=== PATIENT | female | born 1930 | race Caucasian/White ===

== ENCOUNTER 2016-11-11 14:18 | Inpatient (IN) | payer BC, OTHER ==
[2016-11-11] MEDS ORDERED: ONDANSETRON 4 MG/2 ML VIAL ONE ×2 (14:35→15:45)
[2016-11-11 14:45] VITALS: BMI 25.0
[2016-11-11] MEDS ORDERED: ONDANSETRON 4 MG/2 ML VIAL IVPUSH ONE (15:27)
[2016-11-11 16:39] LABS: BASOPHIL 0.6 % (0-2.0); EOSINOPHIL 0.9 % (0-4.5); MCH 31.5 pg (25.7-33.7); MCHC 33.6 g/dl (32.0-36.0); MEAN CELL VOLUME 93.5 fl (80-96); MEAN PLT VOLUME 8.1 fl (7.5-11.1); NEUTROPHILS 86.5 % (42.8-82.8); PLATELET COUNT 207 K/MM3 (134-434); RDW 12.8 % (11.6-15.6); WHITE BLOOD COUNT 8.2 K/mm3 (4.0-10.0)
[2016-11-11 17:06] LABS: INR 1.29 (0.82-1.09); PROTHROMBIN TIME (PATIENT) 14.3 SEC (9.98-11.88)
[2016-11-11 17:15] LABS: ALBUMIN 3.5 g/dl (3.4-5.0); ANION GAP 8 (8-16); BILIRUBIN,TOTAL 0.6 mg/dL (0.2-1.0); CALCIUM 8.3 mg/dL (8.5-10.1); CO2 26 mmol/L (21-32); CREATININE 0.9 mg/dL (0.55-1.02); GLUCOSE,RANDOM 137 mg/dL (74-106); SGOT/AST 20 U/L (15-37); SGPT/ALT 10 U/L (12-78); TOT PROT 6.5 g/dl (6.4-8.2)
[2016-11-11 17:18] LABS: ALK PHOS 127 U/L (45-117); TROPONIN I 0.02 ng/ml (0.00-0.05)
--- NOTE | 2016-11-11 17:36 | PDOC ---
History of Present Illness - General Chief Complaint: Nausea/Vomiting Stated Complaint: SIDE EFFECT FROM MED Time Seen by Provider: 11/11/16 14:22 History Source: Patient Exam Limitations: No Limitations - History of Present Illness Initial Comments: 11/11/16 16:31 86-year-old female presents to the ED with complaints of nausea and vomiting 2 hours after taking a new medication this morning. Patient now complaining of generalized abdominal cramping associated with mild generalized weakness. Patient denies fever, chills, chest pain, shortness of breath, dizziness, headache dysuria, or diarrhea. Patient states actually was constipated for the past few days and took 2 doses of MiraLAX today with minimal affect. Patient states was started on medication for Parkinson's by her PCP Dr. العلي also prescribed her a topical patch recently that caused similar symptoms of nausea with vomiting and localized rash. Timing/Duration: 4-6 hours Severity: mild, moderate Associated Symptoms: reports: nausea/vomiting, weakness Past History - Past Medical History Allergies/Adverse Reactions: Allergies Allergy/AdvReac Type Severity Reaction Status Date / Time niacin Allergy Severe Nausea Verified 11/11/16 14:42 [From Niaspan Extended-Release] sulfasalazine Allergy Severe Swelling Verified 11/11/16 14:42 [From Azulfidine] strawberry [[place]] Allergy Intermediate Vomiting Verified 11/11/16 14:42 indomethacin [From Indocin] Allergy Unknown Verified 11/11/16 14:42 indomethacin sodium Allergy Unknown Verified 11/11/16 14:42 [From Indocin] betaine AdvReac Intermediate STOMACH Verified 11/11/16 14:42 [From Cholesterol Fighter] UPSET Chitosan AdvReac Intermediate STOMACH Verified 11/11/16 14:42 [From Cholesterol Fighter] UPSET lecithin AdvReac Intermediate STOMACH Verified 11/11/16 14:42 [From Cholesterol Fighter] UPSET NSAIDS (Non-Steroidal AdvReac Intermediate STOMACH Verified 11/11/16 14:42 Anti-Inflamma UPSET Sitosterols AdvReac Intermediate STOMACH Verified 11/11/16 14:42 [From Cholesterol Fighter] UPSET cucumbers Allergy Severe Vomiting Uncoded 11/11/16 14:42 Home Medications: Ambulatory Orders Losartan Potassium 100 mg PO DAILY #0 tablet 12/19/14 Carbidopa/Levodopa [Carbidopa-Levodopa 25-100 Tab] 1 each PO TID 09/11/15 Dabigatran Etexilate Mesylate [Pradaxa -] 150 mg PO BID 09/11/15 Hydrochlorothiazide [Hctz -] 12.5 mg PO DAILY 09/11/15 Methimazole 10 mg PO DAILY 09/11/15 Rivastigmine 1 each TD DAILY 03/22/16 Amlodipine Besylate [Norvasc -] 2.5 mg PO DAILY #30 tablet 03/24/16 Ranitidine [Zantac -] 150 mg PO BID #30 tablet 03/24/16 Citalopram Hydrobromide [Citalopram HBr] 10 mg PO DAILY 11/11/16 Memantine HCl/Donepezil HCl [Namzaric 14 mg-10 mg Capsule] 1 each PO DAILY 11/11 Pramipexole Di-HCl [Mirapex] 0.25 mg PO HS 11/11/16 Anemia: No Asthma: No Cancer: Yes (RIGHT BREAST MASECTOMY) Cardiac Disorders: Yes (ATRIAL FIBRILLATION., ASHD, CHF) CVA: No COPD: No CHF: No Dementia: No Diabetes: No GI Disorders: Yes (DIVERTICULOSIS,REFLUX) Disorders: No HTN: Yes Hypercholesterolemia: Yes Liver Disease: No Seizures: No Thyroid Disease: No - Surgical History Abdominal Surgery: Yes (REMOVAL CYST ABDOMEN) Appendectomy: Yes Cardiac Surgery: No Cholecystectomy: Yes Lung Surgery: No Neurologic Surgery: No Orthopedic Surgery: No - Immunization History Immunization Up to Date: Yes - Psycho/Social/Smoking Cessation Hx Anxiety: No Suicidal Ideation: No Smoking Status: No Smoking History: Never smoked Have you smoked in the past 12 months: No Number of Cigarettes Smoked Daily: 0 If you are a former smoker, when did you quit?: Over 30 years ago Information on smoking cessation initiated: No Hx Alcohol Use: No Drug/Substance Use Hx: No Substance Use Type: None Hx Substance Use Treatment: No Patient Lives Alone: Yes Lives with/in: lives alone Review of Systems - Review of Systems Able to Perform ROS?: No Is the patient limited Cuban proficient: No Constitutional: Yes: Weakness. No: Symptoms Reported HEENTM: No: Symptoms Reported Respiratory: No: Symptoms reported Cardiac (ROS): No: Symptoms Reported ABD/GI: Yes: Constipated, Nausea, Vomiting, Abdominal cramping : No: Symptoms Reported Musculoskeletal: No: Symptoms Reported Integumentary: No: Symptoms Reported Endocrine: No: Symptoms Reported Hematologic/Lymphatic: No: Symptoms Reported *Physical Exam - Vital Signs Last Vital Signs Temp Pulse Resp BP Pulse Ox 97.8 F 63 22 197/74 97 11/11/16 14:35 11/11/16 14:35 11/11/16 14:35 11/11/16 14:35 11/11/16 14:35 - Physical Exam General Appearance: Yes: Nourished, Appropriately Dressed. No: Apparent Distress HEENT: positive: EOMI, ZENON. negative: Pale Conjunctivae Neck: positive: Supple Respiratory/Chest: positive: Lungs Clear, Normal Breath Sounds. negative: Respiratory Distress, Accessory Muscle Use Cardiovascular: positive: Regular Rhythm, Regular Rate. negative: Murmur Gastrointestinal/Abdominal: positive: Soft, Tenderness (mild epigastrc) Extremity: positive: Normal Capillary Refill. negative: Pedal Edema Integumentary: positive: Normal Color, Dry, Warm Neurologic: positive: Fully Oriented, Normal Mood/Affect, Motor Strength 5/5 Heart Score/ECG Review - History History: Slightly suspicious - Electrocardiogram EKG: Normal - Age Age: >/= 65 - Risk Factors Risk Factors Heart Score: Yes Hx Hypertension Based on the list above the patient has:: 1-2 risk factors - Troponin Troponin: </= normal limit - Score Heart Score - Total: 3 - ECG Intrepretation Rhythm: Regular Rhythm (rate 68normal sinus with PAC) ED Treatment Course - LABORATORY CBC & Chemistry Diagram: 11/11/16 15:56 11/11/16 15:56 - ADDITIONAL ORDERS Additional order review: Laboratory Results 11/11/16 11/11/16 15:56 15:56 INR 1.29 H Sodium 137 Potassium 3.9 Chloride 103 Carbon Dioxide 26 Anion Gap 8 BUN 15 Creatinine 0.9 Creat Clearance w eGFR 59.65 Random Glucose 137 H D Calcium 8.3 L Magnesium 2.0 Total Bilirubin 0.6 D AST 20 D ALT 10 L D Alkaline Phosphatase 127 H Creatine Kinase 126 Troponin I 0.02 Total Protein 6.5 Albumin 3.5 11/11/16 15:56 RBC 3.96 MCV 93.5 MCHC 33.6 RDW 12.8 MPV 8.1 Neutrophils % 86.5 H D Lymphocytes % 8.3 D Monocytes % 3.7 L Eosinophils % 0.9 D Basophils % 0.6 - RADIOLOGY Radiology Studies Ordered: Category Date Time Status HEAD CT WITHOUT CONTRAST [CT] Stat CT Scan 11/11/16 15:27 Completed CHEST X-RAY PORTABLE* [RAD] Stat Radiology 11/11/16 15:27 Completed - Medications Given in the ED: ED Medications Discontinued Medications Generic Name Dose Route Start Last Admin Trade Name Realq PRN Reason Stop Dose Admin Ondansetron HCl 4 mg 11/11/16 15:27 11/11/16 15:48 Zofran Injection IVPUSH 11/11/16 15:28 4 mg ONCE ONE Administration Medical Decision Making - Medical Decision Making 11/11/16 16:36 Patient with nausea vomiting abdominal cramping now weakness after vomiting 2. Patient states was started on a new Parkinson medication by Dr. العلي today which she took 2 hours prior to the vomiting. Patient concerning for electrolyte imbalance, cardiac etiology, intracranial pathology secondary to elevated BP despite taking her blood pressure medication. Patient ordered for labs, head CT, EKG, cardiac workup and urinalysis. Patient currently on back tender with IV access established. 11/11/16 17:43 Patient seen and assessed by Dr. العلي who wants patient to be admitted for observation due to presenting symptoms and elevated BP. Laboratory Tests 11/11/16 11/11/16 11/11/16 15:56 15:56 15:56 WBC 8.2 D Hgb 12.5 Hct 37.1 Neutrophils % 86.5 H D Monocytes % 3.7 L INR 1.29 H Sodium 137 Potassium 3.9 Chloride 103 Carbon Dioxide 26 Anion Gap 8 BUN 15 Creatinine 0.9 Creat Clearance w eGFR 59.65 Random Glucose 137 H D Calcium 8.3 L ALT 10 L D Alkaline Phosphatase 127 H Creatine Kinase 126 Troponin I 0.02 *DC/Admit/Observation/Transfer Diagnosis at time of Disposition: Abdominal pain, Nausea and vomiting, Hypertension, Weakness - Discharge Dispostion Admit: Yes
[2016-11-11] MEDS ORDERED: ACETAMINOPHEN 325 MG TABLET (FP) PO PRN (17:58)
[2016-11-11] MEDS ORDERED: ONDANSETRON 4 MG/2 ML VIAL IVPB PRN (17:59)
[2016-11-11] MEDS ORDERED: PANTOPRAZOLE SODIUM 100 ML IVPB ONE (18:32)
[2016-11-11] MEDS: PANTOPRAZOLE SODIUM 100 ML IVPB SCH (18:37)
[2016-11-11 20:33] LABS: URINE APPEARANCE CLEAR; URINE BILIRUBIN NEGATIVE (NEGATIVE); URINE COLOR STRAW; URINE GLUCOSE (UA) NEGATIVE (NEGATIVE); URINE KETONE NEGATIVE (NEGATIVE); URINE NITRITE NEGATIVE (NEGATIVE); URINE PROTEIN NEGATIVE (NEGATIVE); URINE UROBILINOGEN NEGATIVE E.U./dl (0.2-1.0)
[2016-11-11 21:57] LABS: URINE BLOOD 1+ (NEGATIVE); URINE LEUK ESTERASE 1+ (NEGATIVE)
--- NOTE | 2016-11-11 22:02 | HP ---
Admitting History and Physical - Primary Care Physician PCP: Pat العلي - Admission Chief Complaint: HYPERTENSIVE URGENCY VS EMERGENCY WITH HEADACHE/DIZZINESS/ NAUSEA AND VOMITING History of Present Illness: HISTORY HTN, AFIB, LIPIDEMIA,OA,ANXIETY,DIVERTICULOSIS, HERE WITH NAUSEA/ VOMITING/HTN/HEADACHE CT HEAD NO ACUTE CHANGES, C/O SEVERE CONSTIPATION TOOK MIRALX AND COLACE THEN VOMITED AFTER HER NEW NAMZARIC PRESCRIPTION STARTED TODAY. 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 Cardiovascular: Yes: AFIB, HTN Gastrointestinal: Yes: Diverticulosis, GERD - Past Surgical History Past Surgical History: Yes: Cholecystectomy, Hysterectomy - Smoking History Smoking history: Never smoked Have you smoked in the past 12 months: No Aproximately how many cigarettes per day: 0 If you are a former smoker, when did you quit?: Over 30 years ago - Alcohol/Substance Use Hx Alcohol Use: No Home Medications - Allergies Allergies/Adverse Reactions: Allergies Allergy/AdvReac Type Severity Reaction Status Date / Time niacin Allergy Severe Nausea Verified 11/11/16 14:42 [From Niaspan Extended-Release] sulfasalazine Allergy Severe Swelling Verified 11/11/16 14:42 [From Azulfidine] strawberry [[place]] Allergy Intermediate Vomiting Verified 11/11/16 14:42 indomethacin [From Indocin] Allergy Unknown Verified 11/11/16 14:42 indomethacin sodium Allergy Unknown Verified 11/11/16 14:42 [From Indocin] betaine AdvReac Intermediate STOMACH Verified 11/11/16 14:42 [From Cholesterol Fighter] UPSET Chitosan AdvReac Intermediate STOMACH Verified 11/11/16 14:42 [From Cholesterol Fighter] UPSET lecithin AdvReac Intermediate STOMACH Verified 11/11/16 14:42 [From Cholesterol Fighter] UPSET NSAIDS (Non-Steroidal AdvReac Intermediate STOMACH Verified 11/11/16 14:42 Anti-Inflamma UPSET Sitosterols AdvReac Intermediate STOMACH Verified 11/11/16 14:42 [From Cholesterol Fighter] UPSET cucumbers Allergy Severe Vomiting Uncoded 11/11/16 14:42 - Home Medications Home Medications: Ambulatory Orders Losartan Potassium 100 mg PO DAILY #0 tablet 12/19/14 Carbidopa/Levodopa [Carbidopa-Levodopa 25-100 Tab] 1 each PO TID 09/11/15 Dabigatran Etexilate Mesylate [Pradaxa -] 150 mg PO BID 09/11/15 Hydrochlorothiazide [Hctz -] 12.5 mg PO DAILY 09/11/15 Methimazole 10 mg PO DAILY 09/11/15 Rivastigmine 1 each TD DAILY 03/22/16 Amlodipine Besylate [Norvasc -] 2.5 mg PO DAILY #30 tablet 03/24/16 Ranitidine [Zantac -] 150 mg PO BID #30 tablet 03/24/16 Citalopram Hydrobromide [Citalopram HBr] 10 mg PO DAILY 11/11/16 Memantine HCl/Donepezil HCl [Namzaric 14 mg-10 mg Capsule] 1 each PO DAILY 11/11 Pramipexole Di-HCl [Mirapex] 0.25 mg PO HS 11/11/16 Review of Systems - Review of Systems Constitutional: reports: Weakness Eyes: reports: No Symptoms HENT: reports: No Symptoms Neck: reports: No Symptoms Cardiovascular: reports: Palpitations Respiratory: reports: No Symptoms Gastrointestinal: reports: Abdominal Pain, Nausea, Vomiting Genitourinary: reports: No Symptoms Musculoskeletal: reports: No Symptoms Integumentary: reports: No Symptoms Neurological: reports: Pre-Existing Deficit Endocrine: reports: No Symptoms Hematology/Lymphatic: reports: No Symptoms Psychiatric: reports: No Symptoms Physical Examination Vital Signs: Vital Signs Temperature 97.5 F L 11/11/16 17:58 Pulse Rate 63 11/11/16 20:16 Respiratory Rate 20 11/11/16 20:16 Blood Pressure 160/58 11/11/16 20:16 O2 Sat by Pulse Oximetry (%) 97 11/11/16 20:16 Constitutional: Yes: Mild Distress Eyes: Yes: WNL HENT: Yes: WNL Neck: Yes: WNL Cardiovascular: Yes: Pulse Irregular Respiratory: Yes: WNL Gastrointestinal: Yes: WNL Renal/: Yes: WNL Musculoskeletal: Yes: WNL Extremities: Yes: WNL Edema: No Peripheral Pulses WNL: Yes Integumentary: Yes: WNL Wound/Incision: Yes: Clean/Dry Neurological: Yes: Pre-Existing Deficit ...Motor Strength: LLE, RLE Psychiatric: Yes: Other Imaging - Results Cat Scan: Report Reviewed Problem List - Problems (1) Abdominal pain Code(s): R10.9 - UNSPECIFIED ABDOMINAL PAIN (2) Hypertension Code(s): I10 - ESSENTIAL (PRIMARY) HYPERTENSION (3) Nausea & vomiting Code(s): R11.2 - NAUSEA WITH VOMITING, UNSPECIFIED (4) Weakness Code(s): R53.1 - WEAKNESS (5) Parkinson disease Code(s): G20 - PARKINSON'S DISEASE Assessment/Plan PPI IV X 1 NOW LIQUID DIET GI EVAL CARDIO F/U NEURO EVAL, NAMZARIC CONT?? CHECK LABS RESTART BP MEDS
[2016-11-11 22:19] LABS: URINE MUCUS RARE; URINE RBC 1 /hpf (0-3); URINE WBC 3 /hpf (3-5)
[2016-11-11] MEDS: PRAMIPEXOLE DIHYDROCHLORIDE 0.25 MG TABLET PO SCH (22:33)
[2016-11-11] MEDS: CARBIDOPA/LEVODOPA 25/100 TABLET (FP) PO SCH (22:33)
[2016-11-11] MEDS: DABIGATRAN ETEXILATE MESYLATE 150 MG CAPSULE PO SCH (22:33)
[2016-11-12] MEDS: CARBIDOPA/LEVODOPA 25/100 TABLET (FP) PO SCH ×3 (06:05→21:16)
[2016-11-12 08:35] LABS: MCH 31.1 pg (25.7-33.7); MCHC 33.4 g/dl (32.0-36.0); MEAN PLT VOLUME 7.6 fl (7.5-11.1); PLATELET COUNT 223 K/MM3 (134-434); RDW 12.7 % (11.6-15.6); WHITE BLOOD COUNT 7.9 K/mm3 (4.0-10.0)
[2016-11-12 09:13] LABS: ALBUMIN 3.4 g/dl (3.4-5.0); ALK PHOS 128 U/L (45-117); ANION GAP 9 (8-16); BILIRUBIN,TOTAL 1.1 mg/dL (0.2-1.0); CALCIUM 8.6 mg/dL (8.5-10.1); CO2 25 mmol/L (21-32); CREATININE 0.9 mg/dL (0.55-1.02); GLUCOSE,RANDOM 153 mg/dL (74-106); SGOT/AST 18 U/L (15-37); SGPT/ALT 7 U/L (12-78); TOT PROT 6.5 g/dl (6.4-8.2)
--- NOTE | 2016-11-12 09:29 | PN ---
Progress Note, Physician Chief Complaint: awake alert feels as if her "stomach is rumbling" no vomiting but still nauseous - Current Medication List Current Medications: Active Medications Acetaminophen (Tylenol -) 650 mg PO Q6H PRN PRN Reason: FEVER OR PAIN Amlodipine Besylate (Norvasc -) 2.5 mg PO DAILY [facility] Carbidopa/Levodopa (Sinemet 25/100 -) 1 each PO TID [facility] Last Admin: 11/12/16 06:05 Dose: 1 each Citalopram Hydrobromide (Celexa -) 10 mg PO DAILY [facility] Dabigatran (Pradaxa -) 150 mg PO BID [facility] Last Admin: 11/11/16 22:33 Dose: 150 mg Hydrochlorothiazide (Hctz -) 12.5 mg PO DAILY [facility] Pantoprazole Sodium (Protonix 40mg Ivpb (Pre-Docked)) 100 mls @ 200 mls/hr IVPB DAILY [facility] Last Admin: 11/11/16 18:37 Dose: 200 mls/hr Losartan Potassium (Cozaar -) 100 mg PO DAILY [facility] Ondansetron HCl (Zofran Injection) 4 mg IVPB Q4H PRN PRN Reason: NAUSEA AND/OR VOMITING Last Admin: 11/12/16 05:35 Dose: 4 mg Pramipexole Dihydrochloride (Mirapex -) 0.25 mg PO HS [facility] Last Admin: 11/11/16 22:33 Dose: 0.25 mg - Objective Vital Signs: Vital Signs Temperature 98.0 F 11/12/16 09:08 Pulse Rate 65 11/12/16 09:08 Respiratory Rate 20 11/12/16 09:08 Blood Pressure 144/65 11/12/16 09:08 O2 Sat by Pulse Oximetry (%) 97 11/11/16 20:16 Constitutional: Yes: Mild Distress Eyes: Yes: WNL HENT: Yes: WNL Neck: Yes: WNL Cardiovascular: Yes: Pulse Irregular Respiratory: Yes: WNL Gastrointestinal: Yes: Distention, Other Genitourinary: Yes: WNL Musculoskeletal: Yes: Muscle Weakness Extremities: Yes: WNL Edema: Yes Edema: LLE: Trace, RLE: Trace Peripheral Pulses WNL: Yes Integumentary: Yes: WNL Wound/Incision: Yes: Clean/Dry Neurological: Yes: Pre-Existing Deficit, Unsteady Gait, Weakness ...Motor Strength: LLE, RLE Psychiatric: Yes: Other Labs: CBC, BMP 11/12/16 08:10 11/12/16 08:10 INR, PTT INR 1.29 (0.82-1.09) H 11/11/16 15:56 Problem List - Problems (1) Abdominal pain Code(s): R10.9 - UNSPECIFIED ABDOMINAL PAIN (2) Hypertension Code(s): I10 - ESSENTIAL (PRIMARY) HYPERTENSION (3) Nausea & vomiting Code(s): R11.2 - NAUSEA WITH VOMITING, UNSPECIFIED (4) Weakness Code(s): R53.1 - WEAKNESS (5) Parkinson disease Code(s): G20 - PARKINSON'S DISEASE Assessment/Plan add esr and crp am labs history diverticulosis gi eval fox prn oob to chair pt timothy
[2016-11-12 09:43] LABS: THYROID STIMULATING HORMONE 0.26 uIU/ml (0.358-3.74)
[2016-11-12 10:55] LABS: C-REACTIVE PROTEIN < 0.3 MG/DL (0.00-0.3)
[2016-11-12] MEDS ORDERED: PT OWN MED DRAWER 7, Y5N ONE (11:03)
[2016-11-12] MEDS: PANTOPRAZOLE SODIUM 100 ML IVPB SCH (11:18)
[2016-11-12] MEDS: LOSARTAN POTASSIUM 50 MG TABLET (FP) PO SCH (11:22)
[2016-11-12] MEDS: DABIGATRAN ETEXILATE MESYLATE 150 MG CAPSULE PO SCH ×2 (11:22→21:16)
[2016-11-12] MEDS: amLODIPine BESYLATE 2.5 MG TABLET (FP) PO SCH (11:24)
[2016-11-12] MEDS: HYDROCHLOROTHIAZIDE 12.5 MG CAPSULE (FP) PO SCH (11:24)
[2016-11-12] MEDS: CITALOPRAM HYDROBROMIDE 10 MG TABLET (FP) PO SCH (11:26)
--- NOTE | 2016-11-12 12:50 | CON.GI ---
Consult Consult Specialty:: GI: for Dr. Osorio Referred by:: Dr. Pat العلي Reason for Consultation:: Nausea - History of Present Illness Chief Complaint: I was nausesous and vomited History of Present Illness: 86F admitted for evaluation of nausea, vomiting, headache. She had taken Namazaric for the first time prior to the onset of her symptoms. She had been on an alternate oral medication for a month prior to this for her parkinson's that was stoppped 2 days prior. Prior to that she had been on transdermal therapy. She complains of her bowel habits not being right for several months now in that she has had more frequent constipation. Her last meaningful was several days ago. In review of [facility] it appears as though her last EGD/ Colonoscopy was in [address] Osorio that revealed hiatal hernia, mild gastritis, diverticulosis and led to the removal of a tubular adenoma. there has been no rectal bleeding. She has had nausea again today that was somewhat improved with zofran. Headache has improved. Systolic BP was 197 on admission. 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 Cardio/Vascular: Yes: AFIB, CHF, HTN Gastrointestinal: Yes: Diverticulosis (with diverticulitis), GERD - Past Surgical History Past Surgical History: Yes: Appendectomy, Cholecystectomy, Hysterectomy ([facility]) Additional Surgical History: removal of periappendiceal cyst, ovarian cyst removal, - Alcohol/Substance Use Hx Alcohol Use: No History of Substance Use: reports: None - Smoking History Smoking history: Never smoked Have you smoked in the past 12 months: No Aproximately how many cigarettes per day: 0 If you are a former smoker, when did you quit?: Over 30 years ago - Social History Usual Living Arrangement: Other () ADL: Independent Occupation: Retired: worked for [employer] Place of : [facility] History of Recent Travel: No Home Medications - Allergies Allergies/Adverse Reactions: Allergies Allergy/AdvReac Type Severity Reaction Status Date / Time niacin Allergy Severe Nausea Verified 11/11/16 14:42 [From Niaspan Extended-Release] sulfasalazine Allergy Severe Swelling Verified 11/11/16 14:42 [From Azulfidine] strawberry [[place]] Allergy Intermediate Vomiting Verified 11/11/16 14:42 indomethacin [From Indocin] Allergy Unknown Verified 11/11/16 14:42 indomethacin sodium Allergy Unknown Verified 11/11/16 14:42 [From Indocin] betaine AdvReac Intermediate STOMACH Verified 11/11/16 14:42 [From Cholesterol Fighter] UPSET Chitosan AdvReac Intermediate STOMACH Verified 11/11/16 14:42 [From Cholesterol Fighter] UPSET lecithin AdvReac Intermediate STOMACH Verified 11/11/16 14:42 [From Cholesterol Fighter] UPSET NSAIDS (Non-Steroidal AdvReac Intermediate STOMACH Verified 11/11/16 14:42 Anti-Inflamma UPSET Sitosterols AdvReac Intermediate STOMACH Verified 11/11/16 14:42 [From Cholesterol Fighter] UPSET cucumbers Allergy Severe Vomiting Uncoded 11/11/16 14:42 - Home Medications Home Medications: Ambulatory Orders Losartan Potassium 100 mg PO DAILY #0 tablet 12/19/14 Carbidopa/Levodopa [Carbidopa-Levodopa 25-100 Tab] 1 each PO TID 09/11/15 Dabigatran Etexilate Mesylate [Pradaxa -] 150 mg PO BID 09/11/15 Hydrochlorothiazide [Hctz -] 12.5 mg PO DAILY 09/11/15 Methimazole 10 mg PO DAILY 09/11/15 Rivastigmine 1 each TD DAILY 03/22/16 Amlodipine Besylate [Norvasc -] 2.5 mg PO DAILY #30 tablet 03/24/16 Ranitidine [Zantac -] 150 mg PO BID #30 tablet 03/24/16 Citalopram Hydrobromide [Citalopram HBr] 10 mg PO DAILY 11/11/16 Memantine HCl/Donepezil HCl [Namzaric 14 mg-10 mg Capsule] 1 each PO DAILY 11/11 Pramipexole Di-HCl [Mirapex] 0.25 mg PO HS 11/11/16 Family Disease History - Family Disease History Family Disease History: Other: Father ( 70: CAD), Mother (: 59 ? TB), Brother (x2 from lung ca), Sister ( 65: CVA) Other Family History: no family history of colorectal cancer Review of Systems - Review of Systems Constitutional: denies: Fever, Unintentional Wgt. Loss Eyes: denies: Blurred Vision Respiratory: denies: Cough Gastrointestinal: reports: Constipation, Nausea, Vomiting. denies: Abdominal Pain, Diarrhea, Dysphagia, Indigestion, Melena, Rectal Bleeding, Vomiting Blood Physical Exam-GI Vital Signs: Vital Signs Temperature 98.0 F 11/12/16 09:08 Pulse Rate 65 11/12/16 09:08 Respiratory Rate 20 11/12/16 09:08 Blood Pressure 144/65 11/12/16 09:08 O2 Sat by Pulse Oximetry (%) 97 11/12/16 09:00 Constitutional: Yes: Calm Eyes: No: Sclera Icterus Neck: Yes: Supple Cardiovascular: Yes: Regular Rate and Rhythm. No: Murmur Respiratory: Yes: CTA Bilaterally Gastrointestinal Inspection: Yes: Scars (+ RUQ scar, + RLQ scar) ...Auscultate: Yes: Normoactive Bowel Sounds ...Palpate: No: Hepatomegaly, Splenomegaly, Tenderness ...Percussion: No: Tympanitic ...Rectal Exam: Yes: Other (No fecal impaction, no masses, trace light brown stool guaiac negative) Edema: LLE: Trace, RLE: Trace Neurological: Yes: Alert, Oriented Labs: CBC, BMP 11/12/16 08:10 11/12/16 08:10 INR, PTT INR 1.29 (0.82-1.09) H 11/11/16 15:56 Hepatic Panel Total Bilirubin 1.1 mg/dL (0.2-1.0) H D 11/12/16 08:10 AST 18 U/L (15-37) 11/12/16 08:10 ALT 7 U/L (12-78) L D 11/12/16 08:10 Alkaline Phosphatase 128 U/L (45-117) H 11/12/16 08:10 Albumin 3.4 g/dl (3.4-5.0) 11/12/16 08:10 Problem List - Problems (1) Nausea & vomiting Assessment/Plan: Temporally the acute symptoms she describes seemed to have occurred after Namazaric was introduced into her Parkinson's regimen and may well be the culprit. She does given a more chronic complaint of persistent constipation, which in turn could contribute to nausea as well. I suspect that her chronic constipation is reflective of her parkinson's med regimen along with mirapex, amlodipine, celexa and HCTZ. Would advise the following for now: CT scan of the abdomen and pelvis with PO/IV contrast ordered. This will helps evaluate for bowel pathology as well as the liver and biliary tract in the setting of nausea and elevated alkaline phosphatase Check TSH Consider medication adjustment as feasible Bowel regimen will be adjusted pending results from CT scan Code(s): R11.2 - NAUSEA WITH VOMITING, UNSPECIFIED
--- NOTE | 2016-11-12 13:39 | EKG ---
Test Reason : Blood Pressure : / mmHG Vent. Rate : 068 BPM Atrial Rate : 068 BPM P-R Int : 148 ms QRS Dur : 096 ms QT Int : 406 ms P-R-T Axes : 069 -10 031 degrees QTc Int : 431 ms SINUS RHYTHM WITH PREMATURE ATRIAL COMPLEXES MODERATE VOLTAGE CRITERIA FOR LVH, MAY BE NORMAL VARIANT BORDERLINE ECG WHEN COMPARED WITH ECG OF 22-MAR-2016 17:25, PREMATURE ATRIAL COMPLEXES ARE NOW PRESENT T WAVE INVERSION NO LONGER EVIDENT IN LATERAL LEADS Confirmed by MATTHEW ARRIAZA, ALEX ([id number]) on 11/12/2016 1:39:00 PM Referred By: Confirmed By:ALEX CASTRO MD
--- NOTE | 2016-11-12 15:43 | CON.CARD ---
Consult Consult Specialty:: Cardiology Reason for Consultation:: HTN Urgency - History of Present Illness Chief Complaint: Constipation History of Present Illness: This is an 86 year old female with a PMH of Parkinson's, HTN, atrial fibrillation, and CHF. She is followed on the outside by Dr. Gabriel Ambrocio ( commissioning specialist). She presents now to the ED with nausea, vomiting, and worsening constipation secondary to taking a new medication for Parkinson's according to the patient. Her abdominal discomfort radiated up to her epigastic area and chest. She Took her BP at home with her home monitor and it was 240/130 mmHg. 11/12/16 Symptomatically improved but still complains of constipation. 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: Dementia, Parkinson's Cardio/Vascular: Yes: AFIB, CHF, HTN Gastrointestinal: Yes: Diverticulosis (with diverticulitis), GERD - Past Surgical History Past Surgical History: Yes: Appendectomy, Cholecystectomy, Hysterectomy (KINZA) Additional Surgical History: removal of periappendiceal cyst, ovarian cyst removal, - Alcohol/Substance Use Hx Alcohol Use: No History of Substance Use: reports: None - Smoking History Smoking history: Never smoked Have you smoked in the past 12 months: No Aproximately how many cigarettes per day: 0 If you are a former smoker, when did you quit?: Over 30 years ago - Social History Usual Living Arrangement: Other () ADL: Independent Occupation: Retired: worked for [employer] History of Recent Travel: No Home Medications - Allergies Allergies/Adverse Reactions: Allergies Allergy/AdvReac Type Severity Reaction Status Date / Time niacin Allergy Severe Nausea Verified 11/11/16 14:42 [From Niaspan Extended-Release] sulfasalazine Allergy Severe Swelling Verified 11/11/16 14:42 [From Azulfidine] strawberry [[place]] Allergy Intermediate Vomiting Verified 11/11/16 14:42 indomethacin [From Indocin] Allergy Unknown Verified 11/11/16 14:42 indomethacin sodium Allergy Unknown Verified 11/11/16 14:42 [From Indocin] betaine AdvReac Intermediate STOMACH Verified 11/11/16 14:42 [From Cholesterol Fighter] UPSET Chitosan AdvReac Intermediate STOMACH Verified 11/11/16 14:42 [From Cholesterol Fighter] UPSET lecithin AdvReac Intermediate STOMACH Verified 11/11/16 14:42 [From Cholesterol Fighter] UPSET NSAIDS (Non-Steroidal AdvReac Intermediate STOMACH Verified 11/11/16 14:42 Anti-Inflamma UPSET Sitosterols AdvReac Intermediate STOMACH Verified 11/11/16 14:42 [From Cholesterol Fighter] UPSET cucumbers Allergy Severe Vomiting Uncoded 11/11/16 14:42 - Home Medications Home Medications: Ambulatory Orders Losartan Potassium 100 mg PO DAILY #0 tablet 12/19/14 Carbidopa/Levodopa [Carbidopa-Levodopa 25-100 Tab] 1 each PO TID 09/11/15 Dabigatran Etexilate Mesylate [Pradaxa -] 150 mg PO BID 09/11/15 Hydrochlorothiazide [Hctz -] 12.5 mg PO DAILY 09/11/15 Methimazole 10 mg PO DAILY 09/11/15 Rivastigmine 1 each TD DAILY 03/22/16 Amlodipine Besylate [Norvasc -] 2.5 mg PO DAILY #30 tablet 03/24/16 Ranitidine [Zantac -] 150 mg PO BID #30 tablet 03/24/16 Citalopram Hydrobromide [Citalopram HBr] 10 mg PO DAILY 11/11/16 Memantine HCl/Donepezil HCl [Namzaric 14 mg-10 mg Capsule] 1 each PO DAILY 11/11 Pramipexole Di-HCl [Mirapex] 0.25 mg PO HS 11/11/16 Family Disease History - Family Disease History Family Disease History: Other: Father ( 70: CAD), Mother (: 59 ? TB), Brother (x2 from lung ca), Sister ( 65: CVA) Other Family History: no family history of colorectal cancer Review of Systems Unable to obtain ROS, reason: As per HPI Vital Signs: Vital Signs Temperature 98.4 F 11/12/16 14:29 Pulse Rate 61 11/12/16 14:29 Respiratory Rate 20 11/12/16 09:08 Blood Pressure 128/61 11/12/16 14:29 O2 Sat by Pulse Oximetry (%) 97 11/12/16 09:00 Constitutional: Yes: Well Nourished, No Distress Neck: Yes: WNL Respiratory: Yes: CTA Bilaterally Gastrointestinal: Yes: Soft Cardiovascular: Yes: Regular Rate and Rhythm Heart Sounds: Yes: S1, S2 (No MRHG) Extremities: Yes: WNL Edema: No Peripheral Pulses WNL: Yes Neurological: Yes: Alert, Oriented (Grossly non focal) - Other Data Labs, Other Data: CBC, BMP 11/12/16 08:10 11/12/16 08:10 INR, PTT INR 1.29 (0.82-1.09) H 11/11/16 15:56 Assessment/Plan [facility] *LIVE* HTN Urgency: Presently the BP is 128/61 mmHg Increase in BP may have been secondary to abdominal pain secondary to constipation and also nausea/vomiting secondary to a new medication Continue Losartan 100 mg PO daily/HCTZ 12.5 mg daily/Norvasc 2.5 mg daily PAFIB: continue Dabigatran 150 mg PO BID Presently in NSR Troponin level is negative, no evidence for an acute coronary syndrome. Will follow with you.
--- NOTE | 2016-11-12 18:53 | CONSULT ---
Consult - text type - Consultation Consultation Note: NEUROLOGY CONSULTATION is greatly appreciated: This 86 yo RH, woman lives alone. PMH sig for HTN, ASHD, AFib, GERD, and depression. Maintained on Nirvasc, cozaar, pradoxa, HCTZ, celexa and pantoprazole. Followed by me for Mild OMS, parkinson's disease and Restless legs syndrome (RLS ) on Sinemet CR 25/100 TID @ 7, 12, and 5 and pramipexole .25. qHS. Was on exelon patch 4.6 mg/day for OMS but developed persistent, itchy skin rashes and D/C'ed a few days ago. Yesterday started Namzaric (Donepezil 10 mg/ namenda 7 mg) and developed severe GI upset, Nausea, vomiting, dizziness and elevated BP. Pt c/o now BM x 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 ILDA: No bruits. No head trauma. Cor: Reg NEURO: Ox 3. Mild OMS. Recalls 1 of 3 @ 3 mins. No frontal release. Fluent speech Masked facies. Hard of hearing. Gag fine Mild bradykinesia. No tremor. Mod cogwheeling with reinforcement. Normal reflexes. Reduced AJ's. Toes downgoing No FTN dystaxia Normal sensation. Romberg Neg. Sl flexed, shuffling gait. IMP: 1. Mild OMS 2. Parkinson's Disease/RLS. 3. Adverse affect of Namzarec initiation. Suggest: Begin Donepezil 5 mg after breakfast in a few days. Namenda (Mementine) can only be added to patients already tolerating established doses of donepezil. In one month we will increase donepezil to 10 mg after breakfast. Any form of Mementine can be added in three months and gradually increased over 1 month to full doses if tolerated. Continue Sinemet CR 25/100 TID and pramipexole .25 q HS. Constipation is seen in 2/3 of patients with PD and often responds to a regular bowel program of stool softeners, hydration and laxatives Thank you very much, Wan Finch MD
[2016-11-12] MEDS: PRAMIPEXOLE DIHYDROCHLORIDE 0.25 MG TABLET PO SCH (21:16)
[2016-11-13] MEDS: CARBIDOPA/LEVODOPA 25/100 TABLET (FP) PO SCH ×3 (06:11→22:02)
--- NOTE | 2016-11-13 10:04 | PN ---
Progress Note, Physician Chief Complaint: +CONSTIPATION NAUSEA RESOLVING CT REPORT REVIEWED - Current Medication List Current Medications: Active Medications Acetaminophen (Tylenol -) 650 mg PO Q6H PRN PRN Reason: FEVER OR PAIN Amlodipine Besylate (Norvasc -) 2.5 mg PO DAILY [facility] Last Admin: 11/12/16 11:24 Dose: 2.5 mg Carbidopa/Levodopa (Sinemet 25/100 -) 1 each PO TID [facility] Last Admin: 11/13/16 06:11 Dose: 1 each Citalopram Hydrobromide (Celexa -) 10 mg PO DAILY [facility] Last Admin: 11/12/16 11:26 Dose: Not Given Dabigatran (Pradaxa -) 150 mg PO BID [facility] Last Admin: 11/12/16 21:16 Dose: 150 mg Hydrochlorothiazide (Hctz -) 12.5 mg PO DAILY [facility] Last Admin: 11/12/16 11:24 Dose: 12.5 mg Pantoprazole Sodium (Protonix 40mg Ivpb (Pre-Docked)) 100 mls @ 200 mls/hr IVPB DAILY [facility] Last Admin: 11/12/16 11:18 Dose: 200 mls/hr Losartan Potassium (Cozaar -) 100 mg PO DAILY [facility] Last Admin: 11/12/16 11:22 Dose: 100 mg Ondansetron HCl (Zofran Injection) 4 mg IVPB Q4H PRN PRN Reason: NAUSEA AND/OR VOMITING Last Admin: 11/12/16 05:35 Dose: 4 mg Pramipexole Dihydrochloride (Mirapex -) 0.25 mg PO HS [facility] Last Admin: 11/12/16 21:16 Dose: 0.25 mg - Objective Vital Signs: Vital Signs Temperature 98.6 F 11/13/16 05:55 Pulse Rate 61 11/13/16 05:55 Respiratory Rate 20 11/13/16 05:55 Blood Pressure 131/78 11/13/16 05:55 O2 Sat by Pulse Oximetry (%) 96 11/12/16 20:31 Constitutional: Yes: Mild Distress Eyes: Yes: WNL HENT: Yes: WNL Neck: Yes: WNL Cardiovascular: Yes: Pulse Irregular Respiratory: Yes: WNL Gastrointestinal: Yes: Abdomen, Obese Genitourinary: Yes: WNL Musculoskeletal: Yes: WNL Extremities: Yes: WNL Edema: No Peripheral Pulses WNL: Yes Integumentary: Yes: WNL Wound/Incision: Yes: Clean/Dry Neurological: Yes: Pre-Existing Deficit, Unsteady Gait, Weakness ...Motor Strength: LLE, RLE Psychiatric: Yes: Other Labs: CBC, BMP 11/12/16 08:10 11/12/16 08:10 INR, PTT INR 1.29 (0.82-1.09) H 11/11/16 15:56 Problem List - Problems (1) Abdominal pain Code(s): R10.9 - UNSPECIFIED ABDOMINAL PAIN (2) Hypertension Code(s): I10 - ESSENTIAL (PRIMARY) HYPERTENSION (3) Nausea & vomiting Code(s): R11.2 - NAUSEA WITH VOMITING, UNSPECIFIED (4) Weakness Code(s): R53.1 - WEAKNESS (5) Parkinson disease Code(s): G20 - PARKINSON'S DISEASE Assessment/Plan CT + PANCREATIC HYPODENSITY GI F/U MOM X 1 NOW PT EVAL NEURO F/U FOR DEMENTIA/PARKINSONS
[2016-11-13] MEDS ORDERED: MAGNESIUM HYDROX 2400MG/30ML ORAL SUSPENSION 30 ML CUP PO ONE (10:45)
[2016-11-13] MEDS ORDERED: PT OWN MED DRAWER 7, Y5N ONE ×2 (10:49→21:32)
[2016-11-13] MEDS: DABIGATRAN ETEXILATE MESYLATE 150 MG CAPSULE PO SCH ×2 (10:56→22:02)
[2016-11-13] MEDS: amLODIPine BESYLATE 2.5 MG TABLET (FP) PO SCH (10:56)
[2016-11-13] MEDS: HYDROCHLOROTHIAZIDE 12.5 MG CAPSULE (FP) PO SCH (10:56)
[2016-11-13] MEDS: LOSARTAN POTASSIUM 50 MG TABLET (FP) PO SCH (10:56)
[2016-11-13] MEDS: CITALOPRAM HYDROBROMIDE 10 MG TABLET (FP) PO SCH (10:57)
[2016-11-13] MEDS ORDERED: MAGNESIUM CITRATE 300 ML BOTTLE PO ONE ×4 (11:30→16:15)
[2016-11-13] MEDS: PANTOPRAZOLE SODIUM 100 ML IVPB SCH (12:28)
--- NOTE | 2016-11-13 16:51 | PN ---
Progress Note, Physician Chief Complaint: Remains comfortable History of Present Illness: This is an 86 year old female with a PMH of Parkinson's, HTN, atrial fibrillation, and CHF. She is followed on the outside by Dr. Gabriel Ambrocio ( plans examiner). She presents now to the ED with nausea, vomiting, and worsening constipation secondary to taking a new medication for Parkinson's according to the patient. Her abdominal discomfort radiated up to her epigastic area and chest. She Took her BP at home with her home monitor and it was 240/130 mmHg. 11/12/16 Symptomatically improved but still complains of constipation. 11/13/16 Offers no new complaints. - Current Medication List Current Medications: Active Medications Acetaminophen (Tylenol -) 650 mg PO Q6H PRN PRN Reason: FEVER OR PAIN Amlodipine Besylate (Norvasc -) 2.5 mg PO DAILY [facility] Last Admin: 11/13/16 10:56 Dose: 2.5 mg Carbidopa/Levodopa (Sinemet 25/100 -) 1 each PO TID [facility] Last Admin: 11/13/16 14:09 Dose: 1 each Citalopram Hydrobromide (Celexa -) 10 mg PO DAILY [facility] Last Admin: 11/13/16 10:57 Dose: 10 mg Dabigatran (Pradaxa -) 150 mg PO BID [facility] Last Admin: 11/13/16 10:56 Dose: 150 mg Hydrochlorothiazide (Hctz -) 12.5 mg PO DAILY [facility] Last Admin: 11/13/16 10:56 Dose: 12.5 mg Pantoprazole Sodium (Protonix 40mg Ivpb (Pre-Docked)) 100 mls @ 200 mls/hr IVPB DAILY [facility] Last Admin: 11/13/16 12:28 Dose: 200 mls/hr Losartan Potassium (Cozaar -) 100 mg PO DAILY [facility] Last Admin: 11/13/16 10:56 Dose: 100 mg Ondansetron HCl (Zofran Injection) 4 mg IVPB Q4H PRN PRN Reason: NAUSEA AND/OR VOMITING Last Admin: 11/12/16 05:35 Dose: 4 mg Pramipexole Dihydrochloride (Mirapex -) 0.25 mg PO HS [facility] Last Admin: 11/12/16 21:16 Dose: 0.25 mg - Objective Vital Signs: Vital Signs Temperature 98.6 F 11/13/16 14:33 Pulse Rate 70 11/13/16 14:33 Respiratory Rate 20 11/13/16 05:55 Blood Pressure 141/72 11/13/16 14:33 O2 Sat by Pulse Oximetry (%) 96 11/12/16 20:31 Constitutional: Yes: Well Nourished Neck: Yes: WNL Cardiovascular: Yes: Regular Rate and Rhythm, S1, S2 (No MRHG) Gastrointestinal: Yes: Soft Extremities: Yes: WNL Edema: No Neurological: Yes: Alert, Oriented (Grossly nonfocal) Labs: CBC, BMP 11/12/16 08:10 11/12/16 08:10 INR, PTT INR 1.29 (0.82-1.09) H 11/11/16 15:56 Assessment/Plan [facility] *[facility]IVE* HTN Urgency: Presently the BP is 141/72 mmHg Increase in BP may have been secondary to abdominal pain secondary to constipation and also nausea/vomiting secondary to a new medication Continue Losartan 100 mg PO daily/HCTZ 12.5 mg daily/Norvasc 2.5 mg daily PAFIB: continue Dabigatran 150 mg PO BID Presently in NSR Troponin level is negative, no evidence for an acute coronary syndrome. Call us prn
--- NOTE | 2016-11-13 17:06 | PN ---
GI Progress Note Subjective: Nausea improved No abdominal pain Had small BM today after MOM CT scan revealed hypodensity in pancreas that has enlarged from previous study - Objective Vital Signs: Vital Signs Temperature 98.6 F 11/13/16 14:33 Pulse Rate 70 11/13/16 14:33 Respiratory Rate 20 11/13/16 05:55 Blood Pressure 141/72 11/13/16 14:33 O2 Sat by Pulse Oximetry (%) 96 11/12/16 20:31 Constitutional: Calm Eyes: No: Sclera Icterus Cardiovascular: Yes: Regular Rate and Rhythm Respiratory: Yes: CTA Bilaterally Gastrointestinal Inspection: No: Distention ...Auscultate: Yes: Normoactive Bowel Sounds ...Palpate: No: Tenderness Neurological: Yes: Alert Labs: CBC, BMP 11/12/16 08:10 11/12/16 08:10 INR, PTT INR 1.29 (0.82-1.09) H 11/11/16 15:56 Problem List - Problems (1) Nausea & vomiting Assessment/Plan: Nausea resolved Suspect secondary to recent change in med regimen Code(s): R11.2 - NAUSEA WITH VOMITING, UNSPECIFIED (2) Constipation Assessment/Plan: Received MOM today Will dose mag citrate MiraLAX 17g daily Code(s): K59.00 - CONSTIPATION, UNSPECIFIED Qualifiers: Constipation type: unspecified constipation type Qualified Code(s): K59.00 - Constipation, unspecified (3) Low TSH level Assessment/Plan: Will need further eval. Free T4 / Free T3 Code(s): R94.6 - ABNORMAL RESULTS OF THYROID FUNCTION STUDIES
[2016-11-13] MEDS ORDERED: HEPARIN NA (PORCINE) 5,000 UNITS/ML 1ML VIAL ONE (21:45)
[2016-11-13] MEDS: PRAMIPEXOLE DIHYDROCHLORIDE 0.25 MG TABLET PO SCH (22:02)
[2016-11-14] MEDS: CARBIDOPA/LEVODOPA 25/100 TABLET (FP) PO SCH (06:39)
--- NOTE | 2016-11-14 08:23 | DS ---
Physical Examination Vital Signs: Vital Signs Temperature 98.3 F 11/14/16 05:47 Pulse Rate 60 11/14/16 05:47 Respiratory Rate 20 11/14/16 05:47 Blood Pressure 130/70 11/13/16 23:09 O2 Sat by Pulse Oximetry (%) 97 11/13/16 21:00 Constitutional: Yes: No Distress Eyes: Yes: WNL HENT: Yes: WNL Neck: Yes: WNL Cardiovascular: Yes: Pulse Irregular Respiratory: Yes: WNL Gastrointestinal: Yes: WNL Renal/: Yes: WNL Musculoskeletal: Yes: Muscle Weakness Extremities: Yes: WNL Edema: Yes Edema: LLE: Trace, RLE: Trace Peripheral Pulses WNL: Yes Integumentary: Yes: WNL Wound/Incision: Yes: Clean/Dry Neurological: Yes: Paresthesia, Pre-Existing Deficit ...Motor Strength: LLE, RLE Psychiatric: Yes: Other Labs: CBC, BMP 11/12/16 08:10 11/12/16 08:10 Discharge Summary Reason For Visit: WEAKNESS NAUSEA VOMITING Current Active Problems Abdominal pain (Acute) Hypertension (Acute) Low TSH level (Acute) Nausea & vomiting (Acute) Weakness (Acute) Procedures: Principal: CT ABD Other Procedures: LABS Hospital Course: ADMITTED WORKED UP GI PAIN/CONSTIPATION, VOMITING, HYPERTENSION, CT ABD SHOWS PANCREATIC DENSITY, WILL REPEAT OUTPATIENT. AT THIS TIME PATIENT IS DECLINING ANY AGGRESSIVE INTERVENTION OR TREATMENT FOR PANCREATIC SUSPICION OF NEOPLASM. Condition: Fair - Instructions Diet, Activity, Other Instructions: SEE DR العلي 2 WEEKS FO0R THYROID LAB F/U LOW SODIUM Referrals: Thania Osorio MD [Staff Physician] - Pat العلي MD [Primary Care Provider] - Disposition: VNS/HOME HEALTH CARE - Home Medications Comprehensive Discharge Medication List: Ambulatory Orders Losartan Potassium 100 mg PO DAILY #0 tablet 12/19/14 Carbidopa/Levodopa [Carbidopa-Levodopa 25-100 Tab] 1 each PO TID 09/11/15 Dabigatran Etexilate Mesylate [Pradaxa -] 150 mg PO BID 09/11/15 Hydrochlorothiazide [Hctz -] 12.5 mg PO DAILY 09/11/15 Methimazole 10 mg PO DAILY 09/11/15 Amlodipine Besylate [Norvasc -] 2.5 mg PO DAILY #30 tablet 03/24/16 Ranitidine [Zantac -] 150 mg PO BID #30 tablet 03/24/16 Citalopram Hydrobromide [Citalopram HBr] 10 mg PO DAILY 11/11/16 Acetaminophen [Tylenol .Regular Strength -] 650 mg PO Q6H PRN #0 tablet Amlodipine Besylate [Norvasc -] 2.5 mg PO DAILY tablet 11/14/16 Carbidopa/Levodopa 25/100 [Sinemet 25/100 -] 1 each PO TID tablet 11/14/16 Citalopram Hydrobromide [Celexa -] 10 mg PO DAILY tablet 11/14/16 Dabigatran Etexilate Mesylate [Pradaxa -] 150 mg PO BID cap 11/14/16 Hydrochlorothiazide [Hctz -] 12.5 mg PO DAILY cap 11/14/16 Losartan Potassium [Cozaar -] 100 mg PO DAILY tablet 11/14/16 Magnesium Hydroxide [Milk of Magnesia] 400 mg PO DAILY PRN #1 oral.susp MDD 30CC 11/14/16 Ondansetron [Zofran Odt -] 4 mg GT QID #60 tab.rapdis 11/14/16 Pramipexole Dihydrochloride [Mirapex -] 0.25 mg PO HS tablet 11/14/16
[2016-11-14 09:17] VITALS: BP 135/76; PULSE 73; TEMP 98
[2016-11-14] MEDS: DABIGATRAN ETEXILATE MESYLATE 150 MG CAPSULE PO SCH (09:32)
[2016-11-14] MEDS: LOSARTAN POTASSIUM 50 MG TABLET (FP) PO SCH (09:33)
[2016-11-14] MEDS: HYDROCHLOROTHIAZIDE 12.5 MG CAPSULE (FP) PO SCH (09:33)
[2016-11-14] MEDS: amLODIPine BESYLATE 2.5 MG TABLET (FP) PO SCH (09:33)
[2016-11-14] MEDS: PANTOPRAZOLE SODIUM 100 ML IVPB SCH (09:33)
[2016-11-14] MEDS: CITALOPRAM HYDROBROMIDE 10 MG TABLET (FP) PO SCH (09:34)
== END 2016-11-14 12:27 | disposition home health service (06) | DRG 392 ==
LOC: JER 14:18 → JERBED 17:45 → OBSVTOIN 17:53 → J6S 20:46
PROVIDERS: ADMIT Family Medicine; ATTEND Family Medicine
DX: K59.03 Drug induced constipation (principal); I16.0 Hypertensive urgency; F41.9 Anxiety disorder, unspecified; K57.90 Diverticulosis of intestine, part unspecified, without perforation or abscess without bleeding; G20 Parkinson's disease; K21.9 Gastro-esophageal reflux disease without esophagitis; I11.0 Hypertensive heart disease with heart failure; Z87.891 Personal history of nicotine dependence; I50.9 Heart failure, unspecified; I48.0 Paroxysmal atrial fibrillation; I25.10 Atherosclerotic heart disease of native coronary artery without angina pectoris; F32.9 Major depressive disorder, single episode, unspecified; T50.995A Adverse effect of other drugs, medicaments and biological substances, initial encounter; K86.9 Disease of pancreas, unspecified; R94.6 Abnormal results of thyroid function studies; Z80.1 Family history of malignant neoplasm of trachea, bronchus and lung
CPT/HCPCS: 36415; 70450-TC; 71010-TC; 74177-TC; 80053; 81003; 81015; 82550; 83735; 84439; 84443; 84481; 84484; 85025; 85027; 85610; 85651; 86140; 93005; 93010; 97116-GP; 97161-GP; 99283-25; G0378; J1644; Q9967

== ENCOUNTER 2017-01-08 03:36 | Inpatient (IN) | payer OTHER ==
[2017-01-08] MEDS ORDERED: dilTIAZem HCL 125 MG/25 ML - 25 ML VIAL ONE ×2 (03:45→03:57)
--- NOTE | 2017-01-08 03:55 | PDOC ---
History of Present Illness - General Chief Complaint: Palpitations Stated Complaint: IRREGULAR HEART BEAT Time Seen by Provider: 01/08/17 03:52 History Source: Patient Exam Limitations: No Limitations - History of Present Illness Initial Comments: 01/08/17 03:55 86 year old female with pmh significant for paroxysmal atrial fibrillation, chf , htn, Parkinson disease, gerd and a recent CVA BIBA after waking with a heaviness/dull pain in her chest. she also felt a tightness in her neck and thought her bp was high but didn't take anything because she was unable to measure her her blood pressure on two different machines. Her daughter claims that the patient normally has a regular rhythm but according to the patient she has been feeling more incidents of arrhythmias recently that typically last less than a minute. Patient's daughter states her mother has been under a lot of stress lately. PCP: Dr. العلي Regular informatics developer is Gabriel Ambrocio @ [facility]. He referred Raymon Sabra or Mj Pearl for patient when she presents at [facility] Past History - Past Medical History Allergies/Adverse Reactions: Allergies Allergy/AdvReac Type Severity Reaction Status Date / Time niacin Allergy Severe Nausea Verified 01/08/17 03:44 [From Niaspan Extended-Release] sulfasalazine Allergy Severe Swelling Verified 01/08/17 03:44 [From Azulfidine] strawberry [[place]] Allergy Intermediate Vomiting Verified 01/08/17 03:44 indomethacin [From Indocin] Allergy Unknown Verified 01/08/17 03:44 indomethacin sodium Allergy Unknown Verified 01/08/17 03:44 [From Indocin] betaine AdvReac Intermediate STOMACH Verified 01/08/17 03:44 [From Cholesterol Fighter] UPSET Chitosan AdvReac Intermediate STOMACH Verified 01/08/17 03:44 [From Cholesterol Fighter] UPSET lecithin AdvReac Intermediate STOMACH Verified 01/08/17 03:44 [From Cholesterol Fighter] UPSET NSAIDS (Non-Steroidal AdvReac Intermediate STOMACH Verified 01/08/17 03:44 Anti-Inflamma UPSET Sitosterols AdvReac Intermediate STOMACH Verified 01/08/17 03:44 [From Cholesterol Fighter] UPSET cucumbers Allergy Severe Vomiting Uncoded 01/08/17 03:44 Home Medications: Ambulatory Orders Citalopram Hydrobromide [Citalopram HBr] 10 mg PO DAILY 01/08/17 Hydrochlorothiazide [Hctz -] 12.5 mg PO DAILY 01/08/17 Pramipexole Di-HCl [Mirapex] 0.25 mg PO HS 01/08/17 Rivastigmine Tartrate [Rivastigmine] 1.5 mg PO BID 01/08/17 Acetaminophen [Tylenol .Regular Strength -] 650 mg PO Q6H PRN #0 tablet Carbidopa/Levodopa 25/100 [Sinemet 25/100 -] 1 each PO TID tablet 01/09/17 Dabigatran Etexilate Mesylate [Pradaxa -] 150 mg PO BID cap 01/09/17 Losartan Potassium [Cozaar -] 100 mg PO DAILY tablet 01/09/17 Ranitidine [Zantac -] 150 mg PO BID tablet 01/09/17 Nifedipine [Procardia Xl] 30 mg PO PRN 01/12/17 Anemia: No Asthma: No Cancer: Yes (RIGHT BREAST MASECTOMY) Cardiac Disorders: Yes (ATRIAL FIBRILLATION., ASHD, CHF) CVA: No COPD: No CHF: No Dementia: No Diabetes: No GI Disorders: Yes (DIVERTICULOSIS,REFLUX) Disorders: No HTN: Yes Hypercholesterolemia: Yes Liver Disease: No Seizures: No Thyroid Disease: No - Surgical History Abdominal Surgery: Yes (REMOVAL CYST ABDOMEN) Appendectomy: Yes Cardiac Surgery: No Cholecystectomy: Yes Lung Surgery: No Neurologic Surgery: No Orthopedic Surgery: No - Immunization History Immunization Up to Date: Yes - Psycho/Social/Smoking Cessation Hx Anxiety: No Suicidal Ideation: No Smoking Status: No Smoking History: Never smoked Have you smoked in the past 12 months: No Number of Cigarettes Smoked Daily: 0 If you are a former smoker, when did you quit?: Over 30 years ago Information on smoking cessation initiated: No Hx Alcohol Use: No Drug/Substance Use Hx: No Substance Use Type: None Hx Substance Use Treatment: No Review of Systems - Review of Systems Able to Perform ROS?: Yes Is the patient limited Trinidadian proficient: No Constitutional: No: Chills, Diaphoresis, Fever HEENTM: Yes: Recent change in vision (2/2 recent cva) Respiratory: No: Cough, Shortness of Breath Cardiac (ROS): Yes: Chest Pain (dull pain), Irregular Heart Rate, Palpitations, Chest Tightness (crushing heaviness in the center of her chest). No: Edema ABD/GI: No: Constipated, Diarrhea, Nausea, Vomiting : No: Dysuria Neurological: No: Headache *Physical Exam - Vital Signs Last Vital Signs Temp Pulse Resp BP Pulse Ox 97.1 F L 123 H 20 137/72 97 01/08/17 03:44 01/08/17 03:44 01/08/17 03:44 01/08/17 03:44 01/08/17 03:44 - Physical Exam General Appearance: Yes: Nourished, Appropriately Dressed HEENT: positive: Hearing Decreased Respiratory/Chest: positive: Lungs Clear, Normal Breath Sounds. negative: Respiratory Distress Cardiovascular: positive: Tachycardia, Irregularly Irregular. negative: Edema Gastrointestinal/Abdominal: positive: Normal Bowel Sounds. 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 II-XII NML intact, Fully Oriented, Alert, Other (no ataxia, normal gait) ED Treatment Course - LABORATORY CBC & Chemistry Diagram: 01/09/17 05:35 01/09/17 05:35 Medical Decision Making - Medical Decision Making 01/08/17 03:55 86 yo female with history of paroxysmal atrial fibrillation presenting with tachycardia and an reg irreg rhythm ddx includes but is not limited to paroxysmal afib, allergic rxn, acs, chf iv, equipment monitor phototypesetting ekg rate control cardiac enzymes Monitor and reassess Patient started on Dilt to manage rate 01/08/17 04:31 Patient started having a local reaction at the IV site after starting diltiezem , given benedryl Per Dr. Rodriguez ordered 0.5 digoxin 01/08/17 04:35 heart rate declined to upper 90s after receiving diphehydramine CBC WBC 7.7 K/mm3 (4.0-10.0) 01/08/17 03:54 RBC 4.07 M/mm3 (3.60-5.2) 01/08/17 03:54 Hgb 12.8 GM/dL (10.7-15.3) 01/08/17 03:54 Hct 37.9 % (32.4-45.2) 01/08/17 03:54 MCV 93.1 fl (80-96) 01/08/17 03:54 MCH 31.3 pg (25.7-33.7) 01/08/17 03:54 MCHC 33.7 g/dl (32.0-36.0) 01/08/17 03:54 RDW 12.5 % (11.6-15.6) 01/08/17 03:54 Plt Count 260 K/MM3 (134-434) 01/08/17 03:54 MPV 7.9 fl (7.5-11.1) 01/08/17 03:54 Neutrophils % 76.0 % (42.8-82.8) 01/08/17 03:54 Lymphocytes % 11.7 % (8-40) D 01/08/17 03:54 Monocytes % 7.5 % (3.8-10.2) D 01/08/17 03:54 Eosinophils % 4.1 % (0-4.5) D 01/08/17 03:54 Basophils % 0.7 % (0-2.0) 01/08/17 03:54 within normal limits. CMP Sodium 139 mmol/L (136-145) 01/08/17 03:54 Potassium 3.1 mmol/L (3.5-5.1) L D 01/08/17 03:54 Chloride 106 mmol/L (98-107) 01/08/17 03:54 Carbon Dioxide 23 mmol/L (21-32) 01/08/17 03:54 Anion Gap 10 (8-16) 01/08/17 03:54 BUN 13 mg/dL (7-18) 01/08/17 03:54 Creatinine 0.9 mg/dL (0.55-1.02) 01/08/17 03:54 Creat Clearance w eGFR 59.65 (>60) 01/08/17 03:54 Random Glucose 149 mg/dL (74-106) H 01/08/17 03:54 Calcium 8.1 mg/dL (8.5-10.1) L 01/08/17 03:54 Total Bilirubin 0.6 mg/dL (0.2-1.0) D 01/08/17 03:54 AST 14 U/L (15-37) L D 01/08/17 03:54 ALT 7 U/L (12-78) L 01/08/17 03:54 Alkaline Phosphatase 116 U/L (45-117) 01/08/17 03:54 Creatine Kinase 76 IU/L (26-192) 01/08/17 03:54 Troponin I 0.02 ng/ml (0.00-0.05) 01/08/17 03:54 Total Protein 6.3 g/dl (6.4-8.2) L 01/08/17 03:54 Albumin 3.2 g/dl (3.4-5.0) L 01/08/17 03:54 cardiac enzymes reassuring mild hypokalemia, PO repletion otherwise grossly within normal limits 01/08/17 05:21 Patient became tachy and hypertensive after going to the bath room gave patient her morning medicine per Dr. Rodriguez 01/08/17 06:13 Elevated INR (1.29) may not be useful in context of pradaxa Elevated aPTT (55.6) Patient on pradaxa Spoke with Dr. العلي who approved admission to [facility]. 01/08/17 06:43 Patient remains slightly bradycardic in regular rhythm (56) with a PBP of 142/71 *DC/Admit/Observation/Transfer Diagnosis at time of Disposition: Palpitations, Rapid atrial fibrillation - Discharge Dispostion Disposition: VNS/HOME HEALTH CARE - Referrals - Attestations Physician Attestion: I, Dr. Timothy Torres, attest that this document has been prepared under my direction and personally reviewed by me in its entirety. I further attest, that it accurately reflects all work, treatment, procedures and medical decision -making performed by me.
[2017-01-08] MEDS ORDERED: dilTIAZem HCL 50 MG/10 ML - 10 ML VIAL IVPUSH ONE (03:56)
[2017-01-08 04:01] LABS: BASOPHIL 0.7 % (0-2.0); EOSINOPHIL 4.1 % (0-4.5); MCH 31.3 pg (25.7-33.7); MCHC 33.7 g/dl (32.0-36.0); MEAN CELL VOLUME 93.1 fl (80-96); MEAN PLT VOLUME 7.9 fl (7.5-11.1); PLATELET COUNT 260 K/MM3 (134-434); RDW 12.5 % (11.6-15.6); WHITE BLOOD COUNT 7.7 K/mm3 (4.0-10.0)
[2017-01-08 04:19] LABS: INR 1.29 (0.82-1.09); PROTHROMBIN TIME (PATIENT) 14.3 SEC (9.98-11.88)
[2017-01-08] MEDS ORDERED: DIGOXIN 0.5 MG/2 ML AMPUL ONE (04:19)
[2017-01-08] MEDS ORDERED: DIGOXIN 0.5 MG/2 ML AMPUL IVPUSH ONE (04:34)
[2017-01-08 04:40] LABS: ALBUMIN 3.2 g/dl (3.4-5.0); ANION GAP 10 (8-16); BILIRUBIN,TOTAL 0.6 mg/dL (0.2-1.0); CALCIUM 8.1 mg/dL (8.5-10.1); CO2 23 mmol/L (21-32); CPK 76 IU/L (26-192); CREATININE 0.9 mg/dL (0.55-1.02); GLUCOSE,RANDOM 149 mg/dL (74-106); SGOT/AST 14 U/L (15-37); SGPT/ALT 7 U/L (12-78); TOT PROT 6.3 g/dl (6.4-8.2)
[2017-01-08 04:42] LABS: ALK PHOS 116 U/L (45-117); TROPONIN I 0.02 ng/ml (0.00-0.05)
[2017-01-08] MEDS ORDERED: POTASSIUM CHLORIDE TABS 20 MEQ TABLET.ER (FP) PO ONE ×2 (04:43→04:44)
--- NOTE | 2017-01-08 04:44 | PDOC ---
Attending Attestation - HPI HPI: 01/08/17 04:51 The patient is a 86 year old female with a significant past medical history of TIA with residual visual deficits (several days ago), CHF, diverticulitis, Parkinsons Disease (early onset), Afib, and HTN who presents to the ED, via EMS , with complaints of chest discomfort. Patient reports she woke up from her sleep at 2 am this morning secondary to feeling heaviness on her chest. She notes her chest discomfort does not feel like pain but more like a dull-like sensation. Patient reports she tried to check her blood pressure but was unsuccessful secondary to her blood pressure machine not working. Denies fever or chills. Denies shortness of breath or cough. Denies nausea, vomiting, or diarrhea. Denies any other symptoms. CONSTITUTIONAL: Absent: fever, no chills, no fatigue EYES: Absent: visual changes ENT: Absent: ear pain, no sore throat CARDIOVASCULAR: + chest discomfort RESPIRATORY: Absent: cough, no SOB GI: Absent: abdominal pain, no nausea, no vomiting, no constipation, no diarrhea GENITOURINARY: Absent: dysuria, no frequency, no hematuria MUSKULOSKELETAL: Absent: back pain, no arthralgia, no myalgia SKIN: Absent: rash NEURO: Absent: headache Documentation prepared by Aspen Johnson, acting as medical examiner for Mervin Rodriguez MD <Aspen Johnson - Last Filed: 01/08/17 04:51> - Resident Resident Name: Timothy Torres - ED Attending Attestation I have performed the following: I have examined & evaluated the patient, The case was reviewed & discussed with the resident, I agree w/resident's findings & plan, Exceptions are as noted - Physicial Exam PE: 01/08/17 05:44 *Physical Exam General Appearance: Yes: Appropriately Dressed. No: Apparent Distress, Intoxicated HEENT: positive: EOMI, ZENON, Normal ENT Inspection, Normal Voice, TMs Normal, Pharynx Normal. negative: Pale Conjunctivae, Photophobia, Scleral Icterus (R), Scleral Icterus (L) Neck: positive: Trachea midline, Normal Thyroid, Supple. negative: Tender, Rigid, Carotid bruit, Stridor, Lymphadenopathy (R), Lymphadenopathy (L), Thyromegaly Respiratory/Chest: positive: Lungs Clear, Normal Breath Sounds. negative: Chest Tender, Respiratory Distress, Accessory Muscle Use, Labored Respiration, RES, Crackles, Rales, Rhonchi, Stridor, Wheezing, Dullness Cardiovascular: positive: Irregular irregular Rate, S1, S2. negative: Edema, JVD, Murmur, Bradycardia, Tachycardia Vascular Pulses: Dorsalis-Pedis (R): 2+, Doralis-Pedis (L): 2+ Gastrointestinal/Abdominal: positive: Normal Bowel Sounds, Flat, Soft. negative : Tender, Organomegaly, Pulsatile Mass, Increased Bowel Sounds, Decreased BS, Distended, Guarding, Rebound, Hernia, Hepatomegaly, Spleenomegaly Lymphatic: negative: Adenopathy, Tenderness Musculoskeletal: positive: Normal Inspection. negative: CVA Tenderness, Decreased Range of Motion Extremity: positive: Normal Capillary Refill, Normal Inspection, Normal Range of Motion, Pelvis Stable. negative: Tender, Pedal Edema, Swelling, Erythema Integumentary: positive: Normal Color, Dry, Warm. 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 negative: EOM Palsy, Facial Droop, Sensory Deficit - Medical Decision Making 01/08/17 19:39 Pt admitted to telelmetry to Dr. Reed service for afib. <Mervin Rodriguez - Last Filed: 01/08/17 19:40> Discharge Disposition <Aspen Johnson - Last Filed: 01/08/17 04:51> - Discharge Dispostion Last Admission D/C Date: 11/14/16 Admit: Yes <Mervin Rodriguez - Last Filed: 01/08/17 19:40> - Diagnosis Palpitations, Rapid atrial fibrillation - Referrals
[2017-01-08] MEDS ORDERED: HYDROCHLOROTHIAZIDE 25 MG TABLET (FP) PO ONE (05:18)
[2017-01-08] MEDS ORDERED: DABIGATRAN ETEXILATE MESYLATE 150 MG CAPSULE PO ONE (05:18)
[2017-01-08] MEDS ORDERED: LOSARTAN POTASSIUM 50 MG TABLET (FP) PO ONE (05:20)
[2017-01-08 05:52] LABS: URINE APPEARANCE CLEAR; URINE BILIRUBIN NEGATIVE (NEGATIVE); URINE BLOOD TRACE-INTA (NEGATIVE); URINE COLOR LT. YELLOW; URINE GLUCOSE (UA) NEGATIVE (NEGATIVE); URINE KETONE NEGATIVE (NEGATIVE); URINE NITRITE NEGATIVE (NEGATIVE); URINE PROTEIN NEGATIVE (NEGATIVE); URINE UROBILINOGEN 0.2 mg/dL (0.2-1.0)
[2017-01-08 05:54] LABS: URINE LEUK ESTERASE 2+ (NEGATIVE)
[2017-01-08] MEDS ORDERED: HYDROCHLOROTHIAZIDE 25 MG TABLET (FP) ONE (06:02)
[2017-01-08 06:09] LABS: URINE BACTERIA RARE /hpf (NONE SEEN); URINE HYALINE CAST 3 /lpf; URINE MUCUS RARE; URINE RBC 2 /hpf (0-3); URINE WBC 14 /hpf (3-5)
[2017-01-08] MEDS ORDERED: ACETAMINOPHEN 325 MG TABLET (FP) PO PRN (07:54)
[2017-01-08 10:56] LABS: TROPONIN I 0.07 ng/ml (0.00-0.05)
--- NOTE | 2017-01-08 12:18 | CONSULT ---
Admitting History and Physical - Primary Care Physician PCP: Pat العلي - Admission Chief Complaint: r/o aspiration History of Present Illness: - History of Present Illness Initial Comments: 01/08/17 03:55 86 year old female with pmh significant for paroxysmal atrial fibrillation, chf , htn, Parkinson disease, gerd and a recent CVA BIBA after waking with a heaviness/dull pain in her chest. she also felt a tightness in her neck and thought her bp was high but didn't take anything because she was unable to measure her her blood pressure on two different machines. Her daughter claims that the patient normally has a regular rhythm but according to the patient she has been feeling more incidents of arrhythmias recently that typically last less than a minute. Patient's daughter states her mother has been under a lot of stress lately. 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: Dementia, Parkinson's Cardiovascular: Yes: AFIB, CHF, HTN Gastrointestinal: Yes: Diverticulosis (with diverticulitis), GERD - Past Surgical History Past Surgical History: Yes: Appendectomy, Cholecystectomy, Hysterectomy (KINZA) - Smoking History Smoking history: Never smoked Have you smoked in the past 12 months: No Aproximately how many cigarettes per day: 0 If you are a former smoker, when did you quit?: Over 30 years ago - Alcohol/Substance Use Hx Alcohol Use: No History of Substance Use: reports: None - Social History ADL: Independent Occupation: Retired: worked for [employer] History of Recent Travel: No History - Admission Reason For Visit: A-FIB - Diagnostics MRI: Report Reviewed (recent lg right occipital cva) Modified Barium Swallow: Report Reviewed (12/2016 MBS laryngeal penetration . Grossly wnl/functional.) - General Mental Status: Alert and Oriented, Awake and Alert, Able to Follow Commands, Forgetful Attention: Intact Ability to Follow Directions: Good Head/Neck Control: WFL - Hearing Hearing: Impaired Hearing: Right Ear (hearing aid) Hearing Aide: Yes With Patient: Yes Speech Evaluation - Communication Primary Language: ROMANSH Communication: Yes: Within Normal Limits Oral Expression Ability: Yes: No Impairment - Speech Production Able to Make Needs Known: Yes: WNL Intelligibility: Yes: WNL - Speech Characteristics Voice Loudness: Normal Voice Pitch: Yes: Normal Voice Phonatory-based Quality: Yes: Normal Speech Pattern: Normal Speech Clarity: < 100% Nasal Resonance: Normal Articulation: Yes: Precise - Language/Auditory Comprehension Follows: Yes: 2 Stage Simple Commands - Language/Verbal Expression Able to Respond to Simple Queries: Yes: WNL Able to Communicate Wants and Needs: Yes: WNL Functional Communication Status: Yes: WNL - Swallow Evaluation/Bedside Assessment Current Nutritional Intake: Regular, Thin Liquids Oral Secretions: Yes: WFL Dentition: Yes: Adequate Facial Symmetry at Rest: Symmetrical Facial Symmetry on Retraction: Symmetrical Facial Movement: Controlled Sensation: Normal Against Resistance Opening: Normal Against Resistance Closing: Normal Pucker Lips: Normal Smile: Normal Lingual Movement: Normal, Symmetric Lingual Speed of Movement: Normal Lingual Movement Strgth Against Opposition: Normal Lingual Movement Characteristics: Normal Velopharyngeal Movement: Normal Laryngeal Elevation: WFL Laryngeal Movement: Able to Palpate Rate of Intake: WFL Bolus Size: WFL Labial Seal: WFL Chewing: WFL Oral Prep Time: WFL A-P Transit: WFL Pocketing: None Timing of Swallow: WFL Coughing/Throat Clear: No Change in Voice: No Recommendations - Speech Evaluation, Impression/Plan Impression: Recent R CVA. MBS 12/2016, performed following incident of needing Heimlich. Grossly normal sw function noted on MBS.. Since then, no recurrance and swallowing without difficult. [place], forgetful - Dysphagia Impressions/Plan Dysphagia Impressions: Minimal Impairment *Silent aspiration: cannot be R/O at bedside Dysphagia Treatment Plan: Other (Monitor PO tolerance.) - Recommendations Diet Consistency: Regular Medication Administration: Whole with water Liquids: Thin Liquids
[2017-01-08] MEDS: DABIGATRAN ETEXILATE MESYLATE 150 MG CAPSULE PO SCH ×2 (12:58→22:20)
[2017-01-08] MEDS: RANITIDINE HCL 150 MG TABLET (FP) PO SCH ×2 (12:58→22:21)
[2017-01-08] MEDS: LOSARTAN POTASSIUM 50 MG TABLET (FP) PO SCH (12:58)
[2017-01-08] MEDS: RIVASTIGMINE TARTRATE 1.5 MG CAPSULE PO SCH ×2 (12:59→22:21)
--- NOTE | 2017-01-08 13:37 | EKG ---
Test Reason : Blood Pressure : / mmHG Vent. Rate : 132 BPM Atrial Rate : 141 BPM P-R Int : 000 ms QRS Dur : 094 ms QT Int : 326 ms P-R-T Axes : 000 -13 150 degrees QTc Int : 483 ms ATRIAL FIBRILLATION WITH RAPID VENTRICULAR RESPONSE MODERATE VOLTAGE CRITERIA FOR LVH, MAY BE NORMAL VARIANT ABNORMAL ECG WHEN COMPARED WITH ECG OF 11-NOV-2016 15:17, ATRIAL FIBRILLATION HAS REPLACED SINUS RHYTHM VENT. RATE HAS INCREASED BY [address] NOW DEPRESSED IN LATERAL LEADS T WAVE INVERSION NOW EVIDENT IN LATERAL LEADS Confirmed by THAD BAER MD ([id number]) on 01/08/2017 1:37:20 PM Referred By: Confirmed By:THAD BAER MD
[2017-01-08] MEDS: CARBIDOPA/LEVODOPA 25/100 TABLET (FP) PO SCH ×2 (13:55→22:20)
--- NOTE | 2017-01-08 15:28 | HP ---
Admitting History and Physical - Primary Care Physician PCP: Pat العلي - Admission Chief Complaint: CHEST PAIN/PALPITATIONS History of Present Illness: 86 year old female with pmh significant for paroxysmal atrial fibrillation, chf , htn, Parkinson disease, gerd and a recent CVA BIBA after waking with a heaviness/dull pain in her chest. she also felt a tightness in her neck and thought her bp was high but didn't take anything because she was unable to measure her her blood pressure on two different machines. Her daughter claims that the patient normally has a regular rhythm but according to the patient she has been feeling more incidents of arrhythmias recently that typically last less than a minute. Patient's daughter states her mother has been under a lot of stress lately. 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 Cardiovascular: Yes: AFIB, CHF, HTN Gastrointestinal: Yes: Diverticulosis (with diverticulitis), GERD - Past Surgical History Past Surgical History: Yes: Appendectomy, Cholecystectomy, Hysterectomy (KINZA) - Smoking History Smoking history: Never smoked Have you smoked in the past 12 months: No Aproximately how many cigarettes per day: 0 If you are a former smoker, when did you quit?: Over 30 years ago - Alcohol/Substance Use Hx Alcohol Use: No History of Substance Use: reports: None - Social History ADL: Independent Occupation: Retired: worked for [employer] History of Recent Travel: No Home Medications - Allergies Allergies/Adverse Reactions: Allergies Allergy/AdvReac Type Severity Reaction Status Date / Time niacin Allergy Severe Nausea Verified 01/08/17 03:44 [From Niaspan Extended-Release] sulfasalazine Allergy Severe Swelling Verified 01/08/17 03:44 [From Azulfidine] strawberry [[place]] Allergy Intermediate Vomiting Verified 01/08/17 03:44 indomethacin [From Indocin] Allergy Unknown Verified 01/08/17 03:44 indomethacin sodium Allergy Unknown Verified 01/08/17 03:44 [From Indocin] betaine AdvReac Intermediate STOMACH Verified 01/08/17 03:44 [From Cholesterol Fighter] UPSET Chitosan AdvReac Intermediate STOMACH Verified 01/08/17 03:44 [From Cholesterol Fighter] UPSET lecithin AdvReac Intermediate STOMACH Verified 01/08/17 03:44 [From Cholesterol Fighter] UPSET NSAIDS (Non-Steroidal AdvReac Intermediate STOMACH Verified 01/08/17 03:44 Anti-Inflamma UPSET Sitosterols AdvReac Intermediate STOMACH Verified 01/08/17 03:44 [From Cholesterol Fighter] UPSET cucumbers Allergy Severe Vomiting Uncoded 01/08/17 03:44 - Home Medications Home Medications: Ambulatory Orders Carbidopa-Levodopa 25-100 Tab 25 - 100 mg PO TID 01/08/17 Citalopram Hydrobromide [Citalopram HBr] 10 mg PO DAILY 01/08/17 Dabigatran Etexilate Mesylate [Pradaxa -] 150 mg PO BID 01/08/17 Hydrochlorothiazide [Hctz -] 12.5 mg PO DAILY 01/08/17 Losartan Potassium 100 mg PO DAILY 01/08/17 Pramipexole Di-HCl [Mirapex] 0.25 mg PO HS 01/08/17 Ranitidine [Zantac -] 150 mg PO BID 01/08/17 Rivastigmine Tartrate [Rivastigmine] 1.5 mg PO BID 01/08/17 Family Disease History - Family Disease History Family Disease History: Other: Father ( 70: CAD), Mother (: 59 ? TB), Brother (x2 from lung ca), Sister ( 65: CVA) Review of Systems - Review of Systems Constitutional: reports: No Symptoms Eyes: reports: No Symptoms HENT: reports: No Symptoms Neck: reports: No Symptoms Cardiovascular: reports: Chest Pain, Palpitations Respiratory: reports: SOB Gastrointestinal: reports: No Symptoms Genitourinary: reports: No Symptoms Musculoskeletal: reports: No Symptoms Integumentary: reports: No Symptoms Neurological: reports: No Symptoms Endocrine: reports: No Symptoms Hematology/Lymphatic: reports: No Symptoms Psychiatric: reports: No Symptoms Physical Examination Vital Signs: Vital Signs Temperature 98.7 F 01/08/17 14:00 Pulse Rate 65 01/08/17 14:00 Respiratory Rate 20 01/08/17 14:00 Blood Pressure 164/76 01/08/17 14:00 O2 Sat by Pulse Oximetry (%) 98 01/08/17 11:00 Constitutional: Yes: Mild Distress Eyes: Yes: WNL HENT: Yes: WNL Cardiovascular: Yes: Pulse Irregular Respiratory: Yes: WNL Gastrointestinal: Yes: WNL Renal/: Yes: WNL Musculoskeletal: Yes: WNL Extremities: Yes: WNL Edema: No Peripheral Pulses WNL: Yes Integumentary: Yes: WNL Wound/Incision: Yes: Clean/Dry Neurological: Yes: Pre-Existing Deficit ...Motor Strength: WNL Psychiatric: Yes: Other Imaging - Results Chest X-ray: Report Reviewed Problem List - Problems (1) Hypertension Code(s): I10 - ESSENTIAL (PRIMARY) HYPERTENSION (2) Palpitations Code(s): R00.2 - PALPITATIONS (3) Rapid atrial fibrillation Code(s): I48.91 - UNSPECIFIED ATRIAL FIBRILLATION (4) Acute coronary syndrome Code(s): I24.9 - ACUTE ISCHEMIC HEART DISEASE, UNSPECIFIED (5) Chest pain Code(s): R07.9 - CHEST PAIN, UNSPECIFIED Qualifiers: Assessment/Plan CARDIAC ENZYMES STRESS TEST SWALLOW EVAL TELEMETRY MONITORING CHECK TSH/T4 RATE CONTROL AC PRADAXA
--- NOTE | 2017-01-08 15:47 | EKG ---
Test Reason : Blood Pressure : / mmHG Vent. Rate : 057 BPM Atrial Rate : 057 BPM P-R Int : 142 ms QRS Dur : 092 ms QT Int : 424 ms P-R-T Axes : 053 -16 029 degrees QTc Int : 412 ms SINUS BRADYCARDIA MINIMAL VOLTAGE CRITERIA FOR LVH, MAY BE NORMAL VARIANT BORDERLINE ECG WHEN COMPARED WITH ECG OF 08-JAN-2017 03:52, SINUS RHYTHM HAS REPLACED ATRIAL FIBRILLATION VENT. RATE HAS DECREASED BY [address] NO LONGER DEPRESSED IN LATERAL LEADS T WAVE INVERSION NO LONGER EVIDENT IN LATERAL LEADS Confirmed by THAD BAER MD ([id number]) on 01/08/2017 3:47:24 PM Referred By: LORNA DOHERTY Confirmed By:THAD BAER MD
[2017-01-08 16:01] VITALS: BMI 27.4
--- NOTE | 2017-01-08 16:28 | CON.CARD ---
Consult Consult Specialty:: Cardiology Referred by:: Dr. العلي Reason for Consultation:: Chest pain - History of Present Illness Chief Complaint: Chest pain History of Present Illness: 86 year old woman with a PMHx of HTN, diastolic CHF (normal LV systolic function from echo on 03/27/2014), paroxysmal atrial fibrillation, Parkinson disease, GERD and recent CVA admitted 01/08/2017 with typical angina. The patient had heaviness/tightness in her chest with radiation to her neck after walking. Her symptoms lasted for over one hour and resolved spontaneously. Her BP was elevated at that time. She has no recurrent chest discomfort since admission. She has been feeling more incidents of arrhythmias recently that typically last less than a minute. She was rule out for [place]. There were no ECG changes of ischemia. 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 Cardio/Vascular: Yes: AFIB, CHF, HTN Gastrointestinal: Yes: Diverticulosis (with diverticulitis), GERD - Past Surgical History Past Surgical History: Yes: Appendectomy, Cholecystectomy, Hysterectomy ([facility]) - Alcohol/Substance Use Hx Alcohol Use: No History of Substance Use: reports: None - Smoking History Smoking history: Never smoked Have you smoked in the past 12 months: No Aproximately how many cigarettes per day: 0 If you are a former smoker, when did you quit?: Over 30 years ago - Social History Usual Living Arrangement: Other () ADL: Independent Occupation: Retired: worked for [employer] History of Recent Travel: No Home Medications - Allergies Allergies/Adverse Reactions: Allergies Allergy/AdvReac Type Severity Reaction Status Date / Time niacin Allergy Severe Nausea Verified 01/08/17 03:44 [From Niaspan Extended-Release] sulfasalazine Allergy Severe Swelling Verified 01/08/17 03:44 [From Azulfidine] strawberry [[place]] Allergy Intermediate Vomiting Verified 01/08/17 03:44 indomethacin [From Indocin] Allergy Unknown Verified 01/08/17 03:44 indomethacin sodium Allergy Unknown Verified 01/08/17 03:44 [From Indocin] betaine AdvReac Intermediate STOMACH Verified 01/08/17 03:44 [From Cholesterol Fighter] UPSET Chitosan AdvReac Intermediate STOMACH Verified 01/08/17 03:44 [From Cholesterol Fighter] UPSET lecithin AdvReac Intermediate STOMACH Verified 01/08/17 03:44 [From Cholesterol Fighter] UPSET NSAIDS (Non-Steroidal AdvReac Intermediate STOMACH Verified 01/08/17 03:44 Anti-Inflamma UPSET Sitosterols AdvReac Intermediate STOMACH Verified 01/08/17 03:44 [From Cholesterol Fighter] UPSET cucumbers Allergy Severe Vomiting Uncoded 01/08/17 03:44 - Home Medications Home Medications: Ambulatory Orders Carbidopa-Levodopa 25-100 Tab 25 - 100 mg PO TID 01/08/17 Citalopram Hydrobromide [Citalopram HBr] 10 mg PO DAILY 01/08/17 Dabigatran Etexilate Mesylate [Pradaxa -] 150 mg PO BID 01/08/17 Hydrochlorothiazide [Hctz -] 12.5 mg PO DAILY 01/08/17 Losartan Potassium 100 mg PO DAILY 01/08/17 Pramipexole Di-HCl [Mirapex] 0.25 mg PO HS 01/08/17 Ranitidine [Zantac -] 150 mg PO BID 01/08/17 Rivastigmine Tartrate [Rivastigmine] 1.5 mg PO BID 01/08/17 Family Disease History - Family Disease History Family Disease History: Other: Father ( 70: CAD), Mother (: 59 ? TB), Brother (x2 from lung ca), Sister ( 65: CVA) Review of Systems - Review of Systems Constitutional: reports: Weakness Eyes: reports: No Symptoms HENT: reports: No Symptoms Neck: reports: No Symptoms Cardiovascular: reports: Chest Pain, Palpitations Respiratory: reports: No Symptoms Gastrointestinal: reports: No Symptoms Genitourinary: reports: No Symptoms Musculoskeletal: reports: No Symptoms Integumentary: reports: No Symptoms Endocrine: reports: No Symptoms Hematology/Lymphatic: reports: No Symptoms Vital Signs: Vital Signs Temperature 98.7 F 01/08/17 14:00 Pulse Rate 65 01/08/17 14:00 Respiratory Rate 20 01/08/17 14:00 Blood Pressure 164/76 01/08/17 14:00 O2 Sat by Pulse Oximetry (%) 98 01/08/17 11:44 Constitutional: Yes: Well Nourished, No Distress, Calm Eyes: Yes: WNL, Conjunctiva Clear, EOM Intact, PERRL HENT: Yes: Atraumatic, Normocephalic Neck: Yes: Supple, Trachea Midline Respiratory: Yes: Regular, CTA Bilaterally Gastrointestinal: Yes: Normal Bowel Sounds, Soft Cardiovascular: Yes: Regular Rate and Rhythm JVD: No Carotid Bruit: No PMI: Non-Displaced Heart Sounds: Yes: S1, S2 Musculoskeletal: Yes: WNL Extremities: Yes: WNL Edema: No Peripheral Pulses WNL: Yes - Other Data Labs, Other Data: INR, PTT INR 1.29 (0.82-1.09) H 01/08/17 03:54 Troponin, BNP 01/08/17 09:46 Troponin I 0.07 H Troponin, BNP 01/08/17 09:46 Troponin I 0.07 H Sinus bradycardia at rate of 57 bpm. Normal axis. LVH by valtage. No ST-T abnormalities. Imaging - Results EKG: Image Reviewed ( Sinus bradycardia at rate of 57 bpm. Normal axis. LVH by valtage. No ST-T abnormalities.) Assessment/Plan 86 year old woman with a PMHx of HTN, diastolic CHF (normal LV systolic function from echo on 03/27/2014), paroxysmal atrial fibrillation, Parkinson disease, GERD and recent CVA admitted 01/08/2017 with typical angina. She was rule out for [place]. There were no ECG changes of ischemia. 1) Angina pectoris with risk factors of CAD, she has intermediate likelihood of significant CAD. Persantine nuclear stress test will be scheduled. Echocardiogram for LV systolic function and rule out regional wall motion abnormalities. Continue Aspirin. 2) Paroxysmal atrial fibrillation: Currently in sinus with occasional mild bradycardia and VPCs. No recurrent afib on tele. Continue Warfarin for stroke prevention. 3) HTN: Systolic BP is mildly elevated. Continue Losartan and HCTZ 4) Diastolic CHF: Stable. No physical signs of fluid overlord or dyspnea. Echo requested
[2017-01-08 17:57] LABS: ANION GAP 6 (8-16); CALCIUM 8.3 mg/dL (8.5-10.1); CO2 26 mmol/L (21-32); CREATININE 1.1 mg/dL (0.55-1.02); GLUCOSE,RANDOM 144 mg/dL (74-106); MAGNESIUM 2.2 mg/dL (1.8-2.4)
[2017-01-08 17:58] LABS: TROPONIN I 0.06 ng/ml (0.00-0.05)
[2017-01-08 18:05] LABS: FREE T4 1.27 ng/dl (0.76-1.46); THYROID STIMULATING HORMONE 0.03 uIU/ml (0.358-3.74)
[2017-01-08] MEDS ORDERED: PRAMIPEXOLE DIHYDROCHLORIDE 0.25 MG TABLET PO SCH (22:00)
[2017-01-09] MEDS: CARBIDOPA/LEVODOPA 25/100 TABLET (FP) PO SCH ×2 (05:41→14:39)
[2017-01-09 07:21] VITALS: BP 137/63; PULSE 56; TEMP 98.3
[2017-01-09 08:12] LABS: MCH 31.2 pg (25.7-33.7); MCHC 33.5 g/dl (32.0-36.0); MEAN PLT VOLUME 7.8 fl (7.5-11.1); PLATELET COUNT 253 K/MM3 (134-434); RDW 12.3 % (11.6-15.6)
[2017-01-09 08:43] LABS: ALBUMIN 3.1 g/dl (3.4-5.0); ALK PHOS 111 U/L (45-117); ANION GAP 9 (8-16); BILIRUBIN,TOTAL 0.9 mg/dL (0.2-1.0); CALCIUM 8.3 mg/dL (8.5-10.1); CO2 26 mmol/L (21-32); CREATININE 0.9 mg/dL (0.55-1.02); GLUCOSE,RANDOM 121 mg/dL (74-106); SGOT/AST 15 U/L (15-37); SGPT/ALT 7 U/L (12-78)
[2017-01-09] MEDS ORDERED: PT OWN MED DRAWER 7, Y5N ONE (09:14)
[2017-01-09] MEDS ORDERED: CEFTRIAXONE 50 ML IVPB SCH (10:00)
[2017-01-09] MEDS ORDERED: DIPYRIDAMOLE STRESS TEST IVPB ONE (10:00)
[2017-01-09] MEDS ORDERED: DEXTROSE 5% IVPB ONE (10:00)
[2017-01-09] MEDS ORDERED: WATER IVPB ONE (10:00)
--- NOTE | 2017-01-09 13:38 | DS ---
Physical Examination Vital Signs: Vital Signs Temperature 98.3 F 01/09/17 07:19 Pulse Rate 56 L 01/09/17 07:19 Respiratory Rate 18 01/09/17 07:21 Blood Pressure 137/63 01/09/17 07:19 O2 Sat by Pulse Oximetry (%) 98 01/09/17 07:21 Findings/Remarks: STRESS TEST NEGATIVE Constitutional: Yes: No Distress Eyes: Yes: WNL HENT: Yes: WNL Neck: Yes: WNL Cardiovascular: Yes: WNL Respiratory: Yes: WNL Gastrointestinal: Yes: WNL Renal/: Yes: WNL Musculoskeletal: Yes: WNL Extremities: Yes: WNL Edema: No Peripheral Pulses WNL: Yes Integumentary: Yes: WNL Wound/Incision: Yes: Clean/Dry Neurological: Yes: WNL ...Motor Strength: WNL Psychiatric: Yes: WNL Labs: CBC, BMP 01/09/17 05:35 01/09/17 05:35 Discharge Summary Reason For Visit: A-FIB Current Active Problems Abdominal pain (Acute) Hypertension (Acute) Low TSH level (Acute) Nausea & vomiting (Acute) Palpitations (Acute) Rapid atrial fibrillation (Acute) Weakness (Acute) Procedures: Principal: STRESS TEST Other Procedures: ECHO Hospital Course: +HYPERTHYROID DISEASE, STRESS TEST NO ISCHEMIA, ECHO NO ACUTE CHANGES - Instructions Diet, Activity, Other Instructions: LOW SODIUM SEE DR LEONARD NEXT WEEK FOR ENDOCRINE CONSULT Referrals: Pat العلي MD [Primary Care Provider] - Disposition: VNS/HOME HEALTH CARE - Home Medications Comprehensive Discharge Medication List: Ambulatory Orders Carbidopa-Levodopa 25-100 Tab 25 - 100 mg PO TID 01/08/17 Citalopram Hydrobromide [Citalopram HBr] 10 mg PO DAILY 01/08/17 Dabigatran Etexilate Mesylate [Pradaxa -] 150 mg PO BID 01/08/17 Hydrochlorothiazide [Hctz -] 12.5 mg PO DAILY 01/08/17 Losartan Potassium 100 mg PO DAILY 01/08/17 Pramipexole Di-HCl [Mirapex] 0.25 mg PO HS 01/08/17 Ranitidine [Zantac -] 150 mg PO BID 01/08/17 Rivastigmine Tartrate [Rivastigmine] 1.5 mg PO BID 01/08/17 Acetaminophen [Tylenol .Regular Strength -] 650 mg PO Q6H PRN #0 tablet Carbidopa/Levodopa 25/100 [Sinemet 25/100 -] 1 each PO TID tablet 01/09/17 Dabigatran Etexilate Mesylate [Pradaxa -] 150 mg PO BID cap 01/09/17 Losartan Potassium [Cozaar -] 100 mg PO DAILY tablet 01/09/17 Methimazole [Tapazole -] 10 mg PO DAILY #30 tablet 01/09/17 Pramipexole Dihydrochloride [Mirapex -] 0.25 mg PO HS tablet 01/09/17 Ranitidine [Zantac -] 150 mg PO BID tablet 01/09/17
[2017-01-09] MEDS: RIVASTIGMINE TARTRATE 1.5 MG CAPSULE PO SCH (14:40)
[2017-01-09] MEDS: DABIGATRAN ETEXILATE MESYLATE 150 MG CAPSULE PO SCH (14:40)
[2017-01-09] MEDS: RANITIDINE HCL 150 MG TABLET (FP) PO SCH (14:40)
[2017-01-09] MEDS: LOSARTAN POTASSIUM 50 MG TABLET (FP) PO SCH (14:40)
--- NOTE | 2017-01-09 14:40 | PN ---
Progress Note, Physician Chief Complaint: Feels well today No chest pain or dyspnea No palpitations History of Present Illness: 86 year old woman with a PMHx of HTN, diastolic CHF (normal LV systolic function from echo on 03/27/2014), paroxysmal atrial fibrillation, Parkinson disease, GERD and recent CVA admitted 01/08/2017 with typical angina. She was rule out for [place]. There were no ECG changes of ischemia. - Current Medication List Current Medications: Active Medications Acetaminophen (Tylenol -) 650 mg PO Q6H PRN PRN Reason: FEVER OR PAIN Last Admin: 01/09/17 05:41 Dose: 650 mg Carbidopa/Levodopa (Sinemet 25/100 -) 1 each PO TID [facility] Last Admin: 01/09/17 05:41 Dose: 1 each Dabigatran (Pradaxa -) 150 mg PO BID [facility] Last Admin: 01/08/17 22:20 Dose: 150 mg Ceftriaxone Sodium (Rocephin 1gm Ivpb (Pre-Docked)) 50 mls @ 100 mls/hr IVPB DAILY [facility] Losartan Potassium (Cozaar -) 100 mg PO DAILY [facility] Last Admin: 01/08/17 12:58 Dose: 100 mg Pramipexole Dihydrochloride (Mirapex -) 0.25 mg PO HS [facility] Last Admin: 01/08/17 22:21 Dose: 0.25 mg Ranitidine HCl (Zantac -) 150 mg PO BID [facility] Last Admin: 01/08/17 22:21 Dose: Not Given Rivastigmine Tartrate (Exelon (Nf) -) 1.5 mg PO BID [facility] Last Admin: 01/08/17 22:21 Dose: 1.5 mg - Objective Vital Signs: Vital Signs Temperature 98.3 F 01/09/17 07:19 Pulse Rate 56 L 01/09/17 07:19 Respiratory Rate 18 01/09/17 07:21 Blood Pressure 137/63 01/09/17 07:19 O2 Sat by Pulse Oximetry (%) 98 01/09/17 07:21 Constitutional: Yes: No Distress Neck: Yes: WNL Cardiovascular: Yes: Regular Rate and Rhythm, S1, S2. No: JVD, Murmur Respiratory: Yes: CTA Bilaterally Gastrointestinal: Yes: WNL Edema: No Labs: CBC, BMP 01/09/17 05:35 01/09/17 05:35 INR, PTT INR 1.29 (0.82-1.09) H 01/08/17 03:54 Problem List - Problems (1) Hypertension Code(s): I10 - ESSENTIAL (PRIMARY) HYPERTENSION (2) A-fib Code(s): I48.91 - UNSPECIFIED ATRIAL FIBRILLATION Qualifiers: Atrial fibrillation type: unspecified Qualified Code(s): I48.91 - Unspecified atrial fibrillation Assessment/Plan 86 year old woman with a PMHx of HTN, diastolic CHF (normal LV systolic function from echo on 03/27/2014), paroxysmal atrial fibrillation, Parkinson disease, GERD and recent CVA admitted 01/08/2017 with chest pain. She was rule out for [place]. There were no ECG changes of ischemia. 1) CAD -no recurrent chest pain Echocardiogram with normal LV systolic function and no regional wall motion abnormalities. No significant valve disease. NST demonstrated only a small area of mild apical ischemia. No futher cardiac testing at this time. Would treat medically unless patient develops further anginal symptoms in the future. Aspirin, start statin if no contraindications No bblocker as bradycardic on monitor at times. 2) Paroxysmal atrial fibrillation: Currently in sinus with occasional mild bradycardia and VPCs. No recurrent afib on tele. Continue Warfarin for stroke prevention. 3) HTN: Continue Losartan and HCTZ 4) Endo Abnormal TFTs management as per primary team.
[2017-01-11 15:27] LABS: PLATELET ESTIMATE ADEQUATE (NORMAL)
== END 2017-01-09 15:10 | disposition home health service (06) | DRG 309 ==
LOC: JER 03:36 → JERBED 05:46 → J4W 11:59
PROVIDERS: ADMIT Family Medicine; ATTEND Family Medicine
DX: I48.91 Unspecified atrial fibrillation (principal); I50.32 Chronic diastolic (congestive) heart failure; I11.0 Hypertensive heart disease with heart failure; G20 Parkinson's disease; K21.9 Gastro-esophageal reflux disease without esophagitis; R07.9 Chest pain, unspecified; I25.119 Atherosclerotic heart disease of native coronary artery with unspecified angina pectoris; E87.6 Hypokalemia
CPT/HCPCS: 36415; 71010-TC; 78452-TC; 80048; 80053; 80061; 81003; 81015; 83721; 83735; 84439; 84443; 84484; 85025; 85027; 85610; 85730; 87086; 87186; 93005; 93010; 93017; 93306-TC; 99285-25; A9502

== ENCOUNTER 2017-01-10 15:10 | Inpatient (IN) | payer OTHER ==
[2017-01-10 15:19] VITALS: BMI 27.0
--- NOTE | 2017-01-10 16:31 | PDOC ---
History of Present Illness <Marilu Melendez - Last Filed: 01/10/17 19:16> - History of Present Illness Initial Comments: 01/10/17 16:25 "Patient is a 86 year old female with pmh significant for paroxysmal atrial fibrillation on pradaxa, chf, htn, Parkinson disease, gerd and a recent CVA who presents to the ED with blurry vision. Patient states that she noticed blurry vision yesterday while watching TV or reading. She states that she believes her left eye is worse because she noticed a "rosas splotch" in the left side of her vision. Pt states that these symptoms are similar to the ones she had when she was diagnosed with a TIA earlier this month. She also reports dull occipital headache. Patient was dc yesterday from [facility] after being admitted for chest pain. Patient denies any cp, SOB, fever, chills, numbness, tingling, slurred speech or difficulty speaking. Denies F/C. Denies dizziness. " <Chiki Mcnulty - Last Filed: 01/10/17 19:57> - General Chief Complaint: Blurry Vision Stated Complaint: WEAKNESS/BLURRY VISION Time Seen by Provider: 01/10/17 15:53 NIH Stroke Scale - Last Known Well Date/Time & Onset Date Last Known Well: 01/09/17 Time Last Known Well: 12:00 - Initial Evaluation Level of consciousness: Alert Ask patient the month and their age: Answers both correctly Ask patient to open & close eyes; make fist and let go: Obeys both correctly Best gaze (horizontal eye movement): Normal Visual field testing: Partial hemianopia Facial paresis (Show teeth/raise eyebrows/close eyes tight): Normal symmetrical movement Motor Function: Left Arm: Normal Motor Function: Right Arm: Normal (extends arm 90 (or 45) degrees for 10 seconds without drift Motor Function: Left Leg: Normal (extends leg 30 degrees for 5 seconds without drift) Motor Function: Right Leg: Normal (extends leg 30 degrees for 5 seconds without drift) Limb Ataxia: No ataxia Sensory(Use pinprick test arms,legs,trunk,face/side to side): Normal Best language (Describe picture, name items, read sentences): No Aphasia Dysarthria (read several words): Normal articulation Extinction and Inattention: No abnormality - Total Score NIH Stroke Scale Score: 1 <Chiki Mcnulty Filed: 01/10/17 19:57> Past History <Marilu Melendez - Last Filed: 01/10/17 19:16> - Past Medical History Anemia: No Asthma: No Cancer: Yes (Right radical mastectomy) Cardiac Disorders: Yes (Paroxysmal Atrial fibrillation, ASHD, CHF) CVA: Yes (TIA w/out residual) COPD: No CHF: Yes Dementia: No Diabetes: No GI Disorders: Yes (Diverticulosis,GERD) Disorders: No HTN: Yes Hypercholesterolemia: Yes Liver Disease: No Seizures: No Thyroid Disease: No - Surgical History Abdominal Surgery: Yes (Abdominal cyst removal) Appendectomy: Yes Cardiac Surgery: No Cholecystectomy: Yes Lung Surgery: No Neurologic Surgery: No Orthopedic Surgery: No - Immunization History Immunization Up to Date: Yes - Psycho/Social/Smoking Cessation Hx Anxiety: No Suicidal Ideation: No Smoking Status: No Smoking History: Never smoked Have you smoked in the past 12 months: No Number of Cigarettes Smoked Daily: 0 If you are a former smoker, when did you quit?: Over 30 years ago Information on smoking cessation initiated: No Hx Alcohol Use: No Drug/Substance Use Hx: No Substance Use Type: None Hx Substance Use Treatment: No <Chiki Mcnulty - Last Filed: 01/10/17 19:57> - Past Medical History Allergies/Adverse Reactions: Allergies Allergy/AdvReac Type Severity Reaction Status Date / Time niacin Allergy Severe Nausea Verified 01/08/17 03:44 [From Niaspan Extended-Release] sulfasalazine Allergy Severe Swelling Verified 01/08/17 03:44 [From Azulfidine] strawberry [[place]] Allergy Intermediate Vomiting Verified 01/08/17 03:44 indomethacin [From Indocin] Allergy Unknown Verified 01/08/17 03:44 indomethacin sodium Allergy Unknown Verified 01/08/17 03:44 [From Indocin] betaine AdvReac Intermediate STOMACH Verified 01/08/17 03:44 [From Cholesterol Fighter] UPSET Chitosan AdvReac Intermediate STOMACH Verified 01/08/17 03:44 [From Cholesterol Fighter] UPSET lecithin AdvReac Intermediate STOMACH Verified 01/08/17 03:44 [From Cholesterol Fighter] UPSET NSAIDS (Non-Steroidal AdvReac Intermediate STOMACH Verified 01/08/17 03:44 Anti-Inflamma UPSET Sitosterols AdvReac Intermediate STOMACH Verified 01/08/17 03:44 [From Cholesterol Fighter] UPSET cucumbers Allergy Severe Vomiting Uncoded 01/08/17 03:44 Home Medications: Ambulatory Orders Citalopram Hydrobromide [Citalopram HBr] 10 mg PO DAILY 01/08/17 Hydrochlorothiazide [Hctz -] 12.5 mg PO DAILY 01/08/17 Pramipexole Di-HCl [Mirapex] 0.25 mg PO HS 01/08/17 Rivastigmine Tartrate [Rivastigmine] 1.5 mg PO BID 01/08/17 Acetaminophen [Tylenol .Regular Strength -] 650 mg PO Q6H PRN #0 tablet Carbidopa/Levodopa 25/100 [Sinemet 25/100 -] 1 each PO TID tablet 01/09/17 Dabigatran Etexilate Mesylate [Pradaxa -] 150 mg PO BID cap 01/09/17 Losartan Potassium [Cozaar -] 100 mg PO DAILY tablet 01/09/17 Ranitidine [Zantac -] 150 mg PO BID tablet 01/09/17 Review of Systems - Review of Systems Comments:: 01/10/17 16:27 " GENERAL/CONSTITUTIONAL: No fever or chills. No weakness. HEAD, EYES, EARS, NOSE AND THROAT: (+)blurry vision. No ear pain or discharge. No sore throat. GASTROINTESTINAL: No nausea, vomiting, diarrhea or constipation. GENITOURINARY: No dysuria, frequency, or change in urination. CARDIOVASCULAR: No chest pain or shortness of breath. RESPIRATORY: No cough, wheezing, or hemoptysis. MUSCULOSKELETAL: No joint or muscle swelling or pain. No back pain. SKIN: No rash NEUROLOGIC: No headache, vertigo, loss of consciousness, or change in strength/ sensation. ENDOCRINE: No increased thirst. No abnormal weight change. HEMATOLOGIC/LYMPHATIC: No anemia, easy bleeding, or history of blood clots. ALLERGIC/IMMUNOLOGIC: No hives or skin allergy. " <Chiki Mcnulty - Last Filed: 01/10/17 19:57> *Physical Exam - Vital Signs Last Vital Signs Temp Pulse Resp BP Pulse Ox 98.2 F 72 18 150/64 98 01/10/17 15:16 01/10/17 15:16 01/10/17 15:16 01/10/17 15:16 01/10/17 15:16 <Marilu Melendez - Last Filed: 01/10/17 19:16> - Vital Signs Last Vital Signs Temp Pulse Resp BP Pulse Ox 98.2 F 72 18 150/64 98 01/10/17 15:16 01/10/17 15:16 01/10/17 15:16 01/10/17 15:16 01/10/17 15:16 - Physical Exam Comments: 01/10/17 16:27 "GENERAL: Awake, alert, and fully oriented, in no acute distress HEAD: No signs of trauma EYES: PERRLA, EOMI, sclera anicteric, conjunctiva clear ENT: Auricles normal inspection, hearing grossly normal, nares patent, oropharynx clear without exudates. Moist mucosa NECK: Normal ROM, supple, no lymphadenopathy, JVD, or masses LUNGS: Breath sounds equal, clear to auscultation bilaterally. No wheezes, and no crackles HEART: Regular rate and rhythm, normal S1 and S2, no murmurs, rubs or gallops ABDOMEN: Soft, nontender, normoactive bowel sounds. No guarding, no rebound. No masses EXTREMITIES: Normal range of motion, no edema. No clubbing or cyanosis. No cords, erythema, or tenderness NEUROLOGICAL: (+) Left lower homonymous quadrantanopia. EOMI. Cranial nerves II through XII intact. 5/5 strength and sensation in all extremities. normal gait. SKIN: Warm, Dry, normal turgor, no rashes or lesions noted. " <HamletChiki - Last Filed: 01/10/17 19:57> ED Treatment Course - LABORATORY CBC & Chemistry Diagram: 01/10/17 16:23 01/10/17 16:23 - ADDITIONAL ORDERS Additional order review: Laboratory Results 01/10/17 01/10/17 01/10/17 16:30 16:23 16:23 INR 1.20 H PTT (Actin FS) 50.3 H Sodium 139 Potassium 4.3 Chloride 105 Carbon Dioxide 24 Anion Gap 10 BUN 15 Creatinine 1.0 Creat Clearance w eGFR 52.82 Random Glucose 104 Calcium 8.9 Total Bilirubin 0.7 D AST 21 D ALT 14 D Alkaline Phosphatase 118 H Creatine Kinase 139 Troponin I 0.02 Total Protein 6.6 Albumin 3.4 Urine Color Yellow Urine Appearance Slcloudy Urine pH 5.0 Urine Protein Negative Urine Glucose (UA) Negative Urine Ketones Negative Urine Blood 1+ H Urine Nitrite Negative Urine Bilirubin Negative Urine Urobilinogen Negative Ur Leukocyte Esterase 3+ H Urine RBC 4 Urine WBC 30 Ur Epithelial Cells Few Urine Mucus Rare Blood Type Antibody Screen 01/10/17 16:20 INR PTT (Actin FS) Sodium Potassium Chloride Carbon Dioxide Anion Gap BUN Creatinine Creat Clearance w eGFR Random Glucose Calcium Total Bilirubin AST ALT Alkaline Phosphatase Creatine Kinase Troponin I Total Protein Albumin Urine Color Urine Appearance Urine pH Urine Protein Urine Glucose (UA) Urine Ketones Urine Blood Urine Nitrite Urine Bilirubin Urine Urobilinogen Ur Leukocyte Esterase Urine RBC Urine WBC Ur Epithelial Cells Urine Mucus Blood Type B POSITIVE Antibody Screen Negative 01/10/17 16:23 RBC 4.04 MCV 92.2 MCHC 34.2 RDW 12.5 MPV 8.0 Neutrophils % 74.5 Lymphocytes % 14.3 D Monocytes % 6.4 Eosinophils % 4.0 Basophils % 0.8 - RADIOLOGY Radiograph Interpretation: Carotid US FINDINGS: RIGHT SIDE: Max. CCA velocity: 57 cm/sec Max. ICA velocity: 62 cm/sec No plaque is seen. Peak systolic velocities and ICA/CCA ratios are in the normal range. There is antegrade flow in the right vertebral artery. LEFT SIDE: Max. CCA velocity: 64 cm/sec Max. ICA velocity: 52 cm/sec Small plaque noted at the distal common carotid artery.. Peak systolic velocities and ICA/CCA ratios are in the normal range. There is antegrade flow in the left vertebral artery. IMPRESSION: No hemodynamically significant stenosis or occlusion. Note: The estimated percentage stenoses given above are based on large scale studies that compared ultrasound velocity data to angiographic findings, utilizing NASCET criteria. Velocity Criteria: PSV: <125 cm/sec = <50% diameter reduction; 125-230 cm/sec = 50-69% diameter reduction; >230 cm/sec = 70% diameter reduction; High, Low or Undetectable = Near Occlusion; No patent lumen or Doppler flow = Occlusion. EDV: <40 cm/sec = <50% diameter reduction; 40-100 cm/sec = 50-69% diameter reduction; >100 cm/sec = 70% diameter reduction; >140 cm/sec = Near Occlusion. ICA/CCA: <2.0 = <50% diameter reduction; 2.0-4.0 = 50-69% diameter reduction; > 4.0 = 70% diameter reduction; Variable = Near Occlusion. <Marilu Melendez - Last Filed: 01/10/17 19:16> - LABORATORY CBC & Chemistry Diagram: 01/10/17 16:23 01/10/17 16:23 - RADIOLOGY Radiology Studies Ordered: Category Date Time Status HEAD CT WITHOUT CONTRAST [CT] Stat CT Scan 01/10/17 16:10 Ordered BRAIN MRA W/O CONTRAST [MRI] Stat MRI 01/10/17 16:11 Ordered BRAIN MRI W/O CONTRAST [MRI] Stat MRI 01/10/17 16:11 Ordered NECK MRA W/O CONTRAST [MRI] Stat MRI 01/10/17 16:11 Ordered CHEST X-RAY PORTABLE* [RAD] Stat Radiology 01/10/17 16:10 Ordered CAROTID COLOR FLOW DOPP US [US] Stat Ultrasound 01/10/17 16:10 Ordered <Chiki Mcnulty - Last Filed: 01/10/17 19:57> Medical Decision Making - Medical Decision Making 01/10/17 16:29 86 F with h/o afib, CHF, HTN, CVA presenting with blurred vision, found to have left lower homonymous quadrantanopia on exam. Concerning for posterior circulation stroke. - Labs - CTH - MRI - Carotid dopplers - Admit 01/10/17 19:47 MRI consistent with acute stroke. Spoke with Dr. Wilson, who recommends admission to hospitalist. No additional intervention at this time given pt is already on pradaxa for afib. Will need to f/u carotid doppler results. <Chiki Mcnulty - Last Filed: 01/10/17 19:57> *DC/Admit/Observation/Transfer - Attestations Scribe Attestion: Documentation prepared by Marilu Melendez, acting as medical assisting program director for Chiki Mcnulty MD, MD/DO. <Marilu Melendez - Last Filed: 01/10/17 19:16> <Chiki Mcnulty - Last Filed: 01/10/17 19:57> Diagnosis at time of Disposition: CVA (cerebral vascular accident) - Referrals Referrals: Pat العلي MD [Primary Care Provider] -
[2017-01-10 16:39] LABS: URINE APPEARANCE SLCLOUDY; URINE BILIRUBIN NEGATIVE (NEGATIVE); URINE BLOOD 1+ (NEGATIVE); URINE COLOR YELLOW; URINE GLUCOSE (UA) NEGATIVE (NEGATIVE); URINE KETONE NEGATIVE (NEGATIVE); URINE NITRITE NEGATIVE (NEGATIVE); URINE PROTEIN NEGATIVE (NEGATIVE); URINE UROBILINOGEN NEGATIVE mg/dL (0.2-1.0)
[2017-01-10 16:42] LABS: URINE LEUK ESTERASE 3+ (NEGATIVE)
[2017-01-10 16:43] LABS: URINE MUCUS RARE; URINE RBC 4 /hpf (0-3); URINE WBC 30 /hpf (3-5)
[2017-01-10 16:59] LABS: INR 1.2 (0.82-1.09); PROTHROMBIN TIME (PATIENT) 13.3 SEC (9.98-11.88)
[2017-01-10 17:01] LABS: ACTIVATED PTT 50.3 SECONDS (26.9-34.4)
[2017-01-10 17:16] LABS: ALBUMIN 3.4 g/dl (3.4-5.0); ANION GAP 10 (8-16); CALCIUM 8.9 mg/dL (8.5-10.1); CO2 24 mmol/L (21-32); GLUCOSE,RANDOM 104 mg/dL (74-106); SGPT/ALT 14 U/L (12-78)
[2017-01-10 17:20] LABS: ALK PHOS 118 U/L (45-117); BILIRUBIN,TOTAL 0.7 mg/dL (0.2-1.0); CPK 139 IU/L (26-192); TOT PROT 6.6 g/dl (6.4-8.2); TROPONIN I 0.02 ng/ml (0.00-0.05)
[2017-01-10 17:23] LABS: BASOPHIL 0.8 % (0-2.0); MCH 31.5 pg (25.7-33.7); MCHC 34.2 g/dl (32.0-36.0); MEAN CELL VOLUME 92.2 fl (80-96); NEUTROPHILS 74.5 % (42.8-82.8); PLATELET COUNT 273 K/MM3 (134-434); RDW 12.5 % (11.6-15.6); WHITE BLOOD COUNT 7.8 K/mm3 (4.0-10.0)
[2017-01-10 17:24] LABS: SGOT/AST 21 U/L (15-37)
[2017-01-11] MEDS ORDERED: ACETAMINOPHEN 325 MG TABLET (FP) PO PRN (01:04)
[2017-01-11] MEDS: CARBIDOPA/LEVODOPA 25/100 TABLET (FP) PO SCH ×3 (06:30→21:18)
[2017-01-11 08:06] LABS: BASOPHIL 0.9 % (0-2.0); EOSINOPHIL 5.5 % (0-4.5); MCH 31.8 pg (25.7-33.7); MCHC 34.5 g/dl (32.0-36.0); MEAN CELL VOLUME 92.1 fl (80-96); MEAN PLT VOLUME 8.4 fl (7.5-11.1); NEUTROPHILS 70.3 % (42.8-82.8); PLATELET COUNT 257 K/MM3 (134-434); RDW 12.2 % (11.6-15.6); WHITE BLOOD COUNT 6.1 K/mm3 (4.0-10.0)
[2017-01-11 08:33] LABS: INR 1.12 (0.82-1.09); PROTHROMBIN TIME (PATIENT) 12.3 SEC (9.98-11.88)
[2017-01-11 08:39] LABS: ALK PHOS 100 U/L (45-117); ANION GAP 8 (8-16); BILIRUBIN,TOTAL 0.7 mg/dL (0.2-1.0); CALCIUM 8.5 mg/dL (8.5-10.1); CO2 25 mmol/L (21-32); CREATININE 0.8 mg/dL (0.55-1.02); GLUCOSE,RANDOM 110 mg/dL (74-106); MAGNESIUM 2.2 mg/dL (1.8-2.4); PHOSPHOROUS 3.6 mg/dL (2.5-4.9); SGOT/AST 17 U/L (15-37); SGPT/ALT 14 U/L (12-78); TOT PROT 5.9 g/dl (6.4-8.2); TROPONIN I 0.02 ng/ml (0.00-0.05)
[2017-01-11 08:49] LABS: CHOLESTEROL 174 mg/dL (50-200); LDL CHOLESTEROL (ONLY SJRH) 100 mg/dL (5-100)
[2017-01-11 08:53] LABS: URINE APPEARANCE CLEAR; URINE BILIRUBIN NEGATIVE (NEGATIVE); URINE BLOOD 1+ (NEGATIVE); URINE COLOR LTYELLOW; URINE GLUCOSE (UA) NEGATIVE (NEGATIVE); URINE KETONE NEGATIVE (NEGATIVE); URINE LEUK ESTERASE TRACE (NEGATIVE); URINE NITRITE NEGATIVE (NEGATIVE); URINE PROTEIN NEGATIVE (NEGATIVE); URINE UROBILINOGEN NEGATIVE mg/dL (0.2-1.0)
[2017-01-11 09:02] LABS: URINE MUCUS RARE; URINE RBC 1 /hpf (0-3); URINE WBC 3 /hpf (3-5)
[2017-01-11] MEDS: CITALOPRAM HYDROBROMIDE 10 MG TABLET (FP) PO SCH (09:12)
[2017-01-11] MEDS: RANITIDINE HCL 150 MG TABLET (FP) PO SCH ×2 (09:12→21:18)
[2017-01-11] MEDS: HYDROCHLOROTHIAZIDE 12.5 MG CAPSULE (FP) PO SCH (09:12)
[2017-01-11] MEDS: LOSARTAN POTASSIUM 50 MG TABLET (FP) PO SCH (09:12)
--- NOTE | 2017-01-11 11:26 | CON.CARD ---
Consult Consult Specialty:: Cardiolgoy Referred by:: Dr. العلي Reason for Consultation:: CAD, CVA - History of Present Illness Chief Complaint: Blurred vision History of Present Illness: 86 year old woman with a PMHx of HTN paroxysmal atrial fibrillation on Pradaxa, diastolic CHF, Parkinson disease, GERD and a recent CVA who was recently (2016) with chest pain and found to have preserved LV systolic function and a small and mild apical stress induced ischemia from echocardiogram and nuclear stress test readmitted 01/10/2017 with blurry vision. Patient developed blurry vision yesterday while watching TV or reading one day prior to this admission. She has intermittent right neck pain behind her ear. MRA and MRI 01/10/2017 showed mid and distal 3rd POLICE ARTIST partially occluded and a new 0.3 cm acute non-hemarrhagic infarct in the right temporal periventricular region. A very small amout of petechial blood is noted within previously identified acute/subacute right occipital cortical infarct. Carotid duplex 01/10 unremarkable. The patient denies recurrent chest pain, SOB, palpitation, dizziness, syncope or near syncope. No edema, orthopnea or PND. Tele shows sinus rhythm with occasional mild sinus bradycardia. 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 Cardio/Vascular: Yes: AFIB, CHF, HTN Gastrointestinal: Yes: Diverticulosis (with diverticulitis), GERD - Past Surgical History Past Surgical History: Yes: Appendectomy, Cholecystectomy, Hysterectomy (KINZA) - Alcohol/Substance Use Hx Alcohol Use: No History of Substance Use: reports: None - Smoking History Smoking history: Never smoked Have you smoked in the past 12 months: No Aproximately how many cigarettes per day: 0 If you are a former smoker, when did you quit?: Over 30 years ago - Social History Usual Living Arrangement: Other () ADL: Independent Occupation: Retired: worked for [employer] History of Recent Travel: No Home Medications - Allergies Allergies/Adverse Reactions: Allergies Allergy/AdvReac Type Severity Reaction Status Date / Time niacin Allergy Severe Nausea Verified 01/08/17 03:44 [From Niaspan Extended-Release] sulfasalazine Allergy Severe Swelling Verified 01/08/17 03:44 [From Azulfidine] strawberry [[place]] Allergy Intermediate Vomiting Verified 01/08/17 03:44 indomethacin [From Indocin] Allergy Unknown Verified 01/08/17 03:44 indomethacin sodium Allergy Unknown Verified 01/08/17 03:44 [From Indocin] betaine AdvReac Intermediate STOMACH Verified 01/08/17 03:44 [From Cholesterol Fighter] UPSET Chitosan AdvReac Intermediate STOMACH Verified 01/08/17 03:44 [From Cholesterol Fighter] UPSET lecithin AdvReac Intermediate STOMACH Verified 01/08/17 03:44 [From Cholesterol Fighter] UPSET NSAIDS (Non-Steroidal AdvReac Intermediate STOMACH Verified 01/08/17 03:44 Anti-Inflamma UPSET Sitosterols AdvReac Intermediate STOMACH Verified 01/08/17 03:44 [From Cholesterol Fighter] UPSET cucumbers Allergy Severe Vomiting Uncoded 01/08/17 03:44 - Home Medications Home Medications: Ambulatory Orders Citalopram Hydrobromide [Citalopram HBr] 10 mg PO DAILY 01/08/17 Hydrochlorothiazide [Hctz -] 12.5 mg PO DAILY 01/08/17 Pramipexole Di-HCl [Mirapex] 0.25 mg PO HS 01/08/17 Rivastigmine Tartrate [Rivastigmine] 1.5 mg PO BID 01/08/17 Acetaminophen [Tylenol .Regular Strength -] 650 mg PO Q6H PRN #0 tablet Carbidopa/Levodopa 25/100 [Sinemet 25/100 -] 1 each PO TID tablet 01/09/17 Dabigatran Etexilate Mesylate [Pradaxa -] 150 mg PO BID cap 01/09/17 Losartan Potassium [Cozaar -] 100 mg PO DAILY tablet 01/09/17 Ranitidine [Zantac -] 150 mg PO BID tablet 01/09/17 Family Disease History - Family Disease History Family Disease History: Other: Father ( 70: CAD), Mother (: 59 ? TB), Brother (x2 from lung ca), Sister ( 65: CVA) Review of Systems - Review of Systems Constitutional: reports: No Symptoms Eyes: reports: Blind Spots, Blurred Vision HENT: reports: No Symptoms Neck: reports: Other (Right neck pain.) Respiratory: reports: No Symptoms Gastrointestinal: reports: No Symptoms Genitourinary: reports: No Symptoms Musculoskeletal: reports: No Symptoms Integumentary: reports: No Symptoms Neurological: reports: Other (Blurry vision.) Endocrine: reports: No Symptoms Hematology/Lymphatic: reports: No Symptoms Vital Signs: Vital Signs Temperature 98.4 F 01/11/17 09:00 Pulse Rate 64 01/11/17 09:00 Respiratory Rate 22 01/11/17 09:00 Blood Pressure 147/60 01/11/17 09:00 O2 Sat by Pulse Oximetry (%) 96 01/10/17 23:50 Constitutional: Yes: Well Nourished Eyes: Yes: WNL, Conjunctiva Clear, EOM Intact HENT: Yes: Atraumatic, Normocephalic Neck: Yes: Supple, Trachea Midline Respiratory: Yes: Regular, CTA Bilaterally Gastrointestinal: Yes: Normal Bowel Sounds, Soft Cardiovascular: Yes: Regular Rate and Rhythm JVD: No Carotid Bruit: No PMI: Non-Displaced Heart Sounds: Yes: S1, S2 Extremities: Yes: WNL Edema: No Peripheral Pulses WNL: Yes - Other Data Labs, Other Data: CBC, BMP 01/11/17 05:42 01/11/17 05:42 INR, PTT INR 1.12 (0.82-1.09) 01/11/17 05:42 Troponin, BNP 01/11/17 05:42 Troponin I 0.02 B-Natriuretic Peptide 1124.59 H Troponin, BNP 01/11/17 05:42 Troponin I 0.02 B-Natriuretic Peptide 1124.59 H Imaging - Results MRI: Report Reviewed EKG: Image Reviewed Assessment/Plan 86 year old woman with a PMHx of HTN paroxysmal atrial fibrillation on Pradaxa, diastolic CHF, Parkinson disease, GERD and a recent CVA who was recently (2016) with chest pain and found to have preserved LV systolic function and a small and mild apical stress induced ischemia from echocardiogram and nuclear stress test readmitted 01/10/2017 with blurry vision. MRA and MRI 01/10/2017 showed mid and distal 3rd POLICE ARTIST partially occluded and a new 0.3 cm acute non-hemarrhagic infarct in the right temporal periventricular region. A very small amout of petechial blood is noted within previously identified acute/subacute right occipital cortical infarct. Carotid duplex 01/10 unremarkable. She has no recurrent angina or dyspnea. Tele shows sinus rhythm with occasional mild sinus bradycardia. No evidence of recurrent atrial fibrillation. 1) Abnormal nuclear stress test on 01/08/2017 with a small and mild apical stress induced ischemia. She has been stable without recurrent angina. May start statin therapy: Crestor 10 mg daily. 2) Paroxysmal atrial fibrillation: Remains in sinus without recurrent atrial fibrillation. Mild sinus bradycardia noted on tele. Should restart Pradaxa after neuro evaluation. 3) Diastolic CHF: stable. No physical signs of fluid overload. 4) HTN: BP is controlled with current regimen. 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 No evidence of recurrent afib. Should restart Pradaxa after neuro evaluation. Start statin therapy: Crestor 10 mg daily.
[2017-01-11] MEDS: RIVASTIGMINE TARTRATE 1.5 MG CAPSULE PO SCH ×2 (12:01→21:19)
--- NOTE | 2017-01-11 12:53 | EKG ---
Test Reason : Blood Pressure : / mmHG Vent. Rate : 060 BPM Atrial Rate : 060 BPM P-R Int : 150 ms QRS Dur : 096 ms QT Int : 406 ms P-R-T Axes : 068 -03 045 degrees QTc Int : 406 ms NORMAL SINUS RHYTHM NONSPECIFIC ST AND T WAVE ABNORMALITY ABNORMAL ECG WHEN COMPARED WITH ECG OF 08-JAN-2017 15:43, NO SIGNIFICANT CHANGE WAS FOUND Confirmed by AD MARTINEZ MD ([id number]) on 01/11/2017 12:53:06 PM Referred By: Confirmed By:AD MARTINEZ MD
--- NOTE | 2017-01-11 12:53 | HP ---
Admitting History and Physical - Primary Care Physician PCP: Pat العلي - Admission Chief Complaint: blurry vision History of Present Illness: Patient is an 86 year old woman with a PMHx of HTN paroxysmal atrial fibrillation on Pradaxa, diastolic CHF, Parkinson disease, GERD and a recent CVA who was recently (01/08/2017) with chest pain and found to have preserved LV systolic function and a small and mild apical stress induced ischemia from echocardiogram and nuclear stress test, presents to the ED with blurry vision. Patient states that she noticed blurry vision yesterday while watching TV or reading. She states that she believes her left eye is worse because she noticed a "rosas splotch" in the left side of her vision. Pt states that these symptoms are similar to the ones she had when she was diagnosed with a TIA earlier this month. She also reports dull occipital headache. Patient was dc yesterday from [facility] after being admitted for chest pain. The patient denies recurrent chest pain, SOB, palpitation, dizziness, syncope or near syncope. No fever, chills, numbness, tingling, slurred speech or difficulty speaking, edema. Case discussed with Dr. Wilson, will hold pradaxia for now until he evaluates patient (Thursday). History Source: Patient Limitations to Obtaining History: No Limitations - Past Medical History PREVENTIVE MEDICINE PHYSICIAN: Yes: CVA, Dementia, Parkinson's Cardiovascular: Yes: AFIB, CHF, HTN Gastrointestinal: Yes: Diverticulosis (with diverticulitis), GERD - Past Surgical History Past Surgical History: Yes: Appendectomy, Cholecystectomy, Hysterectomy (KINZA) - Smoking History Smoking history: Never smoked Have you smoked in the past 12 months: No Aproximately how many cigarettes per day: 0 If you are a former smoker, when did you quit?: Over 30 years ago - Alcohol/Substance Use Hx Alcohol Use: No History of Substance Use: reports: None - Social History ADL: Independent Occupation: Retired: worked for [employer] History of Recent Travel: No Home Medications - Allergies Allergies/Adverse Reactions: Allergies Allergy/AdvReac Type Severity Reaction Status Date / Time niacin Allergy Severe Nausea Verified 01/08/17 03:44 [From Niaspan Extended-Release] sulfasalazine Allergy Severe Swelling Verified 01/08/17 03:44 [From Azulfidine] strawberry [[place]] Allergy Intermediate Vomiting Verified 01/08/17 03:44 indomethacin [From Indocin] Allergy Unknown Verified 01/08/17 03:44 indomethacin sodium Allergy Unknown Verified 01/08/17 03:44 [From Indocin] betaine AdvReac Intermediate STOMACH Verified 01/08/17 03:44 [From Cholesterol Fighter] UPSET Chitosan AdvReac Intermediate STOMACH Verified 01/08/17 03:44 [From Cholesterol Fighter] UPSET lecithin AdvReac Intermediate STOMACH Verified 01/08/17 03:44 [From Cholesterol Fighter] UPSET NSAIDS (Non-Steroidal AdvReac Intermediate STOMACH Verified 01/08/17 03:44 Anti-Inflamma UPSET Sitosterols AdvReac Intermediate STOMACH Verified 01/08/17 03:44 [From Cholesterol Fighter] UPSET cucumbers Allergy Severe Vomiting Uncoded 01/08/17 03:44 - Home Medications Home Medications: Ambulatory Orders Citalopram Hydrobromide [Citalopram HBr] 10 mg PO DAILY 01/08/17 Hydrochlorothiazide [Hctz -] 12.5 mg PO DAILY 01/08/17 Pramipexole Di-HCl [Mirapex] 0.25 mg PO HS 01/08/17 Rivastigmine Tartrate [Rivastigmine] 1.5 mg PO BID 01/08/17 Acetaminophen [Tylenol .Regular Strength -] 650 mg PO Q6H PRN #0 tablet Carbidopa/Levodopa 25/100 [Sinemet 25/100 -] 1 each PO TID tablet 01/09/17 Dabigatran Etexilate Mesylate [Pradaxa -] 150 mg PO BID cap 01/09/17 Losartan Potassium [Cozaar -] 100 mg PO DAILY tablet 01/09/17 Ranitidine [Zantac -] 150 mg PO BID tablet 01/09/17 Family Disease History - Family Disease History Family Disease History: Other: Father ( 70: CAD), Mother (: 59 ? TB), Brother (x2 from lung ca), Sister ( 65: CVA) Review of Systems - Review of Systems Constitutional: denies: Chills, Fever Eyes: reports: Blurred Vision HENT: denies: Difficult Swallowing Neck: denies: Decreased ROM Cardiovascular: denies: Chest Pain Respiratory: denies: Cough, Orthopnea Gastrointestinal: denies: Abdominal Pain Genitourinary: denies: Burning, Discharge Neurological: denies: Change in LOC, Dizziness, Syncope Endocrine: denies: Excessive Sweating Hematology/Lymphatic: denies: Excessive Bleeding Physical Examination Vital Signs: Vital Signs Temperature 98.4 F 01/11/17 09:00 Pulse Rate 64 01/11/17 09:00 Respiratory Rate 22 01/11/17 09:00 Blood Pressure 147/60 01/11/17 09:00 O2 Sat by Pulse Oximetry (%) 96 01/10/17 23:50 Constitutional: Yes: No Distress, Calm Eyes: Yes: Conjunctiva Clear, EOM Intact HENT: Yes: Atraumatic, Normocephalic Neck: Yes: Supple Cardiovascular: Yes: Regular Rate and Rhythm Respiratory: Yes: Regular, CTA Bilaterally Gastrointestinal: Yes: Normal Bowel Sounds, Soft Musculoskeletal: Yes: WNL Extremities: Yes: WNL Edema: No Peripheral Pulses WNL: Yes Neurological: Yes: Alert, Oriented ...Motor Strength: WNL Labs: CBC, BMP 01/11/17 05:42 01/11/17 05:42 Problem List - Problems (1) CVA (cerebral vascular accident) Assessment/Plan: -CT Head, Revealed suspected acute/subacute right occipital infarct with no evidence of intracranial hemorrhage -MRI Head, Revealed interval development of a cery small amount of petechial blood noted within a previously identified acute/subacute R occipital infarct. -Noted with left lower homnonymous quadrantonopia in the ED -No othe focal neurologic deficit noted -Neurology evaluation Code(s): I63.9 - CEREBRAL INFARCTION, UNSPECIFIED (2) Hypertension Assessment/Plan: -cardiology evaluation -BP controlled -continue Losartan, HTZ -BP monitoring Code(s): I10 - ESSENTIAL (PRIMARY) HYPERTENSION (3) Congestive heart failure Assessment/Plan: -Cardiology evaluation -No SSx of heart failure at this time -Continue to monitor Code(s): I50.9 - HEART FAILURE, UNSPECIFIED (4) Parkinson disease Assessment/Plan: -Continue medication -stable Code(s): G20 - PARKINSON'S DISEASE (5) Afib Assessment/Plan: -cardiology and neurology eval -hold pradaxia for now, awaiting neurology consult (possible bleed) Code(s): I48.91 - UNSPECIFIED ATRIAL FIBRILLATION Qualifiers: Atrial fibrillation type: unspecified Qualified Code(s): I48.91 - Unspecified atrial fibrillation (6) GERD (gastroesophageal reflux disease) Assessment/Plan: -Continue ranitidine Code(s): K21.9 - GASTRO-ESOPHAGEAL REFLUX DISEASE WITHOUT ESOPHAGITIS (7) CAD (coronary artery disease) Assessment/Plan: -cardiology evaluation - Code(s): I25.10 - ATHSCL HEART DISEASE OF [place] CORONARY ARTERY W/O ANG PCTRS Assessment/Plan Please see problem list -Case discussed with Dr. Wilson and Dr Harris -Will re-start Pradaxia and Aspirin. -Possible D/C tomorrow if no event overnight
--- NOTE | 2017-01-11 13:06 | CON.NEURO ---
Consult - History of Present Illness History of Present Illness: Neurology covering for Dr Brito 86 year old woman with a PMHx of HTN paroxysmal atrial fibrillation on Pradaxa, diastolic CHF, Parkinson disease, GERD and a recent CVA who was recently (2016) with chest pain and found to have preserved LV systolic function and a small and mild apical stress induced ischemia from echocardiogram and nuclear stress test, presents to the ED with blurry vision. Patient states that she noticed blurry vision yesterday while watching TV or reading. She states that she believes her left eye is worse because she noticed a "rosas splotch" in the left side of her vision. Pt states that these symptoms are similar to the ones she had when she was diagnosed with a TIA earlier this month. She also reports dull occipital headache right sided. no new c/o this AM, no focal motor sensory sx. has been compliant of PRADAXA. parkinsons stable. MRA and MRI 01/10/2017 showed mid and distal 3rd DIRECTOR OF GOLF partially occluded and a new 0.3 cm acute non-hemarrhagic infarct in the right temporal periventricular region. A very small amout of petechial blood is noted within previously identified acute/subacute right occipital cortical infarct. Carotid duplex 01/10 unremarkable. Allowing for motion artifact there appears to be an attenuated appearance of the mid and distal thirds of the right posterior cerebral artery suggestive of partial occlusion. Correlation with CT angiography or follow-up MRA may be considered. Patent vertebral arteries. No carotid artery stenosis is seen. - History Source History Provided By: Patient, Medical Record - Past Medical History DIRECTOR OF ENVIRONMENTAL SERVICES: Yes: CVA, Dementia, Parkinson's Cardio/Vascular: Yes: AFIB, CHF, HTN Gastrointestinal: Yes: Diverticulosis (with diverticulitis), GERD - Past Surgical History Past Surgical History: Yes: Appendectomy, Cholecystectomy, Hysterectomy (KINZA) - Alcohol/Substance Use Hx Alcohol Use: No History of Substance Use: reports: None - Smoking History Smoking history: Never smoked Have you smoked in the past 12 months: No Aproximately how many cigarettes per day: 0 If you are a former smoker, when did you quit?: Over 30 years ago - Social History Usual Living Arrangement: Other () ADL: Independent Occupation: Retired: worked for [employer] History of Recent Travel: No Home Medications - Allergies Allergies/Adverse Reactions: Allergies Allergy/AdvReac Type Severity Reaction Status Date / Time niacin Allergy Severe Nausea Verified 01/08/17 03:44 [From Niaspan Extended-Release] sulfasalazine Allergy Severe Swelling Verified 01/08/17 03:44 [From Azulfidine] strawberry [[place]] Allergy Intermediate Vomiting Verified 01/08/17 03:44 indomethacin [From Indocin] Allergy Unknown Verified 01/08/17 03:44 indomethacin sodium Allergy Unknown Verified 01/08/17 03:44 [From Indocin] betaine AdvReac Intermediate STOMACH Verified 01/08/17 03:44 [From Cholesterol Fighter] UPSET Chitosan AdvReac Intermediate STOMACH Verified 01/08/17 03:44 [From Cholesterol Fighter] UPSET lecithin AdvReac Intermediate STOMACH Verified 01/08/17 03:44 [From Cholesterol Fighter] UPSET NSAIDS (Non-Steroidal AdvReac Intermediate STOMACH Verified 01/08/17 03:44 Anti-Inflamma UPSET Sitosterols AdvReac Intermediate STOMACH Verified 01/08/17 03:44 [From Cholesterol Fighter] UPSET cucumbers Allergy Severe Vomiting Uncoded 01/08/17 03:44 - Home Medications Home Medications: Ambulatory Orders Citalopram Hydrobromide [Citalopram HBr] 10 mg PO DAILY 01/08/17 Hydrochlorothiazide [Hctz -] 12.5 mg PO DAILY 01/08/17 Pramipexole Di-HCl [Mirapex] 0.25 mg PO HS 01/08/17 Rivastigmine Tartrate [Rivastigmine] 1.5 mg PO BID 01/08/17 Acetaminophen [Tylenol .Regular Strength -] 650 mg PO Q6H PRN #0 tablet Carbidopa/Levodopa 25/100 [Sinemet 25/100 -] 1 each PO TID tablet 01/09/17 Dabigatran Etexilate Mesylate [Pradaxa -] 150 mg PO BID cap 01/09/17 Losartan Potassium [Cozaar -] 100 mg PO DAILY tablet 01/09/17 Ranitidine [Zantac -] 150 mg PO BID tablet 01/09/17 Family Disease History - Family Disease History Family Disease History: Other: Father ( 70: CAD), Mother (: 59 ? TB), Brother (x2 from lung ca), Sister ( 65: CVA) Physical Exam-Neuro Vital Signs: Vital Signs Temperature 98.4 F 01/11/17 09:00 Pulse Rate 64 01/11/17 09:00 Respiratory Rate 22 01/11/17 09:00 Blood Pressure 147/60 01/11/17 09:00 O2 Sat by Pulse Oximetry (%) 96 01/10/17 23:50 Constitutional: Yes: Well Nourished Labs: CBC, BMP 01/11/17 05:42 01/11/17 05:42 INR, PTT INR 1.12 (0.82-1.09) 01/11/17 05:42 - Neuro Exam Level Of Consciousness: Yes: Alert, Oriented to Person (EOMi, partial left sided field cut (lower quadrantanopia L), min L eft facial, no dysarthria, no drift or focal weaknes, min tremor, mild cogwheel, plantars down ) Assessment/Plan 86 year old woman with a PMHx of HTN paroxysmal atrial fibrillation on Pradaxa, diastolic CHF, Parkinson disease, GERD and who was recently (01/08/2017) with chest pain and found to have preserved LV systolic function and a small and mild apical stress induced ischemia from echocardiogram and nuclear stress test readmitted 01/10/2017 with blurry vision/found to have partial left field cut and small Right temporal lobe/ occipital stroke; ? thrombotic vs embolic (as R DIRECTOR OF GOLF distally appaers occluded on MRA --there is no intervention for this); given breakthrough with PRADAXA , team may consider changing her over to another Anticoagulant ie ELIQUIS--spoke to card, and we agreed PRADAXa may be relatively stronger form cardiomeblic risk standpoint then other novel Ac's-- so will mainatain pRADAXA and add baby ASA as well. agree with adding statin. parkinsons stable. outpt FU with Dr BRITO. Dr Wilson [phone]
[2017-01-11] MEDS: ASPIRIN 81 MG CHEWABLE TABLETS PO SCH (15:00)
[2017-01-11] MEDS ORDERED: PT OWN MED DRAWER 7, Y5N ONE (21:16)
[2017-01-11] MEDS: DABIGATRAN ETEXILATE MESYLATE 150 MG CAPSULE PO SCH (21:18)
[2017-01-11] MEDS ORDERED: PRAMIPEXOLE DIHYDROCHLORIDE 0.25 MG TABLET PO SCH (22:00)
[2017-01-12] MEDS: CARBIDOPA/LEVODOPA 25/100 TABLET (FP) PO SCH ×2 (06:02→13:33)
[2017-01-12] MEDS: LOSARTAN POTASSIUM 50 MG TABLET (FP) PO SCH ×2 (07:58→09:18)
[2017-01-12] MEDS: HYDROCHLOROTHIAZIDE 12.5 MG CAPSULE (FP) PO SCH ×2 (07:59→09:19)
[2017-01-12 08:00] LABS: BASOPHIL 0.8 % (0-2.0); EOSINOPHIL 5.7 % (0-4.5); MCH 31.4 pg (25.7-33.7); MCHC 34.1 g/dl (32.0-36.0); MEAN CELL VOLUME 92.1 fl (80-96); MEAN PLT VOLUME 7.9 fl (7.5-11.1); NEUTROPHILS 69.1 % (42.8-82.8); PLATELET COUNT 257 K/MM3 (134-434); RDW 12.3 % (11.6-15.6); WHITE BLOOD COUNT 6.1 K/mm3 (4.0-10.0)
[2017-01-12 09:07] LABS: ALK PHOS 99 U/L (45-117); ANION GAP 9 (8-16); BILIRUBIN,TOTAL 0.8 mg/dL (0.2-1.0); CALCIUM 8.4 mg/dL (8.5-10.1); CO2 26 mmol/L (21-32); CREATININE 0.8 mg/dL (0.55-1.02); GLUCOSE,RANDOM 116 mg/dL (74-106); SGOT/AST 14 U/L (15-37); SGPT/ALT 7 U/L (12-78); TOT PROT 5.7 g/dl (6.4-8.2)
[2017-01-12] MEDS: ASPIRIN 81 MG CHEWABLE TABLETS PO SCH (09:18)
[2017-01-12] MEDS: CITALOPRAM HYDROBROMIDE 10 MG TABLET (FP) PO SCH (09:18)
[2017-01-12] MEDS: RANITIDINE HCL 150 MG TABLET (FP) PO SCH (09:18)
[2017-01-12] MEDS: DABIGATRAN ETEXILATE MESYLATE 150 MG CAPSULE PO SCH (09:18)
[2017-01-12] MEDS: RIVASTIGMINE TARTRATE 1.5 MG CAPSULE PO SCH (09:19)
--- NOTE | 2017-01-12 13:01 | DS ---
Physical Examination Vital Signs: Vital Signs Temperature 97.4 F L 01/12/17 08:38 Pulse Rate 56 L 01/12/17 08:38 Respiratory Rate 22 01/12/17 08:38 Blood Pressure 163/79 01/12/17 08:38 O2 Sat by Pulse Oximetry (%) 96 01/11/17 21:00 Constitutional: Yes: Calm Cardiovascular: Yes: Regular Rate and Rhythm, S1, S2 Respiratory: Yes: CTA Bilaterally Gastrointestinal: Yes: Normal Bowel Sounds, Soft Edema: No Neurological: Yes: Alert, Oriented Labs: CBC, BMP 01/12/17 05:48 01/12/17 05:48 Discharge Summary Reason For Visit: CEREBROVASCULAR ACCIDENT (CVA) Current Active Problems Abdominal pain (Acute) Afib (Acute) CAD (coronary artery disease) (Acute) CVA (cerebral vascular accident) (Acute) GERD (gastroesophageal reflux disease) (Acute) Hypertension (Acute) Low TSH level (Acute) Nausea & vomiting (Acute) Weakness (Acute) Hospital Course: - Primary Care Physician PCP: Pat العلي - Admission Chief Complaint: blurry vision History of Present Illness: Patient is an 86 year old woman with a PMHx of HTN paroxysmal atrial fibrillation on Pradaxa, diastolic CHF, Parkinson disease, GERD and a recent CVA who was recently (01/08/2017) with chest pain and found to have preserved LV systolic function and a small and mild apical stress induced ischemia from echocardiogram and nuclear stress test, presents to the ED with blurry vision. Patient states that she noticed blurry vision yesterday while watching TV or reading. She states that she believes her left eye is worse because she noticed a "rosas splotch" in the left side of her vision. Pt states that these symptoms are similar to the ones she had when she was diagnosed with a TIA earlier this month. She also reports dull occipital headache. Patient was dc yesterday from [facility] after being admitted for chest pain. The patient denies recurrent chest pain, SOB, palpitation, dizziness, syncope or near syncope. No fever, chills, numbness, tingling, slurred speech or difficulty speaking, edema. currently patient today is awake alert had headache and neck pain last nite now it is resolved, explained to her reports in detail MRA shows partial occlusion of distal R COVER MAT MACHINE OPERATOR( no intervention for this per neuro) MRI 0.3cm non hemorrhagic acute infarct in right temporal periventricular region patient to continue pradaxa and aspirin started on aspirin as well to see dr finch as outpatient Condition: Guarded - Instructions Referrals: Pat العلي MD [Primary Care Provider] - 1 Week Wan Finch MD [Staff Physician] - 1 Week Disposition: HOME - Home Medications Comprehensive Discharge Medication List: Ambulatory Orders Citalopram Hydrobromide [Citalopram HBr] 10 mg PO DAILY 01/08/17 Hydrochlorothiazide [Hctz -] 12.5 mg PO DAILY 01/08/17 Pramipexole Di-HCl [Mirapex] 0.25 mg PO HS 01/08/17 Rivastigmine Tartrate [Rivastigmine] 1.5 mg PO BID 01/08/17 Acetaminophen [Tylenol .Regular Strength -] 650 mg PO Q6H PRN #0 tablet Carbidopa/Levodopa 25/100 [Sinemet 25/100 -] 1 each PO TID tablet 01/09/17 Dabigatran Etexilate Mesylate [Pradaxa -] 150 mg PO BID cap 01/09/17 Losartan Potassium [Cozaar -] 100 mg PO DAILY tablet 01/09/17 Ranitidine [Zantac -] 150 mg PO BID tablet 01/09/17 Nifedipine [Procardia Xl] 30 mg PO PRN 01/12/17
--- NOTE | 2017-01-12 13:04 | PN ---
Progress Note (short form) - Note Progress Note: cardiology follow up today then dc home later in evening
--- NOTE | 2017-01-12 15:33 | PN ---
Progress Note, Physician Chief Complaint: No complaints Telem Brief NSVT, NSR History of Present Illness: 86 year old woman with a PMHx of HTN paroxysmal atrial fibrillation on Pradaxa, diastolic CHF, Parkinson disease, GERD and a recent CVA who was recently (2016) with chest pain and found to have preserved LV systolic function and a small and mild apical stress induced ischemia from echocardiogram and nuclear stress test readmitted 01/10/2017 with blurry vision. Patient developed blurry vision yesterday while watching TV or reading one day prior to this admission. She has intermittent right neck pain behind her ear. MRA and MRI 01/10/2017 showed mid and distal 3rd BRINE PROCESS OPERATOR partially occluded and a new 0.3 cm acute non-hemarrhagic infarct in the right temporal periventricular region. A very small amout of petechial blood is noted within previously identified acute/subacute right occipital cortical infarct. Carotid duplex 01/10 unremarkable. The patient denies recurrent chest pain, SOB, palpitation, dizziness, syncope or near syncope. No edema, orthopnea or PND. Tele shows sinus rhythm with occasional mild sinus bradycardia. - Current Medication List Current Medications: Active Medications Acetaminophen (Tylenol -) 650 mg PO Q6H PRN PRN Reason: FEVER OR PAIN Last Admin: 01/12/17 07:58 Dose: 650 mg Aspirin (Asa -) 81 mg PO DAILY [facility] Last Admin: 01/12/17 09:18 Dose: 81 mg Carbidopa/Levodopa (Sinemet 25/100 -) 1 each PO TID [facility] Last Admin: 01/12/17 13:33 Dose: 1 each Citalopram Hydrobromide (Celexa -) 10 mg PO DAILY [facility] Last Admin: 01/12/17 09:18 Dose: 10 mg Dabigatran (Pradaxa -) 150 mg PO BID [facility] Last Admin: 01/12/17 09:18 Dose: 150 mg Hydrochlorothiazide (Hctz -) 12.5 mg PO DAILY [facility] Last Admin: 01/12/17 09:19 Dose: Not Given Losartan Potassium (Cozaar -) 100 mg PO DAILY [facility] Last Admin: 01/12/17 09:18 Dose: Not Given Pramipexole Dihydrochloride (Mirapex -) 0.25 mg PO HS [facility] Last Admin: 01/11/17 21:19 Dose: 0.25 mg Ranitidine HCl (Zantac -) 150 mg PO BID [facility] Last Admin: 01/12/17 09:18 Dose: 150 mg Rivastigmine Tartrate (Exelon (Nf) -) 1.5 mg PO BID [facility] Last Admin: 01/12/17 09:19 Dose: 1.5 mg Rosuvastatin Calcium (Crestor -) 10 mg PO [facility] - Objective Vital Signs: Vital Signs Temperature 97.4 F L 01/12/17 08:38 Pulse Rate 56 L 01/12/17 08:38 Respiratory Rate 22 01/12/17 09:00 Blood Pressure 163/79 01/12/17 08:38 O2 Sat by Pulse Oximetry (%) 97 01/12/17 09:00 Constitutional: Yes: No Distress, Calm Eyes: Yes: Conjunctiva Clear, EOM Intact HENT: Yes: Atraumatic, Normocephalic Neck: Yes: Supple, Trachea Midline Cardiovascular: Yes: Regular Rate and Rhythm Respiratory: Yes: CTA Bilaterally Gastrointestinal: Yes: Normal Bowel Sounds, Soft Extremities: Yes: WNL Edema: No Labs: CBC, BMP 01/12/17 05:48 01/12/17 05:48 INR, PTT INR 1.12 (0.82-1.09) 01/11/17 05:42 Problem List - Problems (1) Afib Code(s): I48.91 - UNSPECIFIED ATRIAL FIBRILLATION Qualifiers: Atrial fibrillation type: unspecified Qualified Code(s): I48.91 - Unspecified atrial fibrillation (2) CAD (coronary artery disease) Code(s): I25.10 - ATHSCL HEART DISEASE OF [place] CORONARY ARTERY W/O ANG PCTRS Assessment/Plan 86 year old woman with a PMHx of HTN paroxysmal atrial fibrillation on Pradaxa, diastolic CHF, Parkinson disease, GERD and a recent CVA who was recently (2016) with chest pain and found to have preserved LV systolic function and a small and mild apical stress induced ischemia from echocardiogram and nuclear stress test readmitted 01/10/2017 with blurry vision. Continue medical management of stable CAD. Would continue ASA in addition to Pradaxa. Will see as needed.
[2017-01-12 15:57] VITALS: BP 180/68; PULSE 68; TEMP 97.9
--- NOTE | 2017-01-12 20:43 | DS ---
Physical Examination Vital Signs: Vital Signs Temperature 97.9 F 01/12/17 14:00 Pulse Rate 68 01/12/17 14:00 Respiratory Rate 18 01/12/17 14:00 Blood Pressure 180/68 01/12/17 14:00 O2 Sat by Pulse Oximetry (%) 97 01/12/17 09:00 Constitutional: Yes: No Distress Eyes: Yes: WNL HENT: Yes: WNL Neck: Yes: WNL Cardiovascular: Yes: Pulse Irregular Respiratory: Yes: WNL Gastrointestinal: Yes: WNL Renal/: Yes: WNL Musculoskeletal: Yes: WNL Extremities: Yes: WNL Edema: Yes Edema: LLE: Trace, RLE: Trace Peripheral Pulses WNL: Yes Integumentary: Yes: WNL Wound/Incision: Yes: Clean/Dry Neurological: Yes: WNL ...Motor Strength: WNL Psychiatric: Yes: WNL Labs: CBC, BMP 01/12/17 05:48 01/12/17 05:48 Discharge Summary Reason For Visit: CEREBROVASCULAR ACCIDENT (CVA) Current Active Problems Abdominal pain (Acute) Afib (Acute) CAD (coronary artery disease) (Acute) CVA (cerebral vascular accident) (Acute) GERD (gastroesophageal reflux disease) (Acute) Hypertension (Acute) Low TSH level (Acute) Nausea & vomiting (Acute) Weakness (Acute) Procedures: Principal: mri Hospital Course: admitted acute cva, worked up by neurology and cardiology dc home on pradaxa Condition: Guarded - Instructions Diet, Activity, Other Instructions: see dr rojas 2-3 days low sodium low fat diet Referrals: Wan Finch MD [Staff Physician] - 1 Week Pat Rojas MD [Primary Care Provider] - 1 Week Disposition: HOME - Home Medications Comprehensive Discharge Medication List: Ambulatory Orders Citalopram Hydrobromide [Citalopram HBr] 10 mg PO DAILY 01/08/17 Acetaminophen [Tylenol .Regular Strength -] 650 mg PO Q6H PRN #0 tablet Carbidopa/Levodopa 25/100 [Sinemet 25/100 -] 1 each PO TID tablet 01/09/17 Losartan Potassium [Cozaar -] 100 mg PO DAILY tablet 01/09/17 Ranitidine [Zantac -] 150 mg PO BID tablet 01/09/17 Dabigatran Etexilate Mesylate [Pradaxa -] 150 mg PO BID #60 cap 01/12/17 Dabigatran Etexilate Mesylate [Pradaxa -] 150 mg PO BID #60 cap MDD 2 01/12/17 Hydrochlorothiazide [Hctz -] 12.5 mg PO DAILY #30 syringe MDD 1 01/12/17 Pramipexole Di-HCl [Mirapex] 0.25 mg PO HS #20 syringe MDD 1 01/12/17 Rivastigmine Tartrate [Rivastigmine] 1.5 mg PO BID #30 cap MDD 2 01/12/17 Rosuvastatin [Crestor -] 10 mg PO HS #30 tablet MDD 1 01/12/17
[2017-01-12] MEDS ORDERED: ROSUVASTATIN CA 10 MG TABLET (FP) PO SCH (22:00)
== END 2017-01-12 19:07 | disposition home or self-care (01) | DRG 65 ==
LOC: JER 15:10 → JERBED 19:57 → UNDOADMIN 19:57 → J4W 01-11 00:08
PROVIDERS: ADMIT Family Medicine; ATTEND Family Medicine
DX: I63.9 Cerebral infarction, unspecified (principal); I50.32 Chronic diastolic (congestive) heart failure; I11.0 Hypertensive heart disease with heart failure; I48.0 Paroxysmal atrial fibrillation; K21.9 Gastro-esophageal reflux disease without esophagitis; G20 Parkinson's disease
CPT/HCPCS: 36415; 70450-TC; 70544-TC; 70547-TC; 70551-TC; 71010-TC; 80053; 80061; 81003; 81015; 83036; 83721; 83735; 83880; 84100; 84484; 85025; 85610; 85730; 86850; 86900; 86901; 87086; 93005; 93010; 93880-TC; 97161-GP; 99284-25

== ENCOUNTER 2017-08-28 00:47 | Inpatient (IN) | payer OTHER ==
[2017-08-28] MEDS ORDERED: PANTOPRAZOLE SODIUM 40 MG in SODIUM CHLORIDE 100 ML IVPB ONE (01:06)
[2017-08-28] MEDS ORDERED: ONDANSETRON 4 MG/2 ML VIAL IVPUSH ONE (01:06)
--- NOTE | 2017-08-28 01:08 | PDOC ---
Attending Attestation - HPI HPI: 08/28/17 03:09 Patient is an 87 year old female with a significant past medical history of HTN paroxysmal atrial fibrillation on Pradaxa, diastolic CHF, Parkinson disease, GERD and a recent CVA, who presents to the ED with complaints of rectal bleeding that she states began last night. Patient reports waking up from sleep with diffuse abdominal cramping when she noticed red loose diarrhea and clots. She reports experiencing associated symptoms of vomiting but denies any blood present, stating it was brown in coloration. Denies chest pain, Sob. Denies contact with sick individuals, out of state travelling. Denies change in appetite, dysuria, hematuria. Denies any other symptoms. Allergies: niacin, sulfasalazine, strawberry, Indocin, Cholesterol Fighter, NSAIDS, cucumbers Social history: Former smoker (last 30 years ago). No alcohol. No illicit drugs. Surgical history: Appendectomy, Cholecystectomy, Hysterectomy ([facility]) PMD: Dr. العلي <Mitul Wisdom - Last Filed: 08/28/17 03:09> - Resident Resident Name: Kvng Adam - ED Attending Attestation I have performed the following: I have examined & evaluated the patient, The case was reviewed & discussed with the resident, I agree w/resident's findings & plan, Exceptions are as noted - Physicial Exam PE: 09/01/17 19:18 [id number]*Physical Exam General Appearance: Yes: Appropriately Dressed. No: Apparent Distress, Intoxicated HEENT: positive: EOMI, ZENON, Normal ENT Inspection, Normal Voice, TMs Normal, Pharynx Normal. negative: Pale Conjunctivae, Photophobia, Scleral Icterus (R), Scleral Icterus (L) Neck: positive: Trachea midline, Normal Thyroid, Supple. negative: Tender, Rigid, Carotid bruit, Stridor, Lymphadenopathy (R), Lymphadenopathy (L), Thyromegaly Respiratory/Chest: positive: Lungs Clear, Normal Breath Sounds. negative: Chest Tender, Respiratory Distress, Accessory Muscle Use, Labored Respiration, RES, Crackles, Rales, Rhonchi, Stridor, Wheezing, Dullness Cardiovascular: positive: Regular Rhythm, Regular Rate, S1, S2. negative: Edema , JVD, Murmur, Bradycardia, Tachycardia Vascular Pulses: Dorsalis-Pedis (R): 2+, Doralis-Pedis (L): 2+ Gastrointestinal/Abdominal: positive: Normal Bowel Sounds, Flat, Soft.epigastric tenderness negative: , Organomegaly, Pulsatile Mass, Increased Bowel Sounds, Decreased BS, Distended, Guarding, Rebound, Hernia, Hepatomegaly, Spleenomegaly Lymphatic: negative: Adenopathy, Tenderness Musculoskeletal: positive: Normal Inspection. negative: CVA Tenderness, Decreased Range of Motion Extremity: positive: Normal Capillary Refill, Normal Inspection, Normal Range of Motion, Pelvis Stable. negative: Tender, Pedal Edema, Swelling, Erythema Integumentary: positive: Normal Color, Dry, Warm. 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 negative: EOM Palsy, Facial Droop, Sensory Deficit* Physical Exam - Medical Decision Making 09/01/17 19:19 Pt admitted for further evaluation and care <Mervin Rodriguez - Last Filed: 09/01/17 19:19> Heart Score/ECG Review - ECG Intrepretation Comment:: 08/28/17 02:03 Normal Sinus rhythm ]Moderate voltage criteria for LVH, may be normal variant Borderline ECG Vent. rate 65 bpm MI interval 146 ms QRS duration 98 ms <Mitul Wisdom - Last Filed: 08/28/17 03:09>
--- NOTE | 2017-08-28 01:42 | PDOC ---
History of Present Illness - General Chief Complaint: Rectal Bleed Stated Complaint: RECTAL BLEEDING Time Seen by Provider: 08/28/17 00:50 History Source: Patient Exam Limitations: No Limitations - History of Present Illness Initial Comments: 08/28/17 01:36 Patient is an 87F with history of afib on eliquis, CHF, breast cancer 15 years ago, diverticulosis, GERD, s/p appy and kyra, here today complaining of rectal bleeding. She states that she woke up this morning from sleep with LLQ abdominal pain described as a squeezing and realized that she had bright red blood with clots in her depends. She states that she had an episode of bloody diarrhea and an episode of vomiting. The vomit was described as brown, the patient is unsure if it appeared like coffee grounds. Patient denies chest pain , shortness of breath, dizziness. Denies history of GI bleeds. Endorses history of chronic constipation. PCP: [facility]: Jo Cards: [facility]: Josette PT's family can be contacted at [phone] (Jacquelin - Daughter) or [phone] (Home phone) Past History - Past Medical History Allergies/Adverse Reactions: Allergies Allergy/AdvReac Type Severity Reaction Status Date / Time niacin Allergy Severe Nausea Verified 08/28/17 00:50 [From Niaspan Extended-Release] sulfasalazine Allergy Severe Swelling Verified 08/28/17 00:50 [From Azulfidine] strawberry [[place]] Allergy Intermediate Vomiting Verified 08/28/17 00:50 indomethacin [From Indocin] Allergy Unknown Verified 08/28/17 00:50 indomethacin sodium Allergy Unknown Verified 08/28/17 00:50 [From Indocin] betaine AdvReac Intermediate STOMACH Verified 08/28/17 00:50 [From Cholesterol Fighter] UPSET chitosan AdvReac Intermediate STOMACH Verified 08/28/17 00:50 [From Cholesterol Fighter] UPSET lecithin AdvReac Intermediate STOMACH Verified 08/28/17 00:50 [From Cholesterol Fighter] UPSET NSAIDS (Non-Steroidal AdvReac Intermediate STOMACH Verified 08/28/17 00:50 Anti-Inflamma UPSET Sitosterols AdvReac Intermediate STOMACH Verified 08/28/17 00:50 [From Cholesterol Fighter] UPSET cucumbers Allergy Severe Vomiting Uncoded 08/28/17 00:50 Home Medications: Ambulatory Orders Citalopram Hydrobromide [Citalopram HBr] 10 mg PO DAILY 01/08/17 Acetaminophen [Tylenol .Regular Strength -] 650 mg PO Q6H PRN #0 tablet Carbidopa/Levodopa 25/100 [Sinemet 25/100 -] 1 each PO TID tablet 01/09/17 Losartan Potassium [Cozaar -] 100 mg PO DAILY tablet 01/09/17 Ranitidine [Zantac -] 150 mg PO BID tablet 01/09/17 Dabigatran Etexilate Mesylate [Pradaxa -] 150 mg PO BID #60 cap 01/12/17 Dabigatran Etexilate Mesylate [Pradaxa -] 150 mg PO BID #60 cap MDD 2 01/12/17 Hydrochlorothiazide [Hctz -] 12.5 mg PO DAILY #30 syringe MDD 1 01/12/17 Pramipexole Di-HCl [Mirapex] 0.25 mg PO HS #20 syringe MDD 1 01/12/17 Rivastigmine Tartrate [Rivastigmine] 1.5 mg PO BID #30 cap MDD 2 01/12/17 Rosuvastatin [Crestor -] 10 mg PO HS #30 tablet MDD 1 01/12/17 Anemia: No Asthma: No Cancer: Yes (Right radical mastectomy) Cardiac Disorders: Yes (Paroxysmal Atrial fibrillation, ASHD, CHF) CVA: Yes (TIA w/out residual) COPD: No CHF: Yes Dementia: No Diabetes: No GI Disorders: Yes (Diverticulosis,GERD) Disorders: No HTN: Yes Hypercholesterolemia: Yes Liver Disease: No Seizures: No Thyroid Disease: No - Surgical History Abdominal Surgery: Yes (Abdominal cyst removal) Appendectomy: Yes Cardiac Surgery: No Cholecystectomy: Yes Lung Surgery: No Neurologic Surgery: No Orthopedic Surgery: No - Immunization History Immunization Up to Date: Yes - Suicide/Smoking/Psychosocial Hx Smoking Status: No Smoking History: Never smoked Have you smoked in the past 12 months: No Number of Cigarettes Smoked Daily: 0 If you are a former smoker, when did you quit?: Over 30 years ago Information on smoking cessation initiated: No Hx Alcohol Use: No Drug/Substance Use Hx: No Substance Use Type: None Hx Substance Use Treatment: No Review of Systems - Review of Systems Comments:: 08/28/17 01:39 GENERAL/CONSTITUTIONAL: No fever or chills. No weakness. HEAD, EYES, EARS, NOSE AND THROAT: No change in vision. No sore throat. CARDIOVASCULAR: No chest pain or shortness of breath RESPIRATORY: No cough, wheezing, or hemoptysis. GASTROINTESTINAL: Positive for nausea, vomiting, diarrhea. Positive for constipation before this event GENITOURINARY: No dysuria, frequency, or change in urination. MUSCULOSKELETAL: No joint or muscle swelling or pain. No neck or back pain. SKIN: No rash NEUROLOGIC: No headache, vertigo, loss of consciousness, or change in strength/ sensation. ENDOCRINE: No increased thirst. No abnormal weight change HEMATOLOGIC/LYMPHATIC: No anemia, no history of blood clots. ALLERGIC/IMMUNOLOGIC: No hives or skin allergy. *Physical Exam - Vital Signs Last Vital Signs Temp Pulse Resp BP Pulse Ox 98.3 F 69 18 174/69 98 08/28/17 00:57 08/28/17 00:57 08/28/17 00:57 08/28/17 00:57 08/28/17 00:57 - Physical Exam Comments: 08/28/17 01:41 GENERAL: Awake, alert, and fully oriented, in no acute distress RECTAL: Positive for solitario blood with clots, no masses or hemorrhoids HEAD: No signs of trauma, normocephalic, atraumatic EYES: PERRLA, EOMI, sclera anicteric, conjunctiva clear ENT: Auricles normal inspection, hearing grossly normal, nares patent, oropharynx clear without exudates. Moist mucosa NECK: Normal ROM, supple, no lymphadenopathy, JVD, or masses LUNGS: No distress, speaks full sentences, clear to auscultation bilaterally HEART: Regular rate and rhythm, normal S1 and S2, no murmurs, rubs or gallops, peripheral pulses normal and equal bilaterally. ABDOMEN: Soft, +LLQ tenderness. No guarding, no rebound. No masses EXTREMITIES: Normal inspection, Normal range of motion, no edema. No clubbing or cyanosis. NEUROLOGICAL: Cranial nerves II through XII grossly intact. Normal speech, no focal sensorimotor deficits SKIN: Warm, Dry, normal turgor, no rashes or lesions noted. ED Treatment Course - LABORATORY CBC & Chemistry Diagram: 08/28/17 00:20 08/28/17 00:20 - RADIOLOGY Radiology Studies Ordered: Category Date Time Status CHEST X-RAY PORTABLE* [RAD] Stat Radiology 08/28/17 01:06 Taken - Medications Given in the ED: ED Medications Discontinued Medications Generic Name Dose Route Start Last Admin Trade Name Sara PRN Reason Stop Dose Admin Pantoprazole Sodium 40 mg/ 100 mls @ 200 mls/hr 08/28/17 01:06 08/28/17 01:13 Sodium Chloride IVPB 08/28/17 01:35 200 mls/hr ONCE ONE Administration Ondansetron HCl 4 mg 08/28/17 01:06 08/28/17 01:13 Zofran Injection IVPUSH 08/28/17 01:07 4 mg ONCE ONE Administration Medical Decision Making - Medical Decision Making 08/28/17 01:42 Patient is 87F with history of afib on eliquis, CHF, diverticulosis, GERD, breast cancer, s/p appendectomy and cholecystectomy here today complaining of rectal bleed. Vital signs stable and normal. Differential diagnosis includes, but is not limited to: diverticular bleed, gastric ulcer, duodenal ulcer, other upper GI bleed. Will evaluate with cbc, cmp, pt/inr, ekg, cxr, type and screen. No need for stool for occult blood, patient is grossly positive for blood on exam. 08/28/17 02:15 CXR shows no acute cardiopulmonary process. EKG shows normal sinus rhythm with rate of 65. No st elevations/depressions. No significant t wave abnormalities. Normal axis. No significant HI/QRS/QTc intervals. 08/28/17 03:33 CT shows diverticular bleed. Hgb 10.5, last 11.4. Patient admitted to Med/Surg via Dr Massey 08/28/17 04:40 Patient had large bloody bowel movement with episode of vomiting. PAIN MANAGEMENT SPECIALIST Marlene Dailey notified in person. *DC/Admit/Observation/Transfer Diagnosis at time of Disposition: Diverticular hemorrhage - Discharge Dispostion Condition at time of disposition: Stable Admit: Yes - Referrals - Patient Instructions - Post Discharge Activity
[2017-08-28 01:46] LABS: BASO % 0.6 % (0-2.0); EOS % 1.2 % (0-4.5); HEMOGLOBIN 10.5 GM/dL (10.7-15.3); LYMPH % 7.7 % (8-40); MCH 31.1 pg (25.7-33.7); MCHC 33.9 g/dl (32.0-36.0); MEAN CELL VOLUME 91.7 fl (80-96); MEAN PLT VOLUME 8.5 fl (7.5-11.1); MONO % 5.5 % (3.8-10.2); PLATELET COUNT 236 K/MM3 (134-434); RBC 3.38 M/mm3 (3.60-5.2); RDW 13.1 % (11.6-15.6); RETICULOCYTES 1.49 % (0.5-1.5)
[2017-08-28 01:55] LABS: INR 1.63 (0.82-1.09); PROTHROMBIN TIME (PATIENT) 18.4 SEC (9.98-11.88)
[2017-08-28 02:10] LABS: ALBUMIN 2.9 g/dl (3.4-5.0); ALK PHOS 124 U/L (45-117); ANION GAP 6 (8-16); BILIRUBIN,TOTAL 0.6 mg/dL (0.2-1.0); BLOOD UREA NITROGEN 20 mg/dL (7-18); CALCIUM 8.5 mg/dL (8.5-10.1); CHLORIDE 103 mmol/L (98-107); CO2 28 mmol/L (21-32); CREATININE 0.8 mg/dL (0.55-1.02); GLUCOSE,RANDOM 165 mg/dL (74-106); SGPT/ALT 8 U/L (12-78); SODIUM 137 mmol/L (136-145); TOT PROT 6.1 g/dl (6.4-8.2)
[2017-08-28 02:12] LABS: POTASSIUM 4.2 mmol/L (3.5-5.1)
[2017-08-28 02:13] LABS: SGOT/AST 16 U/L (15-37)
--- NOTE | 2017-08-28 04:05 | HP ---
CHIEF COMPLAINT: Rectal bleeding, Abdominal Pain PCP: Dr. العلي PT's family can be contacted at [phone] (Jacquelin - Daughter) or [phone] (Home phone) HISTORY OF PRESENT ILLNESS: This is a 87 y/o woman with a PMH of: Afib (on Pradaxa), CAD, HTN, Breast Ca, Parkinson's, CVA. Who presents to the ED with abdominal pain and BRBPR x this am. Patient reports having 2 episodes at home of bright red blood in her BM and abdominal cramping to her LLQ. Patient reports having an episode of non-bilious vomit of undigested food while in the ED, she denies hematemesis, confirmed by RN. Patient reports having a "abscess" on her pancreas, and it is being watched - possible tumor. Patient denies fever, chills, cough, ROA, SOB, CP, dysuria. ER course was notable for: (1) Stool Occult + (2) Hgb 10.5 (3) Recent Travel: None PAST MEDICAL HISTORY: See HPI PAST SURGICAL HISTORY: Mastectomy Appendectomy Cholecystectomy Hysterectomy Social History: Smoking: Never Alcohol: None Drugs: None Family History: Unable to Obtain Allergies niacin [From Niaspan Extended-Release] Allergy (Severe, Verified 08/28/17 00:50) Nausea sulfasalazine [From Azulfidine] Allergy (Severe, Verified 08/28/17 00:50) Swelling strawberry [[place]] Allergy (Intermediate, Verified 08/28/17 00:50) Vomiting Also has allergy to Melons and cucumbers. Causes nausea and vomitting when consumed as stated by pt. indomethacin [From Indocin] Allergy (Unknown, Verified 08/28/17 00:50) indomethacin sodium [From Indocin] Allergy (Unknown, Verified 08/28/17 00:50) betaine [From Cholesterol Fighter] Adverse Reaction (Intermediate, Verified 11/09 00:50) STOMACH UPSET chitosan [From Cholesterol Fighter] Adverse Reaction (Intermediate, Verified 11/09 00:50) STOMACH UPSET lecithin [From Cholesterol Fighter] Adverse Reaction (Intermediate, Verified 11/09 00:50) STOMACH UPSET NSAIDS (Non-Steroidal Anti-Inflamma Adverse Reaction (Intermediate, Verified 11/09 00:50) STOMACH UPSET Sitosterols [From KeyMe Fighter] Adverse Reaction (Intermediate, Verified 08/28/17 00:50) STOMACH UPSET cucumbers Allergy (Severe, Uncoded 08/28/17 00:50) Vomiting HOME MEDICATIONS: Home Medications Medication Instructions Recorded Citalopram Hydrobromide 10 mg PO DAILY 01/08/17 [Citalopram HBr] Acetaminophen [Tylenol .Regular 650 mg PO Q6H PRN #0 tablet 01/09/17 Strength -] Carbidopa/Levodopa 25/100 [Sinemet 1 each PO TID tablet 01/09/17 25/100 -] Losartan Potassium [Cozaar -] 100 mg PO DAILY tablet 01/09/17 Ranitidine [Zantac -] 150 mg PO BID tablet 01/09/17 Dabigatran Etexilate Mesylate 150 mg PO BID #60 cap 01/12/17 [Pradaxa -] Dabigatran Etexilate Mesylate 150 mg PO BID #60 cap MDD 2 01/12/17 [Pradaxa -] Hydrochlorothiazide [Hctz -] 12.5 mg PO DAILY #30 syringe MDD 1 01/12/17 Pramipexole Di-HCl [Mirapex] 0.25 mg PO HS #20 syringe MDD 1 01/12/17 Rivastigmine Tartrate 1.5 mg PO BID #30 cap MDD 2 01/12/17 [Rivastigmine] Rosuvastatin [Crestor -] 10 mg PO HS #30 tablet MDD 1 01/12/17 REVIEW OF SYSTEMS CONSTITUTIONAL: Absent: fever, chills, diaphoresis, generalized weakness, malaise, loss of appetite, weight change HEENT: Absent: rhinorrhea, nasal congestion, throat pain, throat swelling, difficulty swallowing, mouth swelling, ear pain, eye pain, visual changes CARDIOVASCULAR: Absent: chest pain, syncope, palpitations, irregular heart rate, lightheadedness , peripheral edema RESPIRATORY: Absent: cough, shortness of breath, dyspnea with exertion, orthopnea, wheezing, stridor, hemoptysis GASTROINTESTINAL: abdominal pain, hematochezia Absent: abdominal distension, nausea, vomiting, diarrhea, constipation, melena GENITOURINARY: Absent: dysuria, frequency, urgency, hesitancy, hematuria, flank pain, genital pain MUSCULOSKELETAL: Absent: myalgia, arthralgia, joint swelling, back pain, neck pain SKIN: Absent: rash, itching, pallor HEMATOLOGIC/IMMUNOLOGIC: Absent: easy bleeding, easy bruising, lymphadenopathy, frequent infections ENDOCRINE: Absent: unexplained weight gain, unexplained weight loss, heat intolerance, cold intolerance NEUROLOGIC: Absent: headache, focal weakness or paresthesias, dizziness, unsteady gait, seizure, mental status changes, bladder or bowel incontinence PSYCHIATRIC: Absent: anxiety, depression, suicidal or homicidal ideation, hallucinations. PHYSICAL EXAMINATION Vital Signs - 24 hr 08/28/17 00:57 Temperature 98.3 F Pulse Rate 69 Respiratory 18 Rate Blood Pressure 174/69 O2 Sat by Pulse 98 Oximetry (%) GENERAL: Awake, alert, and fully oriented, in no acute distress. HEAD: Normal with no signs of trauma. EYES: Pupils equal, round and reactive to light, extraocular movements intact, sclera anicteric, conjunctiva clear, pale. No lid lag. EARS, NOSE, THROAT: Ears normal, nares patent, oropharynx clear without exudates. Dry mucous membranes. NECK: Normal range of motion, supple without lymphadenopathy, JVD, or masses. LUNGS: Breath sounds equal, clear to auscultation bilaterally. No wheezes, and no crackles. No accessory muscle use. HEART: Irregular rate and rhythm, normal S1 and S2 without murmur, rub or gallop. ABDOMEN: Soft, LLQ tenderness, distended, hypoactive bowel sounds, no guarding, no rebound, no masses. No hepatomegaly or splenomegaly. RECTAL: BRBPR MUSCULOSKELETAL: Normal range of motion at all joints. No bony deformities or tenderness. No CVA tenderness. UPPER EXTREMITIES: 2+ pulses, warm, well-perfused. No cyanosis. No clubbing. No peripheral edema. LOWER EXTREMITIES: 2+ pulses, warm, well-perfused. No calf tenderness. No peripheral edema. NEUROLOGICAL: Cranial nerves II-XII intact. Normal speech. Gait not observed. R -sided weakness- baseline PSYCHIATRIC: Cooperative. Good eye contact. Appropriate mood and affect. SKIN: Pallor, warm, dry, normal turgor, no rashes or lesions noted, normal capillary refill. Laboratory Results - last 24 hr 08/28/17 08/28/17 08/28/17 00:20 00:20 00:20 WBC 9.0 D RBC 3.38 L Hgb 10.5 L Hct 31.0 L MCV 91.7 MCH 31.1 MCHC 33.9 RDW 13.1 Plt Count 236 MPV 8.5 Neutrophils % 85.0 H D Lymphocytes % 7.7 L D Monocytes % 5.5 Eosinophils % 1.2 Basophils % 0.6 Retic Count 1.49 PT with INR 18.40 H INR 1.63 H D Sodium 137 Potassium 4.2 Chloride 103 Carbon Dioxide 28 Anion Gap 6 L BUN 20 H Creatinine 0.8 Creat Clearance w eGFR > 60 Random Glucose 165 H Calcium 8.5 Total Bilirubin 0.6 D AST 16 ALT 8 L Alkaline Phosphatase 124 H Total Protein 6.1 L Albumin 2.9 L Anti-A Titer Blood Type Antibody Screen 08/28/17 00:20 WBC RBC Hgb Hct MCV MCH MCHC RDW Plt Count MPV Neutrophils % Lymphocytes % Monocytes % Eosinophils % Basophils % Retic Count PT with INR INR Sodium Potassium Chloride Carbon Dioxide Anion Gap BUN Creatinine Creat Clearance w eGFR Random Glucose Calcium Total Bilirubin AST ALT Alkaline Phosphatase Total Protein Albumin Anti-A Titer Cancelled Blood Type Cancelled Antibody Screen Cancelled ASSESSMENT/PLAN: This is a 87 y/o woman PMH: HTN, CAD, Afib (on Pradaxa), Breast Ca, Parkinson's , CVA. Admitted to Telemetry for GI Bleed. 1. GI Bleed - concerning for Mass (based on previous colonoscopy) - Tele Admit - Appreciate GI Consult - NPO - Gentle IVF- concern for overload - Will place PRBCs x2 on hold - Repeat CBC in am 2. Cardiology: Afib CAD HTN - Continue cardiac monitoring - [id number] - Hold Pradaxa 2/2 GI Bleed - Consider Cardiology consult for recommendations - Monitor renal function - Hold meds until seen by GI 3. Neuro: CVA Parkinson's - Will hold Asa 2/2 GI bleed - Neuro checks - Fall Precautions - Consider Neurology consult for recommendations - Hold meds until seen by GI 4. FEN - NS@75ml/hr - Replete Lytes - NPO 5. DVT ppx - TEDs - SCDs - Hold ACs 2/2 GI Bleed Code Status: Dispo: Requires Inpatient Care Problem List - Problem (1) Diverticular hemorrhage Code(s): K57.31 - DVRTCLOS OF LG INT W/O PERFORATION OR ABSCESS W BLEEDING (2) Abdominal pain Code(s): R10.9 - UNSPECIFIED ABDOMINAL PAIN (3) Acute coronary syndrome Code(s): I24.9 - ACUTE ISCHEMIC HEART DISEASE, UNSPECIFIED (4) CVA (cerebral vascular accident) Code(s): I63.9 - CEREBRAL INFARCTION, UNSPECIFIED (5) Congestive heart failure Code(s): I50.9 - HEART FAILURE, UNSPECIFIED (6) GERD (gastroesophageal reflux disease) Code(s): K21.9 - GASTRO-ESOPHAGEAL REFLUX DISEASE WITHOUT ESOPHAGITIS (7) Hypertension Code(s): I10 - ESSENTIAL (PRIMARY) HYPERTENSION (8) Hyperthyroidism Code(s): E05.90 - THYROTOXICOSIS, UNSP WITHOUT THYROTOXIC CRISIS OR STORM (9) Parkinson disease Code(s): G20 - PARKINSON'S DISEASE (10) DVT prophylaxis Code(s): GQE9634 - Visit type - Emergency Visit Emergency Visit: Yes ED Registration Date: 08/28/17 Care time: The patient presented to the Emergency Department on the above date and was hospitalized for further evaluation of their emergent condition. - New Patient This patient is new to me today: Yes Date on this admission: 08/28/17 - Critical Care Critical Care patient: No Hospitalist Screening - Colonoscopy Questionnaire Colonoscopy Questionnaire: Colonoscopy Questionnaire - Patient: 50 - 75 years old and never had a screening colonoscopy: Unknown History of colon or rectal polyps, or CA: Yes History of IBD, Crohn's disease or UC: Unknown History of abdominal radiation therapy as a child: Unknown - Relative: 1 with colon or rectal CA, or polyps at age 60 or younger: Unknown Colon or rectal CA diagnosed at age 45 or younger: Unknown Multiple relatives with colon or rectal CA: Unknown - Outcome: Screening Result: Positive Screen
[2017-08-28] MEDS ORDERED: PANTOPRAZOLE SODIUM 40 MG/100 ML BAG IVPB ONE (04:29)
[2017-08-28] MEDS ORDERED: ONDANSETRON 4 MG/2 ML VIAL ONE (04:29)
[2017-08-28 05:38] LABS: BASO % 0.5 % (0-2.0); EOS % 0.4 % (0-4.5); HEMATOCRIT 28.3 % (32.4-45.2); HEMOGLOBIN 9.7 GM/dL (10.7-15.3); LYMPH % 7.3 % (8-40); MCH 31.4 pg (25.7-33.7); MCHC 34.3 g/dl (32.0-36.0); MEAN CELL VOLUME 91.7 fl (80-96); MEAN PLT VOLUME 7.9 fl (7.5-11.1); MONO % 3.2 % (3.8-10.2); NEUT % 88.6 % (42.8-82.8); PLATELET COUNT 254 K/MM3 (134-434); RBC 3.09 M/mm3 (3.60-5.2); RDW 12.8 % (11.6-15.6); WHITE BLOOD COUNT 9.9 K/mm3 (4.0-10.0)
[2017-08-28] MEDS ORDERED: DEXTROSE 5%-0.45% SALINE 1,000 ML IV SCH (06:15)
[2017-08-28] MEDS: SODIUM CHLORIDE 1,000 ML IV SCH (08:10)
[2017-08-28 09:12] VITALS: BMI 26.1
--- NOTE | 2017-08-28 10:11 | EKG ---
Test Reason : Blood Pressure : / mmHG Vent. Rate : 065 BPM Atrial Rate : 065 BPM P-R Int : 146 ms QRS Dur : 098 ms QT Int : 436 ms P-R-T Axes : 064 -22 041 degrees QTc Int : 453 ms NORMAL SINUS RHYTHM MODERATE VOLTAGE CRITERIA FOR LVH, MAY BE NORMAL VARIANT BORDERLINE ECG WHEN COMPARED WITH ECG OF 10-JAN-2017 18:30, QT HAS LENGTHENED Confirmed by MATTHEW ARRIAZA, ALEX ([id number]) on 08/28/2017 10:10:50 AM Referred By: Confirmed By:ALEX CASTRO MD
--- NOTE | 2017-08-28 11:27 | PN ---
Progress Note, Physician Chief Complaint: PATIENT WELL KNOWN TO MY SERVICE HISTORY AND PHYSICAL ADMISSION REVIEWED EVENTS AND NOTES REVIEWED LABS REVIEWED PATIENT SEEN AND EXAMINED I AGREE WITH THE RESIDENTS H AND P - Current Medication List Current Medications: Active Medications Sodium Chloride (Normal Saline -) 1,000 mls @ 75 mls/hr IV ASDIR SAMEER Last Admin: 08/28/17 08:10 Dose: 75 mls/hr - Objective Vital Signs: Vital Signs Temperature 97.7 F 08/28/17 09:05 Pulse Rate 68 08/28/17 10:31 Respiratory Rate 18 08/28/17 10:31 Blood Pressure 121/72 08/28/17 09:05 O2 Sat by Pulse Oximetry (%) 97 08/28/17 09:20 Constitutional: Yes: Mild Distress Eyes: Yes: WNL HENT: Yes: WNL Neck: Yes: WNL Cardiovascular: Yes: Pulse Irregular Respiratory: Yes: WNL Gastrointestinal: Yes: Tenderness Genitourinary: Yes: WNL Musculoskeletal: Yes: Muscle Weakness Extremities: Yes: WNL Edema: Yes Edema: LLE: Trace, RLE: Trace Peripheral Pulses WNL: Yes Integumentary: Yes: WNL Wound/Incision: Yes: Clean/Dry Neurological: Yes: Pre-Existing Deficit ...Motor Strength: LLE, RLE Psychiatric: Yes: Other Labs: CBC, BMP 08/28/17 05:26 08/28/17 00:20 INR, PTT INR 1.63 (0.82-1.09) H D 08/28/17 00:20 Problem List - Problems (1) DVT prophylaxis Code(s): RNU9725 - (2) Diverticular hemorrhage Code(s): K57.31 - DVRTCLOS OF LG INT W/O PERFORATION OR ABSCESS W BLEEDING (3) Abdominal pain Code(s): R10.9 - UNSPECIFIED ABDOMINAL PAIN (4) Afib Code(s): I48.91 - UNSPECIFIED ATRIAL FIBRILLATION Qualifiers: Atrial fibrillation type: unspecified Qualified Code(s): I48.91 - Unspecified atrial fibrillation (5) At high risk for bleeding Code(s): Z91.89 - OTH PERSONAL RISK FACTORS, NOT ELSEWHERE CLASSIFIED (6) CAD (coronary artery disease) Code(s): I25.10 - ATHSCL HEART DISEASE OF [place] CORONARY ARTERY W/O ANG PCTRS (7) CVA (cerebral vascular accident) Code(s): I63.9 - CEREBRAL INFARCTION, UNSPECIFIED (8) GERD (gastroesophageal reflux disease) Code(s): K21.9 - GASTRO-ESOPHAGEAL REFLUX DISEASE WITHOUT ESOPHAGITIS (9) Hypertension Code(s): I10 - ESSENTIAL (PRIMARY) HYPERTENSION (10) Pancreatic cyst Code(s): K86.2 - CYST OF PANCREAS (11) Parkinson disease Code(s): G20 - PARKINSON'S DISEASE (12) Weakness Code(s): R53.1 - WEAKNESS Assessment/Plan HOLD AC GI EVAL CARDIO EVAL PAIN CONTROL IVF WILL DECIDE IF HALFWAY AC NEEDED, DISCUSS WITH CARDIOLOGY
--- NOTE | 2017-08-28 15:20 | PN ---
Progress Note (short form) - Note Progress Note: patient has seen Dr Arango 04/2017, and Dr Osorio has performed colonoscopy with snare polypectomy 5 years ago,. Please inform them of this admission. Thanks
--- NOTE | 2017-08-28 18:17 | CON.GI ---
Consult Consult Specialty:: GI Referred by:: Dr rojas - History of Present Illness History of Present Illness: 87 y/o F with PMH of CHF, AFIB on Eliquis started to have recurrent rectal bleeding since yesterday. This was accompanied by mild abdominal pain, nausea and vomiting. She is thirsty but not hungry. There were no episodes of Chest pain, SOB and LOC. Her baseline H and H is 12/36 now 02/18. Still has minimal rectal bleeding which significantly slowed down. 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: CVA, Dementia, Parkinson's Cardio/Vascular: Yes: AFIB, CHF, HTN Gastrointestinal: Yes: Diverticulosis (with diverticulitis), GERD - Past Surgical History Past Surgical History: Yes: Appendectomy, Cholecystectomy, Hysterectomy (KINZA) - Alcohol/Substance Use Hx Alcohol Use: No History of Substance Use: reports: None - Smoking History Smoking history: Former smoker Have you smoked in the past 12 months: No Aproximately how many cigarettes per day: 0 If you are a former smoker, when did you quit?: Over 30 years ago - Social History Usual Living Arrangement: Other () ADL: Independent Occupation: Retired: worked for [employer] History of Recent Travel: No Home Medications - Allergies Allergies/Adverse Reactions: Allergies Allergy/AdvReac Type Severity Reaction Status Date / Time niacin Allergy Severe Nausea Verified 08/28/17 00:50 [From Niaspan Extended-Release] sulfasalazine Allergy Severe Swelling Verified 08/28/17 00:50 [From Azulfidine] strawberry [[place]] Allergy Intermediate Vomiting Verified 08/28/17 00:50 indomethacin [From Indocin] Allergy Unknown Verified 08/28/17 00:50 indomethacin sodium Allergy Unknown Verified 08/28/17 00:50 [From Indocin] betaine AdvReac Intermediate STOMACH Verified 08/28/17 00:50 [From Cholesterol Fighter] UPSET chitosan AdvReac Intermediate STOMACH Verified 08/28/17 00:50 [From Cholesterol Fighter] UPSET lecithin AdvReac Intermediate STOMACH Verified 08/28/17 00:50 [From Cholesterol Fighter] UPSET NSAIDS (Non-Steroidal AdvReac Intermediate STOMACH Verified 08/28/17 00:50 Anti-Inflamma UPSET Sitosterols AdvReac Intermediate STOMACH Verified 08/28/17 00:50 [From Cholesterol Fighter] UPSET cucumbers Allergy Severe Vomiting Uncoded 08/28/17 00:50 - Home Medications Home Medications: Ambulatory Orders Citalopram Hydrobromide [Citalopram HBr] 10 mg PO DAILY 01/08/17 Acetaminophen [Tylenol .Regular Strength -] 650 mg PO Q6H PRN #0 tablet Carbidopa/Levodopa 25/100 [Sinemet 25/100 -] 1 each PO TID tablet 01/09/17 Losartan Potassium [Cozaar -] 100 mg PO DAILY tablet 01/09/17 Ranitidine [Zantac -] 150 mg PO BID tablet 01/09/17 Dabigatran Etexilate Mesylate [Pradaxa -] 150 mg PO BID #60 cap 01/12/17 Dabigatran Etexilate Mesylate [Pradaxa -] 150 mg PO BID #60 cap MDD 2 01/12/17 Hydrochlorothiazide [Hctz -] 12.5 mg PO DAILY #30 syringe MDD 1 01/12/17 Pramipexole Di-HCl [Mirapex] 0.25 mg PO HS #20 syringe MDD 1 01/12/17 Rivastigmine Tartrate [Rivastigmine] 1.5 mg PO BID #30 cap MDD 2 01/12/17 Rosuvastatin [Crestor -] 10 mg PO HS #30 tablet MDD 1 01/12/17 Family Disease History - Family Disease History Family Disease History: Other: Father ( 70: CAD), Mother (: 59 ? TB), Brother (x2 from lung ca), Sister ( 65: CVA) Physical Exam-GI Vital Signs: Vital Signs Temperature 97.4 F L 08/28/17 14:55 Pulse Rate 78 08/28/17 17:03 Respiratory Rate 18 08/28/17 17:03 Blood Pressure 154/65 08/28/17 17:03 O2 Sat by Pulse Oximetry (%) 97 08/28/17 09:20 Constitutional: Yes: Well Nourished Eyes: Yes: Conjunctiva Clear HENT: Yes: Atraumatic Neck: Yes: Trachea Midline Cardiovascular: Yes: Pulse Irregular Respiratory: Yes: CTA Bilaterally ...Palpate: Yes: Soft. No: Firm/Rigid, Guarding, Hepatomegaly, Mass, Pulsatile Mass, Splenomegaly, Tenderness Labs: CBC, BMP 08/28/17 05:26 08/28/17 00:20 INR, PTT INR 1.63 (0.82-1.09) H D 08/28/17 00:20 Problem List - Problems (1) Lower GI bleed Assessment/Plan: most likely diverticular bleeding vs malignancy(unlikely) R> transfuse 2 units of PRBC as patient had significant blood loss and is still actively bleeding will need stat CT angiogram if severe acute bleeding occurs Code(s): K92.2 - GASTROINTESTINAL HEMORRHAGE, UNSPECIFIED
[2017-08-29 06:00] LABS: HEMATOCRIT 27.8 % (32.4-45.2); HEMOGLOBIN 9.9 GM/dL (10.7-15.3); MCH 31.8 pg (25.7-33.7); MCHC 35.7 g/dl (32.0-36.0); MEAN CELL VOLUME 88.9 fl (80-96); MEAN PLT VOLUME 8.1 fl (7.5-11.1); PLATELET COUNT 180 K/MM3 (134-434); RBC 3.13 M/mm3 (3.60-5.2); RDW 13.8 % (11.6-15.6); WHITE BLOOD COUNT 8.3 K/mm3 (4.0-10.0)
[2017-08-29 06:51] LABS: ANION GAP 8 (8-16); BLOOD UREA NITROGEN 20 mg/dL (7-18); CALCIUM 7.8 mg/dL (8.5-10.1); CHLORIDE 107 mmol/L (98-107); CO2 26 mmol/L (21-32); CREATININE 0.8 mg/dL (0.55-1.02); GLUCOSE,RANDOM 113 mg/dL (74-106); MAGNESIUM 1.8 mg/dL (1.8-2.4); POTASSIUM 3.8 mmol/L (3.5-5.1); SODIUM 141 mmol/L (136-145)
[2017-08-29] MEDS: SODIUM CHLORIDE 1,000 ML IV SCH (10:32)
[2017-08-29] MEDS ORDERED: LOSARTAN 50MG/HCTZ 12.5MG 1 TAB (FP) PO SCH (15:15)
[2017-08-29] MEDS ORDERED: ASPIRIN COATED 81 MG TABLET.EC PO SCH (15:15)
--- NOTE | 2017-08-29 15:27 | CON.CARD ---
Cardiology Consult (text) - Consultation Consultation Note: CC: GIB 87yo with PMHx of HTN, HL, paroxysmal atrial fibrillation on eliquis, recurrenct CVA, CAD with h/o PCI 1999 [facility] now with mild apical ischemia on 2016 stress test, diastolic CHF, prior breast CA s/p Right radical mastectomy , Parkinson disease, dementia, diverticulosis, GERD, severe [place] with desat ( cpap titration pending) who p/w BRBPR. LLQ abdominal pain with associated BRBPR. + vomiting. s/p prbc's. No further bleeding today. + chronic constipation The patient denies cp, SOB, palpitation, dizziness, syncope or near syncope, le edema, orthopnea or PND. denies f/c/s, cough, congestion, rashes, h/a, visual disturbances, transient neurologic sx's. pmhx/pshx: Appendectomy, Cholecystectomy, Hysterectomy ([facility]ZA) social hx: former smoker family hx: Father ( 70: CAD), Mother (: 59 ? TB), Brother (x2 from lung ca), Sister ( 65: CVA) ros: per hpi Ambulatory Orders Citalopram Hydrobromide [Citalopram HBr] 10 mg PO DAILY 01/08/17 Acetaminophen [Tylenol .Regular Strength -] 650 mg PO Q6H PRN #0 tablet Carbidopa/Levodopa 25/100 [Sinemet 25/100 -] 1 each PO TID tablet 01/09/17 Losartan Potassium [Cozaar -] 100 mg PO DAILY tablet 01/09/17 Ranitidine [Zantac -] 150 mg PO BID tablet 01/09/17 Hydrochlorothiazide [Hctz -] 12.5 mg PO DAILY #30 syringe MDD 1 01/12/17 Pramipexole Di-HCl [Mirapex] 0.25 mg PO HS #20 syringe MDD 1 01/12/17 Rosuvastatin [Crestor -] 10 mg PO HS #30 tablet MDD 1 01/12/17 Apixaban [Eliquis -] 5 mg PO BID 08/29/17 Aspirin [ASA -] 81 mg PO DAILY 08/29/17 Current Medications Apixaban (Eliquis -) 5 mg PO BID SAMEER Aspirin (Ecotrin -) 81 mg PO DAILY SAMEER Carbidopa/Levodopa (Sinemet 25/100 -) 1 each PO TID [facility] Citalopram Hydrobromide (Celexa -) 10 mg PO DAILY [facility] HCTZ/Losartan Potassium (Hyzaar -) 1 tab PO DAILY [facility] Sodium Chloride (Normal Saline -) 1,000 mls @ 75 mls/hr IV ASDIR SAMEER Last Admin: 08/29/17 10:32 Dose: 75 mls/hr Rosuvastatin Calcium (Crestor -) 10 mg PO [facility] Vital Signs - 24 hr 08/28/17 08/28/17 08/28/17 17:03 19:38 22:05 Temperature 98.3 F Pulse Rate 78 65 63 Respiratory 18 18 16 Rate Blood Pressure 154/65 133/65 126/63 O2 Sat by Pulse 97 Oximetry (%) 08/29/17 08/29/17 08/29/17 00:22 02:05 04:05 Temperature 98.1 F Pulse Rate 63 59 L 54 L Respiratory 21 20 18 Rate Blood Pressure 144/61 135/46 133/58 O2 Sat by Pulse Oximetry (%) 08/29/17 08/29/17 08/29/17 06:14 10:00 13:54 Temperature 98.3 F Pulse Rate 56 L 62 64 Respiratory 18 18 18 Rate Blood Pressure 132/50 150/48 167/62 O2 Sat by Pulse 98 Oximetry (%) Intake & Output 08/27/17 08/28/17 08/29/17 08/30/17 07:59 07:59 07:59 07:59 Intake Total 2075 600 Balance 2075 600 Weight 165 lb 152 lb nad, calm jvd flat, neck supple rrr nl s1, s2 no mrg pmi nd + bs soft nt nd, no hsm ext without e/c/c + dp/pt, no carotid bruits no jaundice, diaphoresis alert and oriented x 3 CBC, BMP 08/29/17 05:45 08/29/17 05:45 Laboratory Tests 01/12/17 08/28/17 08/28/17 05:48 00:20 00:20 Hgb 11.4 10.5 L INR 1.63 H D Magnesium Total Bilirubin AST ALT Alkaline Phosphatase Albumin 08/28/17 08/29/17 08/29/17 00:20 05:45 05:45 Hgb 9.9 L INR Magnesium 1.8 Total Bilirubin 0.6 D AST 16 ALT 8 L Alkaline Phosphatase 124 H Albumin 2.9 L ekg 08/28/17: nsr. lvh. tele: sr/sb cxr: no congestion/infiltrate. abd CTA (images/report reviewed): acute sigmoid diverticular hemorrhage. see emr for detailed findings echo 12/2016: nl lv fn. impaired lv relaxation. nl rv size/fn. mod lae. mild- mod tr. rvsp 30-40 dipyridamole stress 12/2016: no ischemic ekg changes. small sized, mild/subtle apical ischemia. EF 70%. no rwma. MRA/MRI 01/10/2017: mid and distal 3rd [employer] partially occluded. New 0.3 cm acute non-hemarrhagic infarct in the right temporal periventricular region. A very small amount of petechial blood is noted within previously identified acute/ subacute right occipital cortical infarct. Carotid duplex 01/10/2017 unremarkable. Abnormal nuclear stress test on 01/08/2017 with a small and mild apical stress induced ischemia. ASSESSMENT/PLAN 87yo with PMHx of HTN, HL, paroxysmal atrial fibrillation on eliquis, recurrenct CVA, CAD with h/o PCI 1999 [facility] now with mild apical ischemia on 2016 stress test, diastolic CHF, prior breast CA s/p Right radical mastectomy , Parkinson disease, dementia, diverticulosis, GERD, severe [place] with desat ( cpap titration pending) who p/w BRBPR. GIB: - per GI, most likely diverticular bleeding vs malignancy(unlikely). S/p transfusion. - ASA, eliquis initially held, has plan to resume today. Paroxysmal atrial fibrillation with high CHADS-VASC score - h/o recurrent CVA: - last cva 12/2016 on pradaxa --> ASA added to regimen. Since then was changed to eliquis and ASA. Followed by Dr. Finch as outpatient. - ASA, eliquis resumed today. - May need to consider placement of Watchman device for AXEL closure. Can discuss with Dr. Palacios as outpatient. - Hr controlled off AV aga blockade. lyte repletion prn. CAD (based on mild apical ischemia on stress testing)/HL - con't crestor 10 mg daily and asa. Diastolic CHF: - on hctz as outpatient. - 08/29 currently on IVF. BP now on high end, will stop IVF. Can hold hctz while off IVF and while diet is being advanced. Currently no signs of fluid overload. con't to monitor - daily weights. strict i/o's. HTN: - 08/29 sbp's normalized today --> BP regimen resumed. Will hold hctz as mentioned above. per office notes was on losartan 100 mg will increase dose.
[2017-08-29] MEDS: CARBIDOPA/LEVODOPA 25/100 TABLET (FP) PO SCH ×2 (16:54→21:33)
[2017-08-29] MEDS: CITALOPRAM HYDROBROMIDE 10 MG TABLET (FP) PO SCH (16:54)
--- NOTE | 2017-08-29 17:01 | PN ---
Progress Note, Physician Chief Complaint: AWAKE ALERT FAMILY BEDSIDE NO NEW EVENTS - Current Medication List Current Medications: Active Medications Apixaban (Eliquis -) 5 mg PO BID [facility] Aspirin (Ecotrin -) 81 mg PO DAILY [facility] Last Admin: 08/29/17 16:54 Dose: 81 mg Carbidopa/Levodopa (Sinemet 25/100 -) 1 each PO TID [facility] Last Admin: 08/29/17 16:54 Dose: 1 each Citalopram Hydrobromide (Celexa -) 10 mg PO DAILY [facility] Last Admin: 08/29/17 16:54 Dose: 10 mg HCTZ/Losartan Potassium (Hyzaar -) 1 tab PO DAILY [facility] Sodium Chloride (Normal Saline -) 1,000 mls @ 75 mls/hr IV ASDIR [facility] Last Admin: 08/29/17 10:32 Dose: 75 mls/hr Rosuvastatin Calcium (Crestor -) 10 mg PO [facility] - Objective Vital Signs: Vital Signs Temperature 98.6 F 08/29/17 13:54 Pulse Rate 64 08/29/17 13:54 Respiratory Rate 18 08/29/17 13:54 Blood Pressure 167/62 08/29/17 13:54 O2 Sat by Pulse Oximetry (%) 98 08/29/17 10:00 Constitutional: Yes: Mild Distress Eyes: Yes: WNL HENT: Yes: WNL Neck: Yes: WNL Cardiovascular: Yes: Pulse Irregular Respiratory: Yes: WNL Gastrointestinal: Yes: WNL Genitourinary: Yes: WNL Musculoskeletal: Yes: WNL Extremities: Yes: WNL Edema: No Peripheral Pulses WNL: Yes Integumentary: No: WNL Wound/Incision: Yes: Clean/Dry Neurological: Yes: Pre-Existing Deficit ...Motor Strength: LLE, RLE Psychiatric: Yes: Other Labs: CBC, BMP 08/29/17 05:45 08/29/17 05:45 INR, PTT INR 1.63 (0.82-1.09) H D 08/28/17 00:20 Problem List - Problems (1) DVT prophylaxis Code(s): [id number] - (2) Diverticular hemorrhage Code(s): K57.31 - DVRTCLOS OF LG INT W/O PERFORATION OR ABSCESS W BLEEDING (3) Abdominal pain Code(s): R10.9 - UNSPECIFIED ABDOMINAL PAIN (4) Afib Code(s): I48.91 - UNSPECIFIED ATRIAL FIBRILLATION Qualifiers: Atrial fibrillation type: unspecified Qualified Code(s): I48.91 - Unspecified atrial fibrillation (5) At high risk for bleeding Code(s): Z91.89 - OT PERSONAL RISK FACTORS, NOT ELSEWHERE CLASSIFIED (6) CAD (coronary artery disease) Code(s): I25.10 - ATHSCL HEART DISEASE OF [place] CORONARY ARTERY W/O ANG PCTRS (7) CVA (cerebral vascular accident) Code(s): I63.9 - CEREBRAL INFARCTION, UNSPECIFIED (8) GERD (gastroesophageal reflux disease) Code(s): K21.9 - GASTRO-ESOPHAGEAL REFLUX DISEASE WITHOUT ESOPHAGITIS (9) Hypertension Code(s): I10 - ESSENTIAL (PRIMARY) HYPERTENSION (10) Pancreatic cyst Code(s): K86.2 - CYST OF PANCREAS (11) Parkinson disease Code(s): G20 - PARKINSON'S DISEASE (12) Weakness Code(s): R53.1 - WEAKNESS Assessment/Plan RESTART AC AND ASA CHECK LABS IN AM CLEAR DIET OOB TO CHAIR CARDIO EVAL
[2017-08-29] MEDS: ROSUVASTATIN CA 10 MG TABLET (FP) PO SCH (21:33)
[2017-08-29] MEDS ORDERED: APIXABAN 5 MG TABLET PO SCH (22:00)
[2017-08-29] MEDS ORDERED: POTASSIUM CHLORIDE TABS 10 MEQ TABLET.ER (FP) PO ONE (22:00)
[2017-08-29] MEDS ORDERED: MAGNESIUM SULF 50% (8.12 MEQ/2 ML-1 GM VIAL) IVPB ONE (22:00)
[2017-08-29 23:11] LABS: HEMATOCRIT 27.7 % (32.4-45.2); HEMOGLOBIN 9.4 GM/dL (10.7-15.3); MCH 30.6 pg (25.7-33.7); MEAN CELL VOLUME 89.9 fl (80-96); PLATELET COUNT 172 K/MM3 (134-434); RBC 3.09 M/mm3 (3.60-5.2); WHITE BLOOD COUNT 7.8 K/mm3 (4.0-10.0)
[2017-08-30 05:21] LABS: HEMATOCRIT 23.4 % (32.4-45.2); HEMOGLOBIN 7.9 GM/dL (10.7-15.3); MCH 30.5 pg (25.7-33.7); MCHC 33.9 g/dl (32.0-36.0); MEAN PLT VOLUME 8.1 fl (7.5-11.1); PLATELET COUNT 173 K/MM3 (134-434); RDW 13.7 % (11.6-15.6); WHITE BLOOD COUNT 6.2 K/mm3 (4.0-10.0)
[2017-08-30 05:34] LABS: INR 1.5 (0.82-1.09); PROTHROMBIN TIME (PATIENT) 16.9 SEC (9.98-11.88)
[2017-08-30 05:36] LABS: ACTIVATED PTT 28.4 SECONDS (26.9-34.4)
[2017-08-30 05:44] LABS: ALBUMIN 2.4 g/dl (3.4-5.0); ALK PHOS 89 U/L (45-117); ANION GAP 7 (8-16); BILIRUBIN,TOTAL 0.6 mg/dL (0.2-1.0); BLOOD UREA NITROGEN 17 mg/dL (7-18); CALCIUM 7.1 mg/dL (8.5-10.1); CHLORIDE 109 mmol/L (98-107); CO2 24 mmol/L (21-32); CREATININE 0.7 mg/dL (0.55-1.02); GLUCOSE,RANDOM 95 mg/dL (74-106); MAGNESIUM 1.8 mg/dL (1.8-2.4); PHOSPHOROUS 2.6 mg/dL (2.5-4.9); POTASSIUM 3.8 mmol/L (3.5-5.1); SGOT/AST 15 U/L (15-37); SGPT/ALT < 6 U/L (12-78); SODIUM 140 mmol/L (136-145); TOT PROT 4.6 g/dl (6.4-8.2)
[2017-08-30] MEDS ORDERED: MAGNESIUM SULF 50% (8.12 MEQ/2 ML-1 GM VIAL) ONE (06:02)
[2017-08-30] MEDS: CARBIDOPA/LEVODOPA 25/100 TABLET (FP) PO SCH ×3 (06:12→21:45)
[2017-08-30] MEDS ORDERED: POTASSIUM CHLORIDE 20 MEQ in SODIUM CHLORIDE 250 ML IVPB ONE (06:30)
[2017-08-30] MEDS: LOSARTAN POTASSIUM 50 MG TABLET (FP) PO SCH (09:25)
[2017-08-30] MEDS: CITALOPRAM HYDROBROMIDE 10 MG TABLET (FP) PO SCH (09:25)
--- NOTE | 2017-08-30 11:08 | PN ---
Progress Note (short form) - Note Progress Note: s: no cp sob palps dizzy o: Vital Signs Period Temp Pulse Resp BP Sys/Moralze Pulse Ox Last 24 Hr 98 F-98.6 F 53-64 18-20 121-174/48-74 98 nad, calm jvd flat, neck supple rrr nl s1, s2 no mrg pmi nd + bs soft nt nd, no hsm ext without e/c/c no jaundice, diaphoresis alert and oriented x 3 Current Medications Generic Name Dose Route Start Last Admin Trade Name Freq PRN Reason Stop Dose Admin Carbidopa/Levodopa 1 each 08/29/17 15:15 08/30/17 06:12 Sinemet 25/100 - PO 1 each TID [facility]ER Administration Citalopram Hydrobromide 10 mg 08/29/17 15:15 08/30/17 09:25 Celexa - PO Not Given DAILY [facility] Losartan Potassium 100 mg 08/30/17 10:00 08/30/17 09:25 Cozaar - PO Not Given DAILY [facility] Rosuvastatin Calcium 10 mg 08/29/17 22:00 08/29/17 21:33 Crestor - PO 10 mg HS [facility] Administration CBC, BMP 08/30/17 05:00 08/30/17 05:00 ekg 08/28/17: nsr. lvh. tele: sr cxr: no congestion/infiltrate. abd CTA (images/report reviewed): acute sigmoid diverticular hemorrhage. see emr for detailed findings echo 12/2016: nl lv fn. impaired lv relaxation. nl rv size/fn. mod lae. mild- mod tr. rvsp 30-40 dipyridamole stress 12/2016: no ischemic ekg changes. small sized, mild/subtle apical ischemia. EF 70%. no rwma. MRA/MRI 01/10/2017: mid and distal 3rd [employer] partially occluded. New 0.3 cm acute non-hemarrhagic infarct in the right temporal periventricular region. A very small amount of petechial blood is noted within previously identified acute/ subacute right occipital cortical infarct. Carotid duplex 01/10/2017 unremarkable. Abnormal nuclear stress test on 01/08/2017 with a small and mild apical stress induced ischemia. ASSESSMENT/PLAN 87yo with PMHx of HTN, HL, paroxysmal atrial fibrillation on eliquis, recurrenct CVA, CAD with h/o PCI [facility] now with mild apical ischemia on 2016 stress test, diastolic CHF, prior breast CA s/p Right radical mastectomy , Parkinson disease, dementia, diverticulosis, GERD, severe parish with desat ( cpap titration pending) who p/w BRBPR. GIB: - per GI, most likely diverticular bleeding vs malignancy(unlikely). S/p transfusion. - ASA, eliquis held. still getting prbcs today. cont to hold asa/ac. Paroxysmal atrial fibrillation with high CHADS-VASC score - h/o recurrent CVA: - holding ac as above - last cva 12/2016 on pradaxa --> ASA added to regimen. Since then was changed to eliquis and ASA. Followed by Dr. Finch as outpatient. - Hr controlled off AV aga blockade. CAD (based on mild apical ischemia on stress testing)/HL - con't crestor 10 mg daily Diastolic CHF: - on hctz as outpatient, held here for anemia, low bp. - Currently no signs of fluid overload. con't to monitor HTN: - cont arb
--- NOTE | 2017-08-30 11:49 | PN ---
GI Progress Note Subjective: patient started to have recuurent rectal bleeding after receiving Eliquis. S/p CTA await official reading. Patient will be receiving 2 units of PRBC and platelets - Objective Vital Signs: Vital Signs Temperature 98 F 08/30/17 05:00 Pulse Rate 54 L 08/30/17 05:00 Respiratory Rate 20 08/30/17 05:00 Blood Pressure 121/48 08/30/17 05:00 O2 Sat by Pulse Oximetry (%) 98 08/29/17 20:43 Constitutional: Well Nourished Eyes: Yes: Conjunctiva Clear HENT: Yes: Atraumatic Neck: Yes: Trachea Midline ...Palpate: Yes: Soft. No: Firm/Rigid, Guarding, Hepatomegaly, Mass, Pulsatile Mass, Splenomegaly, Tenderness Labs: CBC, BMP 08/30/17 05:00 08/30/17 05:00 INR, PTT INR 1.50 (0.82-1.09) H 08/30/17 05:00 Problem List - Problems (1) Lower GI bleed Assessment/Plan: most likely diverticular bleeding R> continue supportive care d/c Aspirin Hematology consult serial CBC keep Hgb greater than 8 Code(s): K92.2 - GASTROINTESTINAL HEMORRHAGE, UNSPECIFIED
--- NOTE | 2017-08-30 13:45 | CONSULT ---
Consult Consult Specialty:: Hematology Referred by:: Medicine Reason for Consultation:: Anticoagulation recommendations - History of Present Illness Chief Complaint: Patient with history of AF, and prior CVA (?also remote CAD - remote stenting?), was on ASA and DOAC( apixaban), presents with significant unprecedented GI bleed. - History Source History Provided By: Patient, Family Member Limitations to Obtaining History: No Limitations - Past Medical History [employer]: Yes: CVA, Dementia, Parkinson's Cardio/Vascular: Yes: AFIB, CHF, HTN Gastrointestinal: Yes: Diverticulosis (with diverticulitis), GERD - Past Surgical History Past Surgical History: Yes: Appendectomy, Cholecystectomy, Hysterectomy ([facility]ZA) - Alcohol/Substance Use Hx Alcohol Use: No History of Substance Use: reports: None - Smoking History Smoking history: Former smoker Have you smoked in the past 12 months: No Aproximately how many cigarettes per day: 0 If you are a former smoker, when did you quit?: Over 30 years ago - Social History Usual Living Arrangement: Other () ADL: Independent Occupation: Retired: worked for [employer] History of Recent Travel: No Home Medications - Allergies Allergies/Adverse Reactions: Allergies Allergy/AdvReac Type Severity Reaction Status Date / Time niacin Allergy Severe Nausea Verified 08/28/17 00:50 [From Niaspan Extended-Release] sulfasalazine Allergy Severe Swelling Verified 08/28/17 00:50 [From Azulfidine] strawberry [[place]] Allergy Intermediate Vomiting Verified 08/28/17 00:50 indomethacin [From Indocin] Allergy Unknown Verified 08/28/17 00:50 indomethacin sodium Allergy Unknown Verified 08/28/17 00:50 [From Indocin] betaine AdvReac Intermediate STOMACH Verified 08/28/17 00:50 [From Cholesterol Fighter] UPSET chitosan AdvReac Intermediate STOMACH Verified 08/28/17 00:50 [From Cholesterol Fighter] UPSET lecithin AdvReac Intermediate STOMACH Verified 08/28/17 00:50 [From Cholesterol Fighter] UPSET NSAIDS (Non-Steroidal AdvReac Intermediate STOMACH Verified 08/28/17 00:50 Anti-Inflamma UPSET Sitosterols AdvReac Intermediate STOMACH Verified 08/28/17 00:50 [From Cholesterol Fighter] UPSET cucumbers Allergy Severe Vomiting Uncoded 08/28/17 00:50 - Home Medications Home Medications: Ambulatory Orders Citalopram Hydrobromide [Citalopram HBr] 10 mg PO DAILY 01/08/17 Acetaminophen [Tylenol .Regular Strength -] 650 mg PO Q6H PRN #0 tablet Carbidopa/Levodopa 25/100 [Sinemet 25/100 -] 1 each PO TID tablet 01/09/17 Losartan Potassium [Cozaar -] 100 mg PO DAILY tablet 01/09/17 Ranitidine [Zantac -] 150 mg PO BID tablet 01/09/17 Hydrochlorothiazide [Hctz -] 12.5 mg PO DAILY #30 syringe MDD 1 01/12/17 Pramipexole Di-HCl [Mirapex] 0.25 mg PO HS #20 syringe MDD 1 01/12/17 Rosuvastatin [Crestor -] 10 mg PO HS #30 tablet MDD 1 01/12/17 Apixaban [Eliquis -] 5 mg PO BID 08/29/17 Aspirin [ASA -] 81 mg PO DAILY 08/29/17 Family Disease History - Family Disease History Family Disease History: Other: Father ( 70: CAD), Mother (: 59 ? TB), Brother (x2 from lung ca), Sister ( 65: CVA) Review of Systems - Review of Systems Constitutional: reports: No Symptoms Eyes: reports: Other (Impaired vision - attributed to prior stroke) HENT: reports: No Symptoms Neck: denies: Swollen Glands Cardiovascular: denies: Chest Pain, Palpitations, Shortness of Breath Respiratory: denies: Cough, Hemoptysis, SOB Gastrointestinal: reports: Rectal Bleeding. denies: Abdominal Pain Genitourinary: reports: No Symptoms Breasts: reports: No Symptoms Reported Musculoskeletal: reports: No Symptoms Integumentary: reports: No Symptoms Neurological: reports: Unsteady Gait (Stable unsteadt gait from Parkinsons. But also reports she has fallen multiple times in past several months.). denies: Confusion Psychiatric: reports: No Symptoms Physical Exam Vital Signs: Vital Signs Temperature 98 F 08/30/17 05:00 Pulse Rate 54 L 08/30/17 05:00 Respiratory Rate 20 08/30/17 05:00 Blood Pressure 121/48 08/30/17 05:00 O2 Sat by Pulse Oximetry (%) 98 08/29/17 20:43 Constitutional: Yes: Well Nourished Eyes: Yes: Conjunctiva Clear Neck: No: Lymphadenopathy Cardiovascular: Yes: S1, S2. No: Regular Rate and Rhythm Respiratory: Yes: Regular, CTA Bilaterally Gastrointestinal: Yes: Normal Bowel Sounds, Soft Musculoskeletal: Yes: WNL Edema: No Integumentary: Yes: WNL Neurological: Yes: Alert, Oriented ...Motor Strength: WNL Psychiatric: Yes: Alert, Oriented Labs: CBC, BMP 08/30/17 05:00 08/30/17 05:00 Assessment/Plan Patient with AF, and history of prior CVA, on DOAC and ASA, presenting with significant GI bleed, with drop in Hb. At this time Hb still not stable - hold AC and ASA. Awaiting GI re etiology of hemorrhage - likely large bowel - ?history of diverticulosis. When bleeding abated will need to make decision regarding risk:benefit of ongoing AC, ie. risk of CVA due to AF if off AC, versus risk of further hemorrhagic complications while on AC. If determined that risk of CVA substantial off AC then would still need to clarify whether ASA is also indicated (?because of history of CAD). Above considerations primarily cardiology and gastroenterology.
[2017-08-30] MEDS ORDERED: PT OWN MED DRAWER 7, Y5N ONE (13:49)
[2017-08-30] MEDS ORDERED: PHYTONADIONE 10 MG/1 ML AMP IM ONE (14:00)
--- NOTE | 2017-08-30 18:17 | PN ---
Physical Exam: SUBJECTIVE: Patient seen and examined. She is c/o dry mouth. she is nervous. denies freeman, sob, dizziness OBJECTIVE: Vital Signs Period Temp Pulse Resp BP Sys/Moralez Pulse Ox Last 24 Hr 98 F-98.6 F 53-65 16-20 121-158/48-68 98-99 PE Neuro: alert, awake, cn 2-12intact Pulm CTAB CV: s1 s2 rrr Abd: s nt nd + bs : melena, soaked diaper Ext: no le edema Laboratory Results - last 24 hr 08/29/17 08/30/17 08/30/17 23:00 05:00 05:00 WBC 7.8 6.2 RBC 3.09 L 2.60 L Hgb 9.4 L 7.9 L D Hct 27.7 L 23.4 L D MCV 89.9 90.0 MCH 30.6 30.5 MCHC 34.0 33.9 RDW 14.0 13.7 Plt Count 172 173 MPV 8.0 8.1 PT with INR INR PTT (Actin FS) Sodium 140 Potassium 3.8 Chloride 109 H Carbon Dioxide 24 Anion Gap 7 L BUN 17 Creatinine 0.7 Creat Clearance w eGFR > 60 Random Glucose 95 Calcium 7.1 L Phosphorus 2.6 Magnesium 1.8 Total Bilirubin 0.6 AST 15 ALT < 6 L Alkaline Phosphatase 89 Total Protein 4.6 L Albumin 2.4 L Blood Type Antibody Screen Crossmatch 08/30/17 08/30/17 05:00 05:45 WBC RBC Hgb Hct MCV MCH MCHC RDW Plt Count MPV PT with INR 16.90 H INR 1.50 H PTT (Actin FS) 28.4 D Sodium Potassium Chloride Carbon Dioxide Anion Gap BUN Creatinine Creat Clearance w eGFR Random Glucose Calcium Phosphorus Magnesium Total Bilirubin AST ALT Alkaline Phosphatase Total Protein Albumin Blood Type B POSITIVE Antibody Screen Negative Crossmatch See Detail Active Medications Generic Name Dose Route Start Last Admin Trade Name Freq PRN Reason Stop Dose Admin Carbidopa/Levodopa 1 each 08/29/17 15:15 08/30/17 13:41 Sinemet 25/100 - PO Not Given TID [facility] Citalopram Hydrobromide 10 mg 08/29/17 15:15 08/30/17 09:25 Celexa - PO Not Given DAILY [facility] Losartan Potassium 100 mg 08/30/17 10:00 08/30/17 09:25 Cozaar - PO Not Given DAILY [facility] Rosuvastatin Calcium 10 mg 08/29/17 22:00 08/29/17 21:33 Crestor - PO 10 mg HS [facility]ER Administration Assessment: 87 year old female with a PMH of: Afib (on Pradaxa), CAD, HTN, Breast Ca, Parkinson's, CVA, PCI in [facility], diastolic chf, dementia, diverticulosis, admitted with gi bleed Plan: 1. Lower gi bleed, diverticular bleed - Bleeding from resuming eliquis - 2units prbc given - 1 unit platelets given, given additional units + 1unit ffp - Stop AC, asa - Dose vit k given - Serial cbc after 3units of blood - Monitor resp status, give lasix in between as needed - GI adan avendaño Dr. no need for ppi or octreotide gtt 2. P afib - Hold ac, and asa - HR stable off bb 3. CAD - Crestor 4. Diastolic CHF - Not in exacerbation - Hold HCTZ 5. HTN - Losartan 100mg Visit type - Emergency Visit Emergency Visit: Yes ED Registration Date: 08/28/17 Care time: The patient presented to the Emergency Department on the above date and was hospitalized for further evaluation of their emergent condition. - New Patient This patient is new to me today: Yes Date on this admission: 08/30/17 - Critical Care Critical Care patient: Yes Total Critical Care Time (in minutes): 36 Critical Care Statement: The care of this patient involved high complexity decision making to prevent further life threatening deterioration of the patient 's condition and/or to evaluate & treat vital organ system(s) failure or risk of failure. - Discharge Referral Referred to [facility] No
[2017-08-30 18:47] LABS: HEMATOCRIT 25.1 % (32.4-45.2); HEMOGLOBIN 8.8 GM/dL (10.7-15.3); MCH 31.2 pg (25.7-33.7); MCHC 35.1 g/dl (32.0-36.0); MEAN CELL VOLUME 88.9 fl (80-96); MEAN PLT VOLUME 7.8 fl (7.5-11.1); PLATELET COUNT 200 K/MM3 (134-434); RBC 2.83 M/mm3 (3.60-5.2); RDW 14.8 % (11.6-15.6); WHITE BLOOD COUNT 10.6 K/mm3 (4.0-10.0)
[2017-08-30] MEDS: ROSUVASTATIN CA 10 MG TABLET (FP) PO SCH (21:45)
[2017-08-31] MEDS: CARBIDOPA/LEVODOPA 25/100 TABLET (FP) PO SCH ×4 (06:22→21:37)
[2017-08-31 06:53] LABS: ALBUMIN 2.4 g/dl (3.4-5.0); ANION GAP 11 (8-16); BILIRUBIN,TOTAL 2.1 mg/dL (0.2-1.0); BLOOD UREA NITROGEN 20 mg/dL (7-18); CALCIUM 7.1 mg/dL (8.5-10.1); CHLORIDE 113 mmol/L (98-107); CO2 20 mmol/L (21-32); CREATININE 0.6 mg/dL (0.55-1.02); GLUCOSE,RANDOM 83 mg/dL (74-106); MAGNESIUM 2.5 mg/dL (1.8-2.4); POTASSIUM 4.2 mmol/L (3.5-5.1); SGOT/AST 15 U/L (15-37); SGPT/ALT 7 U/L (12-78); SODIUM 144 mmol/L (136-145); TOT PROT 4.3 g/dl (6.4-8.2)
[2017-08-31 06:55] LABS: ALK PHOS 76 U/L (45-117)
[2017-08-31 08:10] LABS: INR 1.19 (0.82-1.09); PROTHROMBIN TIME (PATIENT) 13.5 SEC (9.98-11.88)
[2017-08-31 08:15] LABS: HEMATOCRIT 24.3 % (32.4-45.2); HEMOGLOBIN 8.6 GM/dL (10.7-15.3); MCHC 35.2 g/dl (32.0-36.0); MEAN CELL VOLUME 87.9 fl (80-96); MEAN PLT VOLUME 8.4 fl (7.5-11.1); PLATELET COUNT 151 K/MM3 (134-434); RBC 2.76 M/mm3 (3.60-5.2); RDW 14.5 % (11.6-15.6); WHITE BLOOD COUNT 9.5 K/mm3 (4.0-10.0)
--- NOTE | 2017-08-31 08:47 | PN ---
Progress Note, Physician History of Present Illness: -Weakness no abd pain - Current Medication List Current Medications: Active Medications Carbidopa/Levodopa (Sinemet 25/100 -) 1 each PO TID [facility] Last Admin: 08/31/17 06:22 Dose: Not Given Citalopram Hydrobromide (Celexa -) 10 mg PO DAILY [facility] Last Admin: 08/30/17 09:25 Dose: Not Given Losartan Potassium (Cozaar -) 100 mg PO DAILY [facility] Last Admin: 08/30/17 09:25 Dose: Not Given Rosuvastatin Calcium (Crestor -) 10 mg PO HS [facility] Last Admin: 08/30/17 21:45 Dose: Not Given - Objective Vital Signs: Vital Signs Temperature 98 F 08/31/17 08:00 Pulse Rate 70 08/31/17 08:00 Respiratory Rate 18 08/31/17 08:00 Blood Pressure 160/55 08/31/17 08:00 O2 Sat by Pulse Oximetry (%) 99 08/30/17 20:35 Cardiovascular: Yes: S1, S2 Respiratory: Yes: Regular, CTA Bilaterally Gastrointestinal: Yes: Normal Bowel Sounds, Soft. No: Tenderness Edema: No Labs: CBC, BMP 08/31/17 05:00 08/31/17 05:00 INR, PTT INR 1.19 (0.82-1.09) H 08/31/17 07:15 Problem List - Problems (1) Diverticular hemorrhage Assessment/Plan: 1. GI Bleed - concerning for Mass--surgical consult - Tele Admit - Appreciate GI Consult - NPO - Gentle IVF- concern for overload - Repeat CBC in am Code(s): K57.31 - DVRTCLOS OF LG INT W/O PERFORATION OR ABSCESS W BLEEDING (2) Lower GI bleed Code(s): K92.2 - GASTROINTESTINAL HEMORRHAGE, UNSPECIFIED (3) Afib Assessment/Plan: - Continue cardiac monitoring - [id number] - Hold Pradaxa 2/2 GI Bleed - Cardiology consult for recommendations - Monitor renal function - Hold meds until seen by GI Code(s): I48.91 - UNSPECIFIED ATRIAL FIBRILLATION Qualifiers: Atrial fibrillation type: unspecified Qualified Code(s): I48.91 - Unspecified atrial fibrillation (4) Pancreatic cyst Assessment/Plan: -surgical consult Code(s): K86.2 - CYST OF PANCREAS (5) Parkinson disease Assessment/Plan: - Will hold Asa 2/2 GI bleed - Neuro checks - Fall Precautions - Consider Neurology consult for recommendations - Hold meds until seen by GI Code(s): G20 - PARKINSON'S DISEASE (6) Coagulopathy Assessment/Plan: due eliquis monitor labs Code(s): D68.9 - COAGULATION DEFECT, UNSPECIFIED
[2017-08-31] MEDS ORDERED: PT OWN MED DRAWER 7, Y5N ONE (08:53)
[2017-08-31] MEDS: LOSARTAN POTASSIUM 50 MG TABLET (FP) PO SCH (09:12)
[2017-08-31] MEDS: CITALOPRAM HYDROBROMIDE 10 MG TABLET (FP) PO SCH (09:13)
--- NOTE | 2017-08-31 09:49 | CONSULT ---
Consult Consult Specialty:: general surgery Referred by:: Isaac Reason for Consultation:: rectosigmoid bleeding - History of Present Illness Chief Complaint: diverticular bleedng History of Present Illness: 87 yo female PMH Afib on Pradaxa, CAD, HTN, Breast Ca, Parkinson's, CVA long standing history of chronic constipation, diverticulitis presents to the ED with abdominal pain and BRBPR 08/28/2017. Patient reports having 2 episodes at home of bright red blood in her BM and abdominal cramping to her LLQ. The cramping resolved. She was admitted to telemetry for observation and treatemnt. She was transfused 2 units RBC. and has since stop having bloody bowel movements. CTA of the abdoman localized the bleed to the recto-sigmoid junction. On repeat scan it was persistent after 2 days. According to the patient and her nurse she is no longer bleeding. IR was contacted and feels that there was no clear access for emobilzation. Preceeding this episode the patient reports having an episode of non-bilious vomit of undigested food while in the ED, she denies hematemesis, confirmed by RN. Patient reports having a "abscess" on her pancreas, and it is being watched - possible tumor. Patient denies fever, chills, cough, ROA, SOB, CP, dysuria. we were asked to assess. 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: CVA, Dementia, Parkinson's Cardio/Vascular: Yes: AFIB, CHF, HTN Gastrointestinal: Yes: Diverticulosis (with diverticulitis), GERD - Past Surgical History Past Surgical History: Yes: Appendectomy, Cholecystectomy, Hysterectomy ([facility]) - Alcohol/Substance Use Hx Alcohol Use: No History of Substance Use: reports: None - Smoking History Smoking history: Former smoker Have you smoked in the past 12 months: No Aproximately how many cigarettes per day: 0 If you are a former smoker, when did you quit?: Over 30 years ago - Social History Usual Living Arrangement: Other () ADL: Independent Occupation: Retired: worked for [employer] History of Recent Travel: No Home Medications - Allergies Allergies/Adverse Reactions: Allergies Allergy/AdvReac Type Severity Reaction Status Date / Time niacin Allergy Severe Nausea Verified 08/28/17 00:50 [From Niaspan Extended-Release] sulfasalazine Allergy Severe Swelling Verified 08/28/17 00:50 [From Azulfidine] strawberry [Daisetta] Allergy Intermediate Vomiting Verified 08/28/17 00:50 indomethacin [From Indocin] Allergy Unknown Verified 08/28/17 00:50 indomethacin sodium Allergy Unknown Verified 08/28/17 00:50 [From Indocin] betaine AdvReac Intermediate STOMACH Verified 08/28/17 00:50 [From Cholesterol Fighter] UPSET chitosan AdvReac Intermediate STOMACH Verified 08/28/17 00:50 [From Cholesterol Fighter] UPSET lecithin AdvReac Intermediate STOMACH Verified 08/28/17 00:50 [From Cholesterol Fighter] UPSET NSAIDS (Non-Steroidal AdvReac Intermediate STOMACH Verified 08/28/17 00:50 Anti-Inflamma UPSET Sitosterols AdvReac Intermediate STOMACH Verified 08/28/17 00:50 [From Cholesterol Fighter] UPSET cucumbers Allergy Severe Vomiting Uncoded 08/28/17 00:50 - Home Medications Home Medications: Ambulatory Orders Citalopram Hydrobromide [Citalopram HBr] 10 mg PO DAILY 01/08/17 Acetaminophen [Tylenol .Regular Strength -] 650 mg PO Q6H PRN #0 tablet Carbidopa/Levodopa 25/100 [Sinemet 25/100 -] 1 each PO TID tablet 01/09/17 Losartan Potassium [Cozaar -] 100 mg PO DAILY tablet 01/09/17 Ranitidine [Zantac -] 150 mg PO BID tablet 01/09/17 Hydrochlorothiazide [Hctz -] 12.5 mg PO DAILY #30 syringe MDD 1 01/12/17 Pramipexole Di-HCl [Mirapex] 0.25 mg PO HS #20 syringe MDD 1 01/12/17 Rosuvastatin [Crestor -] 10 mg PO HS #30 tablet MDD 1 01/12/17 Apixaban [Eliquis -] 5 mg PO BID 08/29/17 Aspirin [ASA -] 81 mg PO DAILY 08/29/17 Family Disease History - Family Disease History Family Disease History: Other: Father ( 70: CAD), Mother (: 59 ? TB), Brother (x2 from lung ca), Sister ( 65: CVA) Review of Systems - Review of Systems Constitutional: denies: Chills, Fever, Unintentional Wgt. Loss Eyes: denies: Blind Spots, Recent Change in Vision HENT: denies: Difficult Swallowing, Throat Pain Neck: denies: Decreased ROM, Tenderness Cardiovascular: denies: Chest Pain, Palpitations Respiratory: denies: Cough, SOB Gastrointestinal: reports: Constipation, Rectal Bleeding. denies: Abdominal Pain Genitourinary: denies: Discharge, Dysuria Breasts: reports: No Symptoms Reported. denies: Pain Musculoskeletal: denies: Back Pain, Muscle Pain, Muscle Weakness Integumentary: denies: Erythema, Lesions, Lump, Rash Neurological: denies: Seizure, Syncope Endocrine: denies: Unexplained Weight Gain, Unexplained Weight Loss Hematology/Lymphatic: reports: Excessive Bleeding. denies: Easily Bruised Psychiatric: denies: Anxiety, Depression Physical Exam Vital Signs: Vital Signs Temperature 98 F 08/31/17 08:00 Pulse Rate 70 08/31/17 08:00 Respiratory Rate 18 08/31/17 08:00 Blood Pressure 160/55 08/31/17 08:00 O2 Sat by Pulse Oximetry (%) 99 08/30/17 20:35 Vital Signs Period Temp Pulse Resp BP Sys/Moralez Pulse Ox Last 24 Hr 97.2 F-98.3 F 61-78 16-21 139-176/52-80 99 Constitutional: Yes: Well Nourished, No Distress, Calm Eyes: Yes: Conjunctiva Clear, EOM Intact HENT: Yes: Atraumatic, Normocephalic Neck: Yes: Supple, Trachea Midline Cardiovascular: Yes: Regular Rate and Rhythm, S1, S2 Respiratory: Yes: Regular, CTA Bilaterally Gastrointestinal: Yes: Normal Bowel Sounds, Soft, Abdomen, Obese, Rectal Bleeding (blood streak on the diaper). No: Tenderness, Tenderness, Epigastrium , Tenderness, Rebound ...Rectal Exam: Yes: Guaiac Positive, Sphincter Tone Normal. No: Hemorrhoids/ External, Inflammation, Mass Renal/: No: CVA Tenderness - Left, CVA Tenderness - Right Musculoskeletal: No: Muscle Pain, Muscle Weakness Extremities: No: Cool, Cyanosis Edema: No Peripheral Pulses WNL: Yes Integumentary: No: Jaundice Wound/Incision: Yes: Clean/Dry, Well Approximated (well enoc lower midline) Neurological: No: Alert, Oriented Psychiatric: No: Alert, Oriented Labs: CBC, BMP 08/31/17 05:00 08/31/17 05:00 Imaging - Results Chest X-ray: Report Reviewed (noramal CXR shallow inspiration), Image Reviewed Cat Scan: Report Reviewed, Image Reviewed (contrast extravasation recto sigmoid junction) Problem List - Problems (1) Diverticular hemorrhage Assessment/Plan: 87 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 She does not need acute surgical intervention. She also mentioned that she would prefer not to have any procedure unless absolutely necessary. Diet as tolerated GI and IR evaluations apprecicated Transfuse as needed based on hemodynamics She is not interested in elective sigmoid colectomy Will follow peripeherally Thank you for the opportunity to participate in the care of this patient. Code(s): K57.31 - DVRTCLOS OF LG INT W/O PERFORATION OR ABSCESS W BLEEDING (2) Lower GI bleed Code(s): K92.2 - GASTROINTESTINAL HEMORRHAGE, UNSPECIFIED (3) At high risk for bleeding Code(s): Z91.89 - OTH PERSONAL RISK FACTORS, NOT ELSEWHERE CLASSIFIED (4) Afib Code(s): I48.91 - UNSPECIFIED ATRIAL FIBRILLATION Qualifiers: Atrial fibrillation type: unspecified Qualified Code(s): I48.91 - Unspecified atrial fibrillation (5) CAD (coronary artery disease) Code(s): I25.10 - ATHSCL HEART DISEASE OF [place] CORONARY ARTERY W/O ANG PCTRS (6) CVA (cerebral vascular accident) Code(s): I63.9 - CEREBRAL INFARCTION, UNSPECIFIED (7) GERD (gastroesophageal reflux disease) Code(s): K21.9 - GASTRO-ESOPHAGEAL REFLUX DISEASE WITHOUT ESOPHAGITIS (8) Hypertension Code(s): I10 - ESSENTIAL (PRIMARY) HYPERTENSION (9) Parkinson disease Code(s): G20 - PARKINSON'S DISEASE
--- NOTE | 2017-08-31 16:17 | PN ---
Progress Note (short form) - Note Progress Note: CC: GIB s: no cp sob palps dizzy. no further bleeding. o: Current Medications Carbidopa/Levodopa (Sinemet 25/100 -) 1 each PO TID [facility] Last Admin: 08/31/17 15:14 Dose: Not Given Citalopram Hydrobromide (Celexa -) 10 mg PO DAILY [facility] Last Admin: 08/31/17 09:13 Dose: 10 mg Losartan Potassium (Cozaar -) 100 mg PO DAILY [facility] Last Admin: 08/31/17 09:12 Dose: 100 mg Rosuvastatin Calcium (Crestor -) 10 mg PO HS [facility] Last Admin: 08/30/17 21:45 Dose: Not Given Vital Signs - 24 hr 08/30/17 08/30/17 08/30/17 19:00 20:35 22:00 Temperature 98.6 F Pulse Rate 68 63 Respiratory 10 L 12 Rate Blood Pressure 154/70 138/57 O2 Sat by Pulse 99 Oximetry (%) 08/31/17 08/31/17 08/31/17 02:00 06:00 08:00 Temperature 98.3 F 98 F 98 F Pulse Rate 66 67 70 Respiratory 18 18 18 Rate Blood Pressure 130/53 145/58 160/55 O2 Sat by Pulse Oximetry (%) 08/31/17 08/31/17 08/31/17 09:00 10:00 14:00 Temperature Pulse Rate 72 70 Respiratory 18 18 Rate Blood Pressure 145/62 145/58 O2 Sat by Pulse 98 Oximetry (%) Intake & Output 08/29/17 08/30/17 08/31/17 09/01/17 07:59 07:59 07:59 07:59 Intake Total 2075 1500 2435 Balance 2075 1500 2435 Weight 152 lb 163 lb 5.8 oz nad, calm jvd flat, neck supple rrr nl s1, s2 no mrg pmi nd + bs soft nt nd, no hsm ext without e/c/c no jaundice, diaphoresis alert and oriented x 3 CBC, BMP 08/31/17 05:00 08/31/17 05:00 ekg 08/28/17: nsr. lvh. tele: sr cxr: no congestion/infiltrate. abd CT (images/report reviewed): acute sigmoid diverticular hemorrhage. see emr for detailed findings repeat abd cta 08/30: active contrast extravasation from diverticula. aortic atherosclerosis. see emr for detailed findings echo 12/2016: nl lv fn. impaired lv relaxation. nl rv size/fn. mod lae. mild- mod tr. rvsp 30-40 dipyridamole stress 12/2016: no ischemic ekg changes. small sized, mild/subtle apical ischemia. EF 70%. no rwma. MRA/MRI 01/10/2017: mid and distal 3rd MACHINE SPECIALIST partially occluded. New 0.3 cm acute non-hemarrhagic infarct in the right temporal periventricular region. A very small amount of petechial blood is noted within previously identified acute/ subacute right occipital cortical infarct. Carotid duplex 01/10/2017 unremarkable. Abnormal nuclear stress test on 01/08/2017 with a small and mild apical stress induced ischemia. ASSESSMENT/PLAN 87yo with PMHx of HTN, HL, paroxysmal atrial fibrillation on eliquis, recurrenct CVA, CAD with h/o PCI 1999 [facility] now with mild apical ischemia on 2016 stress test, diastolic CHF, prior breast CA s/p Right radical mastectomy , Parkinson disease, dementia, diverticulosis, GERD, severe pairsh with desat ( cpap titration pending) who p/w BRBPR. GIB: - per GI, most likely diverticular bleeding vs malignancy(unlikely). S/p transfusion. - ASA, eliquis held initially, then given one dose of each on 08/29 --> recurrent GIB. Subsequently held again. Still requiring transfusions. Plan for prbc's today. Paroxysmal atrial fibrillation with high CHADS-VASC score - h/o recurrent CVA: - holding ac as above - last cva 12/2016 on pradaxa --> ASA added to regimen. Since then was changed to eliquis and ASA. Followed by Dr. Finch as outpatient. - recurrent GIB after getting eliquis/ASA as mentioned above. If unable to resume AC, may need to consider elective placement of Watchman device for AXEL closure. Can discuss with Dr. Palacios as outpatient. - Hr controlled/SR off AV aga blockade. CAD (based on mild apical ischemia on stress testing)/HL - con't crestor 10 mg daily Diastolic CHF: - on hctz as outpatient, held here for anemia, low bp. - Currently no signs of fluid overload. con't to monitor HTN: - overall reasonable control on losartan alone. Holding home hctz as mentioned above.
[2017-08-31] MEDS: ROSUVASTATIN CA 10 MG TABLET (FP) PO SCH (21:37)
--- NOTE | 2017-08-31 22:03 | PN ---
Progress Note (short form) - Note Progress Note: Patient seen and examined Denies any complaints Last Vital Signs Temp Pulse Resp BP Pulse Ox 98.2 F 67 21 156/60 99 08/31/17 21:48 08/31/17 21:48 08/31/17 21:48 08/31/17 21:48 08/31/17 21:00 Cor: RSR, No murmurs, No gallops Lungs: Clear to P&A Abd: Soft, Normal bowel sounds, No organomegaly Ext:No significant edema Abnormal Lab Results 08/28/17 08/30/17 08/31/17 02:58 05:45 05:00 RBC Hgb Hct PT with INR INR Chloride 113 H Carbon Dioxide 20 L BUN 20 H Calcium 7.1 L Magnesium 2.5 H Total Bilirubin 2.1 H D ALT 7 L Total Protein 4.3 L Albumin 2.4 L Crossmatch See Detail See Detail 08/31/17 08/31/17 05:00 07:15 RBC 2.76 L Hgb 8.6 L Hct 24.3 L PT with INR 13.50 H INR 1.19 H Chloride Carbon Dioxide BUN Calcium Magnesium Total Bilirubin ALT Total Protein Albumin Crossmatch Active Medications Generic Name Dose Route Start Last Admin Trade Name Freq PRN Reason Stop Dose Admin Carbidopa/Levodopa 1 each 08/29/17 15:15 08/31/17 21:37 Sinemet 25/100 - PO 1 each TID SAMEER Administration Citalopram Hydrobromide 10 mg 08/29/17 15:15 08/31/17 09:13 Celexa - PO 10 mg DAILY SAMEER Administration Losartan Potassium 100 mg 08/30/17 10:00 08/31/17 09:12 Cozaar - PO 100 mg DAILY SAMEER Administration Rosuvastatin Calcium 10 mg 08/29/17 22:00 08/31/17 21:37 Crestor - PO 10 mg HS SAMEER Administration A/P 87 y/o patient with AF, and history of prior CVA, dementia, rt. mastectomy, on DOAC and ASA, presenting with significant GI bleed, with drop in Hb. s/p FFP. Xeralto/ASA on hold INR/PTT normalized Platelet count nl hemoglobin stable
[2017-09-01] MEDS: CARBIDOPA/LEVODOPA 25/100 TABLET (FP) PO SCH ×3 (06:22→21:58)
[2017-09-01 06:51] LABS: BASO % 0.5 % (0-2.0); EOS % 2.5 % (0-4.5); HEMATOCRIT 25.6 % (32.4-45.2); HEMOGLOBIN 9.1 GM/dL (10.7-15.3); LYMPH % 11.3 % (8-40); MCH 31.2 pg (25.7-33.7); MCHC 35.6 g/dl (32.0-36.0); MEAN CELL VOLUME 87.6 fl (80-96); MEAN PLT VOLUME 8.3 fl (7.5-11.1); MONO % 5.3 % (3.8-10.2); NEUT % 80.4 % (42.8-82.8); PLATELET COUNT 148 K/MM3 (134-434); RBC 2.92 M/mm3 (3.60-5.2); RDW 14.4 % (11.6-15.6); WHITE BLOOD COUNT 7.5 K/mm3 (4.0-10.0)
[2017-09-01 07:34] LABS: ALBUMIN 2.5 g/dl (3.4-5.0); ANION GAP 11 (8-16); BLOOD UREA NITROGEN 21 mg/dL (7-18); CALCIUM 7.5 mg/dL (8.5-10.1); CHLORIDE 112 mmol/L (98-107); CO2 19 mmol/L (21-32); CREATININE 0.6 mg/dL (0.55-1.02); GLUCOSE,RANDOM 72 mg/dL (74-106); POTASSIUM 4.1 mmol/L (3.5-5.1); SGOT/AST 17 U/L (15-37); SGPT/ALT < 6 U/L (12-78); SODIUM 142 mmol/L (136-145)
[2017-09-01 07:36] LABS: ALK PHOS 81 U/L (45-117); BILIRUBIN,TOTAL 1.1 mg/dL (0.2-1.0); TOT PROT 4.6 g/dl (6.4-8.2)
--- NOTE | 2017-09-01 09:11 | PN ---
Progress Note, Physician History of Present Illness: -Weakness no abd pain - Current Medication List Current Medications: Active Medications Carbidopa/Levodopa (Sinemet 25/100 -) 1 each PO TID [facility] Last Admin: 09/01/17 06:22 Dose: 1 each Citalopram Hydrobromide (Celexa -) 10 mg PO DAILY [facility] Last Admin: 08/31/17 09:13 Dose: 10 mg Losartan Potassium (Cozaar -) 100 mg PO DAILY [facility] Last Admin: 08/31/17 09:12 Dose: 100 mg Rosuvastatin Calcium (Crestor -) 10 mg PO HS [facility] Last Admin: 08/31/17 21:37 Dose: 10 mg - Objective Vital Signs: Vital Signs Temperature 97.9 F 09/01/17 06:00 Pulse Rate 67 09/01/17 06:00 Respiratory Rate 16 09/01/17 06:00 Blood Pressure 176/60 09/01/17 06:00 O2 Sat by Pulse Oximetry (%) 99 08/31/17 21:00 Cardiovascular: Yes: S1, S2 Respiratory: Yes: Regular, CTA Bilaterally Gastrointestinal: Yes: Normal Bowel Sounds, Soft. No: Tenderness Labs: CBC, BMP 09/01/17 05:30 09/01/17 05:30 INR, PTT INR 1.19 (0.82-1.09) H 08/31/17 07:15 Problem List - Problems (1) Diverticular hemorrhage Assessment/Plan: 1. GI Bleed - concerning for Mass--surgical consult - Tele Admit - Appreciate GI Consult - Will discuss with gi regarding AC - Repeat CBC in am Code(s): K57.31 - DVRTCLOS OF LG INT W/O PERFORATION OR ABSCESS W BLEEDING (2) Lower GI bleed Code(s): K92.2 - GASTROINTESTINAL HEMORRHAGE, UNSPECIFIED (3) Afib Assessment/Plan: - Continue cardiac monitoring - [id number] - Hold Eliquis 2/2 GI Bleed - Cardiology consult for recommendations - Monitor renal function - Hold meds until cleared by GI Code(s): I48.91 - UNSPECIFIED ATRIAL FIBRILLATION Qualifiers: Atrial fibrillation type: unspecified Qualified Code(s): I48.91 - Unspecified atrial fibrillation (4) Pancreatic cyst Assessment/Plan: -surgical consult Code(s): K86.2 - CYST OF PANCREAS (5) Parkinson disease Assessment/Plan: - Will hold Asa 2/2 GI bleed - Neuro checks - Fall Precautions - Consider Neurology consult for recommendations - Hold meds until seen by GI Code(s): G20 - PARKINSON'S DISEASE (6) Coagulopathy Assessment/Plan: due eliquis monitor labs Code(s): D68.9 - COAGULATION DEFECT, UNSPECIFIED
--- NOTE | 2017-09-01 09:58 | PN ---
Progress Note (short form) - Note Progress Note: Patient seen and examined Denies any complaints Cor: RSR, No murmurs, No gallops Lungs: Clear to P&A Abd: Soft, Normal bowel sounds, No organomegaly Ext:No significant edema Temp Pulse Resp BP Pulse Ox 97.9 F 67 16 176/60 99 09/01/17 06:00 09/01/17 06:00 09/01/17 06:00 09/01/17 06:00 08/31/17 21:00 CBC, BMP 09/01/17 05:30 09/01/17 05:30 Current Medications Generic Name Dose Route Start Last Admin Trade Name Freq PRN Reason Stop Dose Admin Carbidopa/Levodopa 1 each 08/29/17 15:15 09/01/17 06:22 Sinemet 25/100 - PO 1 each TID SAMEER Administration Citalopram Hydrobromide 10 mg 08/29/17 15:15 08/31/17 09:13 Celexa - PO 10 mg DAILY SAEMER Administration Losartan Potassium 100 mg 08/30/17 10:00 08/31/17 09:12 Cozaar - PO 100 mg DAILY SAMEER Administration Rosuvastatin Calcium 10 mg 08/29/17 22:00 08/31/17 21:37 Crestor - PO 10 mg HS SAMEER Administration 87 y/o patient with AF, and history of prior CVA, dementia, rt. mastectomy, on DOAC and ASA, presenting with significant GI bleed, with drop in Hb. s/p FFP. Xeralto/ASA on hold INR/PTT normalized Platelet count nl hemoglobin stable f.u on CBC/GI/Cardiology c/s
[2017-09-01] MEDS: CITALOPRAM HYDROBROMIDE 10 MG TABLET (FP) PO SCH (10:59)
[2017-09-01] MEDS: LOSARTAN POTASSIUM 50 MG TABLET (FP) PO SCH (10:59)
--- NOTE | 2017-09-01 12:04 | PN ---
Progress Note (short form) - Note Progress Note: CC: gib s: no cp sob palps dizzy. recurrent bleed today. has plan for repeat transfusion. Will be getting endoscopy today with possible intervention. o: Current Medications Carbidopa/Levodopa (Sinemet 25/100 -) 1 each PO TID [facility] Last Admin: 09/01/17 06:22 Dose: 1 each Citalopram Hydrobromide (Celexa -) 10 mg PO DAILY [facility] Last Admin: 09/01/17 10:59 Dose: 10 mg Losartan Potassium (Cozaar -) 100 mg PO DAILY [facility] Last Admin: 09/01/17 10:59 Dose: 100 mg Rosuvastatin Calcium (Crestor -) 10 mg PO HS [facility] Last Admin: 08/31/17 21:37 Dose: 10 mg Vital Signs - 24 hr 08/31/17 08/31/17 08/31/17 14:00 18:00 21:00 Temperature 98 F Pulse Rate 70 78 Respiratory 18 21 Rate Blood Pressure 145/58 170/80 O2 Sat by Pulse 99 Oximetry (%) 08/31/17 08/31/17 09/01/17 21:48 23:00 00:00 Temperature 98.2 F 98.3 F Pulse Rate 67 66 67 Respiratory 21 18 19 Rate Blood Pressure 156/60 176/56 148/64 O2 Sat by Pulse Oximetry (%) 09/01/17 09/01/17 09/01/17 00:26 02:00 04:00 Temperature 97.2 F L Pulse Rate 66 62 61 Respiratory 18 18 20 Rate Blood Pressure 148/64 140/52 139/67 O2 Sat by Pulse Oximetry (%) 09/01/17 09/01/17 09/01/17 06:00 09:00 10:00 Temperature 97.9 F Pulse Rate 67 66 Respiratory 16 16 Rate Blood Pressure 176/60 176/68 O2 Sat by Pulse 100 Oximetry (%) Intake & Output 08/30/17 08/31/17 09/01/17 09/02/17 07:59 07:59 07:59 07:59 Intake Total 1500 2435 930 460 Balance 1500 2435 930 460 Weight 163 lb 5.8 oz 162 lb 0.636 oz nad, calm jvd flat, neck supple rrr nl s1, s2 no mrg pmi nd + bs soft nt nd, no hsm ext without e/c/c no jaundice, diaphoresis alert and oriented x 3 CBC, BMP 09/01/17 05:30 09/01/17 05:30 Laboratory Tests 08/31/17 08/31/17 09/01/17 05:00 05:00 05:30 Hgb 8.6 L Total Bilirubin 2.1 H D 1.1 H D Albumin 2.5 L ekg 08/28/17: nsr. lvh. tele: sr. 1 run of SVT overnight. cxr: no congestion/infiltrate. abd CT (images/report reviewed): acute sigmoid diverticular hemorrhage. see emr for detailed findings repeat abd cta 08/30: active contrast extravasation from diverticula. aortic atherosclerosis. see emr for detailed findings echo 12/2016: nl lv fn. impaired lv relaxation. nl rv size/fn. mod lae. mild- mod tr. rvsp 30-40 dipyridamole stress 12/2016: no ischemic ekg changes. small sized, mild/subtle apical ischemia. EF 70%. no rwma. MRA/MRI 01/10/2017: mid and distal 3rd TREND INVESTIGATOR partially occluded. New 0.3 cm acute non-hemarrhagic infarct in the right temporal periventricular region. A very small amount of petechial blood is noted within previously identified acute/ subacute right occipital cortical infarct. Carotid duplex 01/10/2017 unremarkable. Abnormal nuclear stress test on 01/08/2017 with a small and mild apical stress induced ischemia. ASSESSMENT/PLAN 87yo with PMHx of HTN, HL, paroxysmal atrial fibrillation on eliquis, recurrenct CVA, CAD with h/o PCI 1999 [facility] now with mild apical ischemia on 2016 stress test, diastolic CHF, prior breast CA s/p Right radical mastectomy , Parkinson disease, dementia, diverticulosis, GERD, severe parish with desat ( cpap titration pending) who p/w BRBPR. GIB: - per GI, most likely diverticular bleeding vs malignancy(unlikely). S/p transfusion. - ASA, eliquis held initially, then given one dose of each on 08/29 --> recurrent GIB. Subsequently held again. Still requiring transfusions. Plan for prbc's today. Possible intervention. Paroxysmal atrial fibrillation with high CHADS-VASC score - h/o recurrent CVA: - holding ac as above - last cva 12/2016 on pradaxa --> ASA added to regimen. Since then was changed to eliquis and ASA. Followed by Dr. Finch as outpatient. - recurrent GIB after getting eliquis/ASA as mentioned above. If unable to resume AC, may need to consider elective placement of Watchman device for AXEL closure. Can discuss with Dr. Palacios as outpatient. - Hr controlled/SR off AV aga blockade. CAD (based on mild apical ischemia on stress testing)/HL - con't crestor 10 mg daily Diastolic CHF: - on hctz as outpatient, held here initially for anemia, low bp. - Currently no signs of fluid overload. con't to monitor HTN: - overall reasonable control on losartan alone. Holding home hctz as mentioned above. Still with recurrent GIB. - 4/10 BP elevated today. If remains elevated will uptitrate anti-htn regimen tomorrow.
[2017-09-01] MEDS ORDERED: SODIUM PHOSPHATE/NA BIPHOS 133 ML ENEMA PR ONE ×2 (15:00→15:05)
[2017-09-01] MEDS ORDERED: PROPOFOL 20 ML ONE ×3 (15:23)
[2017-09-01] MEDS ORDERED: METOCLOPRAMIDE HCL INJECTION 10 MG/2 ML VIAL ONE (16:22)
[2017-09-01] MEDS: amLODIPine BESYLATE 5 MG TABLET (FP) PO SCH (19:03)
[2017-09-01] MEDS: ROSUVASTATIN CA 10 MG TABLET (FP) PO SCH (21:18)
[2017-09-01] MEDS: MUPIROCIN 2% TOPICAL OINTMENT FOR DECOLONIZATION NS SCH (21:59)
[2017-09-01] MEDS: CHLORHEXIDINE GLUCONATE 4% CLEANSER FOR DECOLONIZATION TP SCH (21:59)
[2017-09-02] MEDS: CARBIDOPA/LEVODOPA 25/100 TABLET (FP) PO SCH ×3 (06:09→21:17)
[2017-09-02 08:35] LABS: HEMATOCRIT 31.8 % (32.4-45.2); MCH 30.2 pg (25.7-33.7); MCHC 34.5 g/dl (32.0-36.0); MEAN CELL VOLUME 87.6 fl (80-96); PLATELET COUNT 166 K/MM3 (134-434); RBC 3.63 M/mm3 (3.60-5.2); RDW 14.7 % (11.6-15.6); WHITE BLOOD COUNT 17.3 K/mm3 (4.0-10.0)
[2017-09-02 09:06] LABS: ALBUMIN 2.8 g/dl (3.4-5.0); ANION GAP 13 (8-16); BILIRUBIN,TOTAL 1.7 mg/dL (0.2-1.0); BLOOD UREA NITROGEN 12 mg/dL (7-18); CALCIUM 8.1 mg/dL (8.5-10.1); CHLORIDE 108 mmol/L (98-107); CO2 20 mmol/L (21-32); CREATININE 0.6 mg/dL (0.55-1.02); GLUCOSE,RANDOM 109 mg/dL (74-106); POTASSIUM 3.8 mmol/L (3.5-5.1); SGOT/AST 19 U/L (15-37); SGPT/ALT < 6 U/L (12-78); SODIUM 141 mmol/L (136-145); TOT PROT 5.2 g/dl (6.4-8.2)
[2017-09-02 09:07] LABS: ALK PHOS 95 U/L (45-117)
--- NOTE | 2017-09-02 09:07 | PN ---
Progress Note, Physician History of Present Illness: -feels better no abd pain - Current Medication List Current Medications: Active Medications Amlodipine Besylate (Norvasc -) 5 mg PO DAILY [facility] Last Admin: 09/01/17 19:03 Dose: 5 mg Carbidopa/Levodopa (Sinemet 25/100 -) 1 each PO TID [facility] Last Admin: 09/02/17 06:09 Dose: 1 each Chlorhexidine Gluconate (Hibiclens For Decolonization -) 1 applic TP HS [facility] Last Admin: 09/01/17 21:59 Dose: Not Given Citalopram Hydrobromide (Celexa -) 10 mg PO DAILY [facility] Losartan Potassium (Cozaar -) 100 mg PO DAILY [facility] Mupirocin (Bactroban Ointment (For Decolonization) -) 1 applic NS BID [facility] Stop: 09/06/17 21:59 Last Admin: 09/01/17 21:59 Dose: Not Given Rosuvastatin Calcium (Crestor -) 10 mg PO HS [facility] Last Admin: 09/01/17 21:18 Dose: 10 mg - Objective Vital Signs: Vital Signs Temperature 98.5 F 09/02/17 06:00 Pulse Rate 63 09/02/17 06:00 Respiratory Rate 18 09/02/17 06:00 Blood Pressure 131/51 09/02/17 06:00 O2 Sat by Pulse Oximetry (%) 100 09/01/17 21:00 Cardiovascular: Yes: S1, S2 Respiratory: Yes: Regular, CTA Bilaterally Gastrointestinal: Yes: Normal Bowel Sounds, Soft Labs: CBC, BMP 09/02/17 08:20 INR, PTT INR 1.19 (0.82-1.09) H 08/31/17 07:15 Problem List - Problems (1) Diverticular hemorrhage Assessment/Plan: -GI Bleed--colon done diverticulosis - surgical consult noted - Tele Admit - Appreciate GI Consult - Will discuss with gi regarding AC--hold for 48 hrs - Repeat CBC in am Code(s): K57.31 - DVRTCLOS OF LG INT W/O PERFORATION OR ABSCESS W BLEEDING (2) Lower GI bleed Code(s): K92.2 - GASTROINTESTINAL HEMORRHAGE, UNSPECIFIED (3) Afib Assessment/Plan: - Continue cardiac monitoring - [id number] - Hold Eliquis 2/2 GI Bleed - Cardiology consult for recommendations - Monitor renal function - Hold meds until cleared by GI Code(s): I48.91 - UNSPECIFIED ATRIAL FIBRILLATION Qualifiers: Atrial fibrillation type: unspecified Qualified Code(s): I48.91 - Unspecified atrial fibrillation (4) Pancreatic cyst Assessment/Plan: -surgical consult Code(s): K86.2 - CYST OF PANCREAS (5) Parkinson disease Assessment/Plan: - Will hold Asa 2/2 GI bleed - Neuro checks - Fall Precautions - Consider Neurology consult for recommendations - Hold meds until seen by GI Code(s): G20 - PARKINSON'S DISEASE (6) Coagulopathy Assessment/Plan: due eliquis monitor labs Code(s): D68.9 - COAGULATION DEFECT, UNSPECIFIED
[2017-09-02] MEDS: LOSARTAN POTASSIUM 50 MG TABLET (FP) PO SCH (09:39)
[2017-09-02] MEDS: amLODIPine BESYLATE 5 MG TABLET (FP) PO SCH (09:42)
[2017-09-02] MEDS: CITALOPRAM HYDROBROMIDE 10 MG TABLET (FP) PO SCH (09:42)
[2017-09-02] MEDS: MUPIROCIN 2% TOPICAL OINTMENT FOR DECOLONIZATION NS SCH ×2 (09:43→21:18)
[2017-09-02 11:46] LABS: ANISOCYTOSIS 2+; MACROCYTOSIS 1+
[2017-09-02 12:10] LABS: PLATELET ESTIMATE ADEQUATE
--- NOTE | 2017-09-02 17:19 | PN ---
Progress Note (short form) - Note Progress Note: CC: gib s: no cp sob palps dizzy. htn yesterday. norvasc added in the evening. s/p colonoscopy with endoclipping yesterday. no further bleeding. o: Current Medications Amlodipine Besylate (Norvasc -) 5 mg PO DAILY [facility] Last Admin: 09/02/17 09:42 Dose: 5 mg Carbidopa/Levodopa (Sinemet 25/100 -) 1 each PO TID [facility] Last Admin: 09/02/17 13:54 Dose: 1 each Chlorhexidine Gluconate (Hibiclens For Decolonization -) 1 applic TP HS [facility] Last Admin: 09/01/17 21:59 Dose: Not Given Citalopram Hydrobromide (Celexa -) 10 mg PO DAILY [facility] Last Admin: 09/02/17 09:42 Dose: 10 mg Losartan Potassium (Cozaar -) 100 mg PO DAILY [facility] Last Admin: 09/02/17 09:39 Dose: 100 mg Mupirocin (Bactroban Ointment (For Decolonization) -) 1 applic NS BID [facility] Stop: 09/06/17 21:59 Last Admin: 09/02/17 09:43 Dose: 1 applic Rosuvastatin Calcium (Crestor -) 10 mg PO [facility] Last Admin: 09/01/17 21:18 Dose: 10 mg Vital Signs - 24 hr 09/01/17 09/01/17 09/01/17 17:45 17:55 18:00 Temperature 98.7 F Pulse Rate 68 69 70 Respiratory 19 18 16 Rate Blood Pressure 213/72 203/72 210/81 O2 Sat by Pulse Oximetry (%) 09/01/17 09/01/17 09/01/17 18:10 18:49 19:20 Temperature 98.7 F Pulse Rate 71 70 Respiratory 17 18 Rate Blood Pressure 215/81 190/77 O2 Sat by Pulse Oximetry (%) 09/01/17 09/01/17 09/02/17 19:57 21:00 02:00 Temperature 98.6 F 98.5 F Pulse Rate 71 71 65 Respiratory 20 23 22 Rate Blood Pressure 187/67 158/64 145/60 O2 Sat by Pulse 100 Oximetry (%) 09/02/17 09/02/17 09/02/17 06:00 09:00 10:00 Temperature 98.5 F 98.0 F Pulse Rate 63 71 Respiratory 18 18 18 Rate Blood Pressure 131/51 149/59 O2 Sat by Pulse 100 Oximetry (%) 09/02/17 09/02/17 14:00 16:00 Temperature 97.8 F Pulse Rate 87 69 Respiratory 18 18 Rate Blood Pressure 121/65 111/52 O2 Sat by Pulse Oximetry (%) Intake & Output 08/31/17 09/01/17 09/02/17 09/03/17 07:59 07:59 07:59 07:59 Intake Total 2435 930 1060 1240 Output Total 500 Balance 2435 313 039 9889 Weight 163 lb 5.8 oz 162 lb 0.636 oz 169 lb 1.513 oz nad, calm jvd flat, neck supple rrr nl s1, s2 no mrg pmi nd + bs soft nt nd, no hsm ext without e/c/c no jaundice, diaphoresis alert and oriented x 3 CBC, BMP 09/02/17 08:20 09/02/17 08:20 ekg 08/28/17: nsr. lvh. tele: sr. cxr: no congestion/infiltrate. abd CT (images/report reviewed): acute sigmoid diverticular hemorrhage. see emr for detailed findings repeat abd cta 08/30: active contrast extravasation from diverticula. aortic atherosclerosis. see emr for detailed findings echo 12/2016: nl lv fn. impaired lv relaxation. nl rv size/fn. mod lae. mild- mod tr. rvsp 30-40 dipyridamole stress 12/2016: no ischemic ekg changes. small sized, mild/subtle apical ischemia. EF 70%. no rwma. MRA/MRI 01/10/2017: mid and distal 3rd [employer] partially occluded. New 0.3 cm acute non-hemarrhagic infarct in the right temporal periventricular region. A very small amount of petechial blood is noted within previously identified acute/ subacute right occipital cortical infarct. Carotid duplex 01/10/2017 unremarkable. Abnormal nuclear stress test on 01/08/2017 with a small and mild apical stress induced ischemia. ASSESSMENT/PLAN 87yo with PMHx of HTN, HL, paroxysmal atrial fibrillation on eliquis, recurrenct CVA, CAD with h/o PCI [address] [facility] now with mild apical ischemia on 2016 stress test, diastolic CHF, prior breast CA s/p Right radical mastectomy , Parkinson disease, dementia, diverticulosis, GERD, severe parish with desat ( cpap titration pending) who p/w BRBPR. GIB: - per GI, most likely diverticular bleeding vs malignancy(unlikely). S/p multiple transfusions. - ASA, eliquis held initially, then given one dose of each on 08/29 --> recurrent GIB. Subsequently held again. - s/p colonoscopy with endoclipping 09/01. Paroxysmal atrial fibrillation with high CHADS-VASC score - h/o recurrent CVA: - holding ac as above - last cva 12/2016 on pradaxa --> ASA added to regimen. Since then was changed to eliquis and ASA. Followed by Dr. Finch as outpatient. - recurrent GIB after getting eliquis/ASA as mentioned above. If unable to resume AC, may need to consider elective placement of Watchman device for AXEL closure. Can discuss with Dr. Palacios as outpatient. - 09/02: per gi can consider AC with coumadin (reversible). will consider trial of heparin drip tomorrow if hgb remain stable. - Hr controlled/SR off AV aga blockade. CAD (based on mild apical ischemia on stress testing)/HL - con't crestor 10 mg daily Diastolic CHF: - on hctz as outpatient, held here initially for anemia, low bp. - Currently no signs of fluid overload. con't to monitor HTN: - overall reasonable control on losartan alone. Holding home hctz as mentioned above. Still with recurrent GIB. - 09/01 BP elevated today requiring prn IV meds. norvasc added. - 09/02: BP normalized today, con't same.
--- NOTE | 2017-09-02 18:29 | PN ---
GI Progress Note Subjective: no active bleeding - Objective Vital Signs: Vital Signs Temperature 97.8 F 09/02/17 14:00 Pulse Rate 69 09/02/17 16:00 Respiratory Rate 18 09/02/17 16:00 Blood Pressure 111/52 09/02/17 16:00 O2 Sat by Pulse Oximetry (%) 100 09/02/17 09:00 Labs: CBC, BMP 09/02/17 08:20 09/02/17 08:20 INR, PTT INR 1.19 (0.82-1.09) H 08/31/17 07:15 Problem List - Problems (1) Lower GI bleed Assessment/Plan: secondary to diverticular bleeding R> if patient needs anticoagulation should consider giving coumadin which is reversible Code(s): K92.2 - GASTROINTESTINAL HEMORRHAGE, UNSPECIFIED
[2017-09-02 19:40] LABS: BASO % 0.5 % (0-2.0); EOS % 1.8 % (0-4.5); HEMOGLOBIN 10.9 GM/dL (10.7-15.3); LYMPH % 9.4 % (8-40); MCH 30.7 pg (25.7-33.7); MCHC 35.3 g/dl (32.0-36.0); MEAN PLT VOLUME 8.3 fl (7.5-11.1); MONO % 5.3 % (3.8-10.2); PLATELET COUNT 198 K/MM3 (134-434); RBC 3.57 M/mm3 (3.60-5.2); RDW 14.7 % (11.6-15.6); WHITE BLOOD COUNT 12.2 K/mm3 (4.0-10.0)
[2017-09-02] MEDS: CHLORHEXIDINE GLUCONATE 4% CLEANSER FOR DECOLONIZATION TP SCH (21:18)
[2017-09-02] MEDS ORDERED: PT OWN MED DRAWER 7, Y5N ONE (21:20)
[2017-09-02] MEDS: ROSUVASTATIN CA 10 MG TABLET (FP) PO SCH (21:21)
[2017-09-02] MEDS ORDERED: PANTOPRAZOLE 20 MG TABLET (FP) PO ONE (21:31)
--- NOTE | 2017-09-03 04:24 | PN ---
Progress Note, Physician History of Present Illness: 87 yo female PMH Afib on Pradaxa, CAD, HTN, Breast Ca, Parkinson's, CVA long standing history of chronic constipation, diverticulitis presents to the ED with abdominal pain and BRBPR 08/28/2017. Patient reports having 2 episodes at home of bright red blood in her BM and abdominal cramping to her LLQ. No active bleeding noted. she remains hemodynamically stable - Current Medication List Current Medications: Active Medications Amlodipine Besylate (Norvasc -) 5 mg PO DAILY [facility] Last Admin: 09/02/17 09:42 Dose: 5 mg Carbidopa/Levodopa (Sinemet 25/100 -) 1 each PO TID [facility] Last Admin: 09/02/17 21:17 Dose: 1 each Chlorhexidine Gluconate (Hibiclens For Decolonization -) 1 applic TP HS [facility] Last Admin: 09/02/17 21:18 Dose: 1 applic Citalopram Hydrobromide (Celexa -) 10 mg PO DAILY [facility] Last Admin: 09/02/17 09:42 Dose: 10 mg Losartan Potassium (Cozaar -) 100 mg PO DAILY [facility] Last Admin: 09/02/17 09:39 Dose: 100 mg Mupirocin (Bactroban Ointment (For Decolonization) -) 1 applic NS BID [facility] Stop: 09/06/17 21:59 Last Admin: 09/02/17 21:18 Dose: 1 applic Rosuvastatin Calcium (Crestor -) [address] [facility] Last Admin: 09/02/17 21:21 Dose: 10 mg - Objective Vital Signs: Vital Signs Temperature 97.8 F 09/02/17 14:00 Pulse Rate 62 09/02/17 20:00 Respiratory Rate 12 09/02/17 20:00 Blood Pressure 118/55 09/02/17 20:00 O2 Sat by Pulse Oximetry (%) 100 09/02/17 21:00 Constitutional: Yes: No Distress, Calm Eyes: Yes: Conjunctiva Clear, EOM Intact HENT: Yes: Atraumatic, Normocephalic Neck: Yes: Supple, Trachea Midline Respiratory: Yes: Regular, CTA Bilaterally Gastrointestinal: Yes: Normal Bowel Sounds, Soft, Rectal Bleeding. 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 She does not need acute surgical intervention. She also mentioned that she would prefer not to have any procedure unless absolutely necessary. Diet as tolerated GI and IR evaluations apprecicated Transfuse as needed based on hemodynamics She is not interested in elective sigmoid colectomy Will follow peripeherally Thank you for the opportunity to participate in the care of this patient. Code(s): K57.31 - DVRTCLOS OF LG INT W/O PERFORATION OR ABSCESS W BLEEDING (2) Lower GI bleed Code(s): K92.2 - GASTROINTESTINAL HEMORRHAGE, UNSPECIFIED (3) At high risk for bleeding Code(s): Z91.89 - OTH PERSONAL RISK FACTORS, NOT ELSEWHERE CLASSIFIED (4) Afib Code(s): I48.91 - UNSPECIFIED ATRIAL FIBRILLATION Qualifiers: Atrial fibrillation type: unspecified Qualified Code(s): I48.91 - Unspecified atrial fibrillation (5) CAD (coronary artery disease) Code(s): I25.10 - ATHSCL HEART DISEASE OF [place] CORONARY ARTERY W/O ANG PCTRS (6) CVA (cerebral vascular accident) Code(s): I63.9 - CEREBRAL INFARCTION, UNSPECIFIED (7) GERD (gastroesophageal reflux disease) Code(s): K21.9 - GASTRO-ESOPHAGEAL REFLUX DISEASE WITHOUT ESOPHAGITIS (8) Hypertension Code(s): I10 - ESSENTIAL (PRIMARY) HYPERTENSION (9) Parkinson disease Code(s): G20 - PARKINSON'S DISEASE
[2017-09-03] MEDS: CARBIDOPA/LEVODOPA 25/100 TABLET (FP) PO SCH ×3 (06:36→21:26)
[2017-09-03 07:06] LABS: BASO % 0.4 % (0-2.0); EOS % 3.1 % (0-4.5); HEMATOCRIT 27.3 % (32.4-45.2); HEMOGLOBIN 9.6 GM/dL (10.7-15.3); MCH 30.9 pg (25.7-33.7); MCHC 35.3 g/dl (32.0-36.0); MEAN CELL VOLUME 87.7 fl (80-96); MEAN PLT VOLUME 8.6 fl (7.5-11.1); MONO % 6.6 % (3.8-10.2); NEUT % 77.9 % (42.8-82.8); PLATELET COUNT 163 K/MM3 (134-434); RBC 3.11 M/mm3 (3.60-5.2); RDW 15.1 % (11.6-15.6); WHITE BLOOD COUNT 7.9 K/mm3 (4.0-10.0)
[2017-09-03 07:20] LABS: ALBUMIN 2.5 g/dl (3.4-5.0); ANION GAP 8 (8-16); BILIRUBIN,TOTAL 0.8 mg/dL (0.2-1.0); BLOOD UREA NITROGEN 15 mg/dL (7-18); CALCIUM 7.7 mg/dL (8.5-10.1); CHLORIDE 108 mmol/L (98-107); CO2 24 mmol/L (21-32); CREATININE 0.7 mg/dL (0.55-1.02); GLUCOSE,RANDOM 109 mg/dL (74-106); POTASSIUM 3.6 mmol/L (3.5-5.1); SGOT/AST 14 U/L (15-37); SGPT/ALT < 6 U/L (12-78); SODIUM 140 mmol/L (136-145)
[2017-09-03 07:21] LABS: ALK PHOS 83 U/L (45-117); TOT PROT 4.7 g/dl (6.4-8.2)
[2017-09-03] MEDS ORDERED: PT OWN MED DRAWER 7, Y5N ONE ×2 (08:06→09:17)
[2017-09-03] MEDS ORDERED: POLYETHYLENE GLYCOL 3350 119 GM BTL PO ONE (08:30)
[2017-09-03] MEDS: MUPIROCIN 2% TOPICAL OINTMENT FOR DECOLONIZATION NS SCH ×2 (09:14→21:29)
[2017-09-03] MEDS: LOSARTAN POTASSIUM 50 MG TABLET (FP) PO SCH (09:14)
[2017-09-03] MEDS: amLODIPine BESYLATE 5 MG TABLET (FP) PO SCH (09:15)
[2017-09-03] MEDS: CITALOPRAM HYDROBROMIDE 10 MG TABLET (FP) PO SCH (10:27)
--- NOTE | 2017-09-03 12:28 | PN ---
Progress Note, Physician Chief Complaint: patient seen and examined has not had a BM as yet started eating regular diet yesterday afternoon had miralax on po protonix mo nore lbeeding s/p EGD two days ago not on blood thinner right now - Current Medication List Current Medications: Active Medications Amlodipine Besylate (Norvasc -) 5 mg PO DAILY [facility] Last Admin: 09/03/17 09:15 Dose: 5 mg Carbidopa/Levodopa (Sinemet 25/100 -) 1 each PO TID [facility] Last Admin: 09/03/17 06:36 Dose: 1 each Chlorhexidine Gluconate (Hibiclens For Decolonization -) 1 applic TP HS [facility] Last Admin: 09/02/17 21:18 Dose: 1 applic Citalopram Hydrobromide (Celexa -) 10 mg PO DAILY [facility] Last Admin: 09/03/17 10:27 Dose: 10 mg Losartan Potassium (Cozaar -) 100 mg PO DAILY [facility] Last Admin: 09/03/17 09:14 Dose: 100 mg Mupirocin (Bactroban Ointment (For Decolonization) -) 1 applic NS BID [facility] Stop: 09/06/17 21:59 Last Admin: 09/03/17 09:14 Dose: 1 applic Rosuvastatin Calcium (Crestor -) 10 mg PO [facility] Last Admin: 09/02/17 21:21 Dose: 10 mg - Objective Vital Signs: Vital Signs Temperature 98.3 F 09/03/17 00:00 Pulse Rate 60 09/03/17 07:51 Respiratory Rate 16 09/03/17 07:51 Blood Pressure 146/54 09/03/17 07:51 O2 Sat by Pulse Oximetry (%) 98 09/03/17 07:52 Constitutional: Yes: Moderate Distress Cardiovascular: Yes: Regular Rate and Rhythm, S1, S2 Respiratory: Yes: CTA Bilaterally Gastrointestinal: Yes: Normal Bowel Sounds, Soft Edema: No Neurological: Yes: Alert, Oriented, Other ([place]) Labs: CBC, BMP 09/03/17 05:30 09/03/17 05:30 INR, PTT INR 1.19 (0.82-1.09) H 08/31/17 07:15 Problem List - Problems (1) GERD (gastroesophageal reflux disease) Assessment/Plan: started on protonix Code(s): K21.9 - GASTRO-ESOPHAGEAL REFLUX DISEASE WITHOUT ESOPHAGITIS (2) Diverticular hemorrhage Assessment/Plan: s/p EGD diverticular bleed s/p endoclips slight drop in h/h from 10.9 to 9.6 possibly to start AC _ heparin drip tommorow if ok with cardiology protonix Code(s): K57.31 - DVRTCLOS OF LG INT W/O PERFORATION OR ABSCESS W BLEEDING (3) Afib Assessment/Plan: HR is controlled not on any AV node blocking agents slight drop in h/h AC held secondary to GI bleed will defer to cardiology about restarting AC -possibly heparin drip tmw recheck h/h d/w daughter at beside about if patient goes on coumadin then rasheed need monitiring of INR and issue of getting her mom to the doctor office for INR check vs home blood draw if thats an option explained to then that coumadin is easily reversible compared to other blood thinners Code(s): I48.91 - UNSPECIFIED ATRIAL FIBRILLATION Qualifiers: Atrial fibrillation type: unspecified (4) Hypertension Assessment/Plan: losartan and norvasc Code(s): I10 - ESSENTIAL (PRIMARY) HYPERTENSION
[2017-09-03] MEDS: POLYETHYLENE GLYCOL 3350 119 GM BTL PO SCH (12:59)
[2017-09-03] MEDS: PANTOPRAZOLE 40 MG TABLET (FP) PO SCH (13:00)
--- NOTE | 2017-09-03 18:35 | PN ---
Progress Note (short form) - Note Progress Note: CC: gib s: no cp sob palps dizzy. no further bleeding. hgb drop today. o: Current Medications Amlodipine Besylate (Norvasc -) 5 mg PO DAILY [facility] Last Admin: 09/03/17 09:15 Dose: 5 mg Carbidopa/Levodopa (Sinemet 25/100 -) 1 each PO TID [facility] Last Admin: 09/03/17 13:00 Dose: 1 each Chlorhexidine Gluconate (Hibiclens For Decolonization -) 1 applic TP [facility] Last Admin: 09/02/17 21:18 Dose: 1 applic Citalopram Hydrobromide (Celexa -) 10 mg PO DAILY [facility] Last Admin: 09/03/17 10:27 Dose: 10 mg Losartan Potassium (Cozaar -) 100 mg PO DAILY [facility] Last Admin: 09/03/17 09:14 Dose: 100 mg Mupirocin (Bactroban Ointment (For Decolonization) -) 1 applic NS BID [facility] Stop: 09/06/17 21:59 Last Admin: 09/03/17 09:14 Dose: 1 applic Pantoprazole Sodium (Protonix -) 40 mg PO DAILY [facility] Last Admin: 09/03/17 13:00 Dose: 40 mg Polyethylene Glycol (Miralax (For Daily Use) -) 17 gm PO DAILY [facility] Last Admin: 09/03/17 12:59 Dose: Not Given Rosuvastatin Calcium (Crestor -) 10 mg PO [facility] Last Admin: 09/02/17 21:21 Dose: 10 mg Vital Signs - 24 hr 09/02/17 09/02/17 09/03/17 20:00 21:00 00:00 Temperature 98.3 F Pulse Rate 62 65 Respiratory 12 12 Rate Blood Pressure 118/55 97/43 O2 Sat by Pulse 100 Oximetry (%) 09/03/17 09/03/17 09/03/17 04:00 07:51 07:52 Temperature Pulse Rate 69 60 Respiratory 12 16 Rate Blood Pressure 136/52 146/54 O2 Sat by Pulse 98 Oximetry (%) 09/03/17 09/03/17 13:30 16:46 Temperature 98.3 F Pulse Rate 74 72 Respiratory 16 16 Rate Blood Pressure 143/61 133/57 O2 Sat by Pulse Oximetry (%) Intake & Output 04/03/1109/02/17 09/03/17 09/04/17 07:59 07:59 07:59 07:59 Intake Total 930 1060 1480 240 Output Total 500 1 2 Balance 458 663 6692 238 Weight 162 lb 0.636 oz 169 lb 1.513 oz 179 lb 10.828 oz nad, calm jvd flat, neck supple rrr nl s1, s2 no mrg pmi nd + bs soft nt nd, no hsm ext without e/c/c no jaundice, diaphoresis alert and oriented x 3 CBC, BMP 09/03/17 05:30 09/03/17 05:30 Laboratory Tests 09/02/17 09/02/17 09/03/17 08:20 19:10 05:30 Hgb 10.9 Hct 31.0 L Total Bilirubin 1.7 H D 0.8 D AST 14 L ALT < 6 L Alkaline Phosphatase 83 Albumin 2.5 L ekg 08/28/17: nsr. lvh. tele: sr. cxr: no congestion/infiltrate. abd CT (images/report reviewed): acute sigmoid diverticular hemorrhage. see emr for detailed findings repeat abd cta 08/30: active contrast extravasation from diverticula. aortic atherosclerosis. see emr for detailed findings echo 12/2016: nl lv fn. impaired lv relaxation. nl rv size/fn. mod lae. mild- mod tr. rvsp 30-40 dipyridamole stress 12/2016: no ischemic ekg changes. small sized, mild/subtle apical ischemia. EF 70%. no rwma. MRA/MRI 01/10/2017: mid and distal 3rd TECHNOLOGY ASSISTANT partially occluded. New 0.3 cm acute non-hemarrhagic infarct in the right temporal periventricular region. A very small amount of petechial blood is noted within previously identified acute/ subacute right occipital cortical infarct. Carotid duplex 01/10/2017 unremarkable. Abnormal nuclear stress test on 01/08/2017 with a small and mild apical stress induced ischemia. ASSESSMENT/PLAN 87yo with PMHx of HTN, HL, paroxysmal atrial fibrillation on eliquis, recurrenct CVA, CAD with h/o PCI [address] [facility] now with mild apical ischemia on 2016 stress test, diastolic CHF, prior breast CA s/p Right radical mastectomy , Parkinson disease, dementia, diverticulosis, GERD, severe [place] with desat ( cpap titration pending) who p/w BRBPR. GIB: - per GI, most likely diverticular bleeding vs malignancy(unlikely). S/p multiple transfusions. - ASA, eliquis held initially, then given one dose of each on 08/29 --> recurrent GIB. Subsequently held again. - s/p colonoscopy with endoclipping 09/01. Paroxysmal atrial fibrillation with high CHADS-VASC score - h/o recurrent CVA: - holding ac as above - last cva 12/2016 on pradaxa --> ASA added to regimen. Since then was changed to eliquis and ASA. Followed by Dr. Finch as outpatient. - recurrent GIB after getting eliquis/ASA as mentioned above. If unable to resume AC, may need to consider elective placement of Watchman device for AXEL closure. Can discuss with Dr. Palacios as outpatient. - 09/02: per gi can consider AC with coumadin (reversible). will consider trial of heparin drip tomorrow if hgb remain stable. - 09/03: hgb drop today, reluctant to start AC. Discussed with patient and family. - Hr controlled/SR off AV aga blockade. CAD (based on mild apical ischemia on stress testing)/HL - con't crestor 10 mg daily Diastolic CHF: - on hctz as outpatient, held here initially for anemia, low bp. - Currently no signs of fluid overload. con't to monitor HTN: - overall reasonable control on losartan alone. Holding home hctz as mentioned above. Still with recurrent GIB. - 09/01 BP elevated today requiring prn IV meds. norvasc added. - 09/02: BP normalized today, con't same. - 09/03: slight bp drop overnight, con't to monitor.
[2017-09-03] MEDS: ROSUVASTATIN CA 10 MG TABLET (FP) PO SCH (21:27)
[2017-09-03] MEDS: CHLORHEXIDINE GLUCONATE 4% CLEANSER FOR DECOLONIZATION TP SCH (21:31)
[2017-09-03] MEDS ORDERED: MAG HYDROX/AL HYDROX/SIMETH 30 ML UNIT-DOSE CUP PO ONE (22:18)
[2017-09-04] MEDS: CARBIDOPA/LEVODOPA 25/100 TABLET (FP) PO SCH ×3 (05:47→21:15)
[2017-09-04 06:48] LABS: ALBUMIN 2.6 g/dl (3.4-5.0); ANION GAP 7 (8-16); BLOOD UREA NITROGEN 12 mg/dL (7-18); CALCIUM 7.7 mg/dL (8.5-10.1); CHLORIDE 109 mmol/L (98-107); CO2 24 mmol/L (21-32); GLUCOSE,RANDOM 129 mg/dL (74-106); POTASSIUM 3.6 mmol/L (3.5-5.1); SODIUM 140 mmol/L (136-145)
[2017-09-04 06:50] LABS: BASO % 0.5 % (0-2.0); EOS % 3.5 % (0-4.5); HEMATOCRIT 29.8 % (32.4-45.2); HEMOGLOBIN 10.4 GM/dL (10.7-15.3); LYMPH % 11.5 % (8-40); MCH 30.8 pg (25.7-33.7); MCHC 34.7 g/dl (32.0-36.0); MEAN CELL VOLUME 88.7 fl (80-96); MEAN PLT VOLUME 8.5 fl (7.5-11.1); MONO % 7.7 % (3.8-10.2); NEUT % 76.8 % (42.8-82.8); PLATELET COUNT 188 K/MM3 (134-434); RBC 3.36 M/mm3 (3.60-5.2); RDW 14.7 % (11.6-15.6); WHITE BLOOD COUNT 8.6 K/mm3 (4.0-10.0)
[2017-09-04 06:53] LABS: ALK PHOS 76 U/L (45-117); BILIRUBIN,TOTAL 0.8 mg/dL (0.2-1.0); CREATININE 0.7 mg/dL (0.55-1.02); SGOT/AST 13 U/L (15-37); SGPT/ALT 6 U/L (12-78); TOT PROT 4.8 g/dl (6.4-8.2)
[2017-09-04] MEDS: amLODIPine BESYLATE 5 MG TABLET (FP) PO SCH (09:24)
[2017-09-04] MEDS: LOSARTAN POTASSIUM 50 MG TABLET (FP) PO SCH (09:24)
[2017-09-04] MEDS: PANTOPRAZOLE 40 MG TABLET (FP) PO SCH (09:24)
[2017-09-04] MEDS: CITALOPRAM HYDROBROMIDE 10 MG TABLET (FP) PO SCH (09:27)
[2017-09-04] MEDS: POLYETHYLENE GLYCOL 3350 119 GM BTL PO SCH (09:27)
[2017-09-04] MEDS: MUPIROCIN 2% TOPICAL OINTMENT FOR DECOLONIZATION NS SCH ×2 (09:27→21:15)
--- NOTE | 2017-09-04 10:25 | PN ---
Progress Note, Physician Chief Complaint: patient still had no bM got miralax no active bleeding h/h slightly better today - Current Medication List Current Medications: Active Medications Amlodipine Besylate (Norvasc -) 5 mg PO DAILY [facility] Last Admin: 09/04/17 09:24 Dose: 5 mg Carbidopa/Levodopa (Sinemet 25/100 -) 1 each PO TID [facility] Last Admin: 09/04/17 05:47 Dose: 1 each Chlorhexidine Gluconate (Hibiclens For Decolonization -) 1 applic TP [facility] Last Admin: 09/03/17 21:31 Dose: 1 applic Citalopram Hydrobromide (Celexa -) 10 mg PO DAILY [facility] Last Admin: 09/04/17 09:27 Dose: Not Given Losartan Potassium (Cozaar -) 100 mg PO DAILY [facility] Last Admin: 09/04/17 09:24 Dose: 100 mg Mupirocin (Bactroban Ointment (For Decolonization) -) 1 applic NS BID [facility] Stop: 09/06/17 21:59 Last Admin: 09/04/17 09:27 Dose: 1 applic Pantoprazole Sodium (Protonix -) 40 mg PO DAILY [facility] Last Admin: 09/04/17 09:24 Dose: 40 mg Polyethylene Glycol (Miralax (For Daily Use) -) 17 gm PO DAILY [facility] Last Admin: 09/04/17 09:27 Dose: 17 gm Rosuvastatin Calcium (Crestor -) 10 mg PO [facility] Last Admin: 09/03/17 21:27 Dose: 10 mg - Objective Vital Signs: Vital Signs Temperature 97.2 F L 09/04/17 05:45 Pulse Rate 65 09/04/17 05:45 Respiratory Rate 18 09/04/17 05:45 Blood Pressure 114/54 09/04/17 05:45 O2 Sat by Pulse Oximetry (%) 98 09/03/17 20:43 Constitutional: Yes: Calm Neck: Yes: Trachea Midline Cardiovascular: Yes: Regular Rate and Rhythm, S1, S2 Respiratory: Yes: CTA Bilaterally Gastrointestinal: Yes: Normal Bowel Sounds, Soft Edema: No Neurological: Yes: Alert, Oriented (ELEM) Labs: CBC, BMP 09/04/17 06:00 09/04/17 06:00 INR, PTT INR 1.19 (0.82-1.09) H 08/31/17 07:15 Problem List - Problems (1) Diverticular hemorrhage Assessment/Plan: s/p EGD diverticular bleed s/p endoclips slight drop in h/h from 10.9 to 9.6 on 09/03 but today h/h back up to 10.8 possibly to start AC _ heparin drip today if ok with cardiology or ? pradaxa - family wants pradaxa as they say that patient has difficulty with going to office for inr check. will defer to cardiology, GI wants reversible AC protonix Code(s): K57.31 - DVRTCLOS OF LG INT W/O PERFORATION OR ABSCESS W BLEEDING (2) GERD (gastroesophageal reflux disease) Assessment/Plan: started on protonix heart burn has improved Code(s): K21.9 - GASTRO-ESOPHAGEAL REFLUX DISEASE WITHOUT ESOPHAGITIS (3) Afib Assessment/Plan: HR is controlled not on any AV node blocking agents slight drop in h/h AC held secondary to GI bleed will defer to cardiology about restarting AC -possibly heparin drip recheck h/h today on 09/04 is better now 10.4/29.8 d/w daughter at beside about if patient goes on coumadin then will need monitoring of INR and issue of getting her mom to the doctor office for INR check vs home blood draw if thats an option explained to them that coumadin is easily reversible compared to other blood thinners Code(s): I48.91 - UNSPECIFIED ATRIAL FIBRILLATION Qualifiers: Atrial fibrillation type: unspecified Qualified Code(s): I48.91 - Unspecified atrial fibrillation (4) Hypertension Assessment/Plan: losartan and norvasc- BP controlled Code(s): I10 - ESSENTIAL (PRIMARY) HYPERTENSION
[2017-09-04] MEDS ORDERED: HEPARIN NA (PORCINE) 5,000 UNITS/ML 1ML VIAL IVPUSH PRN ×2 (13:15)
--- NOTE | 2017-09-04 13:15 | PN ---
Progress Note (short form) - Note Progress Note: CC: gib s: no cp sob palps dizzy. . per report, small bm today. some blood on tissue paper, but no blood in stool. Ambulated today without sx's. o: Current Medications Amlodipine Besylate (Norvasc -) 5 mg PO DAILY [facility] Last Admin: 09/04/17 09:24 Dose: 5 mg Carbidopa/Levodopa (Sinemet 25/100 -) 1 each PO TID [facility] Last Admin: 09/04/17 05:47 Dose: 1 each Chlorhexidine Gluconate (Hibiclens For Decolonization -) 1 applic TP [facility] Last Admin: 09/03/17 21:31 Dose: 1 applic Citalopram Hydrobromide (Celexa -) 10 mg PO DAILY [facility] Last Admin: 09/04/17 09:27 Dose: Not Given Losartan Potassium (Cozaar -) 100 mg PO DAILY [facility] Last Admin: 09/04/17 09:24 Dose: 100 mg Mupirocin (Bactroban Ointment (For Decolonization) -) 1 applic NS BID [facility] Stop: 09/06/17 21:59 Last Admin: 09/04/17 09:27 Dose: 1 applic Pantoprazole Sodium (Protonix -) 40 mg PO DAILY [facility] Last Admin: 09/04/17 09:24 Dose: 40 mg Polyethylene Glycol (Miralax (For Daily Use) -) 17 gm PO DAILY [facility] Last Admin: 09/04/17 09:27 Dose: 17 gm Rosuvastatin Calcium (Crestor -) 10 mg PO [facility] Last Admin: 09/03/17 21:27 Dose: 10 mg Vital Signs - 24 hr 09/03/17 09/03/17 09/03/17 13:30 16:46 19:47 Temperature 98.3 F 98.1 F Pulse Rate 74 72 76 Respiratory 16 16 18 Rate Blood Pressure 143/61 133/57 120/49 O2 Sat by Pulse Oximetry (%) 09/03/17 09/03/17 09/04/17 20:43 21:31 00:56 Temperature 98 F 98.2 F Pulse Rate 71 62 Respiratory 20 18 Rate Blood Pressure 116/53 116/47 O2 Sat by Pulse 98 Oximetry (%) 09/04/17 09/04/17 05:45 08:00 Temperature 97.2 F L 97.9 F Pulse Rate 65 70 Respiratory 18 16 Rate Blood Pressure 114/54 119/59 O2 Sat by Pulse 99 Oximetry (%) Intake & Output 09/02/17 09/03/17 09/04/17 09/05/17 07:59 07:59 07:59 07:59 Intake Total 1060 1480 540 Output Total 500 1 202 Balance 560 1479 338 Weight 169 lb 1.513 oz 179 lb 10.828 oz 176 lb 8 oz nad, calm jvd flat, neck supple rrr nl s1, s2 no mrg pmi nd + bs soft nt nd, no hsm ext without e/c/c no jaundice, diaphoresis alert and oriented x 3 + dp/pt CBC, BMP 09/04/17 06:00 09/04/17 06:00 ekg 08/28/17: nsr. lvh. tele: sr. 2 atrial runs cxr: no congestion/infiltrate. abd CT (images/report reviewed): acute sigmoid diverticular hemorrhage. see emr for detailed findings repeat abd cta 08/30: active contrast extravasation from diverticula. aortic atherosclerosis. see emr for detailed findings echo 12/2016: nl lv fn. impaired lv relaxation. nl rv size/fn. mod lae. mild- mod tr. rvsp 30-40 dipyridamole stress 12/2016: no ischemic ekg changes. small sized, mild/subtle apical ischemia. EF 70%. no rwma. MRA/MRI 01/10/2017: mid and distal 3rd [employer] partially occluded. New 0.3 cm acute non-hemarrhagic infarct in the right temporal periventricular region. A very small amount of petechial blood is noted within previously identified acute/ subacute right occipital cortical infarct. Carotid duplex 01/10/2017 unremarkable. Abnormal nuclear stress test on 01/08/2017 with a small and mild apical stress induced ischemia. ASSESSMENT/PLAN 87yo with PMHx of HTN, HL, paroxysmal atrial fibrillation on eliquis, recurrenct CVA, CAD with h/o PCI [address] [facility] now with mild apical ischemia on 2016 stress test, diastolic CHF, prior breast CA s/p Right radical mastectomy , Parkinson disease, dementia, diverticulosis, GERD, severe parish with desat ( putpatient cpap titration pending) who p/w BRBPR. GIB: - per GI, most likely diverticular bleeding. S/p multiple transfusions. - ASA, eliquis held initially, then given one dose of each on 08/29 --> recurrent GIB. Subsequently held again. - s/p colonoscopy with endoclipping 09/01. - ASA/AC resumed 09/04 Paroxysmal atrial fibrillation with high CHADS-VASC score - h/o recurrent CVA: - holding ac as above - last cva 12/2016 on pradaxa --> ASA added to regimen. Since then was changed to eliquis and ASA. Followed by Dr. Finch as outpatient. - recurrent GIB after getting eliquis/ASA as mentioned above. If unable to resume AC, may need to consider elective placement of Watchman device for AXEL closure. Can discuss with Dr. Palacios as outpatient. - 09/02: per gi can consider AC with coumadin (reversible). will consider trial of heparin drip tomorrow if hgb remain stable. - 09/03: hgb drop today, reluctant to start AC. Discussed with patient and family. - 09/04: hgb stable today. High risk for CVA. Will restart ASA and initiate trial of heparin drip. If no recurrent bleed, then would plan on heparin bridge to therapeutic INR (or lovenox bridge if patient ready for d/c). Discussed with Dr. Palacios, Dr. Ortiz and Dr. Finch. - Hr controlled/SR off AV aga blockade. CAD (based on mild apical ischemia on stress testing)/HL - con't crestor 10 mg daily Diastolic CHF: - on hctz as outpatient, held here initially for anemia, low bp. - Currently no signs of fluid overload. con't to monitor HTN: - overall reasonable control on losartan alone. Holding home hctz as mentioned above. Still with recurrent GIB. - 09/01 BP elevated today requiring prn IV meds. norvasc added. - 09/02: BP normalized today, con't same. - 09/03: slight bp drop overnight, con't to monitor. - 09/04: bp trending down, will hold norvasc.
[2017-09-04] MEDS: ASPIRIN 81 MG CHEWABLE TABLETS PO SCH (13:57)
[2017-09-04] MEDS: HEPARIN - 25,000 UNIT in SODIUM CHLORIDE 495 ML IV SCH (16:10)
--- NOTE | 2017-09-04 17:01 | PN ---
GI Progress Note Subjective: patient has constipation no nausea,no vomiting - Objective Vital Signs: Vital Signs Temperature 97.9 F 09/04/17 08:00 Pulse Rate 70 09/04/17 08:00 Respiratory Rate 16 09/04/17 08:00 Blood Pressure 119/59 09/04/17 08:00 O2 Sat by Pulse Oximetry (%) 99 09/04/17 08:00 Constitutional: Well Nourished Eyes: Yes: Conjunctiva Clear HENT: Yes: Normocephalic Neck: Yes: Trachea Midline Respiratory: Yes: CTA Bilaterally ...Palpate: Yes: Soft. No: Firm/Rigid, Guarding, Hepatomegaly, Mass, Pulsatile Mass, Splenomegaly, Tenderness Labs: CBC, BMP 09/04/17 06:00 09/04/17 06:00 INR, PTT INR 1.19 (0.82-1.09) H 08/31/17 07:15 Problem List - Problems (1) Lower GI bleed Assessment/Plan: resolved R> discussed with Dr العلي and mike Márquez to heparinize and start Coumadin Code(s): K92.2 - GASTROINTESTINAL HEMORRHAGE, UNSPECIFIED
[2017-09-04] MEDS ORDERED: MAGNESIUM CITRATE 300 ML BOTTLE PO ONE (17:02)
[2017-09-04] MEDS ORDERED: PT OWN MED DRAWER 7, Y5N ONE ×2 (17:41→20:47)
--- NOTE | 2017-09-04 19:39 | PN ---
Progress Note (short form) - Note Progress Note: Patient seen and examined Denies any complaints Last Vital Signs Temp Pulse Resp BP Pulse Ox 97.9 F 70 16 119/59 99 09/04/17 08:00 09/04/17 08:00 09/04/17 08:00 09/04/17 08:00 09/04/17 08:00 Cor: RSR, No murmurs, No gallops Lungs: Clear to P&A Abd: Soft, Normal bowel sounds, No organomegaly Ext:No significant edema Abnormal Lab Results 08/30/17 09/03/17 09/04/17 05:45 05:30 06:00 RBC 3.36 L Hgb 10.4 L Hct 29.8 L Chloride Anion Gap Random Glucose Calcium AST ALT Total Protein Albumin CA 125 Antigen 40.0 H Crossmatch See Detail 09/04/17 06:00 RBC Hgb Hct Chloride 109 H Anion Gap 7 L Random Glucose 129 H Calcium 7.7 L AST 13 L ALT 6 L Total Protein 4.8 L Albumin 2.6 L CA 125 Antigen Crossmatch Active Medications Amlodipine Besylate (Norvasc -) 5 mg PO DAILY [facility] Last Admin: 09/04/17 09:24 Dose: 5 mg Aspirin (Asa -) 81 mg PO DAILY [facility] Last Admin: 09/04/17 13:57 Dose: 81 mg Carbidopa/Levodopa (Sinemet 25/100 -) 1 each PO TID [facility] Last Admin: 09/04/17 13:57 Dose: 1 each Chlorhexidine Gluconate (Hibiclens For Decolonization -) 1 applic TP HS [facility] Last Admin: 09/03/17 21:31 Dose: 1 applic Citalopram Hydrobromide (Celexa -) 10 mg PO DAILY [facility] Last Admin: 09/04/17 09:27 Dose: Not Given Heparin Sodium (Porcine) (Heparin -) 1,000 unit IVPUSH PRN PRN PRN Reason: Heparin Heparin Sodium (Porcine) (Heparin -) 5,000 unit IVPUSH PRN PRN PRN Reason: Heparin Heparin Sodium (Porcine) 25, (000 unit/ Sodium Chloride) 500 mls @ 20 mls/hr IV TITR SAMEER; 1,000 UNIT/HR PRN Reason: Protocol Last Admin: 09/04/17 16:10 Dose: 1,000 unit/hr, 20 mls/hr Losartan Potassium (Cozaar -) 100 mg PO DAILY [facility] Last Admin: 09/04/17 09:24 Dose: 100 mg Mupirocin (Bactroban Ointment (For Decolonization) -) 1 applic NS BID [facility] Stop: 09/06/17 21:59 Last Admin: 09/04/17 09:27 Dose: 1 applic Pantoprazole Sodium (Protonix -) 40 mg PO DAILY [facility] Last Admin: 09/04/17 09:24 Dose: 40 mg Polyethylene Glycol (Miralax (For Daily Use) -) 17 gm PO DAILY [facility] Last Admin: 09/04/17 09:27 Dose: 17 gm Rosuvastatin Calcium (Crestor -) 10 mg PO HS [facility] Last Admin: 09/03/17 21:27 Dose: 10 mg A/P 87 y/o patient with AF, and history of prior CVA, dementia, rt. mastectomy, on DOAC and ASA, presenting with significant GI bleed, with drop in Hb. s/p FFP. Xeralto/ASAheld On heparin and aspirin
[2017-09-04] MEDS ORDERED: MAG HYDROX/AL HYDROX/SIMETH 30 ML UNIT-DOSE CUP PO PRN (20:26)
[2017-09-04] MEDS: CHLORHEXIDINE GLUCONATE 4% CLEANSER FOR DECOLONIZATION TP SCH (21:15)
[2017-09-04] MEDS: ROSUVASTATIN CA 10 MG TABLET (FP) PO SCH (21:15)
[2017-09-05] MEDS: CARBIDOPA/LEVODOPA 25/100 TABLET (FP) PO SCH ×3 (05:55→21:48)
[2017-09-05] MEDS: PANTOPRAZOLE 40 MG TABLET (FP) PO SCH (09:02)
[2017-09-05] MEDS: ASPIRIN 81 MG CHEWABLE TABLETS PO SCH (09:02)
[2017-09-05] MEDS: CITALOPRAM HYDROBROMIDE 10 MG TABLET (FP) PO SCH (09:03)
[2017-09-05] MEDS: LOSARTAN POTASSIUM 50 MG TABLET (FP) PO SCH (09:03)
[2017-09-05] MEDS: POLYETHYLENE GLYCOL 3350 119 GM BTL PO SCH (09:04)
--- NOTE | 2017-09-05 11:13 | PN ---
Progress Note, Physician History of Present Illness: No bleeding Feel patricia HR radced a bit overnight and thsi AM Tele shows AF at 124 at 11:39 last evening, now NSR 70s. - Current Medication List Current Medications: Active Medications Al Hydroxide/Mg Hydroxide (Mylanta Oral Suspension -) 30 ml PO Q6H PRN PRN Reason: DYSPEPSIA Last Admin: 09/04/17 21:15 Dose: 30 ml Aspirin (Asa -) 81 mg PO DAILY [facility] Last Admin: 09/05/17 09:02 Dose: 81 mg Carbidopa/Levodopa (Sinemet 25/100 -) 1 each PO TID [facility] Last Admin: 09/05/17 05:55 Dose: 1 each Chlorhexidine Gluconate (Hibiclens For Decolonization -) 1 applic TP [facility] Last Admin: 09/04/17 21:15 Dose: 1 applic Citalopram Hydrobromide (Celexa -) 10 mg PO DAILY [facility] Last Admin: 09/05/17 09:03 Dose: 10 mg Heparin Sodium (Porcine) (Heparin -) 1,000 unit IVPUSH PRN PRN PRN Reason: Heparin Heparin Sodium (Porcine) (Heparin -) 5,000 unit IVPUSH PRN PRN PRN Reason: Heparin Heparin Sodium (Porcine) 25, (000 unit/ Sodium Chloride) 500 mls @ 20 mls/hr IV TITR SAMEER; 1,000 UNIT/HR PRN Reason: Protocol Last Titration: 09/04/17 23:46 Dose: 1,000 unit/hr, 20 mls/hr Losartan Potassium (Cozaar -) 100 mg PO DAILY [facility] Last Admin: 09/05/17 09:03 Dose: 100 mg Mupirocin (Bactroban Ointment (For Decolonization) -) 1 applic NS BID [facility] Stop: 09/06/17 21:59 Last Admin: 09/04/17 21:15 Dose: 1 applic Pantoprazole Sodium (Protonix -) 40 mg PO DAILY [facility] Last Admin: 09/05/17 09:02 Dose: 40 mg Polyethylene Glycol (Miralax (For Daily Use) -) 17 gm PO DAILY [facility] Last Admin: 09/05/17 09:04 Dose: Not Given Rosuvastatin Calcium (Crestor -) 10 mg PO HS [facility] Last Admin: 09/04/17 21:15 Dose: 10 mg - Objective Vital Signs: Vital Signs Temperature 98.5 F 09/05/17 06:00 Pulse Rate 64 09/05/17 08:00 Respiratory Rate 18 09/05/17 08:00 Blood Pressure 140/53 09/05/17 08:00 O2 Sat by Pulse Oximetry (%) 97 09/05/17 09:00 Constitutional: Yes: No Distress Eyes: Yes: WNL HENT: Yes: WNL Neck: Yes: WNL Cardiovascular: Yes: Regular Rate and Rhythm Respiratory: Yes: CTA Bilaterally Gastrointestinal: Yes: WNL Extremities: Yes: WNL Edema: No Labs: CBC, BMP 09/04/17 06:00 09/04/17 06:00 INR, PTT INR 1.19 (0.82-1.09) H 08/31/17 07:15 Assessment/Plan 87yo with PMHx of HTN, HL, paroxysmal atrial fibrillation on eliquis, recurrenct CVA, CAD with h/o PCI [address] [facility] now with mild apical ischemia on 2016 stress test, diastolic CHF, prior breast CA s/p Right radical mastectomy , Parkinson disease, dementia, diverticulosis, GERD, severe [place] with desat ( putpatient cpap titration pending) who p/w BRBPR. GIB: - per GI, most likely diverticular bleeding. S/p multiple transfusions. - ASA, eliquis held initially, then given one dose of each on 08/29 --> recurrent GIB. Subsequently held again. - s/p colonoscopy with endoclipping 09/01. - ASA/AC resumed 09/04, no further bleeding Paroxysmal atrial fibrillation with high CHADS-VASC score - h/o recurrent CVA: - holding ac as above - last cva 12/2016 on pradaxa --> ASA added to regimen. Since then was changed to eliquis and ASA. Followed by Dr. Finch as outpatient. - recurrent GIB after getting eliquis/ASA as mentioned above. If unable to resume AC, may need to consider elective placement of Watchman device for AXEL closure. Can discuss with Dr. Palacios as outpatient. - 09/02: per gi can consider AC with coumadin (reversible). will consider trial of heparin drip tomorrow if hgb remain stable. - 09/03: hgb drop today, reluctant to start AC. Discussed with patient and family. - 09/04: hgb stable today. High risk for CVA. Will restart ASA and initiate trial of heparin drip. If no recurrent bleed, then would plan on heparin bridge to therapeutic INR (or lovenox bridge if patient ready for d/c). Discussed with Dr. Palacios, Dr. Ortiz and Dr. Finch. - Hr controlled/SR off AV aga blockade. -09/05: On IV Heparin and tolerating. Hgb stable. Will start Warfarin 5mg tonight. Will need to d/c Aspirin once INR >2. CAD (based on mild apical ischemia on stress testing)/HL - con't crestor 10 mg daily Diastolic CHF: - on hctz as outpatient, held here initially for anemia, low bp. - Currently no signs of fluid overload. con't to monitor HTN: - overall reasonable control on losartan alone. Holding home hctz as mentioned above. Still with recurrent GIB. - 09/01 BP elevated today requiring prn IV meds. norvasc added. - 09/02: BP normalized today, con't same. - 09/03: slight bp drop overnight, con't to monitor. - 09/04: bp trending down, will hold norvasc. -09/05 : BP stable.
[2017-09-05] MEDS: MUPIROCIN 2% TOPICAL OINTMENT FOR DECOLONIZATION NS SCH ×2 (12:41→21:49)
[2017-09-05] MEDS: HEPARIN - 25,000 UNIT in SODIUM CHLORIDE 495 ML IV SCH (13:15)
--- NOTE | 2017-09-05 13:16 | PN ---
Progress Note, Physician - Current Medication List Current Medications: Active Medications Al Hydroxide/Mg Hydroxide (Mylanta Oral Suspension -) 30 ml PO Q6H PRN PRN Reason: DYSPEPSIA Last Admin: 09/04/17 21:15 Dose: 30 ml Aspirin (Asa -) 81 mg PO DAILY [facility] Last Admin: 09/05/17 09:02 Dose: 81 mg Carbidopa/Levodopa (Sinemet 25/100 -) 1 each PO TID [facility] Last Admin: 09/05/17 05:55 Dose: 1 each Chlorhexidine Gluconate (Hibiclens For Decolonization -) 1 applic TP HS [facility] Last Admin: 09/04/17 21:15 Dose: 1 applic Citalopram Hydrobromide (Celexa -) 10 mg PO DAILY [facility] Last Admin: 09/05/17 09:03 Dose: 10 mg Heparin Sodium (Porcine) (Heparin -) 1,000 unit IVPUSH PRN PRN PRN Reason: Heparin Heparin Sodium (Porcine) (Heparin -) 5,000 unit IVPUSH PRN PRN PRN Reason: Heparin Heparin Sodium (Porcine) 25, (000 unit/ Sodium Chloride) 500 mls @ 20 mls/hr IV TITR SAMEER; 1,000 UNIT/HR PRN Reason: Protocol Last Titration: 09/04/17 23:46 Dose: 1,000 unit/hr, 20 mls/hr Losartan Potassium (Cozaar -) 100 mg PO DAILY [facility] Last Admin: 09/05/17 09:03 Dose: 100 mg Mupirocin (Bactroban Ointment (For Decolonization) -) 1 applic NS BID [facility] Stop: 09/06/17 21:59 Last Admin: 09/05/17 12:41 Dose: 1 applic Pantoprazole Sodium (Protonix -) 40 mg PO DAILY [facility] Last Admin: 09/05/17 09:02 Dose: 40 mg Polyethylene Glycol (Miralax (For Daily Use) -) 17 gm PO DAILY [facility] Last Admin: 09/05/17 09:04 Dose: Not Given Rosuvastatin Calcium (Crestor -) 10 mg PO HS [facility] Last Admin: 09/04/17 21:15 Dose: 10 mg - Objective Vital Signs: Vital Signs Temperature 98.5 F 09/05/17 06:00 Pulse Rate 64 09/05/17 08:00 Respiratory Rate 18 09/05/17 08:00 Blood Pressure 140/53 09/05/17 08:00 O2 Sat by Pulse Oximetry (%) 97 09/05/17 09:00 Cardiovascular: Yes: S1, S2 Respiratory: Yes: Regular, CTA Bilaterally Gastrointestinal: Yes: Normal Bowel Sounds, Soft Edema: No Labs: CBC, BMP 09/04/17 06:00 09/04/17 06:00 INR, PTT INR 1.19 (0.82-1.09) H 08/31/17 07:15 Problem List - Problems (1) Diverticular hemorrhage Code(s): K57.31 - DVRTCLOS OF LG INT W/O PERFORATION OR ABSCESS W BLEEDING (2) Lower GI bleed Code(s): K92.2 - GASTROINTESTINAL HEMORRHAGE, UNSPECIFIED (3) Afib Code(s): I48.91 - UNSPECIFIED ATRIAL FIBRILLATION Qualifiers: Atrial fibrillation type: unspecified Qualified Code(s): I48.91 - Unspecified atrial fibrillation (4) Pancreatic cyst Code(s): K86.2 - CYST OF PANCREAS (5) Parkinson disease Code(s): G20 - PARKINSON'S DISEASE Assessment/Plan - Problems (1) Diverticular hemorrhage Assessment/Plan: s/p EGD diverticular bleed s/p endoclips slight drop in h/h from 10.9 to 9.6 on 09/03 but back up to 10.8 start AC _ heparin drip today cardiology to asses pradaxa - family wants pradaxa as they say that patient has difficulty with going to office for inr check. will defer to cardiology, GI wants reversible AC protonix Code(s): K57.31 - DVRTCLOS OF LG INT W/O PERFORATION OR ABSCESS W BLEEDING (2) GERD (gastroesophageal reflux disease) Assessment/Plan: started on protonix heart burn has improved Code(s): K21.9 - GASTRO-ESOPHAGEAL REFLUX DISEASE WITHOUT ESOPHAGITIS (3) Afib Assessment/Plan: HR is controlled not on any AV node blocking agents slight drop in h/h AC held secondary to GI bleed AC heparin drip dr story d/w daughter at beside about if patient goes on coumadin then will need monitoring of INR and issue of getting her mom to the doctor office for INR check vs home blood draw if that is an option explained to them that Coumadin is easily reversible compared to other blood thinners Code(s): I48.91 - UNSPECIFIED ATRIAL FIBRILLATION Qualifiers: Atrial fibrillation type: unspecified Qualified Code(s): I48.91 - Unspecified atrial fibrillation (4) Hypertension Assessment/Plan: losartan and norvasc- BP controlled Code(s): I10 - ESSENTIAL (PRIMARY) HYPERTENSION
[2017-09-05 16:18] LABS: BASO % 0.7 % (0-2.0); EOS % 3.2 % (0-4.5); HEMATOCRIT 27.2 % (32.4-45.2); HEMOGLOBIN 9.6 GM/dL (10.7-15.3); LYMPH % 15.2 % (8-40); MCH 31.2 pg (25.7-33.7); MCHC 35.1 g/dl (32.0-36.0); MEAN CELL VOLUME 88.9 fl (80-96); MEAN PLT VOLUME 8.4 fl (7.5-11.1); MONO % 7.9 % (3.8-10.2); PLATELET COUNT 196 K/MM3 (134-434); RBC 3.06 M/mm3 (3.60-5.2); RDW 14.8 % (11.6-15.6); WHITE BLOOD COUNT 6.9 K/mm3 (4.0-10.0)
[2017-09-05] MEDS ORDERED: PT OWN MED DRAWER 7, Y5N ONE (19:18)
[2017-09-05] MEDS: ROSUVASTATIN CA 10 MG TABLET (FP) PO SCH (21:47)
[2017-09-05] MEDS: CHLORHEXIDINE GLUCONATE 4% CLEANSER FOR DECOLONIZATION TP SCH (21:48)
[2017-09-06] MEDS: CARBIDOPA/LEVODOPA 25/100 TABLET (FP) PO SCH ×3 (05:06→21:48)
[2017-09-06 06:49] LABS: BASO % 0.8 % (0-2.0); EOS % 3.7 % (0-4.5); HEMATOCRIT 26.7 % (32.4-45.2); HEMOGLOBIN 9.3 GM/dL (10.7-15.3); LYMPH % 17.7 % (8-40); MCH 30.9 pg (25.7-33.7); MCHC 34.8 g/dl (32.0-36.0); MEAN PLT VOLUME 8.2 fl (7.5-11.1); MONO % 7.6 % (3.8-10.2); NEUT % 70.2 % (42.8-82.8); PLATELET COUNT 181 K/MM3 (134-434); RDW 14.7 % (11.6-15.6); WHITE BLOOD COUNT 6.9 K/mm3 (4.0-10.0)
[2017-09-06 07:01] LABS: INR 0.96 (0.82-1.09); PROTHROMBIN TIME (PATIENT) 10.8 SEC (9.98-11.88)
[2017-09-06 07:34] LABS: ALBUMIN 2.4 g/dl (3.4-5.0); ANION GAP 5 (8-16); BLOOD UREA NITROGEN 12 mg/dL (7-18); CALCIUM 7.6 mg/dL (8.5-10.1); CHLORIDE 110 mmol/L (98-107); CO2 26 mmol/L (21-32); GLUCOSE,RANDOM 118 mg/dL (74-106); POTASSIUM 3.6 mmol/L (3.5-5.1); SODIUM 141 mmol/L (136-145)
[2017-09-06 07:38] LABS: ALK PHOS 77 U/L (45-117); BILIRUBIN,TOTAL 0.4 mg/dL (0.2-1.0); CREATININE 0.7 mg/dL (0.55-1.02); SGOT/AST 12 U/L (15-37); SGPT/ALT < 6 U/L (12-78); TOT PROT 4.5 g/dl (6.4-8.2)
[2017-09-06] MEDS ORDERED: PT OWN MED DRAWER 7, Y5N ONE ×2 (09:16→13:52)
[2017-09-06] MEDS: ASPIRIN 81 MG CHEWABLE TABLETS PO SCH (09:24)
[2017-09-06] MEDS: MUPIROCIN 2% TOPICAL OINTMENT FOR DECOLONIZATION NS SCH (09:24)
[2017-09-06] MEDS: CITALOPRAM HYDROBROMIDE 10 MG TABLET (FP) PO SCH (09:24)
[2017-09-06] MEDS: LOSARTAN POTASSIUM 50 MG TABLET (FP) PO SCH (09:25)
[2017-09-06] MEDS: POLYETHYLENE GLYCOL 3350 119 GM BTL PO SCH (09:27)
[2017-09-06] MEDS: PANTOPRAZOLE 40 MG TABLET (FP) PO SCH (09:28)
--- NOTE | 2017-09-06 10:51 | PN ---
Progress Note, Physician History of Present Illness: No CV complaints Small BM, no bleeding No chest pain or dyspnea - Current Medication List Current Medications: Active Medications Al Hydroxide/Mg Hydroxide (Mylanta Oral Suspension -) 30 ml PO Q6H PRN PRN Reason: DYSPEPSIA Last Admin: 09/04/17 21:15 Dose: 30 ml Aspirin (Asa -) 81 mg PO DAILY [facility] Last Admin: 09/06/17 09:24 Dose: 81 mg Carbidopa/Levodopa (Sinemet 25/100 -) 1 each PO TID [facility] Last Admin: 09/06/17 05:06 Dose: 1 each Chlorhexidine Gluconate (Hibiclens For Decolonization -) 1 applic TP HS [facility] Last Admin: 09/05/17 21:48 Dose: 1 applic Citalopram Hydrobromide (Celexa -) 10 mg PO DAILY [facility] Last Admin: 09/06/17 09:24 Dose: 10 mg Heparin Sodium (Porcine) (Heparin -) 1,000 unit IVPUSH PRN PRN PRN Reason: Heparin Heparin Sodium (Porcine) (Heparin -) 5,000 unit IVPUSH PRN PRN PRN Reason: Heparin Heparin Sodium (Porcine) 25, (000 unit/ Sodium Chloride) 500 mls @ 20 mls/hr IV TITR SAMEER; 1,000 UNIT/HR PRN Reason: Protocol Last Admin: 09/05/17 13:15 Dose: Not Given Losartan Potassium (Cozaar -) 100 mg PO DAILY [facility] Last Admin: 09/06/17 09:25 Dose: 100 mg Mupirocin (Bactroban Ointment (For Decolonization) -) 1 applic NS BID [facility] Stop: 09/06/17 21:59 Last Admin: 09/06/17 09:24 Dose: 1 applic Pantoprazole Sodium (Protonix -) 40 mg PO DAILY [facility] Last Admin: 09/06/17 09:28 Dose: 40 mg Polyethylene Glycol (Miralax (For Daily Use) -) 17 gm PO DAILY [facility] Last Admin: 09/06/17 09:27 Dose: 17 gm Rosuvastatin Calcium (Crestor -) 10 mg PO HS [facility] Last Admin: 09/05/17 21:47 Dose: 10 mg - Objective Vital Signs: Vital Signs Temperature 98.1 F 09/06/17 06:00 Pulse Rate 63 09/06/17 06:00 Respiratory Rate 22 09/06/17 06:00 Blood Pressure 164/75 09/06/17 06:00 O2 Sat by Pulse Oximetry (%) 97 09/05/17 21:00 Constitutional: Yes: No Distress Eyes: Yes: WNL HENT: Yes: WNL Neck: Yes: WNL Cardiovascular: Yes: Regular Rate and Rhythm Respiratory: Yes: CTA Bilaterally Gastrointestinal: Yes: Normal Bowel Sounds Extremities: Yes: WNL Edema: No Labs: CBC, BMP 09/06/17 06:00 09/06/17 06:00 INR, PTT INR 0.96 (0.82-1.09) 09/06/17 06:00 Assessment/Plan 87yo with PMHx of HTN, HL, paroxysmal atrial fibrillation on eliquis, recurrenct CVA, CAD with h/o PCI 1999 [facility] now with mild apical ischemia on 2016 stress test, diastolic CHF, prior breast CA s/p Right radical mastectomy , Parkinson disease, dementia, diverticulosis, GERD, severe [place] with desat ( putpatient cpap titration pending) who p/w BRBPR. GIB: - per GI, most likely diverticular bleeding. S/p multiple transfusions. - ASA, eliquis held initially, then given one dose of each on 08/29 --> recurrent GIB. Subsequently held again. - s/p colonoscopy with endoclipping 09/01. - ASA/AC resumed 09/04, no further bleeding Paroxysmal atrial fibrillation with high CHADS-VASC score - h/o recurrent CVA: - holding ac as above - last cva 12/2016 on pradaxa --> ASA added to regimen. Since then was changed to eliquis and ASA. Followed by Dr. Finch as outpatient. - recurrent GIB after getting eliquis/ASA as mentioned above. If unable to resume AC, may need to consider elective placement of Watchman device for AXEL closure. Can discuss with Dr. Palacios as outpatient. - 09/02: per gi can consider AC with coumadin (reversible). will consider trial of heparin drip tomorrow if hgb remain stable. - 09/03: hgb drop today, reluctant to start AC. Discussed with patient and family. - 09/04: hgb stable today. High risk for CVA. Will restart ASA and initiate trial of heparin drip. If no recurrent bleed, then would plan on heparin bridge to therapeutic INR (or lovenox bridge if patient ready for d/c). Discussed with Dr. Palacios, Dr. Ortiz and Dr. Finch. - Hr controlled/SR off AV aga blockade. -09/05: On IV Heparin and tolerating. Hgb stable. Will start Warfarin 5mg tonight. Will need to d/c Aspirin once INR >2. -09/06: Continues to tolerate IV Heparin with goal PTT. No bleeding and Hgb stable. As per PMD, family reluctant to start coumadin and wish to have reversible property. Will stop IV Heparin this AM and start Pradaxa 150mg po bid in 2-4 hours. CAD (based on mild apical ischemia on stress testing)/HL - con't crestor 10 mg daily Diastolic CHF: - on hctz as outpatient, held here initially for anemia, low bp. - Currently no signs of fluid overload. con't to monitor HTN: - overall reasonable control on losartan alone. Holding home hctz as mentioned above. Still with recurrent GIB. - 09/01 BP elevated today requiring prn IV meds. norvasc added. - 09/02: BP normalized today, con't same. - 09/03: slight bp drop overnight, con't to monitor. - 09/04: bp trending down, will hold norvasc. -09/05 : BP stable. -09/06: BP elevated, will resume amlodipine 2.5mg daily
--- NOTE | 2017-09-06 11:29 | PN ---
Progress Note (short form) - Note Progress Note: Spoke with patient's daughter and outlined the plan for anticoagulation. Discussed the benefits and risks of anticoagulation including bleeding and specifically the benefit of stroke prevention with PAF and the reversibility with Dabigatran Patient was on Dabigatran in the past and tolerated it well Will stop aspirin
[2017-09-06] MEDS: amLODIPine BESYLATE 2.5 MG TABLET (FP) PO SCH (11:40)
--- NOTE | 2017-09-06 12:37 | PN ---
Progress Note, Physician History of Present Illness: -feels better no abd pain - Current Medication List Current Medications: Active Medications Al Hydroxide/Mg Hydroxide (Mylanta Oral Suspension -) 30 ml PO Q6H PRN PRN Reason: DYSPEPSIA Last Admin: 09/04/17 21:15 Dose: 30 ml Amlodipine Besylate (Norvasc -) 2.5 mg PO DAILY [facility] Last Admin: 09/06/17 11:40 Dose: 2.5 mg Carbidopa/Levodopa (Sinemet 25/100 -) 1 each PO TID [facility] Last Admin: 09/06/17 05:06 Dose: 1 each Chlorhexidine Gluconate (Hibiclens For Decolonization -) 1 applic TP HS [facility] Last Admin: 09/05/17 21:48 Dose: 1 applic Citalopram Hydrobromide (Celexa -) 10 mg PO DAILY [facility] Last Admin: 09/06/17 09:24 Dose: 10 mg Dabigatran (Pradaxa -) 150 mg PO BID [facility] Losartan Potassium (Cozaar -) 100 mg PO DAILY [facility] Last Admin: 09/06/17 09:25 Dose: 100 mg Mupirocin (Bactroban Ointment (For Decolonization) -) 1 applic NS BID [facility] Stop: 09/06/17 21:59 Last Admin: 09/06/17 09:24 Dose: 1 applic Pantoprazole Sodium (Protonix -) 40 mg PO DAILY [facility] Last Admin: 09/06/17 09:28 Dose: 40 mg Polyethylene Glycol (Miralax (For Daily Use) -) 17 gm PO DAILY [facility] Last Admin: 09/06/17 09:27 Dose: 17 gm Rosuvastatin Calcium (Crestor -) 10 mg PO HS [facility] Last Admin: 09/05/17 21:47 Dose: 10 mg - Objective Vital Signs: Vital Signs Temperature 65.4 F L 09/06/17 10:00 Pulse Rate 72 09/06/17 10:00 Respiratory Rate 22 09/06/17 10:00 Blood Pressure 159/60 09/06/17 10:00 O2 Sat by Pulse Oximetry (%) 97 09/05/17 21:00 Cardiovascular: Yes: S1, S2 Respiratory: Yes: Regular, CTA Bilaterally Gastrointestinal: Yes: Normal Bowel Sounds, Soft. No: Tenderness Labs: CBC, BMP 09/06/17 06:00 09/06/17 06:00 INR, PTT INR 0.96 (0.82-1.09) 09/06/17 06:00 Problem List - Problems (1) Diverticular hemorrhage Code(s): K57.31 - DVRTCLOS OF LG INT W/O PERFORATION OR ABSCESS W BLEEDING (2) Lower GI bleed Code(s): K92.2 - GASTROINTESTINAL HEMORRHAGE, UNSPECIFIED (3) Afib Code(s): I48.91 - UNSPECIFIED ATRIAL FIBRILLATION Qualifiers: Atrial fibrillation type: unspecified Qualified Code(s): I48.91 - Unspecified atrial fibrillation (4) Pancreatic cyst Code(s): K86.2 - CYST OF PANCREAS (5) Parkinson disease Code(s): G20 - PARKINSON'S DISEASE (6) Coagulopathy Code(s): D68.9 - COAGULATION DEFECT, UNSPECIFIED Assessment/Plan - Problems (1) Diverticular hemorrhage Assessment/Plan: s/p EGD diverticular bleed s/p endoclips start AC _off heparin drip cardiology initiated pradaxa - family wants pradaxa as they say that patient has difficulty with going to office for inr check. will defer to cardiology, GI wants reversible AC protonix Code(s): K57.31 - DVRTCLOS OF LG INT W/O PERFORATION OR ABSCESS W BLEEDING (2) GERD (gastroesophageal reflux disease) Assessment/Plan: started on protonix heart burn has improved Code(s): K21.9 - GASTRO-ESOPHAGEAL REFLUX DISEASE WITHOUT ESOPHAGITIS (3) Afib Assessment/Plan: HR is controlled not on any AV node blocking agents slight drop in h/h on pradaxa Code(s): I48.91 - UNSPECIFIED ATRIAL FIBRILLATION Qualifiers: Atrial fibrillation type: unspecified Qualified Code(s): I48.91 - Unspecified atrial fibrillation (4) Hypertension Assessment/Plan: losartan and norvasc- BP controlled Code(s): I10 - ESSENTIAL (PRIMARY) HYPERTENSION
[2017-09-06] MEDS: DABIGATRAN ETEXILATE MESYLATE 150 MG CAPSULE PO SCH ×2 (13:55→21:46)
[2017-09-06] MEDS: CHLORHEXIDINE GLUCONATE 4% CLEANSER FOR DECOLONIZATION TP SCH (21:46)
[2017-09-07] MEDS: ROSUVASTATIN CA 10 MG TABLET (FP) PO SCH (06:14)
[2017-09-07] MEDS: CARBIDOPA/LEVODOPA 25/100 TABLET (FP) PO SCH ×2 (06:16→13:33)
[2017-09-07 06:19] VITALS: TEMP 98.2
[2017-09-07 06:26] LABS: HEMATOCRIT 27.2 % (32.4-45.2); HEMOGLOBIN 9.3 GM/dL (10.7-15.3); MCH 30.6 pg (25.7-33.7); MCHC 34.4 g/dl (32.0-36.0); MEAN CELL VOLUME 88.9 fl (80-96); MEAN PLT VOLUME 8.1 fl (7.5-11.1); PLATELET COUNT 208 K/MM3 (134-434); RBC 3.06 M/mm3 (3.60-5.2); RDW 14.7 % (11.6-15.6); WHITE BLOOD COUNT 7.5 K/mm3 (4.0-10.0)
[2017-09-07 07:34] VITALS: BP 169/70; PULSE 66
--- NOTE | 2017-09-07 09:06 | PN ---
Progress Note, Physician Chief Complaint: GIB History of Present Illness: feels washed out but MUCH BETTER than before denies sob, cp, palpit no cigs - Current Medication List Current Medications: Active Medications Al Hydroxide/Mg Hydroxide (Mylanta Oral Suspension -) 30 ml PO Q6H PRN PRN Reason: DYSPEPSIA Last Admin: 09/04/17 21:15 Dose: 30 ml Amino Acids (Prosource No Carb Liquid Pkt) 30 ml PO BID@0800,1730 [facility] Amlodipine Besylate (Norvasc -) 2.5 mg PO DAILY [facility] Last Admin: 09/06/17 11:40 Dose: 2.5 mg Carbidopa/Levodopa (Sinemet 25/100 -) 1 each PO TID [facility] Last Admin: 09/07/17 06:16 Dose: 1 each Chlorhexidine Gluconate (Hibiclens For Decolonization -) 1 applic TP [facility] Last Admin: 09/06/17 21:46 Dose: 1 applic Citalopram Hydrobromide (Celexa -) 10 mg PO DAILY [facility] Last Admin: 09/06/17 09:24 Dose: 10 mg Dabigatran (Pradaxa -) 150 mg PO BID [facility] Last Admin: 09/06/17 21:46 Dose: 150 mg Losartan Potassium (Cozaar -) 100 mg PO DAILY [facility] Last Admin: 09/06/17 09:25 Dose: 100 mg Pantoprazole Sodium (Protonix -) 40 mg PO DAILY [facility] Last Admin: 09/06/17 09:28 Dose: 40 mg Polyethylene Glycol (Miralax (For Daily Use) -) 17 gm PO DAILY [facility] Last Admin: 09/06/17 09:27 Dose: 17 gm Rosuvastatin Calcium (Crestor -) 10 mg PO HS [facility] Last Admin: 09/07/17 06:14 Dose: Not Given - Objective Vital Signs: Vital Signs Temperature 98.2 F 09/07/17 07:31 Pulse Rate 66 09/07/17 07:31 Respiratory Rate 18 09/07/17 07:34 Blood Pressure 169/70 09/07/17 07:31 O2 Sat by Pulse Oximetry (%) 100 09/07/17 07:34 Constitutional: Yes: No Distress, Calm Eyes: No: Sclera Icterus HENT: No: Nasal Congestion Cardiovascular: Yes: Regular Rate and Rhythm, S1, S2, Other (PMI non diplaced). No: Gallop, Murmur Respiratory: Yes: CTA Bilaterally. No: Accessory Muscle Use, Rales, Wheezes Gastrointestinal: Yes: Normal Bowel Sounds, Soft. No: Tenderness Musculoskeletal: Yes: Other (No kyphosis) Extremities: No: Cold Edema: No Integumentary: No: Jaundice Neurological: Yes: Alert, Oriented (x3) Psychiatric: No: Agitated Labs: CBC, BMP 09/07/17 05:45 09/06/17 06:00 INR, PTT INR 0.96 (0.82-1.09) 09/06/17 06:00 Assessment/Plan ekg 08/28/17: nsr. lvh. cxr: no congestion/infiltrate. abd CT (images/report reviewed): acute sigmoid diverticular hemorrhage. see emr for detailed findings repeat abd cta 08/30: active contrast extravasation from diverticula. aortic atherosclerosis. see emr for detailed findings echo 12/2016: nl lv fn. impaired lv relaxation. nl rv size/fn. mod lae. mild- mod tr. rvsp 30-40 dipyridamole stress 12/2016: no ischemic ekg changes. small sized, mild/subtle apical ischemia. EF 70%. no rwma. MRA/MRI 01/10/2017: mid and distal 3rd [employer] partially occluded. New 0.3 cm acute non-hemarrhagic infarct in the right temporal periventricular region. A very small amount of petechial blood is noted within previously identified acute/ subacute right occipital cortical infarct. Carotid duplex 01/10/2017 unremarkable. Abnormal nuclear stress test on 01/08/2017 with a small and mild apical stress induced ischemia. tele: NSR ASSESSMENT/PLAN 87yo with PMHx of HTN, HL, paroxysmal atrial fibrillation on eliquis, recurrenct CVA, CAD with h/o PCI [facility] now with mild apical ischemia on 2016 stress test, diastolic CHF, prior breast CA s/p Right radical mastectomy , Parkinson disease, dementia, diverticulosis, GERD, severe parish with desat ( putpatient cpap titration pending) who p/w BRBPR. GIB: - sec to acute diverticular bleeding. S/p multiple transfusions. - s/p colonoscopic endoclipping here. - ASA, eliquis held initially, then given one dose of each on 4/7 --> recurrent GIB. Subsequently held again. - cleared to resume ASA/AC by GI--monitor closely and low threshold to stop if H /H trends down Paroxysmal atrial fibrillation with high CHADS-VASC score - h/o recurrent CVA: - holding ac as above - last cva 12/2016 occurred on pradaxa --> ASA added to regimen by neurology. ( changed to eliquis as outpt early 2017). - large LGIB here, s/p endoscopic treatment--recurrent bleeding after brief retrial of eliquis/ASA. - eventually put back on AC (dabigatran, per family pref for reversible agent and refusal of warfarin). ASA held - given hi risk of bleeding at the moment, agree with holding ASA while observe pt on AC being restarted. since dabigatran was previously felt inadequate for optimal CVA prophylaxis in her due to breakthru events, and neuro added ASA at that time, will ultimately need neuro opinion about whether to add ASA back but this can be deferred to outpt setting. - Hr controlled/SR off AV aga blockade. CAD (based on mild apical ischemia on stress testing)/HL - no s/sx of ischemia here - con't crestor 10 mg daily Diastolic CHF: - on hctz as outpatient, held here initially for anemia, low bp. - Currently no signs of fluid overload. con't to monitor HTN: - longstanding h/o labile BP as outpt, with med s.e. (principally fatigue) limiting regimen - uses amlodipine prn long time - recently meds titrated with improved home bp recordings and good tolerance - regimen cut back here, in light of low bp trend with active GIB. - observe bp trend, same plan for now--f/u with me in office 1-2 wks to reassess bp med regimen (continue home bp monitoring as doing--pt and dtr are very compliant)
[2017-09-07] MEDS ORDERED: PT OWN MED DRAWER 7, Y5N ONE (09:36)
[2017-09-07] MEDS: CITALOPRAM HYDROBROMIDE 10 MG TABLET (FP) PO SCH (09:47)
[2017-09-07] MEDS: DABIGATRAN ETEXILATE MESYLATE 150 MG CAPSULE PO SCH (09:47)
[2017-09-07] MEDS: amLODIPine BESYLATE 2.5 MG TABLET (FP) PO SCH (09:47)
[2017-09-07] MEDS: POLYETHYLENE GLYCOL 3350 119 GM BTL PO SCH (09:47)
[2017-09-07] MEDS: PANTOPRAZOLE 40 MG TABLET (FP) PO SCH (09:47)
[2017-09-07] MEDS: LOSARTAN POTASSIUM 50 MG TABLET (FP) PO SCH (09:47)
--- NOTE | 2017-09-07 10:24 | DS ---
Physical Examination Vital Signs: Vital Signs Temperature 98.2 F 09/07/17 07:31 Pulse Rate 66 09/07/17 07:31 Respiratory Rate 18 09/07/17 07:34 Blood Pressure 169/70 09/07/17 07:31 O2 Sat by Pulse Oximetry (%) 100 09/07/17 07:34 Constitutional: Yes: No Distress Eyes: Yes: WNL HENT: Yes: WNL Neck: Yes: WNL Cardiovascular: Yes: Pulse Irregular Respiratory: Yes: WNL Gastrointestinal: Yes: WNL Renal/: Yes: WNL Musculoskeletal: Yes: Muscle Weakness Extremities: Yes: WNL Edema: No Peripheral Pulses WNL: Yes Integumentary: Yes: WNL Wound/Incision: Yes: Clean/Dry Neurological: Yes: Pre-Existing Deficit, Weakness ...Motor Strength: LLE, RLE Psychiatric: Yes: WNL Labs: CBC, BMP 09/07/17 05:45 09/06/17 06:00 Discharge Summary Reason For Visit: DIVERTICULITIS OF LARGE INTESTINE WITH HEMORRHAGE Current Active Problems DVT prophylaxis (Acute) Diverticular hemorrhage (Acute) Lower GI bleed (Acute) Procedures: Principal: CT HEAD/ABD, COLONOSCOPY Hospital Course: TREATED FOT GI BLEED, TRANSFUSED , MONITORED FOR RECTAL BLEED, CHANGED TO PRADAXA, STOP HEPARIN IV Condition: Stable - Instructions Diet, Activity, Other Instructions: SEE DR DOHERTY 1 WEEK HOME VISIT THIS THURSDAY HOME PT LOW SALT DIET Disposition: VNS/HOME HEALTH CARE - Home Medications Comprehensive Discharge Medication List: Ambulatory Orders Citalopram Hydrobromide [Citalopram HBr] 10 mg PO DAILY 01/08/17 Acetaminophen [Tylenol .Regular Strength -] 650 mg PO Q6H PRN #0 tablet Carbidopa/Levodopa 25/100 [Sinemet 25/100 -] 1 each PO TID tablet 01/09/17 Losartan Potassium [Cozaar -] 100 mg PO DAILY tablet 01/09/17 Pramipexole Di-HCl [Mirapex] 0.25 mg PO HS #20 syringe MDD 1 01/12/17 Rosuvastatin [Crestor -] 10 mg PO HS #30 tablet MDD 1 01/12/17 Carbidopa/Levodopa 25/100 [Sinemet 25/100 -] 1 each PO TID tablet 09/07/17 Citalopram Hydrobromide [Celexa -] 10 mg PO DAILY tablet 09/07/17 Dabigatran Etexilate Mesylate [Pradaxa -] 150 mg PO BID #60 cap 09/07/17 Losartan Potassium [Cozaar -] 100 mg PO DAILY tablet 09/07/17 Mag Hydrox/Al Hydrox/Simeth [Mylanta Oral Suspension -] 30 ml PO Q6H PRN cup Pantoprazole Sodium [Protonix -] 40 mg PO DAILY #30 tablet.ec 09/07/17 Polyethylene Glycol 3350 [Miralax 119 gm Btl -] 17 gm PO DAILY bottle 09/07/17 Rosuvastatin [Crestor -] 10 mg PO HS tablet 09/07/17
[2017-09-07] MEDS ORDERED: AMINO ACIDS/PROTEIN HYDROLYS 30 ML LIQUID.PKT PO SCH (17:30)
== END 2017-09-07 14:41 | disposition home health service (06) | DRG 813 ==
LOC: JER 00:47 → JERBED 03:38 → J2W 08:52
PROVIDERS: ADMIT Internal Medicine; ATTEND Family Medicine
PROC: 30233N1 Transfusion of Nonautologous Red Blood Cells into Peripheral Vein, Percutaneous Approach (ICD-10-PCS; 2017-08-28)
PROC: 30233R1 Transfusion of Nonautologous Platelets into Peripheral Vein, Percutaneous Approach (ICD-10-PCS; 2017-08-30)
PROC: 30233K1 Transfusion of Nonautologous Frozen Plasma into Peripheral Vein, Percutaneous Approach (ICD-10-PCS; 2017-08-31)
PROC: 0W3P8ZZ Control Bleeding in Gastrointestinal Tract, Via Natural or Artificial Opening Endoscopic (ICD-10-PCS; principal; 2017-09-01 15:00)
DX: D68.32 Hemorrhagic disorder due to extrinsic circulating anticoagulants (principal); K57.31 Diverticulosis of large intestine without perforation or abscess with bleeding; I25.110 Atherosclerotic heart disease of native coronary artery with unstable angina pectoris; I50.30 Unspecified diastolic (congestive) heart failure; K86.2 Cyst of pancreas; K21.9 Gastro-esophageal reflux disease without esophagitis; K57.90 Diverticulosis of intestine, part unspecified, without perforation or abscess without bleeding; I48.0 Paroxysmal atrial fibrillation; R53.1 Weakness; G31.83 Neurocognitive disorder with Lewy bodies; F02.80 Dementia in other diseases classified elsewhere, unspecified severity, without behavioral disturbance, psychotic disturbance, mood disturbance, and anxiety; G47.33 Obstructive sleep apnea (adult) (pediatric); I11.0 Hypertensive heart disease with heart failure; Z87.891 Personal history of nicotine dependence; Z85.3 Personal history of malignant neoplasm of breast; Z86.73 Personal history of transient ischemic attack (TIA), and cerebral infarction without residual deficits
CPT/HCPCS: 36415; 36430; 71045-TC-FY; 74174-TC; 74177-TC; 80048; 80053; 82378; 82962; 83735; 84100; 85025; 85027; 85044; 85610; 85730; 86301; 86304; 86850; 86900; 86901; 86922; 87086; 87186; 93005; 93010; 97116-GP; 97161-GP; 99283-25; J1644; J7030; P9017; P9034; P9038; P9058

== ENCOUNTER 2017-10-12 12:10 | Emergency (ER) | payer OTHER ==
[2017-10-12 12:27] VITALS: BP 129/80; PULSE 88; TEMP 98.5; BMI 26.4
--- NOTE | 2017-10-12 13:49 | PDOC ---
History of Present Illness - General Chief Complaint: Vomiting Blood Stated Complaint: PCP SENT FOR ADMIT - History of Present Illness Initial Comments: patient is an 87 year old female, with a significant past medical history of Afib (on Pradaxa), CAD, HTN, Breast Ca, Parkinson's, CVA., who presents to the emergency department complaining of one episode of NBNB vomiting this AM. Pt was in her usual state of health when she endorses one episode of acute nausea and NBNB vomiting, lasting one minute, before resolving. Pt states she ate spinach and miralax this AM. Had one normal BM this AM as well with no diarrhea , constipation, melena, hematochezia. Pt with no other diet change, sick contacts. Lives at home with daughter. Most recently admitted last month for diverticular bleed, had been taking pradaxa due to afib. Pt back to baseline currently with no complaints patient denies chest pain, shortness of breath, headache or dizziness. Denies fever, chills, diarrhea and constipation. Denies dysuria, frequency, urgency and hematuria. : Past surgical history: Cardiac stent, hysterectomy Social History: denies all toxic habits PMD: Dr. العلي Allergies Allergy/AdvReac Type Severity Reaction Status Date / Time niacin Allergy Severe Nausea Verified 10/12/17 12:24 [From Niaspan Extended-Release] sulfasalazine Allergy Severe Swelling Verified 10/12/17 12:24 [From Azulfidine] strawberry [[place]] Allergy Intermediate Vomiting Verified 10/12/17 12:24 indomethacin [From Indocin] Allergy Unknown Verified 10/12/17 12:24 indomethacin sodium Allergy Unknown Verified 10/12/17 12:24 [From Indocin] betaine AdvReac Intermediate STOMACH Verified 10/12/17 12:24 [From Cholesterol Fighter] UPSET chitosan AdvReac Intermediate STOMACH Verified 10/12/17 12:24 [From Cholesterol Fighter] UPSET lecithin AdvReac Intermediate STOMACH Verified 10/12/17 12:24 [From Cholesterol Fighter] UPSET NSAIDS (Non-Steroidal AdvReac Intermediate STOMACH Verified 10/12/17 12:24 Anti-Inflamma UPSET Sitosterols AdvReac Intermediate STOMACH Verified 10/12/17 12:24 [From Cholesterol Fighter] UPSET cucumbers Allergy Severe Vomiting Uncoded 10/12/17 12:24 10/12/17 13:45 Past History - Past Medical History Allergies/Adverse Reactions: Allergies Allergy/AdvReac Type Severity Reaction Status Date / Time niacin Allergy Severe Nausea Verified 10/12/17 12:24 [From Niaspan Extended-Release] sulfasalazine Allergy Severe Swelling Verified 10/12/17 12:24 [From Azulfidine] strawberry [[place]] Allergy Intermediate Vomiting Verified 10/12/17 12:24 indomethacin [From Indocin] Allergy Unknown Verified 10/12/17 12:24 indomethacin sodium Allergy Unknown Verified 10/12/17 12:24 [From Indocin] betaine AdvReac Intermediate STOMACH Verified 10/12/17 12:24 [From Cholesterol Fighter] UPSET chitosan AdvReac Intermediate STOMACH Verified 10/12/17 12:24 [From Cholesterol Fighter] UPSET lecithin AdvReac Intermediate STOMACH Verified 10/12/17 12:24 [From Cholesterol Fighter] UPSET NSAIDS (Non-Steroidal AdvReac Intermediate STOMACH Verified 10/12/17 12:24 Anti-Inflamma UPSET Sitosterols AdvReac Intermediate STOMACH Verified 10/12/17 12:24 [From Cholesterol Fighter] UPSET cucumbers Allergy Severe Vomiting Uncoded 10/12/17 12:24 Home Medications: Ambulatory Orders Acetaminophen [Tylenol .Regular Strength -] 650 mg PO Q6H PRN #0 tablet Pramipexole Di-HCl [Mirapex] 0.25 mg PO HS #20 syringe MDD 1 01/12/17 Carbidopa/Levodopa 25/100 [Sinemet 25/100 -] 1 each PO TID tablet 09/07/17 Citalopram Hydrobromide [Celexa -] 10 mg PO DAILY tablet 09/07/17 Dabigatran Etexilate Mesylate [Pradaxa -] 150 mg PO BID #60 cap 09/07/17 Losartan Potassium [Cozaar -] 100 mg PO DAILY tablet 09/07/17 Mag Hydrox/Al Hydrox/Simeth [Mylanta Oral Suspension -] 30 ml PO Q6H PRN cup Pantoprazole Sodium [Protonix -] 40 mg PO DAILY #30 tablet.ec 09/07/17 Polyethylene Glycol 3350 [Miralax 119 gm Btl -] 17 gm PO DAILY bottle 09/07/17 Rosuvastatin [Crestor -] 10 mg PO HS tablet 09/07/17 Anemia: No Asthma: No Cancer: Yes (Right radical mastectomy) Cardiac Disorders: Yes (Paroxysmal Atrial fibrillation, ASHD, CHF) CVA: Yes (TIA w/out residual) COPD: No CHF: Yes Dementia: No Diabetes: No GI Disorders: Yes (Diverticulosis,GERD) Disorders: No HTN: Yes Hypercholesterolemia: Yes Liver Disease: No Seizures: No Thyroid Disease: No - Surgical History Abdominal Surgery: Yes (Abdominal cyst removal) Appendectomy: Yes Cardiac Surgery: No Cholecystectomy: Yes Lung Surgery: No Neurologic Surgery: No Orthopedic Surgery: No - Immunization History Immunization Up to Date: Yes - Suicide/Smoking/Psychosocial Hx Smoking Status: No Smoking History: Former smoker Have you smoked in the past 12 months: No Number of Cigarettes Smoked Daily: 0 If you are a former smoker, when did you quit?: Over 30 years ago Information on smoking cessation initiated: No Hx Alcohol Use: No Drug/Substance Use Hx: No Substance Use Type: None Hx Substance Use Treatment: No Review of Systems - Review of Systems Comments:: GENERAL/CONSTITUTIONAL: No fever or chills. No weakness. HEAD, EYES, EARS, NOSE AND THROAT: No change in vision. No ear pain or discharge. No sore throat. CARDIOVASCULAR: No chest pain or shortness of breath RESPIRATORY: No cough, wheezing, or hemoptysis. GASTROINTESTINAL: One episode of N/V; no diarrhea or constipation. GENITOURINARY: No dysuria, frequency, or change in urination. MUSCULOSKELETAL: No joint or muscle swelling or pain. No neck or back pain. SKIN: No rash NEUROLOGIC: No headache, vertigo, loss of consciousness, or change in strength/ sensation. ENDOCRINE: No increased thirst. No abnormal weight change HEMATOLOGIC/LYMPHATIC: No anemia, easy bleeding, or history of blood clots. ALLERGIC/IMMUNOLOGIC: No hives or skin allergy. 10/12/17 13:45 *Physical Exam - Vital Signs Last Vital Signs Temp Pulse Resp BP Pulse Ox 98.5 F 88 19 129/80 98 10/12/17 12:24 10/12/17 12:24 10/12/17 12:24 10/12/17 12:24 10/12/17 12:24 - Physical Exam Comments: GENERAL: Elderly woman, Awake, alert, and fully oriented, in no acute distress HEAD: No signs of trauma, normocephalic, atraumatic EYES: PERRLA, EOMI, sclera anicteric, conjunctiva clear ENT: Auricles normal inspection, hearing grossly normal, nares patent, oropharynx clear without exudates. Moist mucosa NECK: Normal ROM, supple, no lymphadenopathy, JVD, or masses LUNGS: No distress, speaks full sentences, clear to auscultation bilaterally HEART: IRR IRR, distant heart sounds, normal S1 and S2, no murmurs, rubs or gallops, peripheral pulses normal and equal bilaterally. ABDOMEN: TTP in RUQ/RLQ/LLQ. normoactive bowel sounds. No guarding, no rebound. No masses. No CVA tiredness. EXTREMITIES : Trace pedal edema. Normal inspection, Normal range of motion. No clubbing or cyanosis. NEUROLOGICAL: Cranial nerves II through XII grossly intact. Normal speech, ambulates with walker, no focal sensorimotor deficits SKIN: Warm, Dry, normal turgor, no rashes or lesions noted 10/12/17 13:45 Moderate Sedation - Procedure Monitoring Vital Signs: Vital Signs Temp Pulse Resp BP Pulse Ox 98.5 F 88 19 129/80 98 10/12/17 12:24 10/12/17 12:24 10/12/17 12:24 10/12/17 12:24 10/12/17 12:24 ED Treatment Course - LABORATORY CBC & Chemistry Diagram: 10/12/17 13:59 10/12/17 13:59 Medical Decision Making - Medical Decision Making 87 year old female, with a significant past medical history of Afib (on Pradaxa) , CAD, HTN, Breast Ca, Parkinson's, CVA., who presents to the emergency department complaining of one episode of NBNB vomiting this AM. DDx includes viral gastritis, bacterial gastroenteritis, PUD, GERD, pancreatitis, diverticulitis, appendicitis, IBD, mesenteric ischemia; Plan: - cbc, cmp, coags - EKG - CT A/P - Zofran, pepcid 10/12/17 14:27 CT A/P with no acute pathology. No further symptoms. VSS. Will discharge home with outpt f/u with PCP and GI. 10/12/17 18:33 *DC/Admit/Observation/Transfer Diagnosis at time of Disposition: Nausea & vomiting Qualifiers: Vomiting type: unspecified Vomiting Intractability: unspecified Qualified Code( s): R11.2 - Nausea with vomiting, unspecified - Discharge Dispostion Disposition: HOME Condition at time of disposition: Good Decision to Admit order: No - Referrals Referrals: Pat العلي MD [Primary Care Provider] - 1 week Joey Ortiz MD [Staff Physician] - 1 week - Patient Instructions Additional Instructions: During your visit to the [facility] ED, you were evaluated for an episode of vomiting this morning. You received hydration and standard lab tests, in addition to a CT scan of your abdomen. You are being discharged home with outpatient follow- up with your primary care provider and are being provided a referral to see our ux interaction designer, Dr. Ortiz. You are being provided a referral for follow-up with Dr. Ortiz, our ux interaction designer for further management of your GI health. Please call the number provided in this packet to schedule an appointment within one week If you experience any of the following symptoms, please return to the ED: - Persistent fevers/chills >3 days - Multiple episodes of vomiting/ nausea that does not improve - Worsening rectal bleeding or persistent blood in your stool - Prolonged bouts of diarrhea, changes in stool color - Any new or concerning symptoms - Post Discharge Activity
--- NOTE | 2017-10-12 14:03 | PDOC ---
Attending Attestation - Resident Resident Name: Nino Keita - HPI HPI: 10/16/17 01:30 Pt presents to the ED complaining of a single episode of vomiting. Now her symptoms are completely resolved and she is hungry and has no pain. 10/16/17 01:30 - Physicial Exam PE: 10/16/17 01:31 Agree with resident exam. PAtient is alert and oriented and in no acute distress. Abdomen is flat, soft, non distended and non tender on my exam. 10/16/17 01:32 - Medical Decision Making 10/16/17 01:32 Pt presents to the ED complaining of nausea and vomiting x 1 episode. Now is completely asymptomatic. Given her history and her age, will check CT to rule out intraabdominal pathology and likely discharge home if negative.
[2017-10-12 14:09] LABS: BASO % 0.6 % (0-2.0); EOS % 0.5 % (0-4.5); HEMATOCRIT 32.9 % (32.4-45.2); LYMPH % 8.6 % (8-40); MCH 29.9 pg (25.7-33.7); MCHC 33.5 g/dl (32.0-36.0); MEAN CELL VOLUME 89.3 fl (80-96); MEAN PLT VOLUME 7.9 fl (7.5-11.1); MONO % 4.4 % (3.8-10.2); NEUT % 85.9 % (42.8-82.8); PLATELET COUNT 272 K/MM3 (134-434); RBC 3.68 M/mm3 (3.60-5.2); RDW 14.1 % (11.6-15.6); WHITE BLOOD COUNT 7.9 K/mm3 (4.0-10.0)
[2017-10-12 14:23] LABS: INR 1.18 (0.82-1.09); PROTHROMBIN TIME (PATIENT) 13.3 SEC (9.7-13.0)
[2017-10-12 15:05] LABS: ALBUMIN 3.3 g/dl (3.4-5.0); ANION GAP 9 (8-16); BLOOD UREA NITROGEN 13 mg/dL (7-18); CALCIUM 8.2 mg/dL (8.5-10.1); CHLORIDE 104 mmol/L (98-107); CO2 24 mmol/L (21-32); CREATININE 0.9 mg/dL (0.55-1.02); GLUCOSE,RANDOM 165 mg/dL (74-106); SGPT/ALT < 6 U/L (12-78); SODIUM 137 mmol/L (136-145)
[2017-10-12 15:18] LABS: ALK PHOS 143 U/L (45-117); POTASSIUM 3.8 mmol/L (3.5-5.1); TOT PROT 6.6 g/dl (6.4-8.2)
[2017-10-12 17:14] LABS: SGOT/AST 16 U/L (15-37)
[2017-10-12] MEDS ORDERED: SODIUM CHLORIDE 1,000 ML IV SCH (17:45)
--- NOTE | 2017-10-14 16:32 | EKG ---
Test Reason : Blood Pressure : / mmHG Vent. Rate : 063 BPM Atrial Rate : 063 BPM P-R Int : 138 ms QRS Dur : 096 ms QT Int : 448 ms P-R-T Axes : 072 -13 026 degrees QTc Int : 458 ms NORMAL SINUS RHYTHM VOLTAGE CRITERIA FOR LEFT VENTRICULAR HYPERTROPHY ABNORMAL ECG WHEN COMPARED WITH ECG OF 28-AUG-2017 01:15, NO SIGNIFICANT CHANGE WAS FOUND Confirmed by MATTHEW ARRIAZA, ALEX ([id number]) on 10/14/2017 4:32:27 PM Referred By: Confirmed By:ALEX CASTRO MD
== END 2017-10-12 18:57 | disposition home or self-care (01) ==
LOC: JER 12:10
PROC: 3E0337Z Introduction of Electrolytic and Water Balance Substance into Peripheral Vein, Percutaneous Approach (ICD-10-PCS; principal; 2017-10-12)
DX: R11.2 Nausea with vomiting, unspecified (principal); I25.10 Atherosclerotic heart disease of native coronary artery without angina pectoris; I10 Essential (primary) hypertension; Z95.5 Presence of coronary angioplasty implant and graft; I48.91 Unspecified atrial fibrillation; Z79.01 Long term (current) use of anticoagulants; E78.00 Pure hypercholesterolemia, unspecified; G20 Parkinson's disease; Z86.73 Personal history of transient ischemic attack (TIA), and cerebral infarction without residual deficits; Z85.3 Personal history of malignant neoplasm of breast; Z90.11 Acquired absence of right breast and nipple; Z87.19 Personal history of other diseases of the digestive system; Z88.8 Allergy status to other drugs, medicaments and biological substances
CPT/HCPCS: 36415; 74177-TC; 80053; 83605; 83690; 85025; 85610; 93005; 93010; 96360; 99282-25

== ENCOUNTER 2018-08-01 09:20 | Emergency (ER) | payer OTHER ==
[2018-08-01 09:29] VITALS: TEMP 97.3; BMI 28.8
--- NOTE | 2018-08-01 10:23 | PDOC ---
History of Present Illness - General Chief Complaint: Blood Pressure Problem Stated Complaint: BP PROBLEM Time Seen by Provider: 08/01/18 09:45 - History of Present Illness Initial Comments: 08/01/18 10:23 88 yo female PMH Afib on Pradaxa, CAD, HTN, Breast Ca, Parkinson's, CVA long standing history of chronic constipation, diverticulitis presents to the ED for abnormal blood pressure and heart rate readings on home machine this morning. Although she didn't feel dizziness or palpitations or any different this morning , she states she's been feeling weak and some on/okk pain in the corner of her left eye for the past year. Her 10 readings from this morning show a consistently normal systolic pressure with a diastolic pressure in the 100's, as well as a heart rate ranging from normal to 110's which she says is unusual for her. Past History - Past Medical History Allergies/Adverse Reactions: Allergies Allergy/AdvReac Type Severity Reaction Status Date / Time niacin Allergy Severe Nausea Verified 08/01/18 09:29 [From Niaspan Extended-Release] sulfasalazine Allergy Severe Swelling Verified 08/01/18 09:29 [From Azulfidine] strawberry [[place]] Allergy Intermediate Vomiting Verified 08/01/18 09:29 indomethacin [From Indocin] Allergy Unknown Verified 08/01/18 09:29 indomethacin sodium Allergy Unknown Verified 08/01/18 09:29 [From Indocin] betaine AdvReac Intermediate STOMACH Verified 08/01/18 09:29 [From Cholesterol Fighter] UPSET chitosan AdvReac Intermediate STOMACH Verified 08/01/18 09:29 [From Cholesterol Fighter] UPSET lecithin AdvReac Intermediate STOMACH Verified 08/01/18 09:29 [From Cholesterol Fighter] UPSET NSAIDS (Non-Steroidal AdvReac Intermediate STOMACH Verified 08/01/18 09:29 Anti-Inflamma UPSET Sitosterols AdvReac Intermediate STOMACH Verified 08/01/18 09:29 [From Cholesterol Fighter] UPSET cucumbers Allergy Severe Vomiting Uncoded 10/12/17 12:24 Home Medications: Ambulatory Orders Dabigatran Etexilate Mesylate [Pradaxa -] 150 mg PO BID #60 cap 09/07/17 Pantoprazole Sodium [Protonix -] 40 mg PO DAILY #30 tablet.ec 09/07/17 Rosuvastatin [Crestor -] 10 mg PO HS tablet 09/07/17 Amlodipine Besylate 2.5 mg PO DAILY 08/01/18 Citalopram Hydrobromide [Celexa -] 10 mg PO HS 08/01/18 Hydrochlorothiazide 12.5 mg PO DAILY 08/01/18 Losartan Potassium [Cozaar -] 100 mg PO HS 08/01/18 Methimazole 5 mg PO DAILY 08/01/18 Anemia: No Asthma: No Cancer: Yes (Right radical mastectomy) Cardiac Disorders: Yes (Paroxysmal Atrial fibrillation, ASHD, CHF) CVA: Yes (TIA w/out residual) COPD: No CHF: Yes Dementia: No Diabetes: No GI Disorders: Yes (Diverticulosis,GERD) Disorders: No HTN: Yes Hypercholesterolemia: Yes Liver Disease: No Seizures: No Thyroid Disease: No - Surgical History Abdominal Surgery: Yes (Abdominal cyst removal) Appendectomy: Yes Cardiac Surgery: No Cholecystectomy: Yes Lung Surgery: No Neurologic Surgery: No Orthopedic Surgery: No - Immunization History Immunization Up to Date: Yes - Suicide/Smoking/Psychosocial Hx Smoking Status: No Smoking History: Never smoked Have you smoked in the past 12 months: No Number of Cigarettes Smoked Daily: 0 If you are a former smoker, when did you quit?: Over 30 years ago Hx Alcohol Use: No Drug/Substance Use Hx: No Substance Use Type: None Hx Substance Use Treatment: No Review of Systems - Review of Systems Able to Perform ROS?: Yes Is the patient limited Kyrgyz proficient: No Constitutional: No: Symptoms Reported HEENTM: No: Symptoms Reported Respiratory: No: Symptoms reported Cardiac (ROS): No: Symptoms Reported ABD/GI: No: Symptoms Reported : No: Symptoms Reported Musculoskeletal: No: Symptoms Reported All Other Systems: Reviewed and Negative *Physical Exam - Vital Signs Last Vital Signs Temp Pulse Resp BP Pulse Ox 97.3 F L 80 18 114/64 97 08/01/18 09:25 08/01/18 09:25 08/01/18 09:25 08/01/18 09:25 08/01/18 09:25 - Physical Exam General Appearance: Yes: Nourished, Appropriately Dressed. No: Apparent Distress HEENT: positive: EOMI, ZENON, Normal ENT Inspection Respiratory/Chest: positive: Lungs Clear, Normal Breath Sounds. negative: Chest Tender, Respiratory Distress Cardiovascular: positive: Regular Rhythm, Regular Rate, S1, S2 Gastrointestinal/Abdominal: positive: Normal Bowel Sounds, Flat, Soft. negative : Tender Extremity: positive: Normal Capillary Refill, Normal Inspection, Normal Range of Motion Neurologic: positive: Fully Oriented, Alert, Normal Mood/Affect, Normal Response , Motor Strength 5/5 Moderate Sedation - Procedure Monitoring Vital Signs: Procedure Monitoring Vital Signs Temperature 97.3 F L 08/01/18 09:25 Pulse Rate 80 08/01/18 09:25 Respiratory Rate 18 08/01/18 09:25 Blood Pressure 114/64 08/01/18 09:25 O2 Sat by Pulse Oximetry (%) 97 08/01/18 09:25 Medical Decision Making - Medical Decision Making 08/01/18 10:44 Asymptomatic patient with slightly elevated diastolic pressure and rate at home on machine, normal in the ED. EKG is normal. OK to d/c home with follow up. *DC/Admit/Observation/Transfer Diagnosis at time of Disposition: Elevated blood pressure reading - Discharge Dispostion Disposition: HOME Condition at time of disposition: Good Decision to Admit order: No - Referrals - Patient Instructions Printed Discharge Instructions: How to Monitor Your Blood Pressure at Home Additional Instructions: Follow up with Dr. Palacios within the week. Come back to the emergency department for any new, worsening or concerning symptoms. - Post Discharge Activity
--- NOTE | 2018-08-01 10:32 | PDOC ---
Attending Attestation - Resident Resident Name: Black Campbell - ED Attending Attestation I have performed the following: I have examined & evaluated the patient, The case was reviewed & discussed with the resident, I agree w/resident's findings & plan, Exceptions are as noted - HPI HPI: 08/01/18 10:28 88 F with h/o pAfib on Pradaxa, CAD, HTN, Breast Ca, Parkinson's, CVA long standing history of chronic constipation, diverticulitis, presenting to ED for abnormal vitals taken at home. Pt states that her home BP machine registered a HR in the 100s and displayed "arrhythmia". She also was concerned that her diastolic pressure was >100 on one of the readings, though this number went back down to normal in subsequent readings. Pt denies any CP/SOB/palpitations/ lightheadedness at any time. Pt states that she checks her vitals every morning and evening. Denies having any symptoms this morning. Pt is on pradaxa and amlodipine for her afib. Reports compliance with her medications. - Physicial Exam PE: 08/01/18 10:31 GENERAL: Awake, alert, and fully oriented, in no acute distress. HEAD: No signs of trauma EYES: PERRLA, EOMI, sclera anicteric, conjunctiva clear ENT: Auricles normal inspection, hearing grossly normal, nares patent, oropharynx clear without exudates. Moist mucosa NECK: Nontender, no stepoffs, Normal ROM, supple, no lymphadenopathy, JVD, or masses LUNGS: Breath sounds equal, clear to auscultation bilaterally. No wheezes, and no crackles HEART: Regular rate and rhythm, normal S1 and S2, no murmurs, rubs or gallops ABDOMEN: Soft, nontender, normoactive bowel sounds. No guarding, no rebound. No masses EXTREMITIES: Normal range of motion, no edema. No clubbing or cyanosis. No cords, erythema, or tenderness NEUROLOGICAL: Cranial nerves II through XII intact. 5/5 strength and sensation in all extremities, Normal speech, normal gait, normal cerebellar function SKIN: Warm, Dry, normal turgor, no rashes or lesions noted. - Medical Decision Making 08/01/18 10:31 88 F with h/o pAfib presenting to ED with abnormal vitals at home. No symptoms. Vitals in ED are wnl. EKG obtained, showing NSR with rate 68, no new ischemic changes. - F/u with Dr. 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 Clinically stable for DC at this time. I discussed the physical exam findings, ancillary test results and final diagnoses with the patient. I answered all of the patient's questions. The patient was satisfied with the care received and felt comfortable with the discharge plan and treatment plan. The patient agrees to follow up with the primary care physician within 24-72 hours.
[2018-08-01 10:45] VITALS: BP 121/54; PULSE 63
--- NOTE | 2018-08-02 10:42 | EKG ---
Test Reason : Blood Pressure : / mmHG Vent. Rate : 068 BPM Atrial Rate : 068 BPM P-R Int : 158 ms QRS Dur : 098 ms QT Int : 406 ms P-R-T Axes : 080 -15 058 degrees QTc Int : 431 ms NORMAL SINUS RHYTHM MINIMAL VOLTAGE CRITERIA FOR LVH, MAY BE NORMAL VARIANT BORDERLINE ECG WHEN COMPARED WITH ECG OF 12-OCT-2017 14:04, T WAVE VARIATION Confirmed by TIFF ARRIAZA, SUSY ([id number]) on 08/02/2018 10:42:10 AM Referred By: Confirmed By:SUSY MATTHEW MD
== END 2018-08-01 10:45 | disposition home or self-care (01) ==
LOC: JER 09:20
DX: I10 Essential (primary) hypertension (principal); I25.10 Atherosclerotic heart disease of native coronary artery without angina pectoris; I11.0 Hypertensive heart disease with heart failure; I48.0 Paroxysmal atrial fibrillation; Z79.01 Long term (current) use of anticoagulants; E78.00 Pure hypercholesterolemia, unspecified; G20 Parkinson's disease; K21.9 Gastro-esophageal reflux disease without esophagitis; Z85.3 Personal history of malignant neoplasm of breast; Z90.11 Acquired absence of right breast and nipple; Z86.73 Personal history of transient ischemic attack (TIA), and cerebral infarction without residual deficits; Z88.8 Allergy status to other drugs, medicaments and biological substances; Z91.018 Allergy to other foods
CPT/HCPCS: 93005; 93010; 99282-25

== ENCOUNTER 2019-11-28 11:41 | Inpatient (IN) | payer OTHER ==
--- NOTE | 2019-11-28 11:49 | PDOC ---
Rapid Medical Evaluation Chief Complaint: Loss of Appetite Time Seen by Provider: 11/28/19 11:47 Medical Evaluation: Allergies Allergy/AdvReac Type Severity Reaction Status Date / Time niacin Allergy Severe Nausea Verified 11/28/19 11:44 [From Niaspan Extended-Release] sulfasalazine Allergy Severe Swelling Verified 11/28/19 11:44 [From Azulfidine] strawberry [[place]] Allergy Intermediate Vomiting Verified 11/28/19 11:44 indomethacin [From Indocin] Allergy Unknown Verified 11/28/19 11:44 indomethacin sodium Allergy Unknown Verified 11/28/19 11:44 [From Indocin] betaine AdvReac Intermediate STOMACH Verified 11/28/19 11:44 [From Cholesterol Fighter] UPSET chitosan AdvReac Intermediate STOMACH Verified 11/28/19 11:44 [From Cholesterol Fighter] UPSET lecithin AdvReac Intermediate STOMACH Verified 11/28/19 11:44 [From Cholesterol Fighter] UPSET NSAIDS (Non-Steroidal AdvReac Intermediate STOMACH Verified 11/28/19 11:44 Anti-Inflamma UPSET Sitosterols AdvReac Intermediate STOMACH Verified 11/28/19 11:44 [From Cholesterol Fighter] UPSET cucumbers Allergy Severe Vomiting Uncoded 11/28/19 11:44 Vital Signs Temp Pulse Resp BP Pulse Ox 98.0 F 97 H 18 124/68 100 11/28/19 11:45 11/28/19 11:45 11/28/19 11:45 11/28/19 11:45 11/28/19 11:45 11/28/19 11:48 I have performed a brief in-person evaluation of this patient. The patient presents with a chief complaint of:BIB daughter for FTT. Multiple comorbidities Pertinent physical exam findings:Stable, well martell I have ordered the following:labs/ekg/cxr The patient will proceed to the ED for further evaluation. Discharge Disposition - Diagnosis FTT (failure to thrive) in adult - Referrals - Patient Instructions - Post Discharge Activity
--- NOTE | 2019-11-28 12:30 | PDOC ---
History of Present Illness - General Chief Complaint: Eye Problem Stated Complaint: EYE PROBLEM/WEAKNESS Time Seen by Provider: 11/28/19 11:47 History Source: Patient, Family Exam Limitations: No Limitations - History of Present Illness Initial Comments: 89 yo female 88 yo female w/PMH Afib on Pradaxa, CAD, HTN, Breast Ca, Parkinson's, CVA, dementia, long standing history of chronic constipation, diverticulitis presents to ED requesting placement in NH. Recently diagnosed with conjuctivitis and completing a 7 day course of PO doxy and opthalmic ophloxacin. States vision, pain, and redness much improved, but still has some irritation and redness. No acute complaints. Is able to dress and feed herself, but relies on daughter (whom she lives with) and director of home care hospice for IADLs. crew attendant has been gone for a week and daughter finding it increasingly difficult to care for her mother. Patient and daughter agree that best place for her is NH, and PCP Dr. العلي recommended 72h admission for placement. PMH as above. Meds and Allergies reviewed with patient and reconciled in chart 11/28/19 18:26 Past History - Medical History Allergies/Adverse Reactions: Allergies Allergy/AdvReac Type Severity Reaction Status Date / Time niacin Allergy Severe Nausea Verified 11/28/19 11:44 [From Niaspan Extended-Release] sulfasalazine Allergy Severe Swelling Verified 11/28/19 11:44 [From Azulfidine] strawberry [[place]] Allergy Intermediate Vomiting Verified 11/28/19 11:44 indomethacin [From Indocin] Allergy Unknown Verified 11/28/19 11:44 indomethacin sodium Allergy Unknown Verified 11/28/19 11:44 [From Indocin] betaine AdvReac Intermediate STOMACH Verified 11/28/19 11:44 [From Cholesterol Fighter] UPSET chitosan AdvReac Intermediate STOMACH Verified 11/28/19 11:44 [From Cholesterol Fighter] UPSET lecithin AdvReac Intermediate STOMACH Verified 11/28/19 11:44 [From Cholesterol Fighter] UPSET NSAIDS (Non-Steroidal AdvReac Intermediate STOMACH Verified 11/28/19 11:44 Anti-Inflamma UPSET Sitosterols AdvReac Intermediate STOMACH Verified 11/28/19 11:44 [From Cholesterol Fighter] UPSET cucumbers Allergy Severe Vomiting Uncoded 11/28/19 11:44 Home Medications: Ambulatory Orders Dabigatran Etexilate Mesylate [Pradaxa -] 150 mg PO BID #60 cap 09/07/17 Pantoprazole Sodium [Protonix -] 40 mg PO DAILY #30 tablet.ec 09/07/17 Rosuvastatin [Crestor -] 10 mg PO HS tablet 09/07/17 Amlodipine Besylate 2.5 mg PO DAILY 08/01/18 Citalopram Hydrobromide [Celexa -] 10 mg PO HS 08/01/18 Hydrochlorothiazide 12.5 mg PO DAILY 08/01/18 Losartan Potassium [Cozaar -] 100 mg PO HS 08/01/18 Methimazole 5 mg PO DAILY 08/01/18 Carbidopa/Levodopa [Carbidopa-Levo ER 50-200 Tab] 1 each PO QID 11/28/19 Doxycycline Hyclate 100 mg PO BID 11/28/19 Ofloxacin 0.3% Ophth Soln [Ocuflox 0.3% Eye Drops -] 10 ml OP QID 11/28/19 Prednisolone 1% Ophthalmic [Pred Forte 1% -] 5 ml OP QID 11/28/19 Anemia: No Asthma: No Cancer: Yes (Right radical mastectomy) Cardiac Disorders: Yes (Paroxysmal Atrial fibrillation, ASHD, CHF) CVA: Yes (TIA w/out residual) COPD: No CHF: Yes Dementia: No Diabetes: No GI Disorders: Yes (Diverticulosis,GERD) Disorders: No HTN: Yes Hypercholesterolemia: Yes Liver Disease: No Seizures: No Thyroid Disease: No Other medical history: Eye infection - Surgical History Abdominal Surgery: Yes (Abdominal cyst removal) Appendectomy: Yes Cardiac Surgery: No Cholecystectomy: Yes Lung Surgery: No Neurologic Surgery: No Orthopedic Surgery: No - Immunization History Immunization Up to Date: Yes - Psycho-Social/Smoking History Smoking Status: No Smoking History: Never smoked Have you smoked in the past 12 months: No Number of Cigarettes Smoked Daily: 0 If you are a former smoker, when did you quit?: Over 30 years ago - Substance Abuse Hx (Audit-C & DAST Scrn) How often the patient has a drink containing alcohol: Never Score: In Men: 4 or > Positive; In Women: 3 or > Positive: 0 Screen Result (Pos requires Nsg. Audit-10AR): Negative In the last yr the pt used illegal drug/Rx for NonMed reason: No Score: Yes response is considered Positive: 0 Screen Result (Positive result requires Nsg. DAST-10): Negative Review of Systems - Review of Systems Is the patient limited Luxembourger proficient: No Constitutional: Yes: Weakness. No: Chills, Fever HEENTM: Yes: Eye Pain, Hearing Loss Respiratory: No: Cough, Shortness of Breath Cardiac (ROS): No: Chest Pain, Palpitations ABD/GI: Yes: Constipated, Diarrhea : No: Burning, Dysuria Musculoskeletal: No: Joint Pain, Muscle Pain Neurological: No: Headache, Numbness Psychiatric: No: Anxiety, Depression *Physical Exam - Vital Signs Last Vital Signs Temp Pulse Resp BP Pulse Ox 98.0 F 97 H 18 124/68 100 11/28/19 11:45 11/28/19 11:45 11/28/19 11:45 11/28/19 11:45 11/28/19 11:45 - Physical Exam General Appearance: No: Apparent Distress HEENT: positive: EOMI, ZENON, Other (Scleral and conjuctival injection b/l) Neck: positive: Supple. negative: Tender Respiratory/Chest: positive: Lungs Clear Cardiovascular: positive: Regular Rhythm, Regular Rate Gastrointestinal/Abdominal: positive: Soft. negative: Tender Musculoskeletal: positive: Normal Inspection Extremity: positive: Normal Inspection Neurologic: positive: paper inserter II-XII NML intact, Alert (AAOx2 (to person and place)) ED Treatment Course - LABORATORY CBC & Chemistry Diagram: 11/28/19 13:00 11/28/19 13:00 Medical Decision Making - Medical Decision Making 89yo female with extensive PMH presenting to ED for NH placement for FTT. Will admit to Dr. العلي. -EKG, CXR, labs, covid test EKG: NSR, no ischemic changes, non-specific ST changes CXR: no acute pathology Labs: remarkable for glucose of 261 with no documented diabetes diagnosis Spoke with Dr. العلي who will accept patient 11/28/19 18:28 Discharge - Discharge Information Problems reviewed: Yes Clinical Impression/Diagnosis: FTT (failure to thrive) in adult, Weakness, Risk for falls Condition: Stable - Admission Yes - Follow up/Referral - Patient Discharge Instructions - Post Discharge Activity
--- NOTE | 2019-11-28 12:52 | PDOC ---
Attending Attestation - Resident Resident Name: Gold Mar - ED Attending Attestation I have performed the following: I have examined & evaluated the patient, The case was reviewed & discussed with the resident, I agree w/resident's findings & plan - HPI HPI: 11/28/19 13:41 88 yo female PMH Afib on Pradaxa, CAD, HTN, Breast Ca, Parkinson's, CVA, dementia, long standing history of chronic constipation, diverticulitis presents to the ED for admission for NH placement. she has been having progressive decline in functional status, progressive weakness and difficulty ambulating x "long time." she recently saw acid operator last week for conjunctivitis. family member, daughter at bedside, increasingly less Able to care for the patient, as she is dealing with multiple medical problems and getting weak. 11/28/19 13:45 - Physicial Exam PE: 11/28/19 13:03 General: Well appearing, awake and alert, NAD. demented pleasantly HEENT: NCAT, PERRL, EOMI, b/l conjunctival edema and scleral injection. anicteric, moist mucous membranes, clear oropharynx, no oral lesions.. Neck: neck supple, FROM Resp: CTAB, normal and even respirations, no respiratory distress CVS: irreg irregular. no murmurs, 2+ peripheral pulses throughout, no peripheral edema Abdomen: soft, NTND, no rebound or guarding. Back: nontender, normal inspection and ROM MSK: no edema, [place] x4, ROM intact. No clubbing or cyanosis. normal bulk and tone. Extremities: no calf tenderness Neuro: alert, pleasantly demented, speech clear Skin: warm and well perfused, cap refill <2 sec, normal color 11/28/19 13:43 - Medical Decision Making 11/28/19 12:52 Vital Signs Temp Pulse Resp BP Pulse Ox 98.0 F 97 H 18 124/68 100 11/28/19 11:45 11/28/19 11:45 11/28/19 11:45 11/28/19 11:45 11/28/19 11:45 vitals reviewed labs and lytes wnl no complaints no s/s infection getting more weak per family, fall risk unsafe for discharge admit for social placement, unable to care for self or have family member care for her admitting to Dr العلي service. 11/28/19 16:32 11/28/19 16:32 Heart Score/ECG Review #1 ECG reviewed & interpreted by me at: 12:50 General ECG Interpretation: Sinus Rhythm, Normal Rate 11/28/19 13:04 EKG normal sinus rhythm 71 beats per, no interval abnormalities, narrow QRS, ST and T wave segments and morphology normal. Nonspecific T wave abnormalities Discharge - Discharge Information Problems reviewed: Yes Clinical Impression/Diagnosis: FTT (failure to thrive) in adult, Weakness, Risk for falls Condition: Stable - Admission Yes - Follow up/Referral - Patient Discharge Instructions - Post Discharge Activity
[2019-11-28 13:42] LABS: BASO % 0.3 % (0-2.0); EOS % 0.2 % (0-4.5); HEMATOCRIT 39.3 % (32.4-45.2); HEMOGLOBIN 13.3 GM/dL (10.7-15.3); MCH 32.3 pg (25.7-33.7); MCHC 33.8 g/dl (32.0-36.0); MEAN CELL VOLUME 95.7 fl (80-96); MEAN PLT VOLUME 8.3 fl (7.5-11.1); NEUT % 86.5 % (42.8-82.8); PLATELET COUNT 212 K/MM3 (134-434); RBC 4.11 M/mm3 (3.60-5.2); WHITE BLOOD COUNT 7.4 K/mm3 (4.0-10.0)
[2019-11-28 14:52] LABS: ALBUMIN 3.6 g/dl (3.4-5.0); BILIRUBIN,TOTAL 1.3 mg/dL (0.2-1); BLOOD UREA NITROGEN 19.9 mg/dL (7-18); CALCIUM 9.1 mg/dL (8.5-10.1); CREATININE 1.2 mg/dL (0.55-1.3); POTASSIUM 3.7 mmol/L (3.5-5.1); TOT PROT 6.6 g/dl (6.4-8.2)
--- NOTE | 2019-11-28 15:18 | EKG ---
Test Reason : Blood Pressure : / mmHG Vent. Rate : 071 BPM Atrial Rate : 071 BPM P-R Int : 160 ms QRS Dur : 102 ms QT Int : 416 ms P-R-T Axes : 057 -24 029 degrees QTc Int : 452 ms NORMAL SINUS RHYTHM MODERATE VOLTAGE CRITERIA FOR LVH, MAY BE NORMAL VARIANT NONSPECIFIC T WAVE ABNORMALITY ABNORMAL ECG WHEN COMPARED WITH ECG OF 01-AUG-2018 09:10, No significant changes Confirmed by Ish Caldera ([id number]) on 11/28/2019 3:17:24 PM Referred By: Confirmed By:Ish Caldera
--- NOTE | 2019-11-29 03:25 | HOSP ---
Subjective - Review of Symptoms Events since last encounter: Hospitalist Encounter Notified by the RN, that a patient admitted to Dr العلي's service had no medication orders, and that the med list was confirmed in the chart. Assessment: This is a 88 y/o female with a PMHx of Afib (on Pradaxa), CAD, HTN, Breast Ca, P arkinson's, CVA, Dementia, Constipation, Diverticulitis. Admitted for NH placement for Functional Quadriplegia, Generalized Weakness, Difficulty Ambulating. Plan: Medication orders placed CBC, BMP in am Physical Examination Vital Signs: Vital Signs Temperature 98.0 F 11/29/19 01:00 Pulse Rate 65 11/29/19 01:00 Respiratory Rate 18 11/29/19 01:00 Blood Pressure 151/60 11/29/19 01:00 O2 Sat by Pulse Oximetry (%) 96 11/28/19 23:00 Labs: CBC, BMP 11/28/19 13:00 11/28/19 13:00
[2019-11-29 07:54] LABS: BASO % 0.4 % (0-2.0); EOS % 0.8 % (0-4.5); HEMATOCRIT 35.7 % (32.4-45.2); HEMOGLOBIN 12.2 GM/dL (10.7-15.3); LYMPH % 18.5 % (8-40); MCH 32.3 pg (25.7-33.7); MCHC 34.2 g/dl (32.0-36.0); MEAN CELL VOLUME 94.5 fl (80-96); MONO % 7.6 % (3.8-10.2); NEUT % 72.7 % (42.8-82.8); PLATELET COUNT 186 K/MM3 (134-434); RBC 3.78 M/mm3 (3.60-5.2); RDW 12.6 % (11.6-15.6); WHITE BLOOD COUNT 6.9 K/mm3 (4.0-10.0)
[2019-11-29 08:06] LABS: BLOOD UREA NITROGEN 20.4 mg/dL (7-18); CALCIUM 8.6 mg/dL (8.5-10.1); CREATININE 0.8 mg/dL (0.55-1.3); POTASSIUM 3.3 mmol/L (3.5-5.1)
[2019-11-29] MEDS: OFLOXACIN 0.3% OPHTHALMIC SOLUTION 5 ML BOTTLE OU SCH ×4 (09:40→21:36)
[2019-11-29] MEDS: amLODIPine BESYLATE 2.5 MG TABLET (FP) PO SCH (09:40)
[2019-11-29] MEDS: PANTOPRAZOLE 40 MG TABLET PO SCH (09:40)
[2019-11-29] MEDS: prednisoLONE ACETATE 1% OPHTH SUSP 5 ML BOTTLE OU SCH ×4 (09:40→21:36)
[2019-11-29] MEDS: DABIGATRAN ETEXILATE MESYLATE 150 MG CAPSULE PO SCH ×2 (10:50→21:36)
[2019-11-29] MEDS: METHIMAZOLE 5 MG TABLET (FP) PO SCH (10:50)
[2019-11-29] MEDS ORDERED: PT OWN MED DRAWER 7, Y5N ONE ×3 (11:24→21:31)
--- NOTE | 2019-11-29 11:35 | CONSULT ---
Consult Consult Specialty:: PM&R Dr Holland for Dr Millard - History of Present Illness Chief Complaint: generalized weakness History of Present Illness: This is an 89 year old woman with a medical history of dementia, Parkinson's disease, CVA, CAD, A fib, HTN, constipation, diverticulosis, breast cancer s/p L mastectomy, recent conjunctivitis s/p abx, who presented to the ED 11/28/2019 with failure to thrive and several months progressive functional decline with weakness. She was admitted for long- term placement. Physiatry is being consulted for further recommendations. 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: CVA, Dementia, Parkinson's Cardio/Vascular: Yes: AFIB, CHF, HTN Gastrointestinal: Yes: Diverticulosis (with diverticulitis), GERD - Past Surgical History Past Surgical History: Yes: Appendectomy, Cholecystectomy, Hysterectomy ([facility]INZA) - Alcohol/Substance Use Hx Alcohol Use: No History of Substance Use: reports: None - Smoking History Smoking history: Never smoked Have you smoked in the past 12 months: No Aproximately how many cigarettes per day: 0 If you are a former smoker, when did you quit?: Over 30 years ago - Social History Usual Living Arrangement: Other (, lives with daughter in apartment without stairs to elevator) ADL: Independent (uses RW, has home school teacher 5 hours x3 days) Occupation: Retired: worked for [employer] History of Recent Travel: No Home Medications - Allergies Allergies/Adverse Reactions: Allergies Allergy/AdvReac Type Severity Reaction Status Date / Time niacin Allergy Severe Nausea Verified 11/28/19 11:44 [From Niaspan Extended-Release] sulfasalazine Allergy Severe Swelling Verified 11/28/19 11:44 [From Azulfidine] strawberry [[place]] Allergy Intermediate Vomiting Verified 11/28/19 11:44 indomethacin [From Indocin] Allergy Unknown Verified 11/28/19 11:44 indomethacin sodium Allergy Unknown Verified 11/28/19 11:44 [From Indocin] betaine AdvReac Intermediate STOMACH Verified 11/28/19 11:44 [From Cholesterol Fighter] UPSET chitosan AdvReac Intermediate STOMACH Verified 11/28/19 11:44 [From Cholesterol Fighter] UPSET lecithin AdvReac Intermediate STOMACH Verified 11/28/19 11:44 [From Cholesterol Fighter] UPSET NSAIDS (Non-Steroidal AdvReac Intermediate STOMACH Verified 11/28/19 11:44 Anti-Inflamma UPSET Sitosterols AdvReac Intermediate STOMACH Verified 11/28/19 11:44 [From Cholesterol Fighter] UPSET cucumbers Allergy Severe Vomiting Uncoded 11/28/19 11:44 - Home Medications Home Medications: Ambulatory Orders Dabigatran Etexilate Mesylate [Pradaxa -] 150 mg PO BID #60 cap 09/07/17 Pantoprazole Sodium [Protonix -] 40 mg PO DAILY #30 tablet.ec 09/07/17 Rosuvastatin [Crestor -] 10 mg PO HS tablet 09/07/17 Amlodipine Besylate 2.5 mg PO DAILY 08/01/18 Citalopram Hydrobromide [Celexa -] 10 mg PO HS 08/01/18 Hydrochlorothiazide 12.5 mg PO DAILY 08/01/18 Losartan Potassium [Cozaar -] 100 mg PO HS 08/01/18 Methimazole 5 mg PO DAILY 08/01/18 Carbidopa/Levodopa [Carbidopa-Levo ER 50-200 Tab] 1 each PO QID 11/28/19 Doxycycline Hyclate 100 mg PO BID 11/28/19 Ofloxacin 0.3% Ophth Soln [Ocuflox 0.3% Eye Drops -] 10 ml OP QID 11/28/19 Prednisolone 1% Ophthalmic [Pred Forte 1% -] 5 ml OP QID 11/28/19 Review of Systems Findings/Remarks: denies fevers, chills, changes in vision/ hearing/ mood, CP, SOB, cough, abdominal pain, nausea, vomiting, constipation, diarrhea, dysuria, numbness/ paresthesias BUE/ BLE. Notes diffuse general weakness and being [place] Physical Exam Vital Signs: Vital Signs Temperature 97.9 F 11/29/19 09:53 Pulse Rate 67 11/29/19 09:53 Respiratory Rate 14 11/29/19 09:53 Blood Pressure 141/69 11/29/19 09:53 O2 Sat by Pulse Oximetry (%) 96 11/29/19 08:49 Musculoskeletal: Yes: Other (calm elderly F lying in bed NAD, AAO x3; B shoulder flexion to 160 degrees, 4+/5 BUE/ BLE, 4/5 B HF then 4+/5 BLE; light touch intact BUE/ BLE; no BLE pitting edema or B calf tenderness) Labs: CBC, BMP 11/29/19 07:15 11/29/19 07:15 Imaging - Results Chest X-ray: Report Reviewed (no acute pathology 11/28/2019) Assessment/Plan Impression: 1) Deficits mobility/ ADLs 2) Deconditioning 3) Gait abnormality 4) Failure to thrive 5) Prerenal azotemia 6) Up to date pneumovax, no documented flu shot 7) Overweight 8) hx dementia, Parkinson's disease 9) hx CVA 10) hx CAD, A fib, HTN 11) Chronic constipation, hx diverticulosis 12) hx breast cancer s/p L mastectomy 13) Recent conjunctivitis s/p abx Recommendations: 1) PT for stretching strengthening ROM and functional mobility/ endurance 2) Falls, safety precautions 3) Cardiac precautions 4) DVT ppx: on Pradaxa 5) Skin protection 6) Denies constipation on current bowel regimen 7) Monitor BMP given renal function 8) Nutrition consult for overweight 9) Continue plan per primary team 10) Discharge planning: she would benefit from inpatient rehabilitation once medically stable, and possibly LTC Thank you for this referral.
--- NOTE | 2019-11-29 13:42 | HP ---
Admitting History and Physical - Primary Care Physician PCP: Pat العلي - Admission Chief Complaint: Generalized weakness History of Present Illness: 88 yo female PMH Afib on Pradaxa, CAD, HTN, Breast Ca, Parkinson's, CVA, dementia, long standing history of chronic constipation, diverticulitis presents to the ED for admission for NH placement. she has been having progressive decline in functional status, progressive weakness and difficulty ambulating x "long time." she recently saw product safety consultant last week for conjunctivitis. family member, daughter at bedside, increasingly less Able to care for the patient, as she is dealing with multiple medical problems and getting weak. 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, Parkinson's Cardiovascular: Yes: AFIB, CHF, HTN Gastrointestinal: Yes: Diverticulosis (with diverticulitis), GERD - Past Surgical History Past Surgical History: Yes: Appendectomy, Cholecystectomy, Hysterectomy ([facility]ZA) - Smoking History Smoking history: Never smoked Have you smoked in the past 12 months: No Aproximately how many cigarettes per day: 0 If you are a former smoker, when did you quit?: Over 30 years ago - Alcohol/Substance Use Hx Alcohol Use: No History of Substance Use: reports: None - Social History ADL: Independent (uses RW, 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 History of Recent Travel: No Home Medications - Allergies Allergies/Adverse Reactions: Allergies Allergy/AdvReac Type Severity Reaction Status Date / Time niacin Allergy Severe Nausea Verified 11/28/19 11:44 [From Niaspan Extended-Release] sulfasalazine Allergy Severe Swelling Verified 11/28/19 11:44 [From Azulfidine] strawberry [[place]] Allergy Intermediate Vomiting Verified 11/28/19 11:44 indomethacin [From Indocin] Allergy Unknown Verified 11/28/19 11:44 indomethacin sodium Allergy Unknown Verified 11/28/19 11:44 [From Indocin] betaine AdvReac Intermediate STOMACH Verified 11/28/19 11:44 [From Cholesterol Fighter] UPSET chitosan AdvReac Intermediate STOMACH Verified 11/28/19 11:44 [From Cholesterol Fighter] UPSET lecithin AdvReac Intermediate STOMACH Verified 11/28/19 11:44 [From Cholesterol Fighter] UPSET NSAIDS (Non-Steroidal AdvReac Intermediate STOMACH Verified 11/28/19 11:44 Anti-Inflamma UPSET Sitosterols AdvReac Intermediate STOMACH Verified 11/28/19 11:44 [From Cholesterol Fighter] UPSET cucumbers Allergy Severe Vomiting Uncoded 11/28/19 11:44 - Home Medications Home Medications: Ambulatory Orders Dabigatran Etexilate Mesylate [Pradaxa -] 150 mg PO BID #60 cap 09/07/17 Pantoprazole Sodium [Protonix -] 40 mg PO DAILY #30 tablet.ec 09/07/17 Rosuvastatin [Crestor -] 10 mg PO HS tablet 09/07/17 Amlodipine Besylate 2.5 mg PO DAILY 08/01/18 Citalopram Hydrobromide [Celexa -] 10 mg PO HS 08/01/18 Hydrochlorothiazide 12.5 mg PO DAILY 08/01/18 Losartan Potassium [Cozaar -] 100 mg PO HS 08/01/18 Methimazole 5 mg PO DAILY 08/01/18 Carbidopa/Levodopa [Carbidopa-Levo ER 50-200 Tab] 1 each PO QID 11/28/19 Doxycycline Hyclate 100 mg PO BID 11/28/19 Ofloxacin 0.3% Ophth Soln [Ocuflox 0.3% Eye Drops -] 10 ml OP QID 11/28/19 Prednisolone 1% Ophthalmic [Pred Forte 1% -] 5 ml OP QID 11/28/19 Review of Systems Unable to obtain ROS, reason: 2/2 to Dementia Physical Examination Vital Signs: Vital Signs Temperature 97.9 F 11/29/19 09:53 Pulse Rate 67 11/29/19 09:53 Respiratory Rate 14 11/29/19 09:53 Blood Pressure 141/69 11/29/19 09:53 O2 Sat by Pulse Oximetry (%) 97 11/29/19 08:49 Constitutional: Yes: Well Nourished, No Distress, Calm Cardiovascular: Yes: Regular Rate and Rhythm Respiratory: Yes: Regular, CTA Bilaterally Gastrointestinal: Yes: Normal Bowel Sounds, Soft Renal/: Yes: WNL Musculoskeletal: Yes: Muscle Weakness Extremities: Yes: WNL Edema: No Peripheral Pulses WNL: Yes Neurological: Yes: Alert, Oriented Psychiatric: Yes: Alert, Oriented Labs: CBC, BMP 11/29/19 07:15 11/29/19 07:15 Problem List - Problems (1) FTT (failure to thrive) in adult Assessment/Plan: -Add multivitamin -Add magic cup + Ensure Problems reviewed: Yes Code(s): R62.7 - ADULT FAILURE TO THRIVE (2) Weakness Assessment/Plan: -Physiatry consult -PT -COVID 19 PCR for SNF placement -Check Thyroid profile Problems reviewed: Yes Code(s): R53.1 - WEAKNESS (3) Hypokalemia Assessment/Plan: -likely 2/2 to decreased appetite -KCl 40 meq po once -Repeat BMP in AM Problems reviewed: Yes Code(s): E87.6 - HYPOKALEMIA Assessment/Plan See problem list D/C to [facility], pt's son is in [employer] long term care pharmacist, wants to be together with her son.
[2019-11-29] MEDS: POTASSIUM CHLORIDE TABS 10 MEQ TABLET.ER (FP) PO SCH (14:02)
[2019-11-29] MEDS ORDERED: ROSUVASTATIN CA 10 MG TABLET (FP) PO SCH (22:00)
[2019-11-29] MEDS ORDERED: LOSARTAN POTASSIUM 50 MG TABLET (FP) PO SCH (22:00)
[2019-11-29] MEDS ORDERED: CITALOPRAM HYDROBROMIDE 10 MG TABLET PO SCH (22:00)
[2019-11-29] MEDS ORDERED: SENNOSIDES 8.6MG TABLET (FP) PO SCH (22:00)
[2019-11-30 09:09] LABS: BLOOD UREA NITROGEN 19.2 mg/dL (7-18); CALCIUM 8.8 mg/dL (8.5-10.1); CREATININE 0.9 mg/dL (0.55-1.3); POTASSIUM 3.9 mmol/L (3.5-5.1)
[2019-11-30] MEDS: amLODIPine BESYLATE 2.5 MG TABLET (FP) PO SCH (09:18)
[2019-11-30] MEDS: DABIGATRAN ETEXILATE MESYLATE 150 MG CAPSULE PO SCH (09:19)
[2019-11-30] MEDS: PANTOPRAZOLE 40 MG TABLET PO SCH (09:19)
[2019-11-30] MEDS: POTASSIUM CHLORIDE TABS 10 MEQ TABLET.ER (FP) PO SCH (09:21)
[2019-11-30] MEDS: METHIMAZOLE 5 MG TABLET (FP) PO SCH (09:22)
[2019-11-30] MEDS: OFLOXACIN 0.3% OPHTHALMIC SOLUTION 5 ML BOTTLE OU SCH ×2 (09:28→14:04)
[2019-11-30] MEDS ORDERED: MULTIVITAMINS (DAILY MVI) TABLET (FP) PO SCH (10:00)
--- NOTE | 2019-11-30 10:01 | PN ---
Progress Note, Physician - Current Medication List Current Medications: Active Medications Amlodipine Besylate (Norvasc -) 2.5 mg PO DAILY [facility] Last Admin: 11/30/19 09:18 Dose: 2.5 mg Documented by: Carbidopa/Levodopa (Sinemet *Cr* 50/200 -) 1 combo PO QID [facility] Last Admin: 11/30/19 09:19 Dose: 1 combo Documented by: Citalopram Hydrobromide (Celexa -) 10 mg PO [facility] Last Admin: 11/29/19 21:36 Dose: 10 mg Documented by: Dabigatran (Pradaxa -) 150 mg PO BID [facility] Last Admin: 11/30/19 09:19 Dose: 150 mg Documented by: Losartan Potassium (Cozaar -) 100 mg PO [facility] Last Admin: 11/29/19 21:35 Dose: 100 mg Documented by: Methimazole (Tapazole -) 5 mg PO DAILY [facility] Last Admin: 11/30/19 09:22 Dose: 5 mg Documented by: Multivitamins/Minerals/Vitamin C (Tab-A-Vit -) 1 tab PO DAILY [facility] Last Admin: 11/30/19 09:18 Dose: 1 tab Documented by: Ofloxacin (Ocuflox 0.3% Eye Drops -) 1 drop OU QID [facility] Stop: 12/04/19 09:59 Last Admin: 11/30/19 09:28 Dose: 1 drop Documented by: Pantoprazole Sodium (Protonix -) 40 mg PO DAILY [facility] Last Admin: 11/30/19 09:19 Dose: 40 mg Documented by: Potassium Chloride (K-Dur -) 40 meq PO DAILY [facility] Last Admin: 11/30/19 09:21 Dose: 40 meq Documented by: Rosuvastatin Calcium (Crestor -) 10 mg PO [facility] Last Admin: 11/29/19 21:35 Dose: 10 mg Documented by: Senna (Senna -) 2 tab PO [facility] Last Admin: 11/29/19 21:35 Dose: 2 tab Documented by: - Objective Vital Signs: Vital Signs Temperature 98.4 F 11/30/19 06:00 Pulse Rate 59 L 11/30/19 06:00 Respiratory Rate 18 11/30/19 06:00 Blood Pressure 145/70 11/30/19 06:00 O2 Sat by Pulse Oximetry (%) 95 11/29/19 21:00 Cardiovascular: Yes: S1, S2 Respiratory: Yes: Regular, CTA Bilaterally Gastrointestinal: Yes: Normal Bowel Sounds, Soft. No: Tenderness Edema: No Neurological: Yes: Alert, Oriented Labs: CBC, BMP 11/29/19 07:15 11/30/19 08:35 Assessment/Plan - Problems (1) FTT (failure to thrive) in adult Assessment/Plan: -Add multivitamin -Add magic cup + Ensure Problems reviewed: Yes Code(s): R62.7 - ADULT FAILURE TO THRIVE (2) Weakness Assessment/Plan: -Physiatry consult -PT -COVID 19 PCR for SNF placement -Check Thyroid profile Problems reviewed: Yes Code(s): R53.1 - WEAKNESS (3) Hypokalemia Assessment/Plan: -likely 2/2 to decreased appetite -KCl 40 meq po once -Repeat BMP in AM Problems reviewed: Yes Code(s): E87.6 - HYPOKALEMIA Assessment/Plan See problem list D/C to [employer], pt's son is in [employer] intermodal owner operator truck driver, wants to be toge ther with her son.
--- NOTE | 2019-11-30 12:43 | DS ---
Physical Examination Vital Signs: Vital Signs Temperature 98.4 F 11/30/19 06:00 Pulse Rate 72 11/30/19 10:00 Respiratory Rate 18 11/30/19 10:00 Blood Pressure 140/64 11/30/19 10:00 O2 Sat by Pulse Oximetry (%) 96 11/30/19 09:00 Cardiovascular: Yes: S1, S2 Respiratory: Yes: Regular, CTA Bilaterally Gastrointestinal: Yes: Normal Bowel Sounds, Soft Labs: CBC, BMP 11/29/19 07:15 11/30/19 08:35 Discharge Summary Problems reviewed: Yes Reason For Visit: FAILURE TO THRIVE IN ADULT Current Active Problems FTT (failure to thrive) in adult (Acute) Hypokalemia (Acute) Risk for falls (Acute) Weakness (Acute) Hospital Course: 88 yo female PMH Afib on Pradaxa, CAD, HTN, Breast Ca, Parkinson's, CVA, dementia, long standing history of chronic constipation, diverticulitis presents to the ED for admission for NH placement. she has been having progressive decline in functional status, progressive weakness and difficulty ambulating x "long time." she recently saw laboratory supervisor last week for conjunctivitis. - Problems (1) FTT (failure to thrive) in adult Assessment/Plan: -multivitamin -magic cup + Ensure Problems reviewed: Yes Code(s): R62.7 - ADULT FAILURE TO THRIVE (2) Weakness Assessment/Plan: -Physiatry consult -PT -COVID 19 PCR for SNF placement -Check Thyroid profile Problems reviewed: Yes Code(s): R53.1 - WEAKNESS (3) Hypokalemia Assessment/Plan: -likely 2/2 to decreased appetite -KCl 40 meq po once -Repeat BMP K NORMAL -Monitor Problems reviewed: Yes Code(s): E87.6 - HYPOKALEMIA Monitor blood sugars See problem list D/C to [employer], pt's son is in [employer] intermediate manager, wants to be tog ether with her son. Condition: Stable - Instructions Diet, Activity, Other Instructions: BMP ON THURSDAY AND NEXT WEEK MONITOR POTASSIUM AND TREAT NEEDED Monitor blood sugars ac and cover accordingly Referrals: Pat العلي MD [Primary Care Provider] - - Home Medications Comprehensive Discharge Medication List: Ambulatory Orders Dabigatran Etexilate Mesylate [Pradaxa -] 150 mg PO BID #60 cap 09/07/17 Pantoprazole Sodium [Protonix -] 40 mg PO DAILY #30 tablet.ec 09/07/17 Rosuvastatin [Crestor -] 10 mg PO HS tablet 09/07/17 Amlodipine Besylate 2.5 mg PO DAILY 08/01/18 Citalopram Hydrobromide [Celexa -] 10 mg PO HS 08/01/18 Losartan Potassium [Cozaar -] 100 mg PO HS 08/01/18 Methimazole 5 mg PO DAILY 08/01/18 Carbidopa/Levodopa [Carbidopa-Levo ER 50-200 Tab] 1 each PO QID 11/28/19 Ofloxacin 0.3% Ophth Soln [Ocuflox -] 10 ml OP QID 11/28/19 Prednisolone 1% Ophthalmic [Pred Forte 1% -] 5 ml OP QID 11/28/19
[2019-11-30 13:09] VITALS: BMI 26.9
[2019-11-30 14:53] VITALS: BP 130/69; PULSE 78; TEMP 98
== END 2019-11-30 15:41 | disposition home or self-care (01) | DRG 57 ==
LOC: JER 11:41 → JERBED 12:32 → J5S 22:27
PROVIDERS: ADMIT Family Medicine; ATTEND Family Medicine
DX: G20 Parkinson's disease (principal); R62.7 Adult failure to thrive; Z68.27 Body mass index [BMI] 27.0-27.9, adult; I25.10 Atherosclerotic heart disease of native coronary artery without angina pectoris; I10 Essential (primary) hypertension; I48.91 Unspecified atrial fibrillation; F02.80 Dementia in other diseases classified elsewhere, unspecified severity, without behavioral disturbance, psychotic disturbance, mood disturbance, and anxiety; K59.09 Other constipation; K21.9 Gastro-esophageal reflux disease without esophagitis; K57.90 Diverticulosis of intestine, part unspecified, without perforation or abscess without bleeding; R26.9 Unspecified abnormalities of gait and mobility; E66.3 Overweight; E87.6 Hypokalemia; R53.1 Weakness; Z86.73 Personal history of transient ischemic attack (TIA), and cerebral infarction without residual deficits; Z85.3 Personal history of malignant neoplasm of breast
CPT/HCPCS: 36415; 71045-TC-FY; 80048; 80053; 84439; 84443; 84480; 85025; 93005; 93010; 97116-GP; 97161-GP; 99285-25; U0003